=== PATIENT | female | born 1955 | race Caucasian/White ===

== ENCOUNTER 2022-11-16 14:03 | Outpatient (AMB) | payer MEDICARE, OTHER, SELFPAY ==
--- NOTE | 2022-11-16 14:14 | MHC.OFFVIS ---
Intake Vital Signs 11/16/22 14:15 Height 5 ft 1 in Weight 152 lb 8.958 oz BMI 28.8 BP 127/62 Blood Pressure Location Lt brachial Position Sitting Pulse 84 Intake Visit Reasons: YULIANA, ? need endoscopy Intake Note: Patient presents to in office visit today as a new patient for anemia and rectal bleeding. CC: Patient previously seen at [facility] but GI provider she use to see is no longer there. Last colonoscopy was done on 12/18 and one polyp was removed. She reports rectal bleeding usually in the mornings due to hemorrhoids. Allergies No Known Allergies Allergy (Verified 11/16/22 14:21) HPI YULIANA, ? need endoscopy HPI Details 67-year-old female here for an initial evaluation of anemia. She is referred by EDGAR Pierre of [facility]. PMX ANATOLY Hypertension High cholesterol Anemia Diabetes Gilbert's syndrome syndrome GERD History of colon polyps History of nephrolithiasis Hemorrhoids with a history of bleeding * SURGICAL HISTORY Colonoscopy-2021 equal large TA at [facility] Bilateral cataract extraction large renal stone removal * ALLERGIES: NKDA * LABS: 09/2022 HEMOGLOBIN AND HEMATOCRIT 12/27 NORMOCYTIC NORMOCHROMIC, normal platelets, mildly reduced GFR 58, normal hepatic panel, ferritin low at 51, TODAY'S VISIT They want her referred for consideration of an upper endoscopy, she has struggled with YULIANA for many years, but this came to a head as a problem when she started donating blood. She does have intermittent fatigue. She does not eat a lot of rare red meat, but she does eat chicken and pork. She stopped eating spinach r/t nephrolithiasis. She has iron in her MVI. There are no prior problems with anesthesia or sedation. She denies any cardiac or respiratory problems. No ID problems. NO FHX of stomach cancer, anemia runs on her paternal side. Return office visit after EGD. [facility] Surgical History H/O colonoscopy H/O bilateral cataract extraction Family History Maternal Grandmother Colostomy status Cancer Social History Alcohol intake: current Alcohol intake frequency: holidays/special occasions only Patient Tobacco Use Status: Former Tobacco user Review of Systems Const Reports fatigue, Denies fever(s), Denies night sweats, Denies poor appetite and Denies weight loss ENT Reports Normal hearing present, Denies dental pain, Denies dysphagia, Denies hearing loss, Denies mouth pain, Denies odynophagia, Denies throat swelling, Denies tongue swelling and Reports other (Dentition adequate) Card Reports no additional complaints Resp Reports no additional complaints GI Denies abdominal pain, Denies melena, Denies bloating, Denies hematochezia, Denies constipation, Denies GI cramping, Denies dysphagia, Denies excessive flatus, Denies early satiety, Reports heartburn, Denies diarrhea, Denies nausea, Denies odynophagia, Denies vomiting and Denies hematemesis Skin/Breast Denies pruritus, Denies lesions, Denies rash and Denies jaundice Neuro Reports Normal hearing present and Denies Abnormal speech present Endo Reports fatigue Aller/Immun Denies throat swelling and Denies tongue swelling Physical Exam Vital Signs: Last Vital Signs Pulse 84 11/16/22 14:15 BP 127/62 11/16/22 14:15 BMI result Body Mass Index 28.8 Const General: cooperative, no acute distress, well developed and well groomed Nutritional Appearance: well nourished and overweight Orientation/consciousness: oriented to person, oriented to place and oriented to time Limitations: No language barrier HEENT Head: Yes normocephalic and Yes atraumatic Eyes General: appearance normal, both eyes and all related structures Pupils: Equal, round and reactive pupils present Neck Neck: Yes normal visual inspection and Yes no lymphadenopathy Thyroid: Thyroid normal Resp Effort & Inspection: normal respiratory effort and able to speak in complete sentences Auscultation: clear to auscultation bilaterally Cardio Rate: regular rate Rhythm: regular rhythm Heart sounds: Normal, physiologic split S2 sound present Peripheral pulses: radial pulses present and posterior tibial pulses present GI Inspection: No distended, No Abdominal panniculus present and Yes obesity Palpation (GI): Soft to palpation, nontender, no guarding, not rigid and No hepatosplenomegaly present Percussion: Yes normal to percussion Auscultation: normal bowel sounds Rectal Exam - Female: deferred Skin General skin exam: no rashes or lesions noted, turgor normal, skin not dry, no jaundice, No spider nevi and no striae Rashes: no rashes Nails: normal Neuro General: oriented to person, oriented to place and oriented to time Cranial nerves: Yes Equal, round and reactive pupils present and Yes Normal hearing present Speech: No Abnormal speech present Extrem General: Yes normal to inspection, No clubbing, No cyanosis and No edema Psych Appearance: grossly normal and well kempt Mental Status: mental status grossly normal Speech and movement: Normal speech and movement present Affect: normal affect Attitude: cooperative Thought process: Normal thought process present and not confabulating Thought content: Normal thought content present Insight: Limited insight present (Psych) Judgement: Limited judgement present (Psych) Assessment & Plan Assessment & Plan (1) Anemia: Code(s): D64.9 - Anemia, unspecified Plan: They want her referred for consideration of an upper endoscopy, she has struggled with YULIANA for many years, but this came to a head as a problem when she started donating blood. She does have intermittent fatigue. She does not eat a lot of rare red meat, but she does eat chicken and pork. She stopped eating spinach r/t nephrolithiasis. She has iron in her MVI. There are no prior problems with anesthesia or sedation. She denies any cardiac or respiratory problems. No ID problems. NO FHX of stomach cancer, anemia runs on her paternal side. Return office visit after EGD. Orders: Orders EGD with German - GI Use Only 11/16/22 D64.9 - Anemia, unspecified Coding Level of Care Code New Pt Level 3 (25230) Diagnoses Anemia D64.9
[2022-11-16 14:15] VITALS: BP 127/62; PULSE 84; BMI 28.8
== END 2022-11-16 15:53 | disposition home or self-care (01) ==
PROVIDERS: Visit Provider Nurse Practitioner
DX: D64.9 Anemia, unspecified (principal)
CPT/HCPCS: 99203

== ENCOUNTER → 2022-11-16 14:03 | Outpatient (BNVA) | payer OTHER, SELFPAY | PROVIDERS: Visit Provider Nurse Practitioner ==

== ENCOUNTER 2023-02-02 07:30 | Day surgery (SDC) | payer MEDICARE, OTHER, SELFPAY ==
[2023-01-31 13:07] VITALS: BMI 28.9
--- NOTE | 2023-02-01 10:55 | HO.ANESPROP2 ---
Documented by User: Korin Pham NP 02/01/23 10:55 HPI - Anesthesia Eval Consult details Narrative: 67yo F for Upper Endoscopy PMFSH Active Problems Active Problems: All Active Problems (Updated 01/31/23 @ 13:06 by Fanny Deras, TREMAYNE) Nephrolithiasis (Acute) Bleeding hemorrhoids (Acute) Tubular adenoma of colon (Acute) [place] syndrome (Acute) Diabetic neuropathy (Acute) Diabetes (Acute) High cholesterol (Acute) Hypertension (Acute) ANATOLY (obstructive sleep apnea) (Acute) Anemia (Acute) Past Medical History Medical History Renal calculi Sleep apnea [place] syndrome Diabetes Elevated cholesterol HTN (hypertension) Family History Family History Maternal Grandmother Colostomy status Cancer Surgical History Surgical History Hx of cystoscopy H/O colonoscopy H/O bilateral cataract extraction Social History Social History Alcohol intake: current Alcohol intake frequency: does not drink Patient Tobacco Use Status: Former Tobacco user Are you DNR?: No Advance Directives: No Advance Directives Information Provided: Yes Nutrition Risks: No Nutritional Risk Meds Allergies Allergy/AdvReac Type Severity Reaction Status Date / Time No Known Allergies Allergy Verified 11/16/22 14:21 Home Medications Medication Instructions Recorded Confirmed Last Taken Type amlodipine 2.5 mg tablet 2.5 mg PO DAILY 11/16/22 01/31/23 Unknown History atorvastatin 20 mg tablet 20 mg PO DAILY 11/16/22 01/31/23 Unknown History calcium citrate 200 mg (950 mg) 200 mg PO DAILY 11/16/22 Unknown History tablet insulin aspart U-100 100 unit/mL 50 unit subcut Q24H 11/16/22 01/31/23 Unknown History subcutaneous solution (Novolog U-100 Insulin aspart) metformin 1,000 mg tablet 1,000 mg PO BID 11/16/22 01/31/23 Unknown History multivitamin (Daily Multi-Vitamin 1 tab PO DAILY 11/16/22 Unknown History tablet) omega 7-uwz-afw-fish oil 1,000 mg 1 cap PO DAILY 11/16/22 Unknown History (120 mg-180 mg) capsule (Fish Oil) omeprazole 20 mg capsule,delayed 20 mg PO DAILY 11/16/22 01/31/23 Unknown History release valsartan 320 1 tab PO DAILY 11/16/22 01/31/23 Unknown History mg-hydrochlorothiazide 12.5 mg tablet vitamin B complex (B 1 tab PO DAILY 11/16/22 Unknown History Complex-Vitamin B12 tablet) Exam Height,Weight and Vital Signs: Height 5 ft 1 in Weight 69.4 kg Assessment and Plan Assessment Anesthesia Assessment: Chart Reviewed Documented by User: Vega Macario MD 02/02/23 08:09 [facility] Past Medical History Medical History Renal calculi Sleep apnea [place] syndrome Diabetes Elevated cholesterol HTN (hypertension) Family History Family History Maternal Grandmother Colostomy status Cancer Family history of problems with anesthesia: No Surgical History Surgical History Hx of cystoscopy H/O colonoscopy H/O bilateral cataract extraction History of Problems with Anesthesia: No Social History Social History Alcohol intake: current Alcohol intake frequency: does not drink Patient Tobacco Use Status: Former Tobacco user Are you DNR?: No Advance Directives: No Advance Directives Information Provided: Yes Nutrition Risks: No Nutritional Risk Meds Allergies Allergy/AdvReac Type Severity Reaction Status Date / Time No Known Allergies Allergy Verified 11/16/22 14:21 Home Medications Medication Instructions Recorded Confirmed Last Taken Type amlodipine 2.5 mg tablet 2.5 mg PO DAILY 11/16/22 01/31/23 Unknown History atorvastatin 20 mg tablet 20 mg PO DAILY 11/16/22 01/31/23 Unknown History calcium citrate 200 mg (950 mg) 200 mg PO DAILY 11/16/22 Unknown History tablet insulin aspart U-100 100 unit/mL 50 unit subcut Q24H 11/16/22 01/31/23 Unknown History subcutaneous solution (Novolog U-100 Insulin aspart) metformin 1,000 mg tablet 1,000 mg PO BID 11/16/22 01/31/23 Unknown History multivitamin (Daily Multi-Vitamin 1 tab PO DAILY 11/16/22 Unknown History tablet) omega 1-vxb-cic-fish oil 1,000 mg 1 cap PO DAILY 11/16/22 Unknown History (120 mg-180 mg) capsule (Fish Oil) omeprazole 20 mg capsule,delayed 20 mg PO DAILY 11/16/22 01/31/23 Unknown History release valsartan 320 1 tab PO DAILY 11/16/22 01/31/23 Unknown History mg-hydrochlorothiazide 12.5 mg tablet vitamin B complex (B 1 tab PO DAILY 11/16/22 Unknown History Complex-Vitamin B12 tablet) Exam Airway Mallampati Class: III TM Dist: >3cm Neck ROM: Full Loose/Missing/Broken Teeth: No Heart: rrr+[id number] Lungs: cta b/l Assessment and Plan Assessment Anesthesia Assessment: Anesthesia Plan Discussed Final Anesthetic Review Family History of Problems with Anesthesia: No History of Problems with Anesthesia: No NPO: Yes ASA Class: III Final Preanesthetic Review: No Changes in Pt Med Stat, Meds/Allgs Chart Reviewed, Consent Obtained/Reviewed and Anes Risks/Benef Reviewed Patient Risk: Intermediate Procedure Risk: Intermediate Assessment/Block/Sedation in SS: Assess/Block/Sedation-SS Anesthetic Plan Anesthetic Plan: MAC: and Agree w/ Assess. and Plan Disposition: Standard PACU
[2023-02-02 07:39] VITALS: BMI 27.8
[2023-02-02 08:06] VITALS: BP 158/78; PULSE 78; RESP 20; TEMP 36.8; O2SAT 97
[2023-02-02] MEDS: Lactated Ringers 1,000 ML 100 ML IVCONT (08:07)
--- NOTE | 2023-02-02 08:34 | MHC.SHP ---
Pre-Procedural Eval Section A Date of Service: 02/02/23 Section B Chief Complaint: Anemia, unspecified Relevant Family History (Specify if Yes): No Relevant Social History: None Present Medications: see Short Stay Collaborative assessment Medical History: Significant History (Renal calculi Sleep apnea Byron syndrome Diabetes Elevated cholesterol HTN (hypertension)) History of Previous Operations: Relevant previous surgery/procedure and date(s) (Hx of cystoscopy H/O colonoscopy H/O bilateral cataract extraction) Allergies: Allergies Allergy/AdvReac Type Severity Reaction Status Date / Time No Known Allergies Allergy Verified 11/16/22 14:21 Review of Systems Sugical H&P ROS: Negative: Constitution, Cardiovascular, Respiratory, Neurological, Psychiatric, Hem-Onc, Allergic/Immunologic, Gastrointestinal, Genitourinary, Musculoskeletal, Integumentary, Endocrine and Eyes/Ears/Nose/Throat Exam Surgical H&P Exam: Normal: HEENT, Normal: Heart, Normal: Lungs, Normal: Extremities, Normal: Abdomen, Normal: Skin and Normal: Neurological Plan Diagnosis/Plan: Unchanged I have reviewed the history and physical and performed a pertinent physical examination on my patient. No changes have occurred unless specified. Time Spent With Patient Time: Total time managing care of this patient today ____ minutes.
--- NOTE | 2023-02-02 08:42 | W.PM.OPN ---
Operative Note Operative Note Date of Service: 02/02/23 Narrative: Procedure Description: EGD Indication: anemia Anesthesia: MAC FLEXIBLE TRANSORAL UPPER GASTROINTESTINAL ENDOSCOPY UPPER ENDOSCOPY Consent: Indications for the procedure and potential complications of bleeding, perforation, reaction to medications and missed diagnosis were discussed with the patient and informed consent was obtained. Instrument: Olympus GIF H 190 J mid size upper endoscope Monitoring: Vital signs and clinical assessment, continuous EKG monitoring, Pulse oximetry, Carbon Dioxide monitoring and blood pressure monitoring were done throughout the procedure. Procedure: The patient was placed in the left lateral decubitis position and pre-procedure medications were administered and a bite block was placed. The endoscope was inserted into the mouth and advanced under direct vision to the third part of duodenum. A careful inspection was made as the upper endoscope was withdrawn including a retroflexed examination of the proximal stomach; Findings and interventions are described below. Findings: Larynx:normal Esophagus: GE junction at 37 cm, diaphragm hiatus at 31 cm, no varices or esophagitis. Stomach: Normal mucosa with few small fundic gland polyps noted. Biopsies were obtained. Grade 2 flap valve on retroflexed examination of the cardia. Hiatal hernia noted Duodenum: Normal bulb and descending duodenum, bx taken Intervention: Biopsies as noted above Impression/Findings: hiatal hernia, fixed PLAN: GERD precautions capsule endoscopy to complete anemia work up
[2023-02-02 08:46] VITALS: BP 102/44; PULSE 86; RESP 16; TEMP 36.8; O2SAT 100
[2023-02-02 09:01] VITALS: BP 159/90; PULSE 92; RESP 18; TEMP 36.6; O2SAT 98
== END 2023-02-02 09:46 | disposition home or self-care (01) ==
PROVIDERS: PCP Nurse Practitioner Primary Care; Visit Provider Internal Medicine Gastroenterology
PROC: 0DJ08ZZ Inspection of Upper Intestinal Tract, Via Natural or Artificial Opening Endoscopic (ICD-10-PCS; CPT 43235; principal; 2023-02-02 09:30)
DX: K31.7 Polyp of stomach and duodenum (principal); K29.80 Duodenitis without bleeding; K44.9 Diaphragmatic hernia without obstruction or gangrene; D64.9 Anemia, unspecified; E11.9 Type 2 diabetes mellitus without complications; E78.00 Pure hypercholesterolemia, unspecified; I10 Essential (primary) hypertension; G47.33 Obstructive sleep apnea (adult) (pediatric); Z87.891 Personal history of nicotine dependence
CPT/HCPCS: 43239; 88305; 88342; J2704

== ENCOUNTER → 2023-02-02 07:30 | Outpatient (BNV) | payer MEDICARE, OTHER, SELFPAY | PROVIDERS: PCP Nurse Practitioner Primary Care; Visit Provider Internal Medicine Gastroenterology | DX: D64.9 Anemia, unspecified (principal); K31.7 Polyp of stomach and duodenum; K29.80 Duodenitis without bleeding; K44.9 Diaphragmatic hernia without obstruction or gangrene | CPT/HCPCS: 43239 ==

== ENCOUNTER → 2023-03-10 13:04 | Outpatient (BNVA) | payer MEDICARE, OTHER, SELFPAY | PROVIDERS: Visit Provider Nurse Practitioner | DX: K29.80 Duodenitis without bleeding (principal); K64.9 Unspecified hemorrhoids; Z86.010 Personal history of colon polyps; Z98.890 Other specified postprocedural states | CPT/HCPCS: 99212 ==

== ENCOUNTER 2023-05-01 08:17 | Outpatient (AMB) | payer MEDICARE, OTHER, SELFPAY ==
--- NOTE | 2023-05-08 17:37 | A.OFFVIS_ITS ---
Intake Intake Visit Reasons: CAPSULE ENDOSCOPY Allergies No Known Allergies Allergy (Verified 11/16/22 14:21) PFSH Medical History Renal calculi Sleep apnea [place] syndrome Diabetes Elevated cholesterol HTN (hypertension) Surgical History Hx of cystoscopy H/O colonoscopy H/O bilateral cataract extraction Family History Maternal Grandmother Colostomy status Cancer Social History Alcohol intake: current Alcohol intake frequency: does not drink Patient Tobacco Use Status: Former Tobacco user Office Procedures AMB Capsule Endoscopy Procedure Notes: Capsule Endoscopy: Date of Service:05/01/23 Indication: [anemia] Findings: normal appearing stomach, but rapid gastric emptying. Small bowel normal, du odenum entered at 4 mins, cecum reached at 4 hr 10 min Conclusion: no cause for anemia found, possible rapid gastric emptying Capsule Endoscopy CPT Code: 60683 - Capsule Endoscopy Assessment & Plan Assessment & Plan (1) Anemia: Code(s): D64.9 - Anemia, unspecified Plan: see report Coding Level of Care Code Procedure Only Diagnoses Anemia D64.9 CPT Codes AMB Capsule Endoscopy - Capsule Endoscopy CPT Code: 16086 - Capsule Endoscopy ([id number])
== END 2023-05-01 08:38 | disposition home or self-care (01) ==
PROVIDERS: PCP Nurse Practitioner Primary Care; Visit Provider Internal Medicine Gastroenterology
DX: D64.9 Anemia, unspecified (principal)
CPT/HCPCS: 91110

== ENCOUNTER → 2023-05-01 08:17 | Outpatient (BNVA) | payer MEDICARE, OTHER, SELFPAY | PROVIDERS: PCP Nurse Practitioner Primary Care; Visit Provider Internal Medicine Gastroenterology | DX: D64.9 Anemia, unspecified (principal) | CPT/HCPCS: 91110 ==

== ENCOUNTER 2023-05-19 09:10 | Outpatient (AMB) | payer MEDICARE, OTHER, SELFPAY ==
--- NOTE | 2023-05-19 09:12 | A.OFFVIS_ITS ---
Intake Vital Signs 05/19/23 09:13 Height 5 ft 1 in Weight 145 lb BMI 27.4 BP 157/70 H Blood Pressure Location Lt brachial Position Sitting Pulse 94 Intake Visit Reasons: F/U Capsule Per May Intake Note: Betty presents in the office to discuss capsule report with Anirudh per May Tri. Human Resources Trainee Required: No Allergies No Known Allergies Allergy (Verified 05/19/23 09:13) HPI F/U Capsule Per May HPI Details 67 yr old f here for f/u for chronic ane wilson RECAP: She had EGD 02/18 for anemia w/u--revealed large hiatal hernia, fundic gland polyps--path-focal chronic duodenitis colonoscopy- 2021- done at [place], one polyp removed--apparently large Capsule endo- normal, no active bleeding, possible rapid gastric emptying hx of bleeding hemorrhoids LABS: 09/2022 HEMOGLOBIN AND HEMATOCRIT 12/27 NORMOCYTIC NORMOCHROMIC, normal platelets, mildly reduced GFR 58, normal hepatic panel, ferritin low at 51, sees hematology once a year at [place] INTERIM: she has intermittent rectal bleeding usu when she strains and forces hard stool out notes it goes to bathroom daily she denies nausea, no vomiting no abdominal pain EXAM: GENERAL: The patient is well developed and nontoxic. VITAL SIGNS:see workflow HEENT: Nonicteric sclerae, PERRLA, EOMI. Oropharynx clear. Moist mucous membranes. Conjunctivae appear well perfused. No thyroid mass. CHEST: Chest wall is nontender. HEART: Regular rate and rhythm without murmurs. LUNGS: Clear to auscultation bilaterally. ABDOMEN: Soft, positive bowel sounds, nontender, no organomegaly.no flank tenderness SKIN: No rash, no excessive bruising, petechiae, or purpura. NEUROLOGIC: Cranial nerves II-XII intact without motor/sensory deficit. Psych: normal affect A/P: 1/ Chronic anemia, likely from hemorrhoi ds, had investigations as above 2/ Large hiatal hernia--asymptomatic PLAN: 1/ refer Dr Garland for discussion about herni a repair given size 2/ H pylori and celiac serology for duod enitis 3/ repeat colonoscopy approx 2026 or [place] if clinically indicated 4/ high fiber diet, wants to hold on lenard horton referral [facility] Medical History Renal calculi Sleep apnea Howes syndrome Diabetes Elevated cholesterol HTN (hypertension) Surgical History Hx of cystoscopy H/O colonoscopy H/O bilateral cataract extraction Family History Maternal Grandmother Colostomy status Cancer Social History Alcohol intake: current Alcohol intake frequency: does not drink Patient Tobacco Use Status: Former Tobacco user Assessment & Plan Assessment & Plan (1) Duodenitis: Comment: mild very focal only, no HP Code(s): K29.80 - Duodenitis without bleeding Plan: as above (2) Hiatal hernia: Code(s): K44.9 - Diaphragmatic hernia without obstruction or gangrene Plan: as above Orders: Orders Transglutaminase Ab IgG Today G89.29 - Other chronic pain, K29.80 - Duodenitis without bleeding, R10.33 - Periumbilical pain Transglutaminase IgA Today K29.80 - Duodenitis without bleeding Gliadin Ab Panel Today K29.80 - Duodenitis without bleeding Complete Blood Count Auto Diff Today K29.80 - Duodenitis without bleeding Comprehensive Met. Panel Today K29.80 - Duodenitis without bleeding, K75.81 - Nonalcoholic steatohepatitis (GUZMÁN) H Pylori Breath Test Today Referrals Bariatric Surgery Referral K44.9 - Diaphragmatic hernia without obstruction or gangrene Coding Level of Care Code Est Pt Level 4 (27104) Diagnoses Duodenitis K29.80 Hiatal hernia K44.9
[2023-05-19 09:13] VITALS: BP 157/70; PULSE 94; BMI 27.4
== END 2023-05-19 09:36 | disposition home or self-care (01) ==
PROVIDERS: PCP Nurse Practitioner Primary Care; Visit Provider Internal Medicine Gastroenterology
DX: K29.80 Duodenitis without bleeding (principal); K44.9 Diaphragmatic hernia without obstruction or gangrene
CPT/HCPCS: 99214

== ENCOUNTER 2023-05-19 09:10 | Outpatient (REF) | payer MEDICARE, OTHER, SELFPAY ==
[2023-05-19 10:08] LABS: MANUAL DIFF FLAG NO
[2023-05-19 10:44] LABS: Basophils Absolute Auto 0.1 X10*3/uL (0.0-0.2); Basophils Percent Auto 1.1 % (0-2); Eosinophils Absolute Auto 0.4 X10*3/uL (0.0-0.4); Eosinophils Percent Auto 4.3 % (0-4); Hematocrit 33.1 % (37.0-47.0); Hemoglobin 11.1 g/dl (12.0-16.0); Imm Gran Abs Auto 0.02 X10*3/uL (0.00-0.03); Imm Gran Pct Auto 0.2 % (0.0-0.4); Lymphocytes Percent Auto 23.7 % (20-40); Mean Corpuscular HGB Conc 33.5 g/dl (31.0-35.0); Mean Corpuscular Volume 92.5 fL (80.0-98.0); Mean Platelet Volume 9.1 fL (9.4-12.3); Monocytes Absolute Auto 0.9 X10*3/uL (0.1-1.2); Monocytes Percent Auto 10.2 % (2-11); Neutrophils Absolute Auto 5.2 x10*3/uL (2.0-8.3); Neutrophils Percent Auto 60.5 % (45-73); Platelet Count 359 X10*3/uL (160-400); Red Blood Count 3.58 X10*6/uL (4.20-5.50); Red Cell Distribution Width 12.5 % (11.0-16.0); White Blood Count 8.6 X10*3/uL (4.8-10.8)
[2023-05-19 11:14] LABS: Alanine Aminotransferase 17 U/L (0-31); Alkaline Phosphatase 58 U/L (39-117); Anion Gap 15 (12-20); Aspartate Amino Transferase 24 U/L (5-31); Bilirubin Total 0.5 mg/dL (0.0-1.0); Blood Urea Nitrogen 20 mg/dL (9-16); Calcium 10.4 mg/dL (8.4-10.2); Carbon Dioxide 24 mmol/L (22-29); Chloride 99 mmol/L (96-108); Estimated Glomerular Filt Rate 59; Glucose Random 159 mg/dL (60-115); Potassium 4.9 mmol/L (3.3-5.1); Sodium 133 mmol/L (135-145); Total Protein 7.1 g/dL (6.5-8.0)
[2023-05-22 22:32] LABS: Transglutaminase Ab IgG <1.0 U/mL; Transglutaminase IgA <1.0 U/mL
[2023-05-22 22:48] LABS: Gliadin Deamidated IgA Ab <1.0 U/mL; Gliadin Deamidated IgG Ab <1.0 U/mL
== END 2023-05-19 09:11 | disposition home or self-care (01) ==
LOC: HO.LAB 09:10
PROVIDERS: PCP Nurse Practitioner Primary Care; Visit Provider Internal Medicine Gastroenterology
DX: K29.80 Duodenitis without bleeding (principal); R10.33 Periumbilical pain; G89.29 Other chronic pain; K75.81 Nonalcoholic steatohepatitis (NASH); K44.9 Diaphragmatic hernia without obstruction or gangrene
CPT/HCPCS: 36415; 80053; 85025; 86258; 86364; 99212

== ENCOUNTER 2023-06-02 08:48 | Outpatient (REF) | payer MEDICARE, OTHER, SELFPAY ==
[2023-06-04 12:45] LABS: H Pylori Breath Test Negative (Negative)
== END 2023-06-02 08:49 | disposition home or self-care (01) ==
LOC: HO.LNP 08:48
PROVIDERS: PCP Nurse Practitioner Primary Care; Visit Provider Internal Medicine Gastroenterology
DX: Z11.2 Encounter for screening for other bacterial diseases (principal)
CPT/HCPCS: 83013; 99211

== ENCOUNTER 2023-06-02 08:48 | Outpatient (AMB) | payer MEDICARE, OTHER, SELFPAY ==
--- NOTE | 2023-06-02 09:00 | AM.OFFVISNUR ---
Intake Intake Visit Reasons: H.pylori Breath test Allergies No Known Allergies Allergy (Verified 05/19/23 09:13) Nursing Note Patient presents for collection of?H?Pylori?breath test. Patient has been fasting for 1 hour (nothing to eat, drink, no chewing gum or smoking) has not taken any antacid medication for at least 2 weeks and has no allergies to artificial sweeteners.?? Coding Level of Care Code Established Pt Est Pt Level 1 (88242) Patient Type Established Medical Decision Making Straight Forward Diagnoses Duodenitis K29.80 Assessment & Plan Assessment & Plan (1) Duodenitis: Comment: mild very focal only, no HP Code(s): K29.80 - Duodenitis without bleeding Category: Medical Plan Patient presents for collection of?H?Pylori?breath test. Patient has been fasting for 1 hour (nothing to eat, drink, no chewing gum or smoking) has not taken any antacid medication for at least 2 weeks and has no allergies to artificial sweeteners.???This test checks for an overgrowth of bacteria in your stomach. We all have bacteria but some may have more than others. It is treatable. if the test comes back negative there is nothing else to do. If the test result is positive we will treat you with 2 antibiotics and a medication to decrease the acid in your stomach (PPI) for 2 weeks. Two weeks after you have completed the treatment we will retest you to make sure the overgrowth has resolved. Patient Instructions: Process for specimen collection and reason for testing was explained to the patient. Specimen collection. Patient instructed to take a deep breath and then exhale into the blue bag, filling it up as much as possible. Patient instructed to drink a mixture of water and the artificial sweetener with a straw. A 15 minute wait period was observed. Patient instructed to take a deep breath and then exhale into the pink bag, filling it up as much as possible.??
== END 2023-06-02 09:03 | disposition home or self-care (01) ==
PROVIDERS: PCP Nurse Practitioner Primary Care; Visit Provider Internal Medicine Gastroenterology
DX: K29.80 Duodenitis without bleeding (principal)

== ENCOUNTER 2023-07-17 09:32 | Outpatient (AMB) | payer MEDICARE, OTHER, SELFPAY ==
--- NOTE | 2023-07-17 10:07 | A.OFFVIS_ITS ---
Intake Visit Reasons: TV Hiatal Hernia - Dr. Oleary Ref Allergies No Known Allergies Allergy (Verified 07/17/23 10:08) Medication List - Last Reconciled 07/17/23 by Jaiden Hines MD amlodipine 2.5 mg PO DAILY atorvastatin 20 mg PO DAILY calcium citrate 200 mg PO DAILY cyanocobalamin-liver extract tabs PO fexofenadine (Magdalena Hives) 180 mg PO DAILY fluticasone propionate 50 mcg/actuation (Flonase Allergy Relief) 1 spray intranasal DAILY insulin aspart U-100 (Novolog U-100 Insulin aspart) 50 units subcut Q24H metformin 1,000 mg PO BID multivitamin (Daily Multi-Vitamin tablet) 1 tab PO DAILY omega 6-xcj-iux-fish oil 1,000 mg (120 mg-180 mg) (Fish Oil) 1 cap PO DAILY omeprazole 20 mg PO DAILY peg-electrolyte soln 420 gram 240 mL PO ONCE valsartan-hydrochlorothiazide 320-12.5 mg 1 tab PO DAILY vitamin B complex (B Complex-Vitamin B12 tablet) 1 tab PO DAILY HPI HPI TV Hiatal Hernia - Dr. Oleary Ref: Details: Start time: 9.56am, End time: 10.41am ?I spent 40 minutes speaking with the patient on the phone plus an additional 5 minutes reviewing and updating records for a total of 45 minutes HPI Comments Details: Recent EGD revealed a 6cm fixed diaphragmatic hernia. The endoscopy did not reveal any esophagitis and this was not shown in the path report. The patient does not have breakthrough GERD symptoms and is satisfied with her present state. Denies difficulty breathing or history of pneumonias. [facility] Medical History (Updated 07/17/23 @ 10:13 by Jaiden Hines MD) GERD (gastroesophageal reflux disease) Renal calculi Sleep apnea [place] syndrome Diabetes Elevated cholesterol HTN (hypertension) Surgical History Hx of cystoscopy H/O colonoscopy H/O bilateral cataract extraction Family History Maternal Grandmother Colostomy status Cancer Social History Alcohol intake: current Alcohol intake frequency: does not drink Patient Tobacco Use Status: Former Tobacco user Telehealth Telehealth Telehealth Platform: Telephone Location of provider rendering services: practice address Location of patient: address on file Patient Identification confirmed using: Name, : Yes Telehealth method: voice only Patient verbally consented to treatment: Yes Patient verbally consented to billing insurance company: Yes Patient informed of any privacy concerns related to visit: Yes Minutes spent on Phone/Video with Pt.: 45 Assessment & Plan Assessment & Plan (1) Hiatal hernia: Code(s): K44.9 - Diaphragmatic hernia without obstruction or gangrene Category: Medical Plan: 1. We discussed the details of the diaphragmatic hernia repair and the potential technical challenges such as being able to achieve enough mobilization of the esophagus back in the abdomen and being able to close the diaphragmatic muscle (crura) primarily with sutures. We also discussed the possibility of using a biologic mesh to close the hernia defect if the crura cannot be adequately re- approximated primarily with sutures. We also discussed the option of doing a gastropexy or a fundoplication to prevent postoperative reflux and prevent hernia recurrence. As we discussed, I favor the gastropexy as the fundoplication can cause several distrurbing symptoms such as gas-bloating, flatulence, inability to burp which can be bothersome to patients especially for her with a history of IBS. Also we discussed the complexity of a potential hernia recurrence in association with a hernia recurrence. We also discussed the possibility of not performing a repair right now given the few symptoms she has and the lack of esophagitis and observe it with surveillance endoscopies. 2. Before decision is made, an UGI as well as a CT chest/abdomen/pelvis will be performed. Patient is in agreement with this plan. Orders: Orders CT abdomen pelvis wo IV con Today K21.9 - Gastro-esophageal reflux disease without esophagitis, K44.9 - Diaphragmatic hernia without obstruction or gangrene FL upper GI w air w Ba Swallow Today K21.9 - Gastro-esophageal reflux disease without esophagitis, K44.9 - Diaphragmatic hernia without obstruction or gangrene CT chest wo IV con Today K21.9 - Gastro-esophageal reflux disease without esophagitis, K44.9 - Diaphragmatic hernia without obstruction or gangrene
== END 2023-07-17 10:43 | disposition home or self-care (01) ==
LOC: HO.HBS 09:32
PROVIDERS: PCP Nurse Practitioner Primary Care; Visit Provider Surgery
DX: K44.9 Diaphragmatic hernia without obstruction or gangrene (principal)
CPT/HCPCS: 99443

== ENCOUNTER → 2023-07-17 09:32 | Outpatient (BNVA) | payer MEDICARE, OTHER, SELFPAY | PROVIDERS: PCP Nurse Practitioner Primary Care; Visit Provider Surgery ==

== ENCOUNTER 2023-09-18 08:40 | Outpatient (REF) | payer MEDICARE, OTHER, SELFPAY ==
--- NOTE | ~2023-09-18 | FL_ITS ---
EXAMINATION: XR FLUOROSCOPY UPPER GI WITH AIR CLINICAL INFORMATION: Evaluates hiatal hernia COMPARISON: None TECHNIQUE: Fluoroscopic air contrast upper GI examination was performed utilizing standard techniques with thin and thick barium and effervescent granules. Numerous spot images were obtained. FINDINGS: Imaging of the oropharynx and hypopharynx demonstrate normal swallow mechanism with normal epiglottic inversion and soft palate elevation. No tracheal penetration, glottic or subglottic aspiration identified. No nasopharyngeal reflux present. Hypopharyngeal structures appear normal without evidence of mass or diverticulum. 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 Dual and single contrast images of the esophagus demonstrate normal caliber and contour. There is a granular appearance to the esophageal mucosa in the mid and distal esophagus, suggesting reflux esophagitis. No evidence of stricture, mass, or ulcerations identified. Esophageal peristalsis is mildly disorganized. A small to moderate sized type I hiatal hernia is present. Significant gastroesophageal reflux is seen up to the thoracic inlet. Dual contrast and single contrast images of the stomach demonstrated a normal contour. The gastric rugal folds have a thickened appearance. In addition, there are multiple foci of contrast pooling in the fundus and body the stomach that likely represent small superficial aphthous ulcers. No masses are present. Contrast freely passed into the gastric antrum and duodenal bulb without delay. Single and air-contrast images of the duodenal bulb demonstrate no abnormality. The duodenal sweep has a normal appearance, course, and mucosal fold appearance. There is a small third segment diverticulum. The imaged proximal jejunum has a normal fold pattern and caliber. FLUOROSCOPY TIME: 3 minutes 29 seconds Number of Spot Images: 10 Number of Cine: 9 DOSE AREA PRODUCT: 1911 uGy-m2 (microgray-meter squared) FL/FL upper GI w air w Ba Swallow IMPRESSION: 1. 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 2. Mild esophageal dysmotility. Granular appearance to the esophageal mucosa may indicate reflux esophagitis. 3. Small to moderate type I hiatal hernia 4. Severe gastroesophageal reflux. 5. Thickened appearance of the gastric rugal folds. In addition, there are multiple foci of contrast pooling in the fundus and body of the stomach. These findings are suggestive of erosive gastritis. Recommend correlation with EGD. This procedure was performed by Sina Manley PA-C, and supervised by Dr. Gilman
== END 2023-09-18 08:41 | disposition home or self-care (01) ==
LOC: HO.XRAY 08:40
PROVIDERS: Visit Provider Surgery
DX: K44.9 Diaphragmatic hernia without obstruction or gangrene (principal); K21.9 Gastro-esophageal reflux disease without esophagitis
CPT/HCPCS: 74246

== ENCOUNTER → 2023-09-18 08:42 | Outpatient (BNV) | payer MEDICARE, OTHER, SELFPAY | PROVIDERS: Visit Provider Physician Assistant Surgical | DX: K44.9 Diaphragmatic hernia without obstruction or gangrene (principal) | CPT/HCPCS: 74246 ==

== ENCOUNTER 2023-09-25 10:07 | Outpatient (REF) | payer MEDICARE, OTHER, SELFPAY ==
--- NOTE | ~2023-09-25 | CT_ITS ---
EXAMINATION: CT CHEST WITHOUT CONTRAST CLINICAL INFORMATION: Diaphragmatic hernia COMPARISON: None available. TECHNIQUE: Multidetector volumetric CT imaging of the chest was done. Axial MIP volume rendering provided. Sagittal and coronal reformatted images were obtained. This CT examination was performed using dose optimization techniques as appropriate, variously including the following: *Automated exposure control *Adjustment of mA and/or kV according to patient size (this includes techniques or standardized protocols for targeted exams where dose is matched to indication/reason for exam; i.e. extremities or head) *Use of iterative reconstruction technique DLP: 133 mGy-cm FINDINGS: MEDIA CENTER ASSISTANT: Unremarkable LUNGS: The lungs are clear with no evidence of inflammation or nodules. MEDIASTINUM: The mediastinum is normal. CORONARY ARTERY CALCIFICATION: None visualized on this study. PLEURA: There is no pleural effusion. No pleural mass or thickening. AXILLA: No lymphadenopathy. UPPER ABDOMEN: There is large hiatal hernia OSSEOUS STRUCTURES: Unremarkable. CT/CT chest wo IV con IMPRESSION: Large hiatal hernia. Fleischner guidelines were followed. Electronically signed by: Yumiko Pollock MD 10/23/2023 09:09 AM EDT
--- NOTE | ~2023-09-25 | CT_ITS ---
EXAMINATION: CT ABDOMEN AND PELVIS WITHOUT CONTRAST CLINICAL INFORMATION: Diaphragmatic hernia COMPARISON: None available. TECHNIQUE: Multidetector volumetric imaging was performed from the superior aspect of the liver through the pubic symphysis. Sagittal and coronal reformatted images were obtained on the technologist's workstation. This CT examination was performed using dose optimization techniques as appropriate, variously including the following: *Automated exposure control *Adjustment of mA and/or kV according to patient size (this includes techniques or standardized protocols for targeted exams where dose is matched to indication/reason for exam; i.e. extremities or head) *Use of iterative reconstruction technique DLP: 415 mGy-cm FINDINGS: LUNG BASES: The visualized lung bases are unremarkable. LIVER, GALLBLADDER, AND BILIARY TREE: The liver is normal in size, shape, and attenuation. No focal hepatic lesion or biliary ductal dilatation is present. The gallbladder is unremarkable with no evidence of radiopaque gallstones, gallbladder wall thickening, or obvious pericholecystic inflammatory changes. PANCREAS: Unremarkable. SPLEEN: Unremarkable. ADRENAL GLANDS: Unremarkable. KIDNEYS AND URETERS: The kidneys are normal in size, shape, and attenuation. No hydronephrosis, hydroureter, or calculi seen. No perinephric stranding. BLADDER: Unremarkable. GASTROINTESTINAL TRACT: There is moderate constipation. No evidence of colitis, diverticulitis or diverticulosis. There is large hiatal hernia. ABDOMINAL WALL: There is a fat-containing left inguinal hernia LYMPH NODES: Normal. VASCULAR: Unremarkable. PELVIC VISCERA: Unremarkable. OSSEOUS STRUCTURES: Unremarkable. CT/CT abdomen pelvis wo IV con IMPRESSION: 1. Large hiatal hernia. 2. Fat-containing left inguinal hernia. 3. Constipation. Fleischner guidelines were followed. Electronically signed by: Yumiko Pollock MD 10/23/2023 09:06 AM EDT
== END 2023-09-25 10:08 | disposition home or self-care (01) ==
LOC: HO.CT 10:07
PROVIDERS: PCP Nurse Practitioner Primary Care; Visit Provider Surgery
DX: K44.9 Diaphragmatic hernia without obstruction or gangrene (principal); K21.9 Gastro-esophageal reflux disease without esophagitis
CPT/HCPCS: 71250; 74176

== ENCOUNTER 2023-11-13 09:02 | Outpatient (AMB) | payer MEDICARE, OTHER, SELFPAY ==
--- NOTE | 2023-11-13 09:11 | A.OFFVIS_ITS ---
Vital Signs 11/13/23 09:14 Height 5 ft 1 in Weight 145 lb 8.081 oz BMI 27.5 BP 126/54 L Blood Pressure Location Lt brachial Position Sitting Pulse 96 Intake Visit Reasons: 6 month follow up Intake Note: Betty presents in the office as a 6 month follow up. CC: She states that she is feeling good - not having any concerns. Allergies No Known Allergies Allergy (Verified 11/13/23 09:14) HPI HPI 6 month follow up: Details: 68 yr old f here for f/u for chronic anemia RECAP: She had EGD 02/18 for anemia w/u--revealed large hiatal hernia, fundic gland polyps--path-focal chronic duodenitis colonoscopy- 2021- done at [place], one polyp removed--apparently large Capsule endo- normal, no active bleeding, possible rapid gastric emptying hx of bleeding hemorrhoids LABS: 09/2022 HEMOGLOBIN AND HEMATOCRIT 12/27 NORMOCYTIC NORMOCHROMIC, normal platelets, mildly reduced GFR 58, normal hepatic panel, ferritin low at 51, sees hematology once a year at [facility] swallow: 09/19- hiatal hernia noted, CT chest/abdomen 09/19 large hiatal hernia labs with GFR 49 (been having issues with kidney stones plus she is diabetic--maybe playing role in anemia, ferritin and iron sat was nml) INTERIM: no rectal bleeding, doing well with high fiber diet goes to bathroom daily she denies nausea, no vomiting no abdominal pain she has globus sensation, she has belching she is seeing DR Garlnad H pylori and celiac negative EXAM: GENERAL: The patient is well developed and nontoxic. VITAL SIGNS:see workflow HEENT: Nonicteric sclerae, PERRLA, EOMI. Oropharynx clear. Moist mucous membranes. Conjunctivae appear well perfused. No thyroid mass. CHEST: Chest wall is nontender. HEART: Regular rate and rhythm without murmurs. LUNGS: Clear to auscultation bilaterally. ABDOMEN: Soft, positive bowel sounds, nontender, no organomegaly.no flank tenderness SKIN: No rash, no excessive bruising, petechiae, or purpura. NEUROLOGIC: Cranial nerves II-XII intact without motor/sensory deficit. Psych: normal affect A/P: 1/ Chronic anemia, likely from hemorrhoids, had investigations as above 2/ Large hiatal hernia- seeing Dr Garland PLAN: 1/ f/u Dr Garland for discussion about hernia repair given size 2/ cont with omeprazole 3/ repeat colonoscopy approx 2026 or earlier if clinically indicated 4/ cont with high fiber diet, PFSH Medical History GERD (gastroesophageal reflux disease) Renal calculi Sleep apnea [place] syndrome Diabetes Elevated cholesterol HTN (hypertension) Surgical History Hx of cystoscopy H/O colonoscopy H/O bilateral cataract extraction Family History Maternal Grandmother Colostomy status Cancer Social History Alcohol intake: current Alcohol intake frequency: does not drink Patient Tobacco Use Status: Former Tobacco user Physical Exam Vital Signs: Last Vital Signs Pulse 96 11/13/23 09:14 BP 126/54 L 11/13/23 09:14 BMI result Body Mass Index 27.5 Assessment & Plan Assessment & Plan (1) Hiatal hernia: Code(s): K44.9 - Diaphragmatic hernia without obstruction or gangrene Category: Medical Plan: see above (2) GERD (gastroesophageal reflux disease): Code(s): K21.9 - Gastro-esophageal reflux disease without esophagitis Category: Medical Plan: see above Coding Level of Care Code Est Pt Level 3 (15634) Diagnoses Hiatal hernia K44.9 GERD (gastroesophageal reflux disease) K21.9
[2023-11-13 09:14] VITALS: BP 126/54; PULSE 96; BMI 27.5
== END 2023-11-13 09:59 | disposition home or self-care (01) ==
PROVIDERS: PCP Nurse Practitioner Primary Care; Visit Provider Internal Medicine Gastroenterology
DX: K44.9 Diaphragmatic hernia without obstruction or gangrene (principal); K21.9 Gastro-esophageal reflux disease without esophagitis
CPT/HCPCS: 99213

== ENCOUNTER → 2023-11-13 09:02 | Outpatient (BNVA) | payer MEDICARE, OTHER, SELFPAY | PROVIDERS: PCP Nurse Practitioner Primary Care; Visit Provider Internal Medicine Gastroenterology | DX: K44.9 Diaphragmatic hernia without obstruction or gangrene (principal); K21.9 Gastro-esophageal reflux disease without esophagitis | CPT/HCPCS: 99212 ==

== ENCOUNTER 2023-12-04 12:10 | Outpatient (AMB) | payer MEDICARE, OTHER, SELFPAY ==
--- NOTE | 2023-12-04 12:17 | A.OFFVIS_ITS ---
VS Expanded 12/04/23 12:27 BP 161/74 H Blood Pressure Location Rt brachial Blood Pressure Position Sitting Pulse 94 Pulse Source Pulse Oximeter Temp 97.3 F Temperature Source Temporal Artery Scan Pulse Oximetry 100 Oxygen Delivery Method Room Air Height 5 ft 1 in Weight 139 lb 3.2 oz BMI 26.3 Body Fat % 33.0 Body Fat Mass 45.8 Fat Free Mass 93.2 Visceral Fat Rating 9.0 Body Water % 47.2 Body Water Mass 65.6 Muscle Mass/Score 88.4 Basal Metabolic Rate/Score 1,249 Intake Visit Reasons: OV Follow Up Hiatal Hernia Allergies No Known Allergies Allergy (Verified 12/04/23 13:56) Medication List - Last Reconciled 12/04/23 by Jaiden Hines MD amlodipine 2.5 mg PO DAILY atorvastatin 20 mg PO DAILY calcium citrate 200 mg PO DAILY cyanocobalamin-liver extract tabs PO fexofenadine (Magdalena Hives) 180 mg PO DAILY fluticasone propionate 50 mcg/actuation (Flonase Allergy Relief) 1 spray intranasal DAILY insulin aspart U-100 (Novolog U-100 Insulin aspart) 50 units subcut Q24H metformin 1,000 mg PO BID multivitamin (Daily Multi-Vitamin tablet) 1 tab PO DAILY omega 3-uuy-auf-fish oil 1,000 mg (120 mg-180 mg) (Fish Oil) 1 cap PO DAILY omeprazole 20 mg PO DAILY valsartan-hydrochlorothiazide 320-12.5 mg 1 tab PO DAILY vitamin B complex (B Complex-Vitamin B12 tablet) 1 tab PO DAILY HPI Comments Details: Here for preoperative visit for upcoming diaphragmatic hernia repair [facility] Medical History GERD (gastroesophageal reflux disease) Renal calculi Sleep apnea [place] syndrome Diabetes Elevated cholesterol HTN (hypertension) Surgical History Hx of cystoscopy H/O colonoscopy H/O bilateral cataract extraction Family History Maternal Grandmother Colostomy status Cancer Social History (Updated 12/04/23 @ 12:22 by Yolanda Estes CMA) Alcohol intake: current Alcohol intake frequency: holidays/special occasions only Patient Tobacco Use Status: Former Tobacco user Physical Exam Vital Signs: Last Vital Signs Temp 97.3 F 12/04/23 12:27 Pulse 94 12/04/23 12:27 BP 161/74 H 12/04/23 12:27 Pulse Ox 100 12/04/23 12:27 Oxygen Delivery Method Room Air 12/04/23 12:27 BMI result Body Mass Index 26.3 GI Inspection: Yes normal to inspection (android) Palpation (GI): Soft to palpation Extrem Right lower extremity: normal to inspection Left lower extremity: normal to inspection Assessment & Plan Assessment & Plan (1) Hiatal hernia: Code(s): K44.9 - Diaphragmatic hernia without obstruction or gangrene Category: Medical Plan: 1. We discussed the potential etiology of the hernia. We also discussed that the hernia is most likely contributing to the difficlty breathing on exercise, heartburn and not being able to complete her meal sometimes. We discussed the details of the diaphragmatic hernia repair and the potential technical challenges such as being able to achieve enough mobilization of the esophagus back in the abdomen and being able to close the diaphragmatic muscle (crura) primarily with sutures. We also discussed the possibility of using a biologic mesh to close the hernia defect if the crura cannot be adequately re-approximat ed primarily with sutures. We also discussed the option of doing a gastropexy or a fundoplication to prevent postoperative reflux and prevent hernia recurrence. As we discussed, I favor the gastropexy as the fundoplication can cause several distrurbing symptoms such as gas-bloating, flatulence, inability to burp which can be bothersome to patients. Also we discussed the complexity of a potential h ernia recurrence in association with a hernia recurrence. She was in agreement not to have a fundoplication. 2. Preop prescriptions were provided and explained the purpose of each one. Need to be purchased preop. Start Pantoprazole now as you get it from the pharmacy, 1 pill per day. Sucralfate and Zofran are for after surgery as needed. 3. Bowel prep: please do 7 packets ?of Miralax mixing each one with a an 8oz glass of water, crystal light, gatorade zero, or propel ?on 09/08/20 and the same amount on 09/09/20. The Miralax you begin with one packet at a time in 8oz water or crystal light, gatorade zero, or propel ?as early in the day as you can and you do them back to back until you finish them. Continue the protein shakes during ?the bowel prep. 4. Needs to purchase 1oz medicine cups . 5. Needs to purchase Children's liquid Tylenol for postop pain control. 6. Avoid aspirin, motrin, Advil, Aleve, Ibuprofen, Naproxyn. Tylenol is OK. 7. She needs to purchase the Celebrate REBUILD protein shakes from the hospital's gift shop. 8. Will do basic preop blood work-up and EKG any day this week fasting for 12 hours and is scheduled to see the Anesthesiologist prior to the day of surgery. 9. Importance of adherence to postop folllow-up and recommendations was underscored and she understands that. 10. Stop food and bars as of Monday12/19/23 and continue with 5 CELEBRATE REBUILD protein shakes (ONE scoop EACH in 8oz almond milk) at 8am-10am, 11am- 1pm, 2pm-4pm, 5pm-7pm and at 8pm-10pm 11. No soups, broths or V8 12. The patient's?medical?history has been reviewed and they are considered low risk for post op DVT and therefore DVT prophylaxis is not considered necessary. Travel after surgery was reviewed. The patient has not disclosed any travel plans during the first 30 days after surgery and they have been advised that within the first 30 days after surgery any bus, plane, train or car travel over 2 hours in duration is contraindicated due to the possibility of developing blood clots from immobility. Any travel, needs to include periods of ambulation of 10 minutes in duration every 2 hours.? Patient was instructed to discuss any plans for travel during this period with their bariatric surgeon.? 13. As of tomorrow, please check your blood pressure daily in the morning. If your blood pressure is: Below 120/70: do not take the Valsartan/Hydrochlorothiazide or Amlodipine 121/71 to 135/85: take HALF Valsartan/Hydrochlorothiazide 136/86 to 140/90: take the HALF Valsartan and HALF Amlodipine Over 141/91: take the whole Amlodipine and Valsartan/Hydrochlorothiazide 14. Please take at the day of surgery the following medications: Only the Amlodipine and Valsartan/Hydrochlorothiazide based on the parameters above 15. Stop any control pills and don't use them for one month after surgery 16. Absolutely no smoking or vaping, or marijuana until the surgery and for at least the first 4 weeks. Only nicotine patches are allowed. 17. Check your blood sugar daily and set the parameter to the pump at 150. Please let me know immediately if you have any blood sugar below 100. 18. Avoid any steroids by mouth for any reason. Let me know if someone prescribes them to you Orders: Orders Prothrombin Time INR Today Z01.818 - Encounter for other preprocedural examination Type and Screen Today Z01.818 - Encounter for other preprocedural examination Hemoglobin A1c Today Z01.818 - Encounter for other preprocedural examination Vitamin D 25-OH Total Today Z01.818 - Encounter for other preprocedural examination Vitamin B12 Today Z01.818 - Encounter for other preprocedural examination ECG 12 lead EKG Today Z01.818 - Encounter for other preprocedural examination Comprehensive Met. Panel Today Z01.818 - Encounter for other preprocedural examination TSH reflex Free T4 Today Z01.818 - Encounter for other preprocedural examina tion Partial Thromboplastin Time Today Z01.818 - Encounter for other preprocedural examination C Reactive Protein Today Z01.818 - Encounter for other preprocedural examination Complete Blood Count Auto Diff Today Z01.818 - Encounter for other preprocedural examination Medications: New ondansetron Only take one every 12 hours as needed if you have nausea 4 mg PO Q12H 20 tabs 0RF nausea and vomiting R11.0 - Nausea polyethylene glycol 3350 Mix each measuring cup with 8oz of water, Crystal light, or Gatorade zero, or Propel and do 7 measuring cups on 12/24/23 and another 7 measuring cups on 12/25/23 17 grams PO DAILY 238 grams 0RF Z01.818 - Encounter for other preprocedural examination pantoprazole 40 mg PO DAILY 90 tabs 0RF K21.9 - Gastro-esophageal reflux disease without esophagitis sucralfate 10 mL PO BID 600 mL 2RF K21.9 - Gastro-esophageal reflux disease without esophagitis
[2023-12-04 12:27] VITALS: BP 161/74; PULSE 94; TEMP 36.3; O2SAT 100; BMI 26.3
== END 2023-12-04 14:10 | disposition home or self-care (01) ==
PROVIDERS: PCP Nurse Practitioner Primary Care; Visit Provider Surgery
DX: K44.9 Diaphragmatic hernia without obstruction or gangrene (principal)
CPT/HCPCS: 99499

== ENCOUNTER → 2023-12-04 12:10 | Outpatient (BNVA) | payer MEDICARE, OTHER, SELFPAY | PROVIDERS: PCP Nurse Practitioner Primary Care; Visit Provider Surgery ==

== ENCOUNTER → 2023-12-13 07:23 | Outpatient (BNV) | payer MEDICARE, OTHER, SELFPAY | PROVIDERS: Admitting Provider Surgery; PCP Nurse Practitioner Primary Care; Visit Provider Internal Medicine | DX: R94.31 Abnormal electrocardiogram [ECG] [EKG] (principal) | CPT/HCPCS: 93010 ==

== ENCOUNTER 2023-12-26 06:22 | Inpatient (IN) | payer MEDICARE, OTHER, SELFPAY ==
--- NOTE | 2023-12-13 07:23 | ECG_ITS ---
Test Reason : preop Blood Pressure : / mmHG Vent. Rate : 083 BPM Atrial Rate : 083 BPM P-R Int : 162 ms QRS Dur : 082 ms QT Int : 372 ms P-R-T Axes : 075 -10 050 degrees QTc Int : 437 ms Sinus rhythm with marked sinus arrhythmia Low voltage QRS Possible Inferior infarct , age undetermined - could also be noraml variant Abnormal ECG No previous ECGs available Referred By: Jaiden Hines Electronically Signed By:REAGAN MIX
[2023-12-13 07:36] LABS: MANUAL DIFF FLAG NO
[2023-12-13 08:08] LABS: Basophils Absolute Auto 0.1 X10*3/uL (0.0-0.2); Basophils Percent Auto 1.6 % (0-2); Eosinophils Absolute Auto 0.6 X10*3/uL (0.0-0.4); Eosinophils Percent Auto 9.1 % (0-4); Hematocrit 32.6 % (37.0-47.0); Hemoglobin 10.7 g/dl (12.0-16.0); Imm Gran Abs Auto 0.01 X10*3/uL (0.00-0.03); Imm Gran Pct Auto 0.1 % (0.0-0.4); Lymphocytes Absolute Auto 2.9 X10*3/uL (1.2-4.9); Lymphocytes Percent Auto 40.9 % (20-40); Mean Corpuscular HGB Conc 32.8 g/dl (31.0-35.0); Mean Corpuscular Hemoglobin 30.4 pg (27.0-33.0); Mean Corpuscular Volume 92.6 fL (80.0-98.0); Mean Platelet Volume 8.7 fL (9.4-12.3); Monocytes Absolute Auto 0.9 X10*3/uL (0.1-1.2); Monocytes Percent Auto 12.9 % (2-11); Neutrophils Absolute Auto 2.5 x10*3/uL (2.0-8.3); Neutrophils Percent Auto 35.4 % (45-73); Platelet Count 356 X10*3/uL (160-400); Red Blood Count 3.52 X10*6/uL (4.20-5.50); Red Cell Distribution Width 13.1 % (11.0-16.0); White Blood Count 7.1 X10*3/uL (4.8-10.8)
[2023-12-13 08:11] LABS: INTERNATIONAL NORM RATIO 0.9 (0.9-1.1); Prothrombin Time 10.3 SEC (10.9-12.4)
[2023-12-13 08:14] LABS: Partial Thromboplastin Time 27.3 SEC (26.0-36.8)
[2023-12-13 08:17] LABS: Estimated Average Glucose 151 mg/dL; Hemoglobin A1C 138.5121 umol/L; Hemoglobin A1c % 6.9 % (<6.0); Total Hemoglobin (HGBA1C) 2693.4745 umol/L
[2023-12-13 08:42] LABS: Alanine Aminotransferase 16 U/L (0-31); Albumin Level 4.2 g/dL (3.5-5.0); Alkaline Phosphatase 60 U/L (39-117); Anion Gap 12 (12-20); Aspartate Amino Transferase 25 U/L (5-31); Bilirubin Total 0.6 mg/dL (0.0-1.0); Blood Urea Nitrogen 18 mg/dL (9-16); C Reactive Protein < 0.10 mg/dL (< or = 0.50); Calcium 9.9 mg/dL (8.4-10.2); Carbon Dioxide 26 mmol/L (22-29); Chloride 103 mmol/L (96-108); Estimated Glomerular Filt Rate 50; Glucose Random 125 mg/dL (60-115); Potassium 4.2 mmol/L (3.3-5.1); Sodium 137 mmol/L (135-145); Total Protein 7.1 g/dL (6.5-8.0)
[2023-12-13 08:53] LABS: TSH reflex Free T4 0.77 uIU/mL (0.32-4.0); Vitamin D 25-OH Total 68.5 ng/mL (>30)
[2023-12-13 08:55] LABS: Vitamin B12 1632 pg/mL (200-900)
[2023-12-22 13:00] VITALS: BMI 26.3
[2023-12-22 15:07] VITALS: BMI 25.7
[2023-12-26] VITALS (13 sets, daily range): BP systolic 119–155; BP diastolic 53–76; PULSE 71–92; RESP 12–18; TEMP 35.9–36.9; O2SAT 96–100
--- OUTSIDE RECORDS SUMMARY | 2023-12-26 06:29 | XMS_ITS | Continuity of Care Document ---
Author Organization [facility] Address [address] [facility], [facility] [address] [place] [address]- Care Team Providers Care Power Washer Name Role Phone Júnior MULLER, Elsi Pearson Primary Care Physic silas Encounter 12/01/22 - 12/08/22 [facility] [address], [address] [address]- Attending Physician: Rain Omer MD Admitting Physician: Rain Omer MD Referring Physician: Rain Omer MD Allergies, Adverse Reactions, Alerts No Known Allergies Medications amLODIPine 2.5 mg oral tablet 2.5 mg, 1, tablet, By Mouth, Daily, Refills 0, Maintenance, 12/27/21 6:37:00 EDT, Partial fill uponpatient request if the prescription is for a schedule II opioid drug. Start Date: 12/27/21 Status: Ordered atorvastatin 20 mg oral tablet 1 tablet = 20 mg, By Mouth, Daily, 0 Refills, Maintenance, 09/16/22 9:30:00 EDT, Partial fill upon patient request if the prescription is for a schedule II opioid drug. Start Date: 09/16/22 Status: Ordered Calcium Citrate By Mouth, 2 times a day, 0 Refills, Maintenance, 12/27/21 6:39:00 EDT, Partial fill upon patient request if the prescription is for a schedule II opioid drug. Start Date: 12/27/21 Status: Ordered Fish Oil 1000 mg oral capsule 1 capsule = 1,000 mg, By Mouth, Daily, 0 Refills, Maintenance, 12/27/21 6:39:00 EDT, Partial fill upon patient request if the prescription is for a schedule II opioid drug. Start Date: 12/27/21 Status: Ordered hydrochlorothiazide-valsartan 12.5 mg-320 mg oral tablet 1 tablet, By Mouth, Daily, 0 Refills, Maintenance, 12/27/21 6:36:00 EDT, Partial fill upon patient request if the prescription is for a schedule II opioid drug. Start Date: 12/27/21 Status: Ordered Metformin 1000, mg, By Mouth, 2 times a day, 180, 3, 0, 3, 04/09/08 11:21:27, Print DENG Number, ADS OPPT, [id number], Constant Indicator Start Date: 04/09/08 Stop Date: 04/04/09 Status: Ordered Multivitamin Daily, 0 Refills, Maintenance, 06/13/20 8:28:00 EDT, Partial fill upon patient request if the prescription is for a schedule II opioid drug. Start Date: 06/13/20 Status: Ordered simvastatin 20 mg oral tablet 20 mg, 1, tablet, By Mouth, Daily at bedtime, Refills 0, Maintenance, 06/13/20 8:27:00 EDT, Partialfill upon patient request if the prescription is for a schedule II opioid drug. Start Date: 06/13/20 Status: Ordered Vitamin B12 1000 mcg oral tablet 1 tablet = 1,000 mcg, By Mouth, Daily, 0 Refills, Maintenance, 12/27/21 6:38:00 EDT, Partial fill upon patient request if the prescription is for a schedule II opioid drug. Start Date: 12/27/21 Status: Ordered Problem List Condition Confirmation Course Effective Dates Status Health St atus Informant Benign hypertension Confirmed Active Type 1 diabetes mellitus with hemoglobin A1c goal of 7.0%-8.0% Confirmed Active Results Radiology Reports * Exam Date Time Procedure Performing Provider Status 12/01/22 1:12 PM Dexa Bone Density (Axial) Rajni Calderón; Auth (Verified) Notes: (Dexa Bone Density (Axial)) Reason For Exam: M85.88 OTHER DISORDER OF BONE STRUCTURE RESULT: Dexa Bone Density (Axial) Name:EVY OSORIO Age:67 years Sex:Female Ethnicity:White Date of :1955 Reason: Postmenopausal. Referring Provider:Rain Castellon Study:Dexa Bone Density (Axial) Bone Density: Region BMD T-Score Z-Score Classification AP Spine 0.883 -1.5 0.4 Osteopenia TOTAL HIP 0.774 -1.4 0.0 Osteopenia FEM NECK 0.632 -2.0 -0.3 Osteopenia 10-year Fracture Risk: 1 FRAX(R) Version 3.08. Fracture probability calculated for an untreated patient. Fracture probability may be lower if the patient has received treatment. Major Osteoporotic Fracture 11% Hip Fracture 1.7% RATE OF CHANGE(SPINE): BMD values have increased 2.6% from previous BMD values have increased 2.6% from baseline RATE OF CHANGE(TOTAL HIP): BMD values have decreased 4.4% from previous BMD values have decreased 4.4% from baseline RATE OF CHANGE(FEMORAL NECK): BMD values have decreased 3.0% from previous BMD values have decreased 3.0% from baseline Impression: The patient has osteopenia as determined by WHO criteria. WSN: [id number] Ordering Physician: Rain Omer Dictated By: Kristian Villaseñor MD Dictated Date/Time: 12/02/22 11:26 a Reviewed By: Kristian Villaseñor MD Signed By: Kristian Villaseñor MD Signed Date/Time: 12/02/22 11:26 am Transcribed By: QUINN Transcribed Date/Time: 12/02/22 11:23 am Social History Social History Type Response Smoking Status Never (less than 100 in lifetime) entered on: 06/13/20 Sex Patient Care team information Care Team Personnel Name: Elizabeth Carver RN Position: [facility] RN Member Role: Primary Care Nurse Name: Irwin Goodrich RN Position: [facility] ED RN W/OE and Tasks Member Role: Primary Care Nurse Name: Cherelle Matthew RN Position: [facility] RN Member Role: Primary Care Nurse Name: Manuela Silveira Position: [facility] RN Member Role: Primary Care Nurse Name: Naima Jackson RN Position: [facility] RN Member Role: Primary Care Nurse Name: Chasity Maldonado RN Position: [facility] RN Member Role: Primary Care Nurse Name: Elsi Callejas NP Position: [facility] Outreach Member Role: PCP Address: Address: [facility] [address] [place] [address]- [place] Name: Rain Omer MD Position: [facility] Physician - Endocrinology Med Service: Endocrinology Member Role: Referring Physician Address: Address: [address] [place] [address] [place] [address]- Care Team Related Persons Name: JORGE OSORIO Address: home [address] [place] [address] Name: VALENTIN ALEGRIA Address: home [address] [place] [id number]
--- OUTSIDE RECORDS SUMMARY | 2023-12-26 06:29 | XMS_ITS | Continuity of Care Document ---
Author Organization [facility] ter Address [address] [place] [address]- Care Team Providers Care Tannery Gummer Name Role Phone Daniel Burrell MD Primary Care Physician Encounter [facility] R [id number] Date(s): 06/13/20 - 06/23/[address] [address]- Discharge Disposition: A-D/C Home Attending Physician: Pat Rebolledo MD Admitting Physician: Julita Rousseau MD Referring Physician: Julita Rousseau MD Allergies, Adverse Reactions, Alerts Substance Reaction Severity Status NKA Active Medications ADAVAN 0, 0, 10/05/07 15:42:58, Constant Indicator, ADAVAN Start Date: 10/05/07 Status: Ordered aspirin 81 mg oral enteric coated tablet 81, mg, 1, tablet, By Mouth, Daily, 0, 0, 10/05/07 15:42:13, Print DENG Number, [id number], Constant Indicator Start Date: 10/05/07 Status: Ordered Evista 60 mg oral tablet 60, mg, 1, tablet, By Mouth, Daily, 90, tablet, 3, 3, 01/18/08 10:26:17, Print DENG Number, ADS OPPTHS, [id number], Constant Indicator Start Date: 01/18/08 Stop Date: 01/12/09 Status: Ordered Evista 60 mg oral tablet 60, mg, 1, tablet, By Mouth, Daily, 90, tablet, 3, 3, 02/08/06 11:15:42, Print DENG Number, [id number], Constant Indicator Start Date: 02/08/06 Stop Date: 02/03/07 Status: Ordered Glucagon Inj 1, mg, Subcutaneous Infusion, Once, 1, 3, 3, 08/25/05 16:59:03, Print DENG Number, [address] [place] [address], 42, Constant Indicator Start Date: 08/25/05 Status: Ordered Glucagon Inj 1, mg, Subcutaneous Infusion, Once, 1, 3, 0, 3, 01/18/08 10:25:58, Print DENG Number, ADS OPPTHS, [address] [place] [address], 42, Constant Indicator Start Date: 01/18/08 Status: Ordered Insulin Aspart See Instructions, 90 mL, 3, 0, 3, 04/09/08 11:27:05, Use 70 units daily in insulin pump, Print DENG Number, ADS OPPTHS, Constant Indicator Start Date: 04/09/08 Status: Ordered levoFLOXacin 750 mg oral tablet 1 tablet = 750 mg, By Mouth, Every 24 hours, for 4 days, # 4 tablet, 0 Refills, Acute 06/27/20 13:17:00 EDT, 06/23/20 13:17:00 EDT, Tablet, [facility]/pharmacy #[id number], Partial fill upon patient request if the prescription is for a schedule II opioid drug., 16... Start Date: 06/23/20 Stop Date: 06/27/20 Status: Ordered Metformin 1000, mg, By Mouth, 2 times a day, 180, 3, 0, 3, 04/09/08 11:21:27, Print DENG Number, ADS OPPTHS, [id number], Constant Indicator Start Date: 04/09/08 Stop Date: 04/04/09 Status: Ordered Multivitamin Daily, 0 Refills, Maintenance, 06/13/20 8:28:00 EDT, Partial fill upon patient request if the prescription is for a schedule II opioid drug. Start Date: 06/13/20 Status: Ordered Omeprazole = 20 mg, By Mouth, Daily, 0 Refills, Maintenance, 06/13/20 8:27:00 EDT, Partial fill upon patient request if the prescription is for a schedule II opioid drug. Start Date: 06/13/20 Status: Ordered simvastatin 20 mg oral tablet 20 mg, 1, tablet, By Mouth, Daily at bedtime, Refills 0, Maintenance, 06/13/20 8:27:00 EDT, Partialfill upon patient request if the prescription is for a schedule II opioid drug. Start Date: 06/13/20 Status: Ordered Test strips for one touch ultra See Instructions, 900, 3, 0, 3, 04/09/08 11:22:45, test 8-10 times a day, ADS OPPTHS, Test strips for one touch ultra Start Date: 04/09/08 Status: Ordered Tylenol 325 mg oral tablet 650 mg, 2, tablet, By Mouth, Every 4 hours, PRN, Refills 0, Maintenance, Pain , Mild, 06/23/20 13:16:00 EDT, Partial fill upon patient request if the prescription is for a schedule II opioid drug. Start Date: 06/23/20 Status: Ordered ZOCOR 0, 0, 10/05/07 15:41:47, Constant Indicator, ZOCOR Start Date: 10/05/07 Status: Ordered Problem List Condition Effective Dates Status Health Status Inform ant Benign hypertension(Confirmed) Active Type 1 diabetes mellitus wit h hemoglobin A1c goal of 7.0%-8.0%(Confirmed) Active Results Orders for Microbiology Reports Name Date Blood Culture 06/16/20 Anaerobic Culture (ANAEROBIC CULTURE) Sterile Body Fluid Culture W / Gram Smear (Culture Sterile Body Fluid w/ Gram Smear) 06/13/20 Microbiology Reports TEST:Blood Culture STATUS:Auth (Verified) BODY SITE: SOURCE:Blood COLLECTED DATE/TIME:06/16/20 5:44 PM Blood Culture SPECIMEN DESCRIPTION : BLOOD RAC SPECIAL REQUESTS : NONE CULTURE : NO GROWTH 5 DAYS. REPORT STATUS : FINAL 06/21/2020 TEST:Anaerobic Culture STATUS:Auth (Verified) BODY SITE: SOURCE:ABDOMI COLLECTED DATE/TIME:06/13/20 7:05 PM Anaerobic Culture SPECIMEN DESCRIPTION : ABDOMINAL FLUID SPECIAL REQUESTS : NONE CULTURE : NO ANAEROBES ISOLATED REPORT STATUS : FINAL 06/15/2020 TEST:Sterile Fluid Culture STATUS:Auth (Verified) BODY SITE: SOURCE:ABDOMI COLLECTED DATE/TIME:06/13/20 7:05 PM Sterile Fluid Culture SPECIMEN DESCRIPTION : ABDOMINAL FLUID SPECIAL REQUESTS : NONE GRAM STAIN : 2+ POLYMORPHONUCLEAR LEUKOCYTES 4+ RBC'S NO ORGANISMS SEEN CULTURE : 1+ ESCHERICHIA COLI CRITICAL VALUE CALLED AND VERIFIED BY READBACK FOR: ABDOMINAL FLUID TO W EMP 55043 AT 1043, 06/16/20, BY TECH 169 REPORT STATUS : FINAL 06/16/2020 ORGANISM 1+ ESCHERICHIA COLI METHOD MIN. INHIB. CONC. (MCG/ML) AMPICILLIN RESISTANT AMPICILLIN/SULBACTAM RESISTANT AMOXICILLIN/CLAVULAN SUSCEPTIBLE CEFAZOLIN INTERMEDIATE CEFEPIME SUSCEPTIBLE CEFTRIAXONE SUSCEPTIBLE CIPROFLOXACIN SUSCEPTIBLE ERTAPENEM SUSCEPTIBLE GENTAMICIN SUSCEPTIBLE LEVOFLOXACIN SUSCEPTIBLE MEROPENEM SUSCEPTIBLE PIPERACILLIN/TAZOBAC SUSCEPTIBLE TRIMETH/SULFAMETHOX SUSCEPTIBLE TETRACYCLINE SUSCEPTIBLE Radiology Reports * Exam Date Time Procedure Performing Provider Status 06/13/20 7:48 PM Chest Portable Chico Diaz; Auth ( Verified) Notes: (Chest Portable) Reason For Exam: Cough RESULT: Chest Portable Chest Portable Reason: Cough; Clinical Question(s): CHF COMPARISON: None. FINDINGS: LINES AND TUBES: None. LUNGS AND PLEURA: Patchy opacities within the right lower lobe may represent atelectasis or pneumonia. No pleural effusion. No pneumothorax. HEART, MEDIASTINUM AND ARABELLA: Heart is normal in size. Normal upper mediastinal and hilar contour. BONES AND SOFT TISSUES: No acute abnormality. IMPRESSION: Patchy opacities within the right lower lobe may represent atelectasis or pneumonia. WSN: [id number] Ordering Physician: Zabrina Kelly Dictated By: Sandip Bunn MD Dictated Date/Time: 06/13/20 8:14 pm Reviewed By: Sandip Bunn MD Signed By: Sandip Bunn MD Signed Date/Time: 06/13/20 8:14 pm Transcribed By: QUINN Transcribed Date/Time: 06/13/20 8:13 pm Vital Signs Most recent to oldest [Reference Range]: 1 2 3 Height 163 cm (06/23/20 8:03 AM) 163 cm (06/22/20 11:46 PM) 163 cm (06/22/20 7:50 PM) Weight 72.9 kg (06/23/20 6:16 AM) 75.5 kg (06/21/20 5:11 AM) 76.2 kg (06/20/20 6:52 AM) Oxygen Saturation [94-100 %] 99 % (06/23/20 8:03 AM) 96 % (06/22/20 11:46 PM) 96 % (06/22/20 7:50 PM) Pulse Rate [55-90 bpm] 85 bpm (06/23/20 8:03 AM) 81 bpm (06/22/20 11:46 PM) 79 bpm (06/22/20 7:50 PM) Body Mass Index [18.5-24.99] 26.84 *H* (06/15/20 2:55 PM) 25.29 *H* (06/13/20 1:40 PM) Blood Pressure [90-138/55-84 mm Hg] 111/52mm Hg (06/23/20 8:03 AM) 153/77mm Hg *H* (06/22/20 11:46 PM) 119/58mm Hg (06/22/20 7:50 PM) Respiratory Rate [16-30 br/min] 19 br/min (06/23/20 8:03 AM) 20 br/min (06/22/20 11:46 PM) 20 br/min (06/22/20 7:50 PM) Temperature [96.8-100.4 DegF] 98.6 DegF (06/23/20 8:03 AM) 99 DegF (06/22/20 11:46 PM) 98.4 DegF (06/22/20 7:50 PM) Liters per Minute 2 L/min (06/17/20 12:00 AM) 2 L/min (06/14/20 11:00 AM) 2 L/min (06/14/20 10:00 AM) Mode of Delivery (Oxygen) Room air (06/23/20 8:03 AM) Room air (06/22/20 11:46 PM) Room air (06/22/20 7:50 PM) Blood pressure sites Arm, right (06/23/20 8:03 AM) Arm, left (06/22/20 11:46 PM) Arm, right (06/22/20 7:50 PM) Temperature Route Oral (06/23/20 8:03 AM) Oral (06/22/20 11:46 PM) Oral (06/22/20 7:50 PM) Dry Weight 67.2 kg (06/13/20 1:40 PM) Weight Obtained Via Bed scale (06/23/20 6:16 AM) bed scale (06/21/20 5:11 AM) Bed scale (06/20/20 6:52 AM) Social History Social History Type Response Smoking Status Never (less than 100 in lifetime) entered on: 06/13/20 Sex
--- OUTSIDE RECORDS SUMMARY | 2023-12-26 06:29 | XMS_ITS ---
[facility] Address [address] [place] [address] Care Team Providers Care Casing Sewer Name Role Phone Elsi Callejas Primary Care Provider Sven Ely Unavailable [phone] ALLERGIES Allergen (clinical drug ingredient) Drug/Non Drug Allergy documented on EMR Reaction Allergy Type Onset Date Status environmental (uncoded) Unknown Allergy Active REASON FOR VISIT At Risk Footcare MEDICATIONS Medication SIG (Take, Route, Frequency, Duration) Notes Start Date End Date Status Insulin Admin Supplies Not-Taking Losartan Potassium-HCTZ Not-Taking PriLOSEC Not-Taking Zocor Not-Taking Glucophage Not-Takin g Vitamin B 12 1000 mcg Not-Taking Aspirin 81 MG 1 tablet Orally Once a day Not-Taking Simvastatin 20 MG 1 tablet in the even ing Orally Once a day for 30 day(s) Not-Taking Diovan HCT Not-Takin g HumaLOG Not-Taking Extra Depth Orthopedic Shoes (1 Pair) with Customized Heat Molded Multidensity Innersoles (3 Pair) as directed Dx: IDDM/Polyneuropathy (E10.42), Hammertoe Foot Deformity (M20.41,M20.42), Preulcerative Skin Lesion(s) (L85.1) 01/25/2023 Active Omeprazole Active NovoLOG Active Vitamin B12 Active Valsartan-hydroCHLOROthi azide Active Calcium Citrate Acti ve Atorvastatin Calcium 20 MG 1 tablet Orally Once a day Active metFORMIN HCl 1000 MG 1 tablet with meal s Orally Twice a day Active Fish Oil Active Multivitamin Active amLODIPine Besylate Active SOCIAL HISTORY Tobacco Use: Social History Observation Description Date Details (start date - stop date) Never Smoker NA - NA Sex Assigned At : Social History Observation Description Sex Assigned At Unknown Tobacco Use/Smoking Question Answer Notes Are you a: nonsmoker Additional Findings: Tobacco Non-User Current no n-smoker Alcohol Screen Question Answer Notes Did you have a drink containing alcohol in the p ast year? No Points 0 Interpretation Negative Tobacco use other than smoking: Question Answer Notes Are you an other tobacco user? No VITAL SIGNS Height 5ft 1in in 08/21/2023 Weight 140 lbs 08/21/2023 BMI 26.45 kg/m2 08/21/2023 PROCEDURES Procedure Date Ordered Date Performed Result Body Sit e [id number]-[id number] NAIL, 6 OR MORE 08/21/2023 N/A 82157-[id number] SKIN LESIONS, OVER 4 08/21/2023 N/A Encounters Encounter Location Date Provider Diagnosis [facility] [place] [address] [place] [id number] 08/21/2023 Sven Hooper Type 1 diabetes mellitus with diabetic polyneuropathy E10.42 and Tinea unguium B35.1 ASSESSMENTS Encounter Date Diagnosis Assessment Notes Treatment Notes Treatment Clinical Notes 08/21/2023 Type 1 diabetes mellitus with diabetic polyneuropathy (ICD-10 - E10.42) 08/21/2023 Tinea unguium (ICD-1 0 - B35.1) PLAN OF TREATMENT Pending Test Test Name Order Date [id number] NAIL, 6 OR MORE 08/21/2023 88403-[id number] SKIN LESIONS, OVER 4 08/21/19 Next Appt Details Follow Up: prn, Reason: Provider Name:Sven Hooper , 01/31/2024 10:00:00 AM, [address] [place] [address], [facility], [place], [address], Procedure Notes * Category Sub-Category Detail Notes Debride Nail 6-10 Nail debridement Nail debridem ent performed extensively to reduce/remove overall nail length, girth, thickness, subungual debris, and necrotic tissue, by manual and electrical means through the use of a nail nipper and/or dremel, to more viable healthy nail plate or bed tissue 1-5. Silver nitrate used for any petechial bleeding as necessary. Patient chooses, no pharmaceutical tx (19815) Keratoma Treatment Parring or Cutting o f Benign Hyperkeratotic Lesion(s) 86287 ( More than 4 Lesions ) - The Benign hyperkeratotic lesions, as described above were pared, and/or cut utilizing a sterile 15 blade, tissue nippers, and/or dremel Progress Notes * Examination Category Sub-Category Detail Notes Neurological SENSORY: Neurological exa m demonstrates, reduced light touch sensation, reduced sharp/dull pin prick discrimination , B/L, 5.07 monofilament test performed at plantar aspects of 5 varied sites per foot shows sensation, reduced, B/L, Pt relates burning, paresthesia, pins and needles sensation, shooting sensation, Forefoot, B/L Dermatologic SKIN FINDINGS: Skin exam reveal s Keratotic lesion(s) located at, Medial plantar, IPJ, TA, Medial plantar, IPJ, T5, SUB MTH (s) 1, B/L , Heel, B/L Nails NAILS are: Elongated, overg rown, dystrophic, lytic, greater than 3mm thick, discolored and friable with crumbly malodorous subungual debris, 1-5 B/L History and Physical Notes * HPI (History of Present Illness) Category Sub-Category Detail Notes At Risk footcare Pt States Last PCP Visit: Date: 07/12
--- OUTSIDE RECORDS SUMMARY | 2023-12-26 06:29 | XMS_ITS | Continuity of Care Document ---
Author Organization [facility] Address [address] [place] [address], [facility] [address] [place] [address]- Care Team Providers Care Plate Worker Name Role Phone Ashanti LYNN, Daniel Primary Care Physician [phone] Encounter 10/08/19 - 10/15/19 [facility] [address], [facility] [address] [place] [address]- [phone] Attending Physician: Hany Samuel MD Admitting Physician: Rain Omer MD Referring Physician: Hany Samuel MD Allergies, Adverse Reactions, Alerts Substance Reaction Severity Status NKA Active Medications ADAVAN 0, 0, 10/05/07 15:42:58, Constant Indicator, ADAVAN Start Date: 10/05/07 Status: Ordered aspirin 81 mg oral enteric coated tablet 81, mg, 1, tablet, By Mouth, Daily, 0, 0, 10/05/07 15:42:13, Print DENG Number, [id number], Constant Indicator Start Date: 10/05/07 Status: Ordered Diovan HCT 12.5 mg-320 mg oral tablet 1, tablet, By Mouth, Daily, 90, tablet, 3, 0, 3, 01/18/08 10:26:42, Print DENG Number, ADS OPPTHS, [id number], Constant Indicator Start Date: 01/18/08 Stop Date: 01/12/09 Status: Ordered Evista 60 mg oral tablet 60, mg, 1, tablet, By Mouth, Daily, 90, tablet, 3, 3, 01/18/08 10:26:17, Print DENG Number, ADS OPPTHS, [id number], Constant Indicator Start Date: 01/18/08 Stop Date: 01/12/09 Status: Ordered Evista 60 mg oral tablet 60, mg, 1, tablet, By Mouth, Daily, 90, tablet, 3, 3, 02/08/06 11:15:42, Print DENG Number, [id number], Constant Indicator Start Date: 02/08/06 Stop Date: 02/03/07 Status: Ordered Glucagon Inj 1, mg, Subcutaneous Infusion, Once, 1, 3, 3, 08/25/05 16:59:03, Print DENG Number, [address] [place] [address], 42, Constant Indicator Start Date: 08/25/05 Status: Ordered Glucagon Inj 1, mg, Subcutaneous Infusion, Once, 1, 3, 0, 3, 01/18/08 10:25:58, Print DENG Number, ADS OPPTHS, [address] [place] [address], 42, Constant Indicator Start Date: 01/18/08 Status: Ordered Insulin Aspart See Instructions, 90 mL, 3, 0, 3, 04/09/08 11:27:05, Use 70 units daily in insulin pump, Print DENG Number, ADS OPPTHS, Constant Indicator Start Date: 04/09/08 Status: Ordered Metformin 1000, mg, By Mouth, 2 times a day, 180, 3, 0, 3, 04/09/08 11:21:27, Print DENG Number, ADS OPPTHS, 1.33197g+[id number], Constant Indicator Start Date: 04/09/08 Stop Date: 04/04/09 Status: Ordered Test strips for one touch ultra See Instructions, 900, 3, 0, 3, 04/09/08 11:22:45, test 8-10 times a day, ADS OPPTHS, Test strips for one touch ultra Start Date: 04/09/08 Status: Ordered ZOCOR 0, 0, 10/05/07 15:41:47, Constant Indicator, ZOCOR Start Date: 10/05/07 Status: Ordered
--- OUTSIDE RECORDS SUMMARY | 2023-12-26 06:29 | XMS_ITS | Continuity of Care Document ---
Author Organization [facility] Address [address] [facility], [facility] [address] [place] [address]- Care Team Providers Care Financial Planning Advisor Name Role Phone Júnior MULLER, Elsi Pearson Primary Care Physic silas Encounter 10/16/23 - 10/23/23 [facility] [address], [address] [address]- Attending Physician: Theron Martin MD Admitting Physician: Theron Martin MD Referring Physician: Theron Martin MD Allergies, Adverse Reactions, Alerts No Known [...] 04/09/08 11:21:27, Print DENG Number, ADS OPPT, [id number], Constant Indicator Start Date: 04/09/08 Stop Date: [...] Exam Date Time Procedure Performing Provider Status 10/16/23 3:20 PM US Renal Bladder Elva Lee; Auth (Verified) Notes: (US Renal Bladder) Reason For Exam: Calculus of kidney RESULT: US Renal Bladder US Renal Bladder Reason: Calculus of kidney COMPARISON: 10/12/2022. FINDINGS: Right kidney: 9.1 cm in length. No hydronephrosis. Normal parenchymal thickness and echotexture. Nostones. No suspicious mass. Left kidney: 10.3 cm in length. No hydronephrosis. Normal parenchymal thickness and echotexture. Nostones. No suspicious mass. Urinary bladder: The nerve bladder is unremarkable. The urinary bladder volume measures 157 cc. A right ureteral ureteral jet is seen in the urinary bladder. A right ureteral urine jets is seen in the urinary bladder. IMPRESSION: 1. There is no evidence of renal pathology. WSN: [id number] Ordering Physician: Theron Martin Dictated By: Temi Meraz MD Dictated Date/Time: 10/17/23 8:00 am Reviewed By: Temi Meraz MD Signed By: Temi Meraz MD Signed Date/Time: 10/17/23 8:00 am Transcribed By: QUINN Transcribed Date/Time: 10/17/23 7:58 am Social History Social History Type Response Smoking Status Never (less than 100 in lifetime) entered on: 06/13/20 Sex Patient Care team information Care Team Personnel Name: Elizabeth Carver RN Position: [facility] RN Member Role: Primary Care Nurse Name: Irwin Goodrich RN Position: [facility] ED RN W/OE and Tasks Member Role: Primary Care Nurse Name: Cherelle Matthew RN Position: [facility] RN Member Role: Primary Care Nurse Name: Manuela Silveira RN Position: [facility] RN Member Role: Primary Care Nurse Name: Naima Jackson RN Position: [facility] RN Member Role: Primary Care Nurse Name: Chasity Maldonado RN Position: [facility] RN Member Role: Primary Care Nurse Name: Elsi Callejas NP Position: [facility] Outreach Member Role: PCP Address: Address: [address] [place] [address] [address] [place] [address]- Name: Theron Martin MD Position: [facility] Physician - Urology Med Service: Urology Member Role: Ordering Physician Address: Address: [address] [place] [address] [address] [place] [address]- Care Team Related Persons Name: JORGE OSORIO Address: home [address] [place] [address] Name: VALENTIN ALEGRIA Address: home [address] [place] [address]
--- OUTSIDE RECORDS SUMMARY | 2023-12-26 06:29 | XMS_ITS | Continuity of Care Document ---
Author Organization [facility] Address [address] [place] [address], [facility] [address] [place] [address]- Care Team Providers Care Caddy/Caddie Supervisor Name Role Phone Daniel Burrell MD Primary Care Physician [phone] Encounter 10/08/19 - 10/15/19 [facility] [address], [facility] [address] [place] [address]- [phone] Attending Physician: Kei Lucero MD Admitting Physician: Kei Lucero MD Referring Physician: Kei Lucero MD Allergies, Adverse Reactions, Alerts Substance Reaction Severity Status NKA Active Medications ADAVAN 0, 0, 10/05/07 15:42:58, Constant Indicator, ADAVAN Start Date: 10/05/07 Status: Ordered aspirin 81 mg oral enteric coated tablet 81, mg, 1, tablet, By Mouth, Daily, 0, 0, 10/05/07 15:42:13, Print DENG Number, [id number], Constant Indicator Start Date: 10/05/07 Status: Ordered Diovan HCT 12.5 mg-320 mg oral tablet 1, tablet, By Mouth, Daily, 90, tablet, 3, 0, 3, 01/18/08 10:26:42, Print DENG Number, ADS OPPTHS, [id number], Constant Indicator Start Date: 01/18/08 Stop Date: 01/12/09 Status: Ordered Evista 60 mg oral tablet 60, mg, 1, tablet, By Mouth, Daily, 90, tablet, 3, 3, 01/18/08 10:26:17, Print DENG Number, ADS OPPTHS, [id number], Constant Indicator Start Date: 01/18/08 Stop Date: 01/12/09 Status: Ordered Evista 60 mg oral tablet 60, mg, 1, tablet, By Mouth, Daily, 90, tablet, 3, 3, 02/08/06 11:15:42, Print DENG Number, [id number], Constant Indicator Start Date: 02/08/06 Stop Date: 02/03/07 Status: Ordered Glucagon Inj 1, mg, Subcutaneous Infusion, Once, 1, 3, 3, 08/25/05 16:59:03, Print DENG Number, [address] [place] [address], 42, Constant Indicator Start Date: 08/25/05 Status: Ordered Glucagon Inj 1, mg, Subcutaneous Infusion, Once, 1, 3, 0, 3, 01/18/08 10:25:58, Print DENG Number, ADS OPPTHS, [address] [place] [address], 42, Constant Indicator Start Date: 01/18/08 Status: Ordered Insulin Aspart See Instructions, 90 mL, 3, 0, 3, 04/09/08 11:27:05, Use 70 units daily in insulin pump, Print DENG Number, ADS OPPTHS, Constant Indicator Start Date: 04/09/08 Status: Ordered Metformin 1000, mg, By Mouth, 2 times a day, 180, 3, 0, 3, 04/09/08 11:21:27, Print DENG Number, ADS OPPTHS, [id number], Constant Indicator Start Date: 04/09/08 Stop Date: 04/04/09 Status: Ordered Test strips for one touch ultra See Instructions, 900, 3, 0, 3, 04/09/08 11:22:45, test 8-10 times a day, ADS OPPTHS, Test strips for one touch ultra Start Date: 04/09/08 Status: Ordered ZOCOR 0, 0, 10/05/07 15:41:47, Constant Indicator, ZOCOR Start Date: 10/05/07 Status: Ordered Results Radiology Reports * Exam Date Time Procedure Performing Provider Status 10/08/19 1:17 PM Dexa Bone Density (Axial) Rajni Calderón; Yenifer (Verified) Notes: (Dexa Bone Density (Axial)) Reason For Exam: SCREENING RESULT: DEXA BONE DENSITY (AXIAL) Bone Density Report Name: EVY OSORIO Age: 64 Sex: Female Ethnicity: White Date of : 1955 Indication: POSTMENOPAUSAL. Referring Provider: KEI LUCERO Study: Bone densitometry was performed. Exam Date: October 08, 2019 Accession number: [id number] Bone Density: Region BMD T-score Z-score Classification AP Spine (L1-L4) 0.860 -1.7 0.0 Osteopenia Femoral Neck (Left) 0.652 -1.8 -0.3 Osteopenia Total Hip (Left) 0.810 -1.1 0.1 Osteopenia World Health Organization criteria for BMD impression classify patients as: Normal (T-score at or above -1.0), Osteopenia (T-score between -1.0 and -2.5), or Osteoporosis (T-score at or below -2.5). 10-year Fracture Risk(1): Major Osteoporotic Fracture 9.2% Hip Fracture 1.1% Reported Risk Factors: [place] (), Neck BMD=0.652, BMI=29.6 (1) FRAX(R) Version 3.08. Fracture probability calculated for an untreated patient. Fracture probability may be lower if the patient has received treatment. Clinical Information Provided by Patient: Has used the following medications: Vitamin D, Calcium Patient maximum height was 61.3 Menopause Age: 50 Onset of menses at age 14 Number of children 0 Impression: The patient has osteopenia as determined by WHO criteria. Reported by: Hussain Xie M.D. on 10/08/2019 3:14:00 PM. Dictated By: Hussain Xie MD Dictated Date/Time: 10/08/19 3:15 pm Reviewed By: Hussain Xie MD Signed By: Hussain Xie MD Signed Date/Time: 10/08/19 3:15 pm Transcribed By: QUINN Transcribed Date/Time: 10/08/19 3:15 pm
--- OUTSIDE RECORDS SUMMARY | 2023-12-26 06:29 | XMS_ITS ---
Author Organization [facility] Address [address] [place] [address] Care Team Providers Care Customer Account Coordinator Name Role Phone Elsi Callejas Primary Care Provider Sven Ely Unavailable [phone] REASON FOR VISIT rs appt 01/28 Encounters Encounter Location Date Provider Diagnosis [facility] [address] [place] [address] 11/02/2023 Sven Hooper PLAN OF TREATMENT Next Appt Details Provider Name:Sven Hooper , 01/31/2024 10:00:00 AM, [address] [facility], [place] [address], [place], [address],
--- OUTSIDE RECORDS SUMMARY | 2023-12-26 06:29 | XMS_ITS | Continuity of Care Document ---
Author Organization [facility] Address [address] [place] [address]- Care Team Providers Care Airborne Electronics Analyst Name Role Phone Júnior MULLER, Elsi Pearson Primary Care Physic silas Encounter [facility] Date(s): 07/07/21 - 08/06/21 [facility] [address] [place] [address]- [place] Allergies, Adverse Reactions, Alerts No Known Allergies Medications ADAVAN 0, 0, 10/05/07 15:42:58, Constant Indicator, ADAVAN Start Date: 10/05/07 Status: Ordered aspirin 81 mg oral enteric coated tablet 81, mg, 1, tablet, By Mouth, Daily, 0, 0, 10/05/07 15:42:13, Print DENG Number, [id number], Constant Indicator Start Date: 10/05/07 Status: Ordered Evista 60 mg oral tablet 60, mg, 1, tablet, By Mouth, Daily, 90, tablet, 3, 3, 01/18/08 10:26:17, Print DENG Number, ADS OPPTHS, [id number], Constant Indicator Start Date: 01/18/08 Stop Date: 01/12/09 Status: Ordered Evista 60 mg oral tablet 60, mg, 1, tablet, By Mouth, Daily, 90, tablet, 3, 3, 02/08/06 11:15:42, Print DENG Number, [id number], Constant Indicator Start Date: 02/08/06 Stop Date: 02/03/07 Status: Ordered Glucagon Inj 1, mg, Subcutaneous Infusion, Once, 1, 3, 3, 08/25/05 16:59:03, Print DENG Number, [facility] [place] [address], 42, Constant Indicator Start Date: 08/25/05 Status: Ordered Glucagon Inj 1, mg, Subcutaneous Infusion, Once, 1, 3, 0, 3, 01/18/08 10:25:58, Print DENG Number, ADS OPPTHS, [address] [place] [address], 42, Constant Indicator Start Date: 01/18/08 Status: Ordered Insulin Aspart See Instructions, 90 mL, 3, 0, 3, 04/09/08 11:27:05, Use 70 units daily in insulin pump, Print DENG Number, ADS OPPTHS, Constant Indicator Start Date: 04/09/08 Status: Ordered Metformin 1000, mg, By Mouth, 2 times a day, 180, 3, 0, 3, 04/09/08 11:21:27, Print DENG Number, ADS OPPTHS, 1.71735r+006, Constant Indicator Start Date: 04/09/08 Stop Date: [...] h hemoglobin A1c goal of 7.0%-8.0%(Confirmed) Active Social History Social History Type Response Smoking Status Never (less than 100 in lifetime) entered on: 06/13/20 Sex
--- OUTSIDE RECORDS SUMMARY | 2023-12-26 06:29 | XMS_ITS ---
Author Organization [facility] Address [address] [place] [address] Care Team Providers Care Filterer Name Role Phone Elsi Callejas Primary Care Provider Sven Ely Unavailable [phone] ALLERGIES Allergen (clinical drug ingredient) Drug/Non Drug Allergy documented on EMR Reaction Allergy Type Onset Date Status environmental (uncoded) Unknown Allergy Active REASON FOR VISIT At Risk Footcare MEDICATIONS Medication SIG (Take, Route, Frequency, Duration) Notes Start Date End Date Status Omeprazole Active NovoLOG Active Multivitamin Active metFORMIN HCl 1000 MG 1 tablet with meal s Orally Twice a day Active Fish Oil Active PriLOSEC Not-Taking Zocor Not-Taking Calcium Citrate Acti ve Atorvastatin Calcium 20 MG 1 tablet Orally Once a day Active amLODIPine Besylate Active Insulin Admin Supplies Not-Taking Losartan Potassium-HCTZ Not-Taking Glucophage Not-Takin g Diovan HCT Not-Takin g HumaLOG Not-Taking Aspirin 81 MG 1 tablet Orally Once a day Not-Taking Simvastatin 20 MG 1 tablet in the even ing Orally Once a day for 30 day(s) Not-Taking Vitamin B 12 1000 mcg Not-Taking Extra Depth Orthopedic Shoes (1 Pair) with Customized Heat Molded Multidensity Innersoles (3 Pair) as directed Dx: IDDM/Polyneuropathy (E10.42), Hammertoe Foot Deformity (M20.41,M20.42), Preulcerative Skin Lesion(s) (L85.1) 01/25/2023 Active Vitamin B12 Active Valsartan-hydroCHLOROthi azide Active SOCIAL HISTORY Tobacco Use: Social History [...] No VITAL SIGNS Height 5ft 1in in 11/01/2023 Weight 140 lbs 11/01/2023 BMI 26.45 kg/m2 11/01/2023 PROCEDURES Procedure Date Ordered Date Performed Result Body Sit e 01591-IZZFBDW NAIL, 6 OR MORE 11/01/2023 N/A 52994-FDVA SKIN LESIONS, OVER 4 11/01/2023 N/A Encounters Encounter Location Date Provider Diagnosis [facility] [address] [address] 11/01/2023 Sven Hooper Type 1 diabetes mellitus with diabetic polyneuropathy E10.42 and Tinea unguium B35.1 ASSESSMENTS Encounter Date Diagnosis Assessment Notes Treatment Notes Treatment Clinical Notes 11/01/2023 Type 1 diabetes mellitus with diabetic polyneuropathy (ICD-10 - E10.42) 11/01/2023 Tinea unguium (ICD-1 0 - B35.1) PLAN OF TREATMENT Pending Test Test Name Order Date [id number] NAIL, 6 OR MORE 11/01/2023 66355-[id number] SKIN LESIONS, OVER 4 11/01/19 24 Next Appt Details Follow Up: prn, Reason: Provider Name:Sven Hooper , 01/31/2024 10:00:00 AM, [address] [place] [address], [place] [address], [place], [address], Procedure Notes * Category Sub-Category Detail Notes Debride Nail 6-10 Nail debridement Performance o f this nail treatment by a nonprofessional would put this patients foot and overall health at risk. Therefore, nail debridement was performed extensively to reduce/remove overall nail length, girth, thickness, subungual debris, and necrotic tissue, by manual and/or electrical means through the use of a nail nipper and/or dremel-type abrasive grinder, to a more viable healthy nail plate or bed tissue 6-10. Silver nitrate used for any petechial bleeding as necessary. Definitive antifungal treatment options have been reviewed and discussed with the patient. The patient chooses, no pharmaceutical tx - 99110 Keratoma Treatment Parring or Cutting o f Benign Hyperkeratotic Lesion(s) More than 4 Lesions (-57) - The Benign hyperkeratotic lesions, as described above were pared, and/or cut utilizing a sterile 15 blade, tissue nippers, and/or dremel - 82622 Progress Notes * Examination Category Sub-Category Detail [...]
--- OUTSIDE RECORDS SUMMARY | 2023-12-26 06:29 | XMS_ITS | Continuity of Care Document ---
Author Organization [facility] Address [address] [facility], [facility] [address] [place] [address]- Care Team Providers Care Chainer Name Role Phone Júnior MULLER, Elsi Pearson Primary Care Physic silas Encounter 12/01/22 - 12/08/22 [facility] [address], [facility] [address] [place] [address]- Attending Physician: Wicho Meek MD Admitting Physician: Wicho Meek MD Referring Physician: Wicho Meek MD Allergies, Adverse Reactions, Alerts No Known [...] 04/09/08 11:21:27, Print DENG Number, ADS OPPT, 1.47649m+006, Constant Indicator Start Date: 04/09/08 Stop Date: [...] Date Time Procedure Performing Provider Status 12/01/22 1:11 PM MM Digital Mammo Screening Josias Calderón; Auth (Verified) Notes: (MM Digital Mammo Screening) Reason For Exam: Z12.31 MM SCREEN RESULT: MM Digital Mammo Screening PROCEDURE: MM Digital Mammo Screening INDICATION: Screening for breast cancer. No known palpable abnormalities. COMPARISON: Prior mammograms most recently dated 12/16/2021. TECHNIQUE: Full-field digital CC and MLO 3D tomosynthesis images of both breasts were acquired. Computer-aided detection (CAD) was utilized in the interpretation of this study. DENSITY: The breast tissue is heterogeneously dense, which may obscure masses. FINDINGS: No suspicious masses, suspicious microcalcifications, or areas of architectural distortion are seen in either breast to suggest malignancy. IMPRESSION: No mammographic evidence of malignancy. RECOMMENDATION: Annual mammographic screening BI-RADS: 1 (Negative) Lay letter mailed to patient WSN: [id number] Ordering Physician: Wicho Meek Dictated By: Temi Meraz MD Dictated Date/Time: 12/01/22 4:35 pm Reviewed By: Temi Meraz MD Signed By: Temi Meraz MD Signed Date/Time: 12/01/22 4:35 pm Transcribed By: QUINN Badger Distiller Operator Date/Time: 12/01/22 4:31 pm Birads: Social History Social History Type Response Smoking Status Never (less than 100 in lifetime) entered on: 06/13/20 Sex Patient Care team information Care Team Personnel Name: Elizabeth Carver RN Position: [facility] RN Member Role: Primary Care Nurse Name: Irwin Goodrich RN Position: [facility] ED RN W/OE and Tasks Member Role: Primary Care Nurse Name: Cherelle Matthew RN Position: [facility] RN Member Role: Primary Care Nurse Name: Manuela Silveira Position: [facility] RN Member Role: Primary Care Nurse Name: Naima Jackson RN Position: [facility] RN Member Role: Primary Care Nurse Name: Chasity Maldonado RN Position: [facility] RN Member Role: Primary Care Nurse Name: Elsi Callejas NP Position: [facility] Outreach Member Role: PCP Address: Address: [address] [place] [address] [address] [place] [address]- [place] Care Team Related Persons Name: JORGE OSORIO Address: home [address] [place] [address] Name: VALENTIN ALEGRIA Address: home [address] [place] [address]
--- OUTSIDE RECORDS SUMMARY | 2023-12-26 06:29 | XMS_ITS | Continuity of Care Document ---
Author Organization [facility] Address [address] [place] [address]- Care Team Providers Care Director Pediatric Name Role Phone Ashanti LYNN, Daniel Primary Care Physician [phone] Encounter [facility] Date(s): 09/16/20 - 10/16/20 [facility] [address] [place] [address] Allergies, Adverse Reactions, Alerts Substance Reaction Severity Status NKA Active Medications ADAVAN 0, 0, 10/05/07 15:42:58, Constant Indicator, ADAVAN Start Date: 10/05/07 Status: Ordered aspirin 81 mg oral enteric coated tablet 81, mg, 1, tablet, By Mouth, Daily, 0, 0, 10/05/07 15:42:13, Print DENG Number, [id number], Constant Indicator Start Date: 10/05/07 Status: Ordered Evista 60 mg oral tablet 60, mg, 1, tablet, By Mouth, Daily, 90, tablet, 3, 3, 01/18/08 10:26:17, Print DENG Number, ADS OPPTHS, [id number]+006, Constant Indicator Start Date: 01/18/08 Stop Date: 01/12/09 Status: Ordered Evista 60 mg oral tablet 60, mg, 1, tablet, By Mouth, Daily, 90, tablet, 3, 3, 02/08/06 11:15:42, Print DENG Number, [id number], Constant Indicator Start Date: 02/08/06 Stop Date: 02/03/07 Status: Ordered Glucagon Inj 1, mg, Subcutaneous Infusion, Once, 1, 3, 3, 08/25/05 16:59:03, Print DENG Number, [address] [place] [address], 42, Constant Indicator Start Date: 08/25/05 Status: Ordered Glucagon Inj 1, mg, Subcutaneous Infusion, Once, 1, 3, 0, 3, 01/18/08 10:25:58, Print DENG Number, ADS OPPTHS, [address] [place] [address], 42, Constant Indicator Start Date: 01/18/08 Status: Ordered Insulin Aspart See Instructions, 90 mL, 3, 0, 3, 04/09/08 11:27:05, Use 70 units daily in insulin pump, Print DENG Number, ADS OPPTHS, Constant Indicator Start Date: 04/09/08 Status: Ordered Metformin 1000, mg, By Mouth, 2 times a day, 180, 3, 0, 3, 04/09/08 11:21:27, Print DENG Number, ADS OPPTHS, [id number]+006, Constant Indicator Start Date: 04/09/08 Stop Date: [...]
--- OUTSIDE RECORDS SUMMARY | 2023-12-26 06:30 | XMS_ITS | Patient Health Record ---
Author Organization [facility] Address [address] [place] [address] Care Team Providers Care Boiler Tube Blower Name Role Phone Elsi Callejas Primary Care Provider Sven Ely Unavailable [phone] ALLERGIES Allergen (clinical drug ingredient) Drug/Non Drug Allergy documented on EMR Reaction Allergy Type Onset Date Status environmental (uncoded) Unknown Allergy Active RESULTS Component Value Reference Range Notes HEMOGLOBIN A1C (GLYCOHEMOGLO BIN) Reviewed date:01/25/2023 09:24:32 AM Interpretation: Performing Lab: Notes/Report: TOTAL HEMOGLOBIN (HGBA1C) HEMOGLOBIN A1C (HH) HEMOGLOBIN A1C % (HH) 7.3 ESTIMATED AVG GLUCOSE HEMOGLOBIN A1C (GLYCOHEMOGLO BIN) Reviewed date:06/14/2023 10:04:49 AM Interpretation: Performing Lab: Notes/Report: TOTAL HEMOGLOBIN (HGBA1C) HEMOGLOBIN A1C (HH) HEMOGLOBIN A1C % (HH) 7.0 ESTIMATED AVG GLUCOSE HEMOGLOBIN A1C (GLYCOHEMOGLO BIN) Reviewed date:08/21/2023 01:13:34 PM Interpretation: Performing Lab: Notes/Report: TOTAL HEMOGLOBIN (HGBA1C) HEMOGLOBIN A1C (HH) HEMOGLOBIN A1C % (HH) 7.1 ESTIMATED AVG GLUCOSE HEMOGLOBIN A1C (GLYCOHEMOGLO BIN) Reviewed date:11/01/2023 01:15:04 PM Interpretation: Performing Lab: Notes/Report: TOTAL HEMOGLOBIN (HGBA1C) HEMOGLOBIN A1C (HH) HEMOGLOBIN A1C % (HH) 6.9 ESTIMATED AVG GLUCOSE REASON FOR REFERRAL No Information MEDICATIONS Medication SIG (Take, Route, Frequency, Duration) Notes Start Date End Date Status Multivitamin Active Glucophage Not-Takin g metFORMIN HCl 1000 MG 1 tablet with meal s Orally Twice a day Active Fish Oil Active Calcium Citrate Acti ve Atorvastatin Calcium 20 MG 1 tablet Orally Once a day Active amLODIPine Besylate Active Aspirin 81 MG 1 tablet Orally Once [...] Lesion(s) (L85.1) 01/25/2023 Active Vitamin B12 Active PriLOSEC Not-Taking Valsartan-hydroCHLOROthi azide Active Zocor Not-Taking Omeprazole Active Insulin Admin Supplies Not-Taking NovoLOG Active Losartan Potassium-HCTZ Not-Taking Diovan HCT Not-Takin g HumaLOG Not-Taking IMMUNIZATIONS Vaccine Route Administration Date Status Comme nts COVID-19 Pfizer BioNTech Vaccine Unknown 03/06/2020 Adm inistered #2 03/27/20 COVID-19 Pfizer BioNTech Vaccine Unknown 03/27/2020 Adm inistered Influenza Unknown 11/24/2014 Administered Influenza Unknown 11/10/2015 Administered Influenza Unknown 12/11/2016 Administered Influenza Unknown 12/11/2017 Administered Influenza Unknown 11/29/2018 Administered Influenza Unknown 12/24/2019 Administered SOCIAL HISTORY Tobacco Use: Social History Observation [...] Are you an other tobacco user? No PROBLEMS Problem Type ICD Code Onset Dates Problem Status W/U Status Risk SNOMED Code Notes Problem Other hammer toe(s) (acquired), right foot (M20.41) Active confirmed Acquired hamme r toe of right foot ([id number] 5) Response to treatment, Improvemen t Problem Other hammer toe(s) (acquired), left foot (M20.42) Active confirmed Acquired hamme r toe of left foot ([id number] 3) Response to treatment, Improvemen t Problem Type 1 diabetes mellitus with diabetic polyneuropathy (E10.42) Active confirmed Polyneuropathy due to diabetes mellitus type I (528049846) VITAL SIGNS Height 5ft 1in in 11/01/2023 Weight 140 lbs 11/01/2023 BMI 26.45 kg/m2 11/01/2023 PROCEDURES Procedure Date Ordered Date Performed Result Body Sit e 70886-KYLJGZO NAIL, 6 OR MORE 01/25/2023 N/A 74273-UAYU SKIN LESIONS, OVER 4 01/25/2023 N/A 27333-QHINRDQ NAIL, 6 OR MORE 04/06/2023 N/A 92618-Mrrgobka Plate 04/06/2023 N/A 60531-HYBK SKIN LESIONS, OVER 4 04/06/2023 N/A 63487-ZAARGXC NAIL, 6 OR MORE 06/14/2023 N/A 14776-EPDD SKIN LESIONS, OVER 4 06/14/2023 N/A 10454-FZAPGBW NAIL, 6 OR MORE 08/21/2023 N/A 14174-YIMW SKIN LESIONS, OVER 4 08/21/2023 N/A 07619-VQVMPBF NAIL, 6 OR MORE 11/01/2023 N/A 96639-KEXC SKIN LESIONS, OVER 4 11/01/2023 N/A Encounters Encounter Location Date Provider Diagnosis [address] [address] 01/25/2023 Sven Hooper Type 1 diabetes mellitus with diabetic polyneuropathy E10.42 ; Tinea unguium B35.1 ; Other hammer toe(s) (acquired), right foot M20.41 and Other hammer toe(s) (acquired), left foot M20.[address] [address] 04/06/2023 Sven Hooper Type 1 diabetes mellitus with diabetic polyneuropathy E10.42 ; Tinea unguium B35.1 and Ingrown nail L60.[address] [address] 06/14/2023 Sven Hooper Type 1 diabetes mellitus with diabetic polyneuropathy E10.42 ; Tinea unguium B35.1 ; Other hammer toe(s) (acquired), right foot M20.41 and Other hammer toe(s) (acquired), left foot M20.[address] [address] 08/21/2023 Sven Hooper Type 1 diabetes mellitus with diabetic polyneuropathy E10.42 and Tinea unguium B35.[address] [address] 11/01/2023 Sevn Hooper Type 1 diabetes mellitus with diabetic polyneuropathy E10.42 and Tinea unguium B35.[address] [address] 11/02/2023 Sven Hooper ASSESSMENTS Encounter Date Diagnosis Assessment Notes Treatment Notes Treatment Clinical Notes 01/25/2023 Type 1 diabetes mellitus with diabetic polyneuropathy (ICD-10 - E10.42) 04/06/2023 Type 1 diabetes mellitus with diabetic polyneuropathy (ICD-10 - E10.42) 04/06/2023 Tinea unguium (ICD-1 0 - B35.1) 06/14/2023 Type 1 diabetes mellitus with diabetic polyneuropathy (ICD-10 - E10.42) 06/14/2023 Tinea unguium (ICD-1 0 - B35.1) 08/21/2023 Type 1 diabetes mellitus with diabetic polyneuropathy (ICD-10 - E10.42) 08/21/2023 Tinea unguium (ICD-1 0 - B35.1) 11/01/2023 Type 1 diabetes mellitus with diabetic polyneuropathy (ICD-10 - E10.42) 11/01/2023 Tinea unguium (ICD-1 0 - B35.1) 01/25/2023 Tinea unguium (ICD-1 0 - B35.1) 04/06/2023 Ingrown nail (ICD-10 - L60.0) 06/14/2023 Other hammer toe(s) (acquired), right foot (ICD-10 - M20.41) Response to treatment,Improve ment 01/25/2023 Other hammer toe(s) (acquired), right foot (ICD-10 - M20.41) Patient Educated with: DIABETIC FOOT CARE INSTRUCTIONS.pdf (DIABETIC FOOT CARE INSTRUCTIONS.pdf ) 06/14/2023 Other hammer toe(s) (acquired), left foot (ICD-10 - M20.42) Response to treatment,Improve ment 01/25/2023 Other hammer toe(s) (acquired), left foot (ICD-10 - M20.42) PLAN OF TREATMENT Pending Test Test Name Order Date Hemoglobin A1c 03/01/2018 33317-MDBZHOK NAIL, 6 OR MORE 11/01/2023 50613-COVUSEQ NAIL, 6 OR MORE 06/14/2023 08923-MFBHRKS NAIL, 6 OR MORE 08/21/2023 53266-VKFTLQU NAIL, 6 OR MORE 08/25/2022 77102-RHLPVSC NAIL, 6 OR MORE 11/16/2022 54069-EMWLOSQ NAIL, 6 OR MORE 01/25/2023 02950-PKAEVKA NAIL, 6 OR MORE 04/06/2023 92322-WNCPJBJ NAIL, 6 OR MORE 02/11/2019 84205-LSIIAOQ NAIL, 6 OR MORE 04/22/2019 98602-QFMEZTP NAIL, 6 OR MORE 07/24/2019 38421-HCKSKLK NAIL, 6 OR MORE 10/07/2019 79276-DQKKJRO NAIL, 6 OR MORE 03/09/2020 03602-PIIPWNC NAIL, 6 OR MORE 05/18/2020 19413-DQTBBEM NAIL, 6 OR MORE 07/20/2020 23057-JEWBKIW NAIL, 6 OR MORE 10/14/2020 05751-ZXAUOHY NAIL, 6 OR MORE 12/23/2020 43537-KDQQAXY NAIL, 6 OR MORE 03/17/2021 78388-QEYMLOB NAIL, 6 OR MORE 06/02/2021 43239-XWNDUVG NAIL, 6 OR MORE 08/16/2021 83960-OBRIDTK NAIL, 6 OR MORE 10/27/2021 70036-QUQOVEE NAIL, 6 OR MORE 01/12/2022 08254-EXJNUMH NAIL, 6 OR MORE 03/24/2022 67216-DJBNUQV NAIL, 6 OR MORE 06/15/2022 47202-GNWBPVN NAIL, 6 OR MORE 10/25/2010 38354-ZIHYMVN NAIL, 6 OR MORE 01/10/2011 93618-CEAUGYB NAIL, 6 OR MORE 03/28/2011 64992-DNSBYMA NAIL, 6 OR MORE 06/27/2011 32217-ICHTMDW NAIL, 6 OR MORE 03/21/2012 48573-BOPGYFC NAIL, 6 OR MORE 07/09/2012 28925-YLCOCGS NAIL, 6 OR MORE 11/19/2012 31725-WSUWVDL NAIL, 6 OR MORE 03/04/2013 17554-PZEJKCK NAIL, 6 OR MORE 06/03/2013 91057-OOOFVUG NAIL, 6 OR MORE 09/19/2011 26509-XERFMNN NAIL, 6 OR MORE 12/12/2011 66401-ICDKQNN NAIL, 6 OR MORE 09/02/2013 67182-NWLLBMY NAIL, 6 OR MORE 11/27/2013 58161-XCVQFFE NAIL, 6 OR MORE 03/05/2014 73010-SKBOXYV NAIL, 6 OR MORE 06/18/2014 63807-QRWTYNL NAIL, 6 OR MORE 09/10/2014 09729-GXCXUJJ NAIL, 6 OR MORE 12/17/2014 78303-WXZJHEQ NAIL, 6 OR MORE 03/18/2015 10649-NPWNGZQ NAIL, 6 OR MORE 06/11/2015 47956-ZCPJEFJ NAIL, 6 OR MORE 09/28/2015 77564-DHTUWYM NAIL, 6 OR MORE 12/30/2015 41942-WYBZZNF NAIL, 6 OR MORE 04/04/2016 58422-IGGMGQW NAIL, 6 OR MORE 07/04/2016 49090-ZBSNCKH NAIL, 6 OR MORE 10/06/2016 69297-WFTZMYZ NAIL, 6 OR MORE 12/28/2016 26848-JUEVRNX NAIL, 6 OR MORE 03/22/2017 66938-YZFCNMR NAIL, 6 OR MORE 06/08/2017 13677-UKGMLKY NAIL, 6 OR MORE 08/24/2017 45151-YVOXUIQ NAIL, 6 OR MORE 11/15/2017 06401-LGVYKEF NAIL, 6 OR MORE 01/31/2018 22422-JBKOHUW NAIL, 6 OR MORE 04/23/2018 17696-AVARRVD NAIL, 6 OR MORE 07/11/2018 31025-ASDCFFL NAIL, 6 OR MORE 09/24/2018 99536-BABGHQW NAIL, 6 OR MORE 12/03/2018 30758-Awizyrea Plate 04/06/2023 35654-BIKP SKIN LESIONS, OVER 4 11/01/19 25554-GPUT SKIN LESIONS, OVER 4 08/21/19 69305-THTQ SKIN LESIONS, OVER 4 06/14/19 43604-ZRTR SKIN LESIONS, OVER 4 04/06/19 21956-GXRU SKIN LESIONS, OVER 4 01/26/20 68502-CQJG SKIN LESIONS, OVER 4 11/17/19 55623-RNFC SKIN LESIONS, OVER 4 08/26/19 78391-IYAJ SKIN LESIONS, OVER 4 06/16/19 94464-JSTM SKIN LESIONS, OVER 4 03/24/19 87864-ZXAV SKIN LESIONS, OVER 4 01/13/20 31440-HDZA SKIN LESIONS, OVER 4 10/28/19 02759-APMM SKIN LESIONS, OVER 4 08/17/19 78159-HIVW SKIN LESIONS, OVER 4 06/03/19 03806-YQVG SKIN LESIONS, OVER 4 03/17/19 29587-GGIB SKIN LESIONS, OVER 4 12/24/19 80549-ALIF SKIN LESIONS, OVER 4 10/15/19 92470-HIJO SKIN LESIONS, OVER 4 07/21/19 25577-JHGJ SKIN LESIONS, OVER 4 05/19/19 12043-UPNB SKIN LESIONS, OVER 4 03/09/19 57429-CNAE SKIN LESIONS, OVER 4 10/07/19 13226-LQXR SKIN LESIONS, OVER 4 07/24/19 20 63344-JEDQ SKIN LESIONS, OVER 4 04/22/19 06273-ZJPA SKIN LESIONS, OVER 4 02/12/20 36366-ZHLX SKIN LESIONS, OVER 4 12/04/19 67825-YUWD SKIN LESIONS, OVER 4 09/25/19 19 35849-QIUQ SKIN LESIONS, OVER 4 07/12/19 06068-TYOS SKIN LESIONS, OVER 4 04/23/19 91753-VWKK SKIN LESIONS, OVER 4 02/01/20 46681-GYBL SKIN LESIONS, OVER 4 11/16/19 18 70782-UNMB SKIN LESIONS, OVER 4 08/25/19 18 41888-TCKB SKIN LESIONS, OVER 4 06/09/19 02200-YSSQ SKIN LESIONS, OVER 4 03/22/19 73335-UGMQ SKIN LESIONS, OVER 4 12/29/19 17 03851-IHXE SKIN LESIONS, OVER 4 10/07/19 17 92801-WXYE SKIN LESIONS, OVER 4 04/04/19 17 21024-GYMQ SKIN LESIONS, OVER 4 07/05/19 17 52238-UMTN SKIN LESIONS, OVER 4 12/30/19 16 97467-HEZJ SKIN LESIONS, OVER 4 09/28/19 16 28403-GCEP SKIN LESIONS, OVER 4 03/18/19 16 37297-NCZZ SKIN LESIONS, OVER 4 06/11/19 16 35398-DYLG SKIN LESIONS, OVER 4 12/18/19 15 79685-OGIE SKIN LESIONS, OVER 4 09/11/19 15 57879-NBYA SKIN LESIONS, OVER 4 06/19/19 15 02863-VRPA SKIN LESIONS, OVER 4 03/05/19 15 05806-ZJSC SKIN LESIONS, OVER 4 11/28/19 14 61525-YEPO SKIN LESIONS, OVER 4 09/03/19 14 24419-VXGG SKIN LESIONS, 2 TO 4 12/12/19 12 28407-QTDE SKIN LESIONS, 2 TO 4 09/19/19 12 48259-IKDW SKIN LESIONS, 2 TO 4 06/04/19 14 78147-RBUN SKIN LESIONS, 2 TO 4 03/04/19 14 75620-HTOZ SKIN LESIONS, 2 TO 4 11/20/19 13 16113-GPRT SKIN LESIONS, 2 TO 4 07/10/19 13 25682-DCVH SKIN LESIONS, 2 TO 4 03/21/19 13 69161-XRLX SKIN LESIONS, 2 TO 4 06/27/19 12 06915-TYGS SKIN LESIONS, 2 TO 4 03/28/19 12 93248-QIIV SKIN LESIONS, 2 TO 4 01/11/20 11 84038-JVVE SKIN LESIONS, 2 TO 4 10/26/19 11 48579, Y7520-SUYSA/INJECT, JOINT/BURSA 1 Next Appt Details Provider Name:Sven Hooper , 01/31/2024 10:00:00 AM, [address] [facility] [address], [place], [address], Insurance Providers Payer Name Payer Address Payer Phone Subscriber Number Group Number Insured Name Patient Relationship to Insured Coverage Start Date Coverage End Date Medicare [employer] [address] [facility] [place] [address] [phone] [id number] Betty Mclain Self - patient is the insured [facility] [address] [place] [address] [id number] Betty Mclain Self - patient is the insured MEDICAL (GENERAL) HISTORY Medical History History ICD Code broken bones Diabetic hyperlipidemia hypertension sleep apnea Reflux Surgical History Surgery Date(Month/Year) finger 11/10 endoscopy 01/2023 Hospitalization History Reason Date(Month/Year) [facility] Admitted for kidney stone 06/13/20 [facility]- Finger surgery/cyst 11/10
[2023-12-26 06:48] LABS: Glucose, Whole Blood 174 mg/dL (60-115)
[2023-12-26] MEDS: Aprepitant 32 MG/4.4 ML VIAL IVPUSH (06:55)
[2023-12-26] MEDS: Lactated Ringers 1,000 ML 999 ML IV (06:55)
--- NOTE | 2023-12-26 07:25 | P.CONAN_ITS ---
Documented by User: Korin Pham NP 12/25/23 09:37 HPI - Anesthesia Eval Consult details Narrative: 68yo F for Repair Hernia Diaphragmatic Lap DM with insulin pump in situ PMFSH Active Problems Active Problems: All Active Problems Hiatal hernia (Acute) Duodenitis (Acute) Nephrolithiasis (Acute) Bleeding hemorrhoids (Acute) Tubular adenoma of colon (Acute) Hartsburg syndrome (Acute) Diabetic neuropathy (Acute) Diabetes (Acute) High cholesterol (Acute) Hypertension (Acute) ANATOLY (obstructive sleep apnea) (Acute) Anemia (Acute) GERD (gastroesophageal reflux disease) (Acute) Past Medical History Medical History ANATOLY on CPAP Hx of sepsis (~2020) Insulin pump in place GERD (gastroesophageal reflux disease) Renal calculi Sleep apnea Hartsburg syndrome Diabetes Elevated cholesterol HTN (hypertension) Family History Family History Maternal Grandmother Colostomy status Cancer Family history of problems with anesthesia: No Surgical History Surgical History History of esophagogastroduodenoscopy (EGD) (02/02/23) Hx of cystoscopy H/O colonoscopy H/O bilateral cataract extraction History of Problems with Anesthesia: No Social History Social History (Updated 12/22/23 @ 15:15 by Mica Colin RN) Household Members: None Housing: Apartment Are you a primary child care center administrator to a significant other at home: No Do you presently have visiting nurse or other home services: No Alcohol intake: current Alcohol intake frequency: holidays/special occasions only Patient Tobacco Use Status: Former Tobacco user Tobacco use type: Cigarette Smoked in Last 30 Days: No Use of substances other than those prescribed or required for medical reasons: No Have you been hit, kicked, punched, or otherwise hurt by someone within the past year? If so, by whom?: No Advance Directives: No Advance Directives Information Provided: Yes Advance Directives on File: No Recently lost weight without trying: No Nutrition Risks: No Nutritional Risk Poor oral hygiene: No Meds Allergies Allergy/AdvReac Type Severity Reaction Status Date / Time No Known Allergies Allergy Verified 12/26/23 06:19 Home Medications ?Medication ?Instructions ?Recorded ?Confirmed ?Last Taken ?Type amlodipine 2.5 mg tablet 2.5 mg PO DAILY 11/16/22 12/26/23 12/25/23 History atorvastatin 20 mg tablet 20 mg PO DAILY 11/16/22 12/26/23 12/25/23 History calcium citrate 200 mg (950 mg) 200 mg PO DAILY 11/16/22 12/26/23 12/25/23 Histo ry tablet insulin aspart U-100 100 unit/mL 50 unit subcut Q24H 11/16/22 12/04/23 Unknown History subcutaneous solution (Novolog U-100 Insulin aspart) metformin 1,000 mg tablet 1,000 mg PO BID 11/16/22 12/26/23 12/25/23 History multivitamin (Daily Multi-Vitamin 1 tab PO DAILY 11/16/22 12/26/23 12/25/23 History tablet) omega 7-mzl-rgc-fish oil 1,000 mg 1 cap PO DAILY 11/16/22 12/26/23 12/25/23 History (120 mg-180 mg) capsule (Fish Oil) omeprazole 20 mg capsule,delayed 20 mg PO DAILY 11/16/22 12/26/23 12/25/23 History release valsartan 320 1 tab PO DAILY 11/16/22 12/26/23 12/25/23 History mg-hydrochlorothiazide 12.5 mg tablet vitamin B complex (B 1 tab PO DAILY 11/16/22 12/26/23 12/26/23 History Complex-Vitamin B12 tablet) cyanocobalamin-liver extract tablet tab PO 03/10/23 12/04/23 Unknown History fexofenadine 180 mg tablet 180 mg PO DAILY 03/10/23 12/26/23 12/25/23 History (Magdalena Hives) fluticasone propionate 50 1 spray intranasal DAILY 03/10/23 12/04/23 Unknown History mcg/actuation nasal spray,suspension (Flonase Allergy Relief) cyanocobalamin (vitamin B-12) 1,000 mcg PO DAILY 12/22/23 12/26/23 12/25/23 History 1,000 mcg tablet (Vitamin B-12) fluconazole 150 mg tablet 150 mg PO 2XW 12/22/23 12/22/23 Unknown History Exam Height,Weight and Vital Signs: Height 5 ft 1 in Weight 61.689 kg Pertinent Lab Results Pertinent Lab Results: Laboratory Tests 12/13/23 12/13/23 07:30 07:34 WBC 7.1 RBC 3.52 L Hgb 10.7 L Hct 32.6 L MCV 92.6 MCH 30.4 MCHC 32.8 RDW 13.1 Plt Count 356 MPV 8.7 L Immature Gran % (Auto) 0.1 Neut % (Auto) 35.4 L Lymph % (Auto) 40.9 H [place] % (Auto) 12.9 H Eos % (Auto) 9.1 H Baso % (Auto) 1.6 Lymph # (Auto) 2.9 [place] # (Auto) 0.9 Eos # (Auto) 0.6 H Baso # (Auto) 0.1 Abs Immat Gran (auto) 0.01 Absolute Neuts (auto) 2.5 Absolute Nucleated RBC 0.000 Nucleated RBC % (auto) 0.0 PT 10.3 L INR 0.9 APTT 27.3 Sodium 137 Potassium 4.2 Chloride 103 Carbon Dioxide 26 Anion Gap 12 BUN 18 H Creatinine 1.09 Estim Creat Clear Calc TNP Estimated GFR 50 Random Glucose 125 H Estimat Average Glucose 151 Hemoglobin A1c % 6.9 H Calcium 9.9 Total Bilirubin 0.6 AST 25 ALT 16 Alkaline Phosphatase 60 C-Reactive Protein < 0.10 Total Protein 7.1 Albumin 4.2 Vitamin B12 1632 H 25-OH Vitamin D Total 68.5 TSH 0.77 Blood Type A Positive Antibody Screen NEGATIVE Narrative Narrative: EKG 11/2023 Vent. Rate : 083 BPM Atrial Rate : 083 BPM P-R Int : 162 ms QRS Dur : 082 ms QT Int : 372 ms P-R-T Axes : 075 -10 050 degrees QTc Int : 437 ms Sinus rhythm with marked sinus arrhythmia Low voltage QRS Possible Inferior infarct , age undetermined - could also be noraml variant Abnormal ECG No previous ECGs available (No change from previous at outside facility) Assessment and Plan Assessment Anesthesia Assessment: Chart Reviewed Final Anesthetic Review Family History of Problems with Anesthesia: No History of Problems with Anesthesia: No Documented by User: Linda Hough, 12/26/23 07:33 [facility] Past Medical History Medical History ANATOLY on CPAP Hx of sepsis (~2020) Insulin pump in place GERD (gastroesophageal reflux disease) Renal calculi Sleep apnea Hartsburg syndrome Diabetes Elevated cholesterol HTN (hypertension) Family History Family History Maternal Grandmother Colostomy status Cancer Family history of problems with anesthesia: No Surgical History Surgical History History of esophagogastroduodenoscopy (EGD) (02/02/23) Hx of cystoscopy H/O colonoscopy H/O bilateral cataract extraction History of Problems with Anesthesia: No Social History Social History (Updated 12/22/23 @ 15:15 by Mica Colin RN) Household Members: None Housing: Apartment Are you a primary child care center administrator to a significant other at home: No Do you presently have visiting nurse or other home services: No Alcohol intake: current Alcohol intake frequency: holidays/special occasions only Patient Tobacco Use Status: Former Tobacco user Tobacco use type: Cigarette Smoked in Last 30 Days: No Use of substances other than those prescribed or required for medical reasons: No Have you been hit, kicked, punched, or otherwise hurt by someone within the past year? If so, by whom?: No Advance Directives: No Advance Directives Information Provided: Yes Advance Directives on File: No Recently lost weight without trying: No Nutrition Risks: No Nutritional Risk Poor oral hygiene: No Meds Allergies Allergy/AdvReac Type Severity Reaction Status Date / Time No Known Allergies Allergy Verified 12/26/23 06:19 Home Medications ?Medication ?Instructions ?Recorded ?Confirmed ?Last Taken ?Type amlodipine 2.5 mg tablet 2.5 mg PO DAILY 11/16/22 12/26/23 12/25/23 History atorvastatin 20 mg tablet 20 mg PO DAILY 11/16/22 12/26/23 12/25/23 History calcium citrate 200 mg (950 mg) 200 mg PO DAILY 11/16/22 12/26/23 12/25/23 History tablet insulin aspart U-100 100 unit/mL 50 unit subcut Q24H 11/16/22 12/04/23 Unknown History subcutaneous solution (Novolog U-100 Insulin aspart) metformin 1,000 mg tablet 1,000 mg PO BID 11/16/22 12/26/23 12/25/23 History multivitamin (Daily Multi-Vitamin 1 tab PO DAILY 11/16/22 12/26/23 12/25/23 History tablet) omega 2-aib-rfl-fish oil 1,000 mg 1 cap PO DAILY 11/16/22 12/26/23 12/25/23 History (120 mg-180 mg) capsule (Fish Oil) omeprazole 20 mg capsule,delayed 20 mg PO DAILY 11/16/22 12/26/23 12/25/23 History release valsartan 320 1 tab PO DAILY 11/16/22 12/26/23 12/25/23 History mg-hydrochlorothiazide 12.5 mg tablet vitamin B complex (B 1 tab PO DAILY 11/16/22 12/26/23 12/26/23 History Complex-Vitamin B12 tablet) cyanocobalamin-liver extract tablet tab PO 03/10/23 12/04/23 Unknown History fexofenadine 180 mg tablet 180 mg PO DAILY 03/10/23 12/26/23 12/25/23 History (Magdalena Hives) fluticasone propionate 50 1 spray intranasal DAILY 03/10/23 12/04/23 Unknown History mcg/actuation nasal spray,suspension (Flonase Allergy Relief) cyanocobalamin (vitamin B-12) 1,000 mcg PO DAILY 12/22/23 12/26/23 12/25/23 History 1,000 mcg tablet (Vitamin B-12) fluconazole 150 mg tablet 150 mg PO 2XW 12/22/23 12/22/23 Unknown History Exam Exam Date and Time: 12/26/23 0725 Height,Weight and Vital Signs: Height 5 ft 1 in Weight 61.689 kg Vital Signs Temperature 98.1 F 12/26/23 06:53 Pulse Rate 90 12/26/23 06:53 Respiratory Rate 16 12/26/23 06:53 Blood Pressure 152/76 H 12/26/23 06:53 Pulse Oximetry 99 12/26/23 06:53 Oxygen Delivery Method Room Air 12/26/23 06:53 Temperature 98.1 F 12/26/23 06:53 Pulse Rate 90 12/26/23 06:53 Respiratory Rate 16 12/26/23 06:53 Blood Pressure 152/76 H 12/26/23 06:53 Pulse Oximetry 99 12/26/23 06:53 Oxygen Delivery Method Room Air 12/26/23 06:53 Airway Mallampati Class: II TM Dist: >3cm Neck ROM: Full Loose/Missing/Broken Teeth: No (patient denies any loose or broken teeth) Heart: S1S2 Lungs: CTAB Assessment and Plan Assessment Anesthesia Assessment: Anesthesia Plan Discussed and Chart Reviewed Final Anesthetic Review Family History of Problems with Anesthesia: No History of Problems with Anesthesia: No NPO: Yes ASA Class: III Final Preanesthetic Review: No Changes in Pt Med Stat, Meds/Allgs Chart Reviewed, Consent Obtained/Reviewed and Anes Risks/Benef Reviewed Patient Risk: Intermediate Procedure Risk: Intermediate Anesthetic Plan Anesthetic Plan: GA and Agree w/ Assess. and Plan Disposition: Standard PACU
--- NOTE | 2023-12-26 07:30 | MHC.SHP ---
Pre-Procedural Eval Section A - 24 Hr Update-Section A only Date of Service: 12/26/23 The patient is an INPATIENT: Yes The patient has been examined within 24 hours of the surgical procedure. The History & Physical has been completed within 30 days and I have reviewed it.: Yes Section B - Complete if H&P > 30 days Chief Complaint: Diaphragmatic Hernia Repair Relevant Family History (Specify if Yes): No Relevant Social History: None Present Medications: None Medical History: No relevant PMH History of Previous Operations: No relevant previous surgery Allergies: Allergies Allergy/AdvReac Type Severity Reaction Status Date / Time No Known Allergies Allergy Verified 12/26/23 06:19 Review of Systems Sugical H&P ROS: Negative: Constitution, Cardiovascular, Respiratory, Neurological, Psychiatric, Hem-Onc, Allergic/Immunologic, Gastrointestinal, Genitourinary, Musculoskeletal, Integumentary, Endocrine and Eyes/Ears/Nose/Throat Exam Surgical H&P Exam: Normal: HEENT, Normal: Heart, Normal: Lungs, Normal: Extremities, Normal: Abdomen, Normal: Skin and Normal: Neurological Plan Diagnosis/Plan: Unchanged I have reviewed the history and physical and performed a pertinent physical examination on my patient. No changes have occurred unless specified. Time Spent With Patient Time: Total time managing care of this patient today ____ minutes.
--- NOTE | 2023-12-26 07:57 | P.BOP_ITS ---
Brief Operative Note Date of Service: 12/26/23 Pre-op diagnosis: Diaphragmatic hernia Post-op diagnosis: same Procedure: Date of Service: 12/26/23 Pre-op diagnosis: Diaphragmatic hernia Post-op diagnosis: same (Giant paraesophageal hernia & abdominal adhesions) Procedure: Procedure: COMORBIDITIES: GERD, diaphragmatic hernia, hyperlipidemia, anxiety, depression, hypertension, knee pain ?INDICATIONS: The patient is a 68 year old female who was referred to me from Dr. Oleary for a diaphragmatic hernia and GERD confirmed by EGD, CT and UGI. The patient is scheduled today for diaphragmatic hernia repair. Risks of recurrent hernia, dysphagia, persistent GERD, VTE, leak, infection and bleeding were discussed with the patient and he is in agreement with the plan. PROCEDURE: Esophago-gastroscopy, laparoscopic lysis of adhesions, laparoscopic repair of incarcerated diaphragmatic hernia and laparoscopic gastropexy. DESCRIPTION OF PROCEDURE: After informed consent was obtained from the patient, the patient was given preoperative antibiotics, and was transferred to the operating room. After successful induction of general anesthesia, pneumatic compression devices were placed on both lower extremities. An upper endoscopy was performed next. The oropharynx and upper esophagus appeared to be within normal limits. The stomach was entered and the scope was advanced all the way to the pylorus. After all fluid and air were suctioned and the stomach was fully decompressed, the scope was withdrawn and secured in the mid esophagus. The patient was then prepped and draped in the usual sterile manner. Abdominal access was established at the right upper quadrant with the Leonardo technique. A 12 mm blunt trocar was inserted and the abdomen was insufflated with CO2 to a pressure of 15 mmHg. Following that additional ports were placed, specifically two 5 mm Versi-step ports to the left upper and one 5 mm Versi-step to the right upper quadrant. 1% lidocaine plain was used to infiltrate all port sites as well as all fascia defects. Following that, the patient was placed in a steep reverse Trendelenburg position. An additional 5 mm port was placed to the right flank for the Mediflex retractor that was used to retract the left lobe of the liver. There was a giant paraesophageal hernia with about half of the stomach herniated into the chest next to the esophagus. I then opened the gastrocolic ligament between the transverse colon and the greater curvature of the stomach with the ultrasonic device to enter the lesser sac and facilitate the ligation of the short gastric vessels. I started at at the upper third along the greater curvature and using the Thunderbeat, all attachments were divided. There was an obvious significant-sized paraesophageal hiatal hernia. The stomach was incarcerated into the mediastinum with multiple thick adhesions. Mobilization of the stomach was very difficult and required tedious and careful dissection of the proximal short gastric vessels. I continued dissecting along the hiatus toward the left jim into the mediastinum mobilizing the hernia sac from the mediastinum. The esophagus was carefully dissected off the aorta. The pleura spaces were not violated in either side. The pars flaccida was opened. It was actually herniated into the hernia defect. The vena cava was not dilated and it was carefully protected. I then continued by dissecting even further into the posterior retro-esophageal space all the way to the angle of His. I continued to mobilize the esophagus into the mediastinum circumferentially. The esophagus was densely adhrent to the aorta and the majority of these adhesions were mobilized. Both vagal nerves were seen and preserved. With extensive circumferential dissection into the mediastinum, I was able to bring the GE junction at least 3cm below the crura. I closed the hernia defect with five interrupted #0 Surgidac sutures using the Endo Stitch device, three of which were placed posterior and two of which anterior to the esophagus. The bites were carefully placed to include both the ventral and dorsal aspect of the two crura, advancing slightly more at the left jim as it was located more diagonally than the right. ? A gastropexy was then performed in order to prevent postoperative GERD and partial gastric volvulus. Several interrupted 2.0 Surgidac sutures were placed between the greater curvature of the dissected stomach and the previously divided greater omentum and gastro-colic ligament using the Endo-Stitch device. ?An upper endoscopy was performed. There was no narrowing at the GE junction or any esophageal injury. The scope was easily advanced all the way to the pylorus which was clearly visualized. There was no narrowing anywhere. I confirmed that the GE junction was 3cm intra-abdominally. At that point the gastroscope was withdrawn from the patient?s mouth while we were decompressing the bowel and the stomach from any remaining air. I looked into the lesser sac to see how the stomach was situating and it was s ituating well. There was no bleeding from the, spleen, or short gastric vessels. The Mediflex retractor was removed, and the undersurface of the liver was inspected and there was no bleeding. The patient was placed in supine position. Then 30cc of Ropivacaine plain with 10 mg of Dexamethasone were used to infiltrate the fascial closure as well as all skin incisions. At this point, the abdomen was deflated, all ports were removed under direct vision, and no bleeding was noted from any of the port sites. The skin incisions were irrigated with saline and were closed with 4-0 absorbable monofilament sutures. Steri- Strips and OpSites were used to cover all incisions. The patient was extubated and was transferred in stable condition to the recovery room for further care. I was present and performed all [place] parts of the procedure. Mr. Miramontes was the land surveyor assistant. There were no residents to assist with this case. Jaren Hines MD, PhD, FACS Surgeon: Jaiden Hines MD Anesthesia: GETA, local and other (TAP block) Was an Industrial Pharmacist used for this Procedure?: No Industrial Pharmacist: Hussain Miramontes Estimated blood loss (mL): 10 IV fluids (mL): 2,000 Urine output (mL): 0 (No Fang to record output) Pathology: none sent Condition: stable Disposition: PACU
--- NOTE | 2023-12-26 07:59 | P.PNGS_ITS ---
Subjective Subjective Date of Service: 12/27/23 Interval history: Feels well. Mild incisional pain. She is tolerating phase 1 bariatric diet Physical Exam 2 Vital Signs: Vital Signs: Last Vital Signs Temp 98.1 F 12/26/23 06:53 Pulse 90 12/26/23 06:53 Resp 16 12/26/23 06:53 BP 152/76 H 12/26/23 06:53 Pulse Ox 99 12/26/23 06:53 O2 Del Method Room Air 12/26/23 06:53 BMI result Body Mass Index 25.7 GI: Inspection: Yes normal to inspection and Yes incision (clean, dry and intact) Palpation (GI): Soft to palpation Extrem: Right lower extremity: normal to inspection (no calf tenderness) L eft lower extremity: normal to inspection (no calf tenderness) Objective Data Active Medications Haloperidol Lactate (Haloperidol Lactate 5 Mg/Ml Vial) 1 mg IVPUSH ONCE PRN PRN Reason: intractable nausea Stop: 12/26/23 13:34 Hydromorphone HCl (Hydromorphone Hcl 0.5 Mg/0.5 Ml Syringe) 0.5 mg IVPUSH Q5M PRN PRN Reason: Pain, Moderate to Severe (Pain Scale 4-10) Stop: 12/26/23 13:34 Lactated Ringer's (Lr) 1,000 mls @ 100 mls/hr IVCONT .Q10H TIM Naloxone HCl (Naloxone Hcl 0.4 Mg/Ml Vial) 0.04 mg IVPUSH Q5M PRN PRN Reason: Excessive sedation or RR < 8 Labs 12/27/23 04:51 12/27/23 04:51 Labs: Laboratory Results - last 24 hr 12/26/23 06:31 POC Glucose 174 H Procedures Date of Service Date of Service: 12/27/23 Progress Note: A&P Assessment and plan (1) Hiatal hernia: Status: Acute Assessment and Plan: s/p laparoscopic lysis of adhesions, paraesophageal hernia repair and gastropexy Doing well Will check am labs and if OK the patient will be discharged home (2) Status post repair of paraesophageal diaphragmatic hernia: Status: Acute (3) ANATOLY (obstructive sleep apnea): Status: Acute (4) GERD (gastroesophageal reflux disease): Status: Acute (5) Anemia: Status: Acute (6) Hypertension: Status: Acute (7) High cholesterol: Status: Acute (8) Diabetes: Status: Acute (9) Diabetic neuropathy: Status: Acute (10) Insulin pump in place: Status: Acute (11) Nephrolithiasis: Status: Acute (12) Hepatomegaly: Status: Acute Time Spent With Patient Time: Total time managing care of this patient today ____ minutes. Quality Stroke Does the patient have a stroke diagnosis?: No VTE Prior VTE?: No VTE Risk Level:: Medical - moderate - high VTE Device Contraindication: N/A - Device Ordered VTE Drug Contraindication: Treatment Not Indicated
--- NOTE | 2023-12-26 08:07 | PHA.MEDREC ---
Pharmacy Consult ? Medication Reconciliation Pharmacy has REVIEWED the medication reconciliation. Left unconfirmed was patients medications for surgery prescribed by surgeon.
[2023-12-26 10:32] LABS: Glucose, Whole Blood 233 mg/dL (60-115)
--- NOTE | 2023-12-26 10:38 | PM.DS ---
DS: Providers Provider Date of Service: 12/27/23 Date of admission: 12/26/23 06:22 Primary care physician: Elsi Callejas CNP DS: Diagnosis Discharge Diagnosis (1) Hiatal hernia: Status: Acute DS: Summary Hospital Course Hospital Course: ADMITTING DIAGNOSIS: gerd,hiatal hernia, dm, htn, hld, aaliyah ? DISCHARGE DIAGNOSIS: same, s/p laparoscopic repair diaphragmatic hernia ? PAST SURGICAL HISTORY: ? PROCEDURE: upper endoscopy, laparoscopic repair of diaphragmatic hernia ? DISCHARGE SUMMARY: ? History of Present Illness: ? The patient is a?68 year-old woman with a BMI of?25.7 kg/m2 and associated co-morbidities as described above. The patient had extensive work-up and was electively scheduled for laparoscopic, possible open repair of hiatal hernia and gastropexy. Risks and complications of the surgery were discussed with the patient in advance, particularly the possibility of , pulmonary embolism, anastomotic leak, bleeding, bowel injury, GERD, cardiac, renal or pulmonary complications. The patient understood all the risks and was in agreement with the surgical plan. ? Hospital Course: ? The patient underwent an uneventful laparoscopic gastropexy and repair of diaphragmatic hernia on the day of admission. Postoperatively, the patient was transferred to the surgical floor. The patient received IV Acetaminophen and IV dilaudid for pain control. Patient was started on bariatric phase 1 diet POD #0. On postoperative day one, the patient was feeling well without nausea, vomiting, fevers, or tachycardia. The patient had some mild incisional pain and the abdomen was soft. ? On the morning of postoperative day one, the patient was continued on 1 ounce of water or ice every half hour. During the day, the patient did fairly well, having some incisional pain, but able to ambulate adequately and to tolerate liquids well. ? Since the patient is doing well, we decided that the patient was ready to be discharged. The patient was given instructions to follow-up with me next week and to call my office for any fever over 101, persistent abdominal pain, nausea, vomiting, GERD, symptoms of DVT such as calf tenderness, or leg swelling, or pulmonary embolism such as chest pain or shortness of breath. The patient was also instructed to drink 40-60 ounces of liquids per day using the 1-ounce cups. The patient had been given prescriptions for Tylenol for pain, Zofran prn for nausea, and pantoprazole and carafate previously. The patient was encouraged to ambulate and use the incentive spirometer. The patient was allowed to shower, but no baths, and encouraged to stay active at home. All of these instructions were given to the patient personally. All questions were answered and the patient understood all instructions, the instructions were also given to the patient in print. Time Attestation Total time managing care of this patient today: 25 mintues. Discharge Coordination Time (in mins): 25 Quality: Safe Use of Opioids Does Pt have an Active Cancer Diagnosis on the Problem List?: No Quality: Stroke Does the patient have a stroke diagnosis?: No Physical Exam Vital Signs: Vital Signs: Last Vital Signs Temp 98.1 F 12/26/23 06:53 Pulse 90 12/26/23 06:53 Resp 16 12/26/23 06:53 BP 152/76 H 12/26/23 06:53 Pulse Ox 99 12/26/23 06:53 O2 Del Method Room Air 12/26/23 06:53 BMI result Body Mass Index 25.7 DS: Data Data Completed and Pending Pending studies at discharge: Pending at discharge 12/26/23 10:09 Surgical [PTH] Routine Labs on day of discharge: Laboratory Results - last 24 hr 12/26/23 12/26/23 06:31 10:28 POC Glucose 174 H 233 H Discharge Plan Discharge Anticipated Discharge Date/Time: 12/27/23 10:00 Patient Disposition: Home, Self-Care Discharge Diagnosis: s/p laparoscopic repair of hiatal hernia Referrals: Elsi Callejas CNP [Primary Care Provider] - 1 Week Discharge Medications: Continued fluconazole 150 mg tablet 150 mg PO SUSA pantoprazole 40 mg tablet,delayed release (DR/EC) 40 mg PO DAILY Qty: 90 0RF sucralfate 100 mg/mL suspension 10 ml PO BID Qty: 600 2RF ondansetron 4 mg tablet,disintegrating 4 mg PO Q12H Qty: 20 0RF Rx Instructions: Only take one every 12 hours as needed if you have nausea insulin aspart U-100 [Novolog U-100 Insulin aspart] 100 unit/mL solution 50 unit subcut Q24H Rx Instructions: via insulin pump metformin 1,000 mg tablet 1,000 mg PO BID multivitamin [Daily Multi-Vitamin] Tablet 1 tab PO DAILY fexofenadine [Magdalena Hives] 180 mg tablet 180 mg PO DAILY Held cyanocobalamin (vitamin B-12) [Vitamin B-12] 1,000 mcg Tablet 1,000 mcg PO DAILY Hold Instructions: Resume on 01/03/24. atorvastatin 20 mg tablet 20 mg PO DAILY Hold Instructions: Resume on 01/03/24. amlodipine 2.5 mg tablet 2.5 mg PO DAILY Hold Instructions: Resume on 12/28/23. Check your blood pressure every morning as soon as you wake up and send it to Dr. Hines. Do no take the blood pressure medication if the blood pressure is below 120/70. Wait every day to hear back from Dr. Hines before you take the medication. valsartan-hydrochlorothiazide 320-12.5 mg tablet 1 tab PO DAILY Hold Instructions: Resume on 12/28/23. Check your blood pressure every morning as soon as you wake up and send it to Dr. Hines. Do no take the blood pressure medication if the blood pressure is below 120/70. Wait every day to hear back from Dr. Hines before you take the medication. Patient Comments: 1/[address] Garland vitamin B complex [B Complex-Vitamin B12] Tablet 1 tab PO DAILY Hold Instructions: Resume on 01/03/24. calcium citrate 200 mg (950 mg) tablet 200 mg PO DAILY Hold Instructions: Resume on 01/03/24. omega 2-bya-pzr-fish oil [Fish Oil] 1,000 mg (120 mg-180 mg) capsule 1 cap PO DAILY Hold Instructions: Resume on 01/03/24. Discontinued polyethylene glycol 3350 17 gram/dose powder 17 g PO DAILY Qty: 238 0RF Rx Instructions: Mix each measuring cup with 8oz of water, Crystal light, or Gatorade zero, or Propel and do 7 measuring cups on 12/24/23 and another 7 measuring cups on 12/25/23 omeprazole 20 mg capsule,delayed release(DR/EC) 20 mg PO DAILY Discharge Orders: Discharge Order (Routine); Ordered 12/27/23 Ordered By: Jaiden Hines Activity on Discharge: No heavy lifting Stand Alone Forms: Patient Portal Discharge page Print Language: Chinese Care Plan Goals: improved gerd Health Concerns: hiatal hernia Plan of Treatment: No tub baths, sex or returning to work until discussed at first post op appointment. No exercise, alcohol, tobacco or illegal drug use. Continue to use incentive spirometer hourly while awake. Walk in home for 5- 10 minutes every 2 hours during the first week. Follow all instructions in the bariatric handbook and call with any questions.Discharge Instructions 1. Please call your doctor or come back to the emergency room should any new symptoms arise. 2. You will receive a courtesy call from [facility] 24-48 hours after discharge. 3. Activity: abstain from alcohol, practice limited stair climbing, no bending, no driving, no exercise, no illicit substances, no lifting, no sex, no tub bath, no work. 4. Diet: continue as discussed with Dr. Hines. 5. Dressing Change/Wound Care: Your incision is covered by clear bandages and guaze underneath. If the area is tender, you may apply an ice pack for short intervals (no more than 20 minutes on, followed by at least 20 minutes off). Do not apply heat. Do not use creams, lotions, or topical antibiotics unless instructed to do so by your surgeon. These can cause infection or allergic reaction. 6. Call your doctor if: - Your temperature exceeds 101.5 F - You experience excessive pain or swelling - You have an unexpected reaction to medication - You have excessive bleeding - You experience continued vomiting/nausea - Your incision begins to separate - Your incision shows signs of infection such as increased redness, swelling, excessive pain, heat, or drainage (light blood or clear fluid is normal) 7. General instructions: No lifting greater than 5 lbs for 1 week and not more than 20lbs the next 3?weeks. No driving until seen at the office in 5-7 days after surgery. If you do not move your bowels in the next 2 days, please tell?Dr. Hines. Please walk around your home every hour or two to prevent blood clots from forming in your legs. You do not need to wake from sleeping to walk. Please sleep in a bed or couch to prevent kinking at the hips and knees. Please take your incentive spirometer (your lung removable prosthodontist) home with you and use it for the next few days to prevent pneumonia. You may shower, no hot tubs, baths or swimming pools.?Please follow the post op diet instructions you are?given by Dr Hines? and text me daily at 5-6pm for an update.?If you have any issues or concerns or questions please communicate this to him via text.? The Celebrate shakes have all of the bariatric vitamins you need if you consume these shakes. If you are drinking other protein shakes, you will need to purchase the Celebrate multivitamins and calcium that are available in the hospital gift shop on the first floor of the main hospital.??Do not take anything without first discussing with Dr Hines. Please make sure you are consuming at least 40 ounces of fluids per day starting the?day AFTER your discharge from the hospital. Always drink 1-2 ml per minute using the 5ml?syringe. If you drink faster you may experience?bloating,?gas pain, burping, nausea or heartburn. In that case please slow down your pace and use the syringe to?understand better the?proper?pace and volume of drinking. Do not hesitate to contact the office with any questions at . The patient's medical history has been reviewed and they are considered low risk for post op DVT and therefore DVT prophylaxis is not considered necessary. Travel after surgery was reviewed. The patient has not disclosed any travel plans during the first 30 days after surgery and they have been advised that within the first 30 days after surgery any bus, plane, train or car travel over 2 hours in duration is contraindicated due to the possibility of developing blood clots from immobility. Any travel, needs to include periods of ambulation of 10 minutes in duration every 2 hours.? The patient was instructed to discuss any plans for travel during this period with their bariatric surgeon. Assessment: stable s/p laparoscopic repair of hiatal hernia
[2023-12-26 11:26] LABS: Hematocrit 31.6 % (37.0-47.0); Hemoglobin 10.6 g/dl (12.0-16.0)
[2023-12-26 11:39] LABS: Anion Gap 20 (12-20); Blood Urea Nitrogen 25 mg/dL (9-16); Calcium 9.4 mg/dL (8.4-10.2); Carbon Dioxide 24 mmol/L (22-29); Chloride 95 mmol/L (96-108); Estimated Glomerular Filt Rate 53; Glucose Random 280 mg/dL (60-115); Potassium 4.6 mmol/L (3.3-5.1); Sodium 134 mmol/L (135-145)
[2023-12-26 12:25] LABS: Glucose, Whole Blood 254 mg/dL (60-115)
[2023-12-26] MEDS: Lactated Ringers 1,000 ML 100 ML IVCONT ×2 (12:43→20:58)
--- NOTE | 2023-12-26 12:55 | PC.NURSE ---
per halina cummins DC insulin sliding scale. pt has own insulin pump running.
[2023-12-26] MEDS: ceFAZolin Sodium/Dextrose,Iso 2 GM/50 ML PIGGYBACK IV (13:09)
[2023-12-26] MEDS: Acetaminophen 1,000 MG/100 ML PIGGYBACK 16.7 MG IV ×2 (15:29→20:59)
[2023-12-26 16:18] LABS: Glucose, Whole Blood 206 mg/dL (60-115)
[2023-12-26 20:40] LABS: Glucose, Whole Blood 180 mg/dL (60-115)
[2023-12-27] MEDS: Acetaminophen 1,000 MG/100 ML PIGGYBACK 16.7 MG IV (02:50)
[2023-12-27 03:13] VITALS: BP 158/77; PULSE 67; RESP 17; TEMP 36.1; O2SAT 100
[2023-12-27 05:27] LABS: MANUAL DIFF FLAG NO
[2023-12-27 05:30] LABS: Basophils Percent Auto 0.1 % (0-2); Hematocrit 29.8 % (37.0-47.0); Imm Gran Abs Auto 0.05 X10*3/uL (0.00-0.03); Imm Gran Pct Auto 0.5 % (0.0-0.4); Lymphocytes Absolute Auto 0.8 X10*3/uL (1.2-4.9); Mean Corpuscular HGB Conc 33.6 g/dl (31.0-35.0); Mean Corpuscular Volume 92.3 fL (80.0-98.0); Mean Platelet Volume 9.5 fL (9.4-12.3); Monocytes Absolute Auto 0.6 X10*3/uL (0.1-1.2); Monocytes Percent Auto 6.1 % (2-11); Neutrophils Absolute Auto 8.6 x10*3/uL (2.0-8.3); Neutrophils Percent Auto 85.3 % (45-73); Platelet Count 293 X10*3/uL (160-400); Red Blood Count 3.23 X10*6/uL (4.20-5.50); Red Cell Distribution Width 12.6 % (11.0-16.0); White Blood Count 10.1 X10*3/uL (4.8-10.8)
[2023-12-27 05:51] LABS: Anion Gap 19 (12-20); Blood Urea Nitrogen 26 mg/dL (9-16); Calcium 8.7 mg/dL (8.4-10.2); Carbon Dioxide 20 mmol/L (22-29); Chloride 97 mmol/L (96-108); Estimated Glomerular Filt Rate 50; Glucose Random 205 mg/dL (60-115); Potassium 5.1 mmol/L (3.3-5.1); Sodium 131 mmol/L (135-145)
[2023-12-27] MEDS: Pantoprazole Sodium 40 MG/10 ML VIAL IVPUSH (06:16)
[2023-12-27] MEDS: Lactated Ringers 1,000 ML 100 ML IVCONT (06:17)
[2023-12-27 07:21] VITALS: O2SAT 100
[2023-12-27 07:22] VITALS: BP 143/67; PULSE 83; RESP 16; TEMP 36.8; O2SAT 100
[2023-12-27 07:23] LABS: Glucose, Whole Blood 177 mg/dL (60-115)
[2023-12-27] MEDS: amLODIPine Besylate 2.5 MG TABLET PO (07:31)
[2023-12-27] MEDS: Valsartan 320 MG TABLET PO (07:32)
[2023-12-27] MEDS: 0.9 % Sodium Chloride 1,000 ML 100 ML IVCONT (07:40)
--- NOTE | 2023-12-27 08:21 | PM.PNGS ---
Subjective Subjective Date of Service: 12/27/23 Interval history: Feels well. Mild incisional pain. She is tolerating phase 1 bariatric diet Physical Exam Vital Signs: Vital Signs: Last Vital Signs Temp 98.2 F 12/27/23 07:22 Pulse 83 12/27/23 07:22 Resp 16 12/27/23 07:22 BP 143/67 H 12/27/23 07:22 Pulse Ox 100 12/27/23 07:22 O2 Del Method Room Air 12/27/23 07:22 O2 Flow Rate 2 12/26/23 11:24 BMI result Body Mass Index 25.7 GI: Inspection: Yes normal to inspection, Yes incision (clean, dry and intact) and Yes obesity Palpation (GI): Soft to palpation Extrem: Right lower extremity: normal to inspection (no calf tenderness) Left lower extremity: normal to inspection (no calf tenderness) Objective Data Active Medications Amlodipine Besylate (Amlodipine Besylate 2.5 Mg Tablet) 2.5 mg PO DAILY TIM; Protocol Last Admin: 12/27/23 07:31 Dose: 2.5 mg Documented By: JHONY Glucose (Glucose Gel 15 Gm Gel..Gram.) 15 gm PO Q15M PRN; Protocol PRN Reason: per Hypoglycemia Standing Ord. Hydromorphone HCl (Hydromorphone Hcl 0.5 Mg/0.5 Ml Syringe) 0.25 mg IVPUSH Q4H PRN; Protocol PRN Reason: Pain, Moderate(Pain Scale 4-6) Acetaminophen (Ofirmev) 1,000 mg in 100 mls @ 16.7 mls/hr IV .Q6H [facility] Last Admin: 12/27/23 02:50 Dose: 16.7 mls/hr Documented By: ADDIS Dextrose (D10) 250 mls @ 750 mls/hr IV Q15M PRN; Protocol PRN Reason: per Hypoglycemia Standing Ord. Sodium Chloride (Ns) 1,000 mls @ 100 mls/hr IVCONT .Q10H [facility] Last Admin: 12/27/23 07:40 Dose: 100 mls/hr Documented By: JHONY Metoclopramide HCl (Metoclopramide Hcl 10 Mg/2 Ml Vial) 10 mg IVPUSH Q6H PRN PRN Reason: Nausea no effect from zofran Ondansetron HCl (Ondansetron Hcl 4 Mg/2 Ml Vial) 4 mg IVPUSH Q8H PRN PRN Reason: Nausea Pantoprazole Sodium (Pantoprazole Sodium 40 Mg/10 Ml Vial) 40 mg IVPUSH DAILY@0630 [facility] Last Admin: 12/27/23 06:16 Dose: 40 mg Documented By: ADDIS Sodium Chloride (0.9 % Sodium Chloride Flush 3 Ml Syringe) 3 ml IVFLUSH QSHIFT [facility] Last Admin: 12/27/23 06:24 Dose: Not Given Documented By: MAEVE Non-Admin Reason: IV Running Valsartan (Valsartan 320 Mg Tablet) 320 mg PO DAILY [facility]; Protocol Last Admin: 12/27/23 07:32 Dose: 320 mg Documented By: JHNOY Labs 12/27/23 04:51 12/27/23 04:51 Labs: Laboratory Results - last 24 hr 12/26/23 12/26/23 12/26/23 10:28 11:19 12:21 MCV MCH MCHC RDW Plt Count MPV Immature Gran % (Auto) Neut % (Auto) Lymph % (Auto) Dodge % (Auto) Eos % (Auto) Baso % (Auto) Lymph # (Auto) Dodge # (Auto) Eos # (Auto) Baso # (Auto) Abs Immat Gran (auto) Absolute Neuts (auto) Absolute Nucleated RBC Nucleated RBC % (auto) Anion Gap 20 Estim Creat Clear Calc 44.0 Estimated GFR 53 POC Glucose 233 H 254 H Random Glucose 280 H Calcium 9.4 12/26/23 12/26/23 12/27/23 16:11 20:35 04:51 MCV 92.3 MCH 31.0 MCHC 33.6 RDW 12.6 Plt Count 293 MPV 9.5 Immature Gran % (Auto) 0.5 H Neut % (Auto) 85.3 H Lymph % (Auto) 8.0 L Dodge % (Auto) 6.1 Eos % (Auto) 0.0 Baso % (Auto) 0.1 Lymph # (Auto) 0.8 L Dodge # (Auto) 0.6 Eos # (Auto) 0.0 Baso # (Auto) 0.0 Abs Immat Gran (auto) 0.05 H Absolute Neuts (auto) 8.6 H Absolute Nucleated RBC 0.000 Nucleated RBC % (auto) 0.0 Anion Gap 19 Estim Creat Clear Calc 42.0 Estimated GFR 50 POC Glucose 206 H 180 H Random Glucose 205 H Calcium 8.7 D 12/27/23 07:17 MCV MCH MCHC RDW Plt Count MPV Immature Gran % (Auto) Neut % (Auto) Lymph % (Auto) Dodge % (Auto) Eos % (Auto) Baso % (Auto) Lymph # (Auto) Dodge # (Auto) Eos # (Auto) Baso # (Auto) Abs Immat Gran (auto) Absolute Neuts (auto) Absolute Nucleated RBC Nucleated RBC % (auto) Anion Gap Estim Creat Clear Calc Estimated GFR POC Glucose 177 H Random Glucose Calcium Procedures Date of Service Date of Service: 12/27/23 Progress Note: A&P Assessment and plan (1) Status post repair of paraesophageal diaphragmatic hernia: Status: Acute Assessment and Plan: s/p laparoscopic diaphragmatic hernia repair and gastropexy Doing well Will check am labs and if OK the patient will be discharged home (2) Hiatal hernia: Status: Acute (3) GERD (gastroesophageal reflux disease): Status: Acute (4) Insulin pump in place: Status: Acute (5) Diabetes: Status: Acute (6) Hypertension: Status: Acute (7) High cholesterol: Status: Acute (8) Hepatomegaly: Status: Acute (9) Anemia: Status: Acute (10) Nephrolithiasis: Status: Acute (11) Diabetic neuropathy: Status: Acute (12) ANATOLY (obstructive sleep apnea): Status: Acute Time Spent With Patient Time: Total time managing care of this patient today ____ minutes. Quality Stroke Does the patient have a stroke diagnosis?: No VTE Prior VTE?: No VTE Risk Level:: Medical - moderate - high VTE Device Contraindication: N/A - Device Ordered VTE Drug Contraindication: Treatment Not Indicated
--- NOTE | 2023-12-27 08:40 | HO.POSTANES ---
Post Anesthesia Evaluation Post Anesthesia Evaluation Date of Service: 12/26/23 Vital Signs: Vital Signs Temp Pulse Resp BP Pulse Ox O2 Del Method 12/27/23 07:22 98.2 F 83 16 143/67 H 100 Room Air 12/27/23 07:21 100 Room Air 12/27/23 03:13 96.9 F 67 17 158/77 H 100 CPAP 12/26/23 23:37 97.3 F 74 17 137/67 97 CPAP Anesthesia: General Mental Status: Awake Nausea/Vomiting: None Hydration: Adequate Anesthesia-Related Issues: No Anes. Related Issues
--- NOTE | 2023-12-27 09:23 | MHC.CM.PN ---
IMM DELIVERED PT LIVES ALONE WITH HER DOG. 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 USES C-PAP AT [facility]. + HCP ON FILE AND VERIFIED. PCP TAWANDA ROBERSON DP: PT HAS BEEN MEDICALLY CLEARED FOR DC HOME, NO SERVICES. PT HAS OWN RIDE HOME.
== END 2023-12-27 11:34 | disposition home or self-care (01) | DRG 328 ==
LOC: HO.SSSA 10:41 → HO.S3 10:48
PROVIDERS: Physician Assistant Surgical; Admitting Provider Surgery; PCP Nurse Practitioner Primary Care; Visit Provider Surgery
PROC: 0BQT4ZZ Repair Diaphragm, Percutaneous Endoscopic Approach (ICD-10-PCS; principal; 2023-12-26 07:30)
DX: K44.0 Diaphragmatic hernia with obstruction, without gangrene (principal); K66.0 Peritoneal adhesions (postprocedural) (postinfection); K21.9 Gastro-esophageal reflux disease without esophagitis; G47.33 Obstructive sleep apnea (adult) (pediatric); E78.5 Hyperlipidemia, unspecified; E11.9 Type 2 diabetes mellitus without complications; Z87.891 Personal history of nicotine dependence; Z79.4 Long term (current) use of insulin; Z79.84 Long term (current) use of oral hypoglycemic drugs; Z79.899 Other long term (current) drug therapy
CPT/HCPCS: 36415; 80048; 80053; 82306; 82607; 82947; 83036; 84443; 85014; 85018; 85025; 85610; 85730; 86140; 86850; 86900; 86901; 88304; 93005; A4649; C9145; J0131; J0690; J1100; J2003; J2250; J2371; J2405; J2470; J2704; J2795; J3010; J7120

== ENCOUNTER → 2023-12-26 06:22 | Outpatient (BNV) | payer MEDICARE, OTHER, SELFPAY | PROVIDERS: Admitting Provider Surgery; PCP Nurse Practitioner Primary Care; Visit Provider Surgery | DX: K44.9 Diaphragmatic hernia without obstruction or gangrene (principal); Z98.890 Other specified postprocedural states; Z87.19 Personal history of other diseases of the digestive system | CPT/HCPCS: 43281; 99024; 99499 ==

== ENCOUNTER 2024-01-02 10:24 | Outpatient (AMB) | payer MEDICARE, OTHER, SELFPAY ==
--- NOTE | 2024-01-02 10:44 | A.OFFVIS_ITS ---
VS Expanded 01/02/24 10:57 BP 140/69 H Blood Pressure Location Rt brachial Blood Pressure Position Sitting Pulse 92 Pulse Source Pulse Oximeter Temp 97.5 F Temperature Source Temporal Artery Scan Pulse Oximetry 99 Oxygen Delivery Method Room Air Height 5 ft 1 in Weight 126 lb BMI 23.8 Body Fat % 33.6 Body Fat Mass 42.4 Fat Free Mass 83.6 Visceral Fat Rating 8.0 Body Water % 46.6 Body Water Mass 58.6 Muscle Mass/Score 79.4 Basal Metabolic Rate/Score 1,143 Intake Visit Reasons: (OV) s/p Diaphragmatic Hernia Repair 12/27/23 Allergies No Known Allergies Allergy (Verified 01/02/24 10:51) Medication List - Last Reconciled 01/02/24 by EDGAR Law amlodipine 2.5 mg PO DAILY atorvastatin 20 mg PO DAILY calcium citrate 200 mg PO DAILY cyanocobalamin (vitamin B-12) (Vitamin B-12) 1,000 mcg PO DAILY fexofenadine (Magdalena Hives) 180 mg PO DAILY fluconazole 150 mg PO SUSA insulin aspart U-100 (Novolog U-100 Insulin aspart) 50 units subcut Q24H metformin 1,000 mg PO BID multivitamin (Daily Multi-Vitamin tablet) 1 tab PO DAILY omega 7-wmt-tch-fish oil 1,000 mg (120 mg-180 mg) (Fish Oil) 1 cap PO DAILY ondansetron 4 mg PO Q12H pantoprazole 40 mg PO DAILY sucralfate 10 mL PO BID valsartan-hydrochlorothiazide 320-12.5 mg 1 tab PO DAILY vitamin B complex (B Complex-Vitamin B12 tablet) 1 tab PO DAILY HPI Comments Details: This?is a?68 yo female who is s/p diaphragmatic hernia repair 12/27/2023. Presents for 1 week post op visit. No complaints of nausea, emesis, abdominal pain or reflux, or constipation. She is stressed about following the plan precisely. Usually taking half valsartan, no amlodipine based on dosing parameters. Blood sugars- has insulin pump, temporary target 150. Present meal plan includes: drinking 2ml/min Celebrate Rebuild 1 scoop in 8oz UAM 8-10am Celebrate bar 11am-1pm Celebrate shake 2-4pm Dinner- persian yogurt or scrambled egg Celebrate shake 7-9pm 1 Gatorade Zero per day, allowed to have 8oz coffee per day thinks her fluid intake has been a bit low, trying to get 40oz doing this plan for the next 2 weeks [facility] Medical History (Updated 12/26/23 @ 10:49 by Jaiden Hines MD) ANATOLY on CPAP Hx of sepsis (~2020) Insulin pump in place GERD (gastroesophageal reflux disease) Renal calculi Sleep apnea [place] syndrome Diabetes Elevated cholesterol HTN (hypertension) Surgical History (Updated 01/02/24 @ 10:53 by Yolanda Estes CMA) Status post repair of paraesophageal diaphragmatic hernia History of esophagogastroduodenoscopy (EGD) (02/02/23) Hx of cystoscopy H/O colonoscopy H/O bilateral cataract extraction Family History Maternal Grandmother Colostomy status Cancer Social History (Updated 12/22/23 @ 15:15 by Mica Colin RN) Household Members: None Housing: House Are you a primary women's health care nurse practitioner to a significant other at home: No Do you presently have visiting nurse or other home services: No 75 years or older and lives alone: No Alcohol intake: current Alcohol intake frequency: holidays/special occasions only Patient Tobacco Use Status: Former Tobacco user Tobacco use type: Cigarette Use of substances other than those prescribed or required for medical reasons: No Advance Directives: No Advance Directives Information Provided: Yes Advance Directives on File: No Healthcare Proxy: No service: No Physical Exam Const General: cooperative, comfortable and no acute distress Orientation/consciousness: patient oriented x3 GI Other: soft, appropriately tender, nondistended, steri-strips c/d/i, no hernia, no masses Neuro General: patient oriented x3 Assessment & Plan Assessment & Plan (1) Status post repair of paraesophageal diaphragmatic hernia: Code(s): Z98.890 - Other specified postprocedural states; Z87.19 - Personal history of other diseases of the digestive system Category: Surgical Plan May shower tomorrow but no bath or submersion of abdomen in water. May start exercise in 2 days.? No abdominal exercises x 6 weeks. Abdominal binder for the next 2 weeks with activity or exercise. Continue meal plan per Dr R. Continue pantoprazole and carafate. Reminded of the pace of drinking 2 mL/min or 1oz per 15 min. Reassured pt that she is doing well, aim for 40oz fluids per day. RTC 5 weeks. I spent a total of 30 minutes reviewing/updating records, examining the patient and counseling the patient on weight management as detailed above.
[2024-01-02 10:57] VITALS: BP 140/69; PULSE 92; TEMP 36.4; O2SAT 99; BMI 23.8
== END 2024-01-02 11:23 | disposition home or self-care (01) ==
LOC: HO.HBS 10:25
PROVIDERS: PCP Nurse Practitioner Primary Care; Visit Provider Physician Assistant Surgical
DX: K44.9 Diaphragmatic hernia without obstruction or gangrene (principal); Z87.19 Personal history of other diseases of the digestive system
CPT/HCPCS: 99024

== ENCOUNTER → 2024-01-02 10:24 | Outpatient (BNVA) | payer MEDICARE, OTHER, SELFPAY | PROVIDERS: PCP Nurse Practitioner Primary Care; Visit Provider Physician Assistant Surgical | DX: K44.9 Diaphragmatic hernia without obstruction or gangrene (principal); Z87.19 Personal history of other diseases of the digestive system; Z98.890 Other specified postprocedural states | CPT/HCPCS: 99212 ==

== ENCOUNTER 2024-01-19 07:05 | Outpatient (REF) | payer MEDICARE, OTHER, SELFPAY ==
[2024-01-19 08:08] LABS: Anion Gap 20 (12-20); Blood Urea Nitrogen 22 mg/dL (9-16); Calcium 9.6 mg/dL (8.4-10.2); Carbon Dioxide 21 mmol/L (22-29); Chloride 105 mmol/L (96-108); Estimated Glomerular Filt Rate 46; Glucose Random 221 mg/dL (60-115); Potassium 3.5 mmol/L (3.3-5.1); Sodium 142 mmol/L (135-145)
== END 2024-01-19 07:06 | disposition home or self-care (01) ==
LOC: HO.LAB 07:05
PROVIDERS: PCP Nurse Practitioner Primary Care; Referring Provider Nurse Practitioner Primary Care; Visit Provider Surgery
DX: E87.6 Hypokalemia (principal)
CPT/HCPCS: 36415; 80048

== ENCOUNTER 2024-02-06 13:14 | Outpatient (AMB) | payer MEDICARE, OTHER, SELFPAY ==
--- NOTE | 2024-02-06 13:04 | MHC.OFFVISWM ---
VS Expanded 02/06/24 13:07 Height 5 ft 1 in Weight 118 lb BMI 22.3 Intake Visit Reasons: (TV) s/p Diaphragmatic Hernia Repair 12/27/23 Allergies No Known Allergies Allergy (Verified 01/02/24 10:51) Medication List - Last Reconciled 02/06/24 by EDGAR Law amlodipine 2.5 mg PO DAILY atorvastatin 20 mg PO DAILY calcium citrate 200 mg PO DAILY cyanocobalamin (vitamin B-12) (Vitamin B-12) 1,000 mcg PO DAILY fexofenadine (Magdalena Hives) 180 mg PO DAILY fluconazole 150 mg PO SUSA insulin aspart U-100 (Novolog U-100 Insulin aspart) 50 units subcut Q24H metformin 1,000 mg PO BID multivitamin (Daily Multi-Vitamin tablet) 1 tab PO DAILY omega 1-zwm-wsy-fish oil 1,000 (120-180) mg (Fish Oil) 1 cap PO DAILY ondansetron 4 mg PO Q12H pantoprazole 40 mg PO DAILY sucralfate 10 mL PO BID valsartan-hydrochlorothiazide 320-12.5 mg 1 tab PO DAILY vitamin B complex (B Complex-Vitamin B12 tablet) 1 tab PO DAILY HPI Comments Details: This?is a?68 yo female who is s/p diaphragmatic hernia repair 12/27/2023. Presents for 6 week post op visit. No complaints of nausea, emesis, abdominal pain or reflux, or constipation. Takes amlodipine (usually half pill) per parameters, off valsartan/metformin. Blood sugars- has insulin pump, temporary target 150. Continues on PPI/carafate, no reflux. Present meal plan includes: Celebrate Rebuild 1 scoop in 8oz UAM 8-10am Celebrate bar 11am-1pm Celebrate shake 2-4pm Dinner- started 5 forks chicken/fish and 5 forks veg/rice/potatoes Celebrate shake 7-9pm [facility] Medical History (Updated 01/04/24 @ 00:03 by Background Isaiah) Bleeding hemorrhoids Tubular adenoma of colon ANATOLY on CPAP Hx of sepsis (~2020) Insulin pump in place GERD (gastroesophageal reflux disease) Renal calculi Sleep apnea [place] syndrome Diabetes Elevated cholesterol HTN (hypertension) Surgical History (Updated 01/04/24 @ 00:03 by Background Sridevion) Status post repair of paraesophageal diaphragmatic hernia History of esophagogastroduodenoscopy (EGD) (02/02/23) Hx of cystoscopy H/O colonoscopy H/O bilateral cataract extraction Family History Maternal Grandmother Colostomy status Cancer Social History (Updated 12/22/23 @ 15:15 by Mica Colin, TREMAYNE) Household Members: None Housing: House Are you a primary caretaker grounds to a significant other at home: No Do you presently have visiting nurse or other home services: No 75 years or older and lives alone: No Alcohol intake: current Alcohol intake frequency: holidays/special occasions only Patient Tobacco Use Status: Former Tobacco user Tobacco use type: Cigarette service: No Telehealth Telehealth Telehealth Platform: Telephone Location of provider rendering services: other Location of patient: address on file Patient Identification confirmed using: Name, : Yes Telehealth method: voice only Patient verbally consented to treatment: Yes Patient verbally consented to billing insurance company: Yes Patient informed of any privacy concerns related to visit: Yes Minutes spent on Phone/Video with Pt.: 15 Assessment & Plan Assessment & Plan (1) Status post repair of paraesophageal diaphragmatic hernia: Code(s): Z98.890 - Other specified postprocedural states; Z87.19 - Personal history of other diseases of the digestive system Category: Medical Plan Pt to continue meal plan per Dr. Garland. She continues to lose weight, currently at healthy weight, considering asking about incorporating additional solid food. Will continue to monitor BP and dose according to parameters. Can resume vitamins. RTC 6w, pt due to complete PPI and carafate at 90 days. I spent a total of 30 minutes reviewing/updating records, examining the patient and counseling the patient on weight management as detailed above.
[2024-02-06 13:07] VITALS: BMI 22.3
--- OUTSIDE RECORDS SUMMARY | 2024-02-07 21:34 | XMS_ITS ---
Author Organization [facility] Address [address] [place] [phone] Care Team Providers Care Industrial Recruiter Name Role Phone LouisvilleElsi Primary Care Provider Sven Ely Unavailable [phone] REASON FOR VISIT rs appt 01/28 Encounters Encounter Location Date Provider Diagnosis [address] [address] 11/02/2023 Sven Hooper Plan Of Treatment Next Appt Details Provider Name:Sven Hooper , 05/01/2024 10:30:00 AM, [address] [facility], [address], [phone], Progress Notes * Betty OSORIODOB:[birth year] (68 yo F)Acc No.[id number]:11/02/2023 Patient:?Ramona Osoriorosalio Pryor :1955???Age:68 Y???Sex:Female Address:[address] [place] [address], [phone] * true * Date:? Generated for Printi ng/Faxing/eTransmitting on:?02/07/2024 01:35 PM EST
--- OUTSIDE RECORDS SUMMARY | 2024-02-07 21:34 | XMS_ITS | Continuity of Care Document ---
Author Organization [facility] Address [address] [place] [phone] Care Team Providers Care Vulcanizer Rubber Plate Name Role Phone Júnior MULLER, Elsi Pearson Primary Care Physic silas Encounter 01/13/24 - 01/30/24 [facility] [address] [place] [id number] Discharge Disposition: CLIENT NO LONGER REQUIRES SKILLED CARE Encounter Type: Disch [facility] Allergies, Adverse Reactions, Alerts No Known Allergies Medications amLODIPine 2.5 mg oral tablet 2.5 mg, 1, tablet, By Mouth, Daily, HOLD THE DOSE FOR BP <120/70, # 30 tablet, Refills 0, Tot. Refills 0, Maintenance, 01/12/24 12:04:00 PM EST, Do Not Route, Partial fill upon patient request if the prescription is for a schedule II opioid drug. Start Date: 01/12/24 Stop Date: 02/11/24 Status: Ordered Quantity: 30.0 Unit: tablet Repeat number: 1 atorvastatin 20 mg oral tablet 1 tablet = 20 mg, By Mouth, Daily, 0 Refills, Maintenance, 09/16/22 9:30:00 AM EDT, Partial fill upon patient request if the prescription is for a schedule II opioid drug. Start Date: 09/16/22 Status: Ordered Repeat number: 1 Calcium Citrate By Mouth, 2 times a day, 0 Refills, Maintenance, 12/27/21 6:39:00 AM EDT, Partial fill upon patientrequest if the prescription is for a schedule II opioid drug. Start Date: 12/27/21 Status: Ordered Repeat number: 1 Fish Oil 1000 mg oral capsule 1 capsule = 1,000 mg, By Mouth, Daily, 0 Refills, Maintenance, 12/27/21 6:39:00 AM EDT, Partial fill upon patient request if the prescription is for a schedule II opioid drug. Start Date: 12/27/21 Status: Ordered Repeat number: 1 Multivitamin Daily, 0 Refills, Maintenance, 06/13/20 8:28:00 AM EDT, Partial fill upon patient request if the prescription is for a schedule II opioid drug. Start Date: 06/13/20 Status: Ordered Repeat number: 1 NovoLOG 100 units/mL injectable solution INJECT 50 UNITS EVERY DAY WITH PUMP Start Date: 01/05/24 Status: Ordered Repeat number: 1 pantoprazole 40 mg oral delayed release tablet TAKE 1 TABLET BY MOUTH EVERY DAY Start Date: 01/05/24 Status: Ordered Repeat number: 1 potassium phosphate-sodium phosphate 250 mg-280 mg-160 mg oral powder for reconstitution 1 pack/packet, By Mouth, 3 times a day, # 9 pack/packet, 0 Refills, Maintenance, 01/12/24 12:08:00 PM EST, Oral Powder, [facility], Partial fill upon patient request if the prescriptionis for a schedule II opioid drug., 1 pack/packet By Mouth 3 times a day,x3 days, 155, cm, 01/05/24 18:22:00 EST, Height, 63.9, kg, 01/05/24 19:37:00 EST, Dry Weight Start Date: 01/12/24 Stop Date: 01/15/24 Status: Ordered Quantity: 9.0 Unit: pack/packet Repeat number: 1 Indication: Other disorders of phosphorus metabolism Vitamin B12 1000 mcg oral tablet 1 tablet = 1,000 mcg, By Mouth, Daily, 0 Refills, Maintenance, 12/27/21 6:38:00 AM EDT, Partial fill upon patient request if the prescription is for a schedule II opioid drug. Start Date: 12/27/21 Status: Ordered Repeat number: 1 Problem List Condition Confirmation Course Effective Dates Status Health St atus Informant Benign hypertension Confirmed Active Type 1 diabetes mellitus with hemoglobin A1c goal of 7.0%-8.0% Confirmed Active Social History Social History Type Response Smoking Status Never (less than 100 in lifetime) entered on: 06/13/20 Sex Sex Representation Female (finding) Patient Care team information Care Team Personnel Name: Mehul RNElizabeth Position: [facility] RN Member Role: Primary Care Nurse Name: Cm Torrez RN Position: S RN Member Role: Primary Care Nurse Name: Irwin Goodrich RN Position: [facility] ED RN W/OE and Tasks Member Role: Primary Care Nurse Name: Lashonda Farnsworth RN Position: [facility] RN Supv Member Role: Primary Care Nurse Name: Hilary Brown RN Position: [facility] ED RN W/OE and Tasks Member Role: Primary Care Nurse Name: Cherelle Matthew RN Position: [facility] RN Member Role: Primary Care Nurse Name: Manuela Silveira RN Position: [facility] RN Member Role: Primary Care Nurse Name: Dianne Link Position: [facility] Outreach Member Role: Lifetime Consulting Physician Name: Mechelle Siegel RN Position: [facility] RN Member Role: Primary Care Nurse Name: Naima Jackson RN Position: [facility] RN Member Role: Primary Care Nurse Name: Rigo Boswell RN Position: S RN Member Role: Primary Care Nurse Name: Jonel Bruno RN Position: [facility] RN Member Role: Primary Care Nurse Name: Leo Bahena MD Position: [facility] Renal MD Member Role: Lifetime Consulting Physician Address: [address] [facility] [address] [facility] [address] Telecom: Name: Chasity Maldonado RN Position: [facility] RN Member Role: Primary Care Nurse Name: Elsi Callejas NP Position: [facility] Outreach Member Role: PCP Address: [address] [facility] [address] Telecom: Name: Avis Luna RN Position: [facility] RN Member Role: Primary Care Nurse Care Team Related Persons Name: JORGE OSORIO Name: VALENTIN ALEGRIA Insurance Providers Guarantor name: EVY OSORIO Health Plan Information #: 1 Payer: MEDICARE A INPT 25 Member Number: NA Policy Number: NA Group Number: NA Health Plan Information #: 2 Payer: [facility] Member Number: NA Policy Number: NA Group Number: NA
--- OUTSIDE RECORDS SUMMARY | 2024-02-07 21:34 | XMS_ITS ---
Author Organization [facility] Address [address] [place] [address] Care Team Providers Care Expeditionary Fighting Vehicle Crewman Name Role Phone Elsi Callejas Primary Care Provider Sven Ely Unavailable [phone] Encounters Encounter Location Date Provider Diagnosis [address] [address] 01/29/2024 Sven Hooper Plan Of Treatment Next Appt Details Provider Name:Sven Hooper , 05/01/2024 10:30:00 AM, [address] [place] [address], [phone], Progress Notes * MCLAIN Betty PryorDOB:[birth year] (68 yo F)Acc No.[id number]:01/29/2024 Progress Note Patient:?Ramona MCLAINrosalio Pryor Provider:?Sven Hooper DPM :1955???Age:68 Y???Sex:Female D ate:01/29/2024 Address:[address] [place] [address] Pcp:Elsi Callejas Subjective: * Chief Complaints: * ??? * Medical History:? Objective: * Vitals:? Assessment: Plan: * Treatment: * Images: * The named appointment provid er may or may not be the originator of this progress note, and it is not deemed complete until electronically signed by the appointment provider. Sign off status: Pending * Provider:?Sven Hooper DPM Date:?2023 Generated for Tanisha sosa/Jennifer/Jess on:?02/07/2024 09:34 PM EST
--- OUTSIDE RECORDS SUMMARY | 2024-02-07 21:34 | XMS_ITS ---
[facility] Address [address] [place] [address] Care Team Providers Care Sales Support Advisor Name Role Phone Elsi Callejas Primary Care Provider Sven Ely Unavailable [phone] Allergies Allergen (clinical drug ingredient) Drug/Non Drug Allergy documented on EMR Reaction Allergy Type Onset Date Status environmental (uncoded) Unknown Allergy Active REASON FOR VISIT At Risk Footcare Medications Medication SIG (Take, Route, Frequency, Duration) Notes Start Date End Date Status amLODIPine Besylate Active metFORMIN HCl 1000 MG 1 tablet with meal s Orally Twice a day Not-Taking Fish Oil Active Atorvastatin Calcium 20 MG 1 tablet Orally Once a day Active Calcium Citrate Acti ve PriLOSEC Not-Taking Insulin Admin Supplies Not-Taking Zocor Not-Taking Glucophage Not-Takin g Losartan Potassium-HCTZ Not-Taking Vitamin B 12 1000 mcg Not-Taking HumaLOG Not-Taking Diovan HCT Not-Takin g Simvastatin 20 MG 1 tablet in the even ing Orally Once a day for 30 day(s) Not-Taking Aspirin 81 MG 1 tablet Orally Once a day Not-Taking Extra Depth Orthopedic Shoes (1 Pair) with Customized Heat Molded Multidensity Innersoles (3 Pair) as directed Dx: IDDM/Polyneuropathy (E10.42), Hammertoe Foot Deformity (M20.41,M20.42), Preulcerative Skin Lesion(s) (L85.1) 01/25/2023 Active Valsartan-hydroCHLOROthi azide Not-Taking Vitamin B12 Active NovoLOG Active Omeprazole Active Multivitamin Active Social History Tobacco Use: Social History Observation Description Date Details (start date - stop date) Never Smoker NA - NA Tobacco Use/Smoking Question Answer Notes Are you a: nonsmoker Additional Findings: Tobacco Non-User Current no n-smoker Alcohol Screen Question Answer Notes Did you have a drink containing alcohol in the p ast year? No Points 0 Interpretation Negative Tobacco use other than smoking: Question Answer Notes Are you an other tobacco user? No Vital Signs Height 5ft 1in in 01/31/2024 Weight 121 lbs 01/31/2024 BMI 22.86 kg/m2 01/31/2024 Procedures Procedure Date Ordered Date Performed Result Body Sit e 11683-QOZHADY NAIL, 6 OR MORE 01/31/2024 N/A 91844-MEGL SKIN LESIONS, OVER 4 01/31/2024 N/A Encounters Encounter Location Date Provider Diagnosis [facility] [address] [facility] [address] [place] [id number] 01/31/2024 Sven Hooper Type 1 diabetes mellitus with diabetic polyneuropathy E10.42 and Tinea unguium B35.1 Assessments Encounter Date Diagnosis (ICD Code) Assessment Notes Treatment Notes Treatment Clinical Notes Section Notes 01/31/2024 Type 1 diabetes mellitus with diabetic polyneuropathy (ICD-10 - E10.42) 01/31/2024 Tinea unguium (ICD-10 - B35.1) Plan Of Treatment Pending Test Test Name Order Date 61567-XYKHDZB NAIL, 6 OR MORE 01/31/2024 98027-SJDA SKIN LESIONS, OVER 4 01/31/20 24 Next Appt Details Follow Up: prn, Reason: Provider Name:Sven Hooper , 05/01/2024 10:30:00 AM, [address] [facility], [address], [place], [address], Procedure Notes * Category Sub-Category Detail Notes Debride Nail 6-10 Nail debridement Performance o f this nail treatment by a nonprofessional would put this patients foot and overall health at risk. Therefore, debridement to affected nail(s), as described in exam, was performed extensively to reduce/remove overall nail length, girth, thickness, subungual debris, and necrotic tissue, by manual and/or electrical means through the use of a nail nipper and/or dremel-type watch parts grinder, to a more viable healthy nail plate or bed tissue 6-10 nails in total. Silver nitrate was used for any petechial bleeding as necessary. Definitive antifungal treatment options, both pharmaceutical and surgical, have been reviewed and discussed with the patient. The patient solely prefers the use of intermittent/as needed professional debridement services for their nail condition and understands the need for additional periodic treatments to maintain effectiveness in symptomatic relief - 90885 Keratoma Treatment Parring or Cutting o f Benign Hyperkeratotic Lesion(s) (-57) More than 4 Lesions - The Benign hyperkeratotic lesions, ( 6) in total, locations as stated and described in exam, were pared, and/or cut utilizing a sterile 15 blade, tissue nippers, and/or power [employer] instrumentation - 95288 Progress Notes * Betty OSORIODOB:[birth year] (68 yo F)Acc No.[id number]:01/31/2024 Progress Note Patient:?Betty OSORIO Provider:?Sven Hooper DPM :1955???Age:68 Y???Sex:Female D ate:01/31/2024 Address:[address] [place], [place] [id number] Pcp:Elsi Callejas Subjective: * Chief Complaints: * ???At Risk Footcare * HPI: ???At Risk footcare:?Pt States Last PCP Visit:?Date?10/04/2023 * ROS:?General/Constitutional:?Nausea?denies.?Vomiting?denies.?Hunger Thirst?denies.?Loss appetite?denies.?Chills?denies.?Fatigue?denies.?Fever?denies.?Night Sweats?denies.?Unexplained weight loss?denies.?Ophthalmologic:?Blurred vision?denies.?Red eye?denies.?HEENTM:?Dentures?denies.?Dizziness?denies.?Glasses/contacts?admits.?Retinopathy?de nies.?Blurred/double vision?denies.?TMJ?denies.?Discharge/drainage?denies.?Implants?denies.?Hard of hearing denies.?Difficulty chewing/swallowing/speaking?denies.?Nose bleeds?denies.?Sore mouth?denies.?Swollen glands?denies.?Respiratory:?On Oxygen?denies.?Pneumonia/pleurisy?denies.?Bronchitis?denies.?Emphysema?denies.?C oughing?denies.?Cough blood?denies.?Shortness of breath?denies.?Wheezing?denies.?Cardiovascular:?Pacemaker?denies.?MVP?denies.?WPW?denies.?CHF?denies.?Heart attack?denies.?Septal defect?denies.?Rapid beat?denies.?Chest pain ?denies.?Atrial Fib.?denies.?Murmur/Palpitations?denies.?Gastrointestinal:?Hemorrhoids?denies.?Stomach/Abdominal pain?denies.?Dark blood stool?denies.?Irritable bowel ?denies.?Constipation?denies.?Diarrhea?denies.?Vomiting?denies.?Hematology:?Swelling?denies.?Bruising??admits, on aspirin.?Bleeding problem??admits, on anticoagulants.?Genitourinary:?Blood urine?denies.?Frequent/Painfu/urination/bladder control?denies.?Kidney stones?denies.?Infection (UTI)?denies.?Nephropathy?denies.?Musculoskeletal:?Hammertoes?admits.?Bunions?admits.?Scoliosis/kyphosis?denies.?Muscle cramps / walking?denies.?Generalized aches and pains?denies.?Weakness?denies.?Integ.:?Hartley?denies.?Scars?denies.?Corns/calluses?admits.?Ingrown nails?admits.?Painful nails?denies.?Rashes?denies.?Neurologic:?Difficulty sleeping?denies.?Bipolar?denies.?Brain disorder?denies.?Balance trouble?denies.?Confusion?denies.?Fainting/blackouts?denies.?Headache?denies.?Tr emors?denies.? * Medical History:? * Surgical History:?finger 10/28 4endoscopy 01/2023hiatal hernia 01/05/24 * Hospitalization/Major Diagno stic Procedure:?[facility] [place] [place], dehydration, dialysis 01/05/24 * Family History:?Mother: negrita lynn, diagnosed with Family history of arthritis.?Father: alive, heart attack, diagnosed with Unspecified heart disease.?Spouse: .?Children: none.?Siblings: diagnosed with Family history of arthritis.? No children. * Social History:?Tobacco Use:?Tobacco Use/Smoking?Are you a:?nonsmoker ?Additional Findings: Tobacco Non-User?Current non-smoker ?Tobacco use other than smoking?Are you an other tobacco user??No ???Drugs/Alcohol:?Drugs?Have you used drugs other than those for medical reasons in the past 12 months??No ?Alcohol Screen?Did you have a drink containing alcohol in the past year??No ?Points?0 ?Interpretation?Negative ???Miscellaneous:?Caffeine: yes, frequency:, 1-2 cups per day. ?Children: none. ?Exercise: yes, walking. ?Marital status: . 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 * Medications:?TakingamLODIPin e Besylate Atorvastatin Calcium 20 MG Tablet 1 tablet Orally Once a day Calcium Citrate Fish Oil Multivitamin NovoLOG Omeprazole Vitamin B12 Extra Depth Orthopedic Shoes (1 Pair) with Customized Heat Molded Multidensity Innersoles (3 Pair) as directed Dx: IDDM/Polyneuropathy (E10.42), Hammertoe Foot Deformity (M20.41,M20.42), Preulcerative Skin Lesion(s) (L85.1) Taking amLODIPine Besylate Taking Atorvastatin Calcium 20 MG Tablet 1 tablet Orally Once a day Taking Calcium Citrate Taking Fish Oil Taking Multivitamin Taking NovoLOG Taking Omeprazole Taking Vitamin B12 Taking Extra Depth Orthopedic Shoes (1 Pair) with Customized Heat Molded Multidensity Innersoles (3 Pair) as directed Dx: IDDM/Polyneuropathy (E10.42), Hammertoe Foot Deformity (M20.41,M20.42), Preulcerative Skin Lesion(s) (L85.1) Not-Taking/PRNmetFORMIN HCl 1000 MG Tablet 1 tablet with meals Orally Twice a day Valsartan-hydroCHLOROthiazide Vitamin B 12 1000 mcg Simvastatin 20 MG Tablet 1 tablet in the evening Orally Once a day Aspirin 81 MG Tablet 1 tablet Orally Once a day HumaLOG Diovan HCT Glucophage Losartan Potassium-HCTZ Insulin Admin Supplies Zocor PriLOSEC Medication List reviewed and reconciled with the patientNot-Taking/PRN metFORMIN HCl 1000 MG Tablet 1 tablet with meals Orally Twice a day Not- Taking/PRN Valsartan-hydroCHLOROthiazide Not-Taking/PRN Vitamin B 12 1000 mcg Not- Taking/PRN Simvastatin 20 MG Tablet 1 tablet in the evening Orally Once a day Not- Taking/PRN Aspirin 81 MG Tablet 1 tablet Orally Once a day Not-Taking/PRN HumaLOG Not- Taking/PRN Diovan HCT Not-Taking/PRN Glucophage Not-Taking/PRN Losartan Potassium-HCTZ Not-Taking/PRN Insulin Admin Supplies Not-Taking/PRN Zocor Not-Taking/PRN PriLOSEC Medication List reviewed and reconciled with the patient * Allergies:?environmentalyes[ Allergies Verified] Objective: * Vitals:?Ht: 5ft 1in, Wt:121, BMI:22.86, Shoe size: 7, BS: 141, Ht-cm: 154.94 cm, Wt-k.88 kg. * ???Past Orders: ???Lab:HEMOGLOBIN A1C (GLYCO HEMOGLOBIN) (Order Date - 01/31/2024) (Collection Date & Time - 10/04/2023 10:25 AM) ? Value Reference Range ?TOTAL HEMOGLOBIN (HGBA1C) 6.8 * Examination: ???Neurological: ?SENSORY:?Neurological exam demonstrates, reduced light touch sensation, reduced sharp/dull pin prick discrimination , B/L, 5.07 monofilament test performed at plantar aspects of 5 varied sites per foot shows sensation, reduced, B/L, Pt relates burning, paresthesia, pins and needles sensation, shooting sensation, Forefoot, B/L.?Nails: ?NAILS are:?Elongated, overgrown, dystrophic, lytic, greater than 3mm thick, discolored and friable with crumbly malodorous subungual debris, 1-5 B/L.?Dermatologic: ?SKIN FINDINGS:?Skin exam reveals Keratotic lesion(s) located at, Medial plantar, IPJ, TA, Medial plantar, IPJ, T5, SUB MTH (s) 1, B/L , Plantar, Heel, B/L .? Assessment: * Assessment: 1.?Type 1 diabetes mellitus with diabetic polyneuropathy - E10.42 (Primary)???2.?Tinea unguium - B35.1??? Plan: * Treatment: * Procedures:?Debride Nail 6-10:?Nail debridement?Performance of this nail treatment by a nonprofessional would put this patients foot and overall health at risk. Therefore, debridement to affected nail(s), as described in exam, was performed extensively to reduce/remove overall nail length, girth, thickness, subungual debris, and necrotic tissue, by manual and/or electrical means through the use of a nail nipper and/or dremel-type watch parts grinder, to a more viable healthy nail plate or bed tissue 6-10 nails in total. Silver nitrate was used for any petechial bleeding as necessary. Definitive antifungal treatment options, both pharmaceutical and surgical, have been reviewed and discussed with the patient. The patient solely prefers the use of intermittent/as needed professional debridement services for their nail condition and understands the need for additional periodic treatments to maintain effectiveness in symptomatic relief - 14925.?Keratoma Treatment:?Parring or Cutting of Benign Hyperkeratotic Lesion(s)?(-57) More than 4 Lesions - The Benign hyperkeratotic lesions, ( 6) in total, locations as stated and described in exam, were pared, and/or cut utilizing a sterile 15 blade, tissue nippers, and/or power dremel instrumentation - 65953.? * Procedure Codes:?82513 DEBRI DE NAIL, 6 OR MORE, Modifiers: XS 27271 TRIM SKIN LESIONS, OVER 4, Modifiers: XS * Follow Up:?prn * Images: * Sign off status: Completed true * Provider:?Sven Hooper DPM Date:?2023 Generated for Tanisha sosa/Jennifer/Adelineitting on:?02/07/2024 01:35 PM EST History and Physical Notes * HPI (History of Present Illness) Category Sub-Category Detail Notes Category Not es At Risk footcare Pt States Last PCP Visit: Date: Examination Category Sub-Category Detail Notes Category Not es Neurological SENSORY: Neurological exa m demonstrates, reduced [...] T5, SUB MTH (s) 1, B/L , Plantar, Heel, B/L Nails NAILS are: Elongated, overg rown, dystrophic, lytic, greater than 3mm thick, discolored and friable with crumbly malodorous subungual debris, 1-5 B/L
--- OUTSIDE RECORDS SUMMARY | 2024-02-07 21:34 | XMS_ITS | Patient Health Record ---
Author Organization [facility] Address [address] [place] [address] Care Team Providers Care [employer] Name Role Phone Elsi Callejas Primary Care Provider Sven Ely Unavailable [phone] Allergies Allergen (clinical drug ingredient) Drug/Non Drug Allergy documented on EMR Reaction Allergy Type Onset Date Status environmental (uncoded) Unknown Allergy Active Results Component Value Reference Range Notes HEMOGLOBIN A1C (GLYCOHEMOGLO BIN) Reviewed date:11/01/2023 01:15:04 PM Interpretation: Performing Lab: Notes/Report: HEMOGLOBIN A1C % (HH) 6.9 HEMOGLOBIN A1C (GLYCOHEMOGLO BIN) Reviewed date:01/31/2024 10:25:52 AM Interpretation: Performing Lab: Notes/Report: TOTAL HEMOGLOBIN (HGBA1C) 6.8 HEMOGLOBIN A1C (GLYCOHEMOGLO BIN) Reviewed date:08/21/2023 01:13:34 PM Interpretation: Performing Lab: Notes/Report: HEMOGLOBIN A1C % (HH) 7.1 HEMOGLOBIN A1C (GLYCOHEMOGLO BIN) Reviewed date:06/14/2023 10:04:49 AM Interpretation: Performing Lab: Notes/Report: HEMOGLOBIN A1C % (HH) 7.0 Reason For Referral No Information Medications Medication SIG (Take, Route, Frequency, Duration) Notes Start Date End Date Status PriLOSEC Not-Taking Extra Depth Orthopedic Shoes (1 Pair) with Customized Heat Molded Multidensity Innersoles (3 Pair) as directed Dx: IDDM/Polyneuropathy (E10.42), Hammertoe Foot Deformity (M20.41,M20.42), Preulcerative Skin Lesion(s) (L85.1) 01/25/2023 Active amLODIPine Besylate Active Vitamin B 12 1000 mcg Not-Taking Valsartan-hydroCHLOROthi azide Not-Taking Vitamin B12 Active NovoLOG Active Omeprazole Active metFORMIN HCl 1000 MG 1 tablet with meal s Orally Twice a day Not-Taking Multivitamin Active Insulin Admin Supplies Not-Taking Zocor Not-Taking Glucophage Not-Takin g Losartan Potassium-HCTZ Not-Taking Fish Oil Active HumaLOG Not-Taking Diovan HCT Not-Takin g Atorvastatin Calcium 20 MG 1 tablet Orally Once a day Active Simvastatin 20 MG 1 tablet in the even ing Orally Once a day for 30 day(s) Not-Taking Calcium Citrate Acti ve Aspirin 81 MG 1 tablet Orally Once a day Not-Taking Immunizations Vaccine Route Administration Date Status Comme nts COVID-19 Pfizer BioNTech Vaccine Unknown 03/06/2020 Adm inistered #2 03/27/20 COVID-19 Pfizer BioNTech Vaccine Unknown 03/27/2020 Adm inistered Influenza Unknown 11/24/2014 Administered Influenza Unknown 11/10/2015 Administered Influenza Unknown 12/11/2016 Administered Influenza Unknown 12/11/2017 Administered Influenza Unknown 11/29/2018 Administered Influenza Unknown 12/24/2019 Administered Social History Tobacco Use: Social History Observation [...] Are you an other tobacco user? No Problems Problem Type SNOMED Code ICD Code Onset Dates Problem Status W/U Status Risk Notes Problem Acquired hammer toe of right foot (2961669259235486 ) Other hammer toe(s) (acquired), right foot (M20.41) Active confirmed Response to treatment, Improvemen t Problem Acquired hammer toe of left foot (9066981621953325 ) Other hammer toe(s) (acquired), left foot (M20.42) Active confirmed Response to treatment, Improvemen t Problem Polyneuropathy due to diabetes mellitus type I (497118590) Type 1 diabetes mellitus with diabetic polyneuropathy (E10.42) Active confirmed Vital Signs Height 5ft 1in in 01/31/2024 Weight 121 lbs 01/31/2024 BMI 22.86 kg/m2 01/31/2024 Procedures Procedure Date Ordered Date Performed Result Body Sit e 31314-FLUYBAZ NAIL, 6 OR MORE 04/06/2023 N/A 88022-Bqhtxtyw Plate 04/06/2023 N/A 28298-FLDV SKIN LESIONS, OVER 4 04/06/2023 N/A 14665-ILWUDDH NAIL, 6 OR MORE 06/14/2023 N/A 41660-XTQJ SKIN LESIONS, OVER 4 06/14/2023 N/A 62208-LDLESKA NAIL, 6 OR MORE 08/21/2023 N/A 29932-LQAL SKIN LESIONS, OVER 4 08/21/2023 N/A 36437-KCLPZUP NAIL, 6 OR MORE 11/01/2023 N/A 42323-UCKJ SKIN LESIONS, OVER 4 11/01/2023 N/A 75821-FACATOE NAIL, 6 OR MORE 01/31/2024 N/A 95721-EDMU SKIN LESIONS, OVER 4 01/31/2024 N/A Encounters Encounter Location Date Provider Diagnosis [address] [address] 04/06/2023 Svenlouis Hooper Type 1 diabetes mellitus with diabetic polyneuropathy E10.42 ; Tinea unguium B35.1 and Ingrown nail L60.[address] [address] 06/14/2023 Svenlouis Hooper Type 1 diabetes mellitus with diabetic polyneuropathy E10.42 ; Tinea unguium B35.1 ; Other hammer toe(s) (acquired), right foot M20.41 and Other hammer toe(s) (acquired), left foot M20.[address] [address] 08/21/2023 Sven Rufus Type 1 diabetes mellitus with diabetic polyneuropathy E10.42 and Tinea unguium B35.[address] [address] 11/01/2023 Sven Rufus Type 1 diabetes mellitus with diabetic polyneuropathy E10.42 and Tinea unguium B35.1 [facility] [address] [facility] [address] [place] [address] 01/31/2024 Sven Rufus Type 1 diabetes mellitus with diabetic polyneuropathy E10.42 and Tinea unguium B35.1 [facility] [address] [place] [address] 11/02/2023 Sven Hooper Assessments Encounter Date Diagnosis (ICD Code) Assessment Notes Treatment Notes Treatment Clinical Notes Section Notes 04/06/2023 Type 1 diabetes mellitus with diabetic polyneuropathy (ICD-10 - E10.42) 04/06/2023 Tinea unguium (ICD-10 - B35.1) 06/14/2023 Type 1 diabetes mellitus with diabetic polyneuropathy (ICD-10 - E10.42) 06/14/2023 Tinea unguium (ICD-10 - B35.1) 08/21/2023 Type 1 diabetes mellitus with diabetic polyneuropathy (ICD-10 - E10.42) 08/21/2023 Tinea unguium (ICD-10 - B35.1) 11/01/2023 Type 1 diabetes mellitus with diabetic polyneuropathy (ICD-10 - E10.42) 11/01/2023 Tinea unguium (ICD-10 - B35.1) 01/31/2024 Type 1 diabetes mellitus with diabetic polyneuropathy (ICD-10 - E10.42) 01/31/2024 Tinea unguium (ICD-10 - B35.1) 04/06/2023 Ingrown nail (ICD-10 - L60.0) 06/14/2023 Other hammer toe(s) (acquired), right foot (ICD-10 - M20.41) Response to treatment,Impro vement 06/14/2023 Other hammer toe(s) (acquired), left foot (ICD-10 - M20.42) Response to treatment,Impro vement Plan Of Treatment Pending Test Test Name Order Date Hemoglobin A1c 03/01/2018 48883-VWAPSEI NAIL, 6 OR MORE 01/10/2011 45449-VWNIMVK NAIL, 6 OR MORE 06/08/2017 68155-ACWLAVY NAIL, 6 OR MORE 12/17/2014 66379-MWOIVNR NAIL, 6 OR MORE 09/02/2013 41946-BVQONMK NAIL, 6 OR MORE 06/14/2023 99399-CYGZIMH NAIL, 6 OR MORE 08/21/2023 31232-UFBKLDM NAIL, 6 OR MORE 11/01/2023 48133-QIMPEFM NAIL, 6 OR MORE 01/31/2024 58087-NWDQYLG NAIL, 6 OR MORE 03/09/2020 92094-TCEFIUL NAIL, 6 OR MORE 05/18/2020 57830-LUQUJQG NAIL, 6 OR MORE 07/20/2020 61117-BLNBGNN NAIL, 6 OR MORE 10/14/2020 13783-UICLBWA NAIL, 6 OR MORE 12/23/2020 25218-DMRCMMG NAIL, 6 OR MORE 03/17/2021 76191-ZJDWVVY NAIL, 6 OR MORE 06/02/2021 71041-MGLMJCD NAIL, 6 OR MORE 08/16/2021 18486-TPPSCDX NAIL, 6 OR MORE 10/27/2021 81135-SAJSHRL NAIL, 6 OR MORE 01/12/2022 55630-KTGDHPX NAIL, 6 OR MORE 03/24/2022 54077-KWBNZSP NAIL, 6 OR MORE 06/15/2022 11819-OXFOQIQ NAIL, 6 OR MORE 08/25/2022 78455-PMCQBPA NAIL, 6 OR MORE 11/16/2022 06491-ZYKLQXU NAIL, 6 OR MORE 01/25/2023 99246-UHVFVWQ NAIL, 6 OR MORE 04/06/2023 06258-TQTCTUM NAIL, 6 OR MORE 10/25/2010 91962-BWFDGGZ NAIL, 6 OR MORE 03/28/2011 80135-GZFGCET NAIL, 6 OR MORE 06/27/2011 31122-NJYKARX NAIL, 6 OR MORE 09/19/2011 33316-JCXBZCV NAIL, 6 OR MORE 12/12/2011 97498-PWCMGFQ NAIL, 6 OR MORE 03/21/2012 59238-LGWPNDA NAIL, 6 OR MORE 07/09/2012 66729-BCUMHHU NAIL, 6 OR MORE 11/19/2012 03992-SKPGCPK NAIL, 6 OR MORE 03/04/2013 41647-TSJCNGC NAIL, 6 OR MORE 06/03/2013 90271-GVJSBRJ NAIL, 6 OR MORE 11/27/2013 52283-WPPHWXP NAIL, 6 OR MORE 03/05/2014 78357-JERISDG NAIL, 6 OR MORE 06/18/2014 56354-HPVRVEI NAIL, 6 OR MORE 09/10/2014 30320-VEMZSLT NAIL, 6 OR MORE 03/18/2015 31759-DQFJKAQ NAIL, 6 OR MORE 06/11/2015 01396-IZENJQU NAIL, 6 OR MORE 09/28/2015 14078-OOJGFMM NAIL, 6 OR MORE 12/30/2015 62854-DLIYELB NAIL, 6 OR MORE 04/04/2016 78084-NGZIBVP NAIL, 6 OR MORE 07/04/2016 04090-TWORIRQ NAIL, 6 OR MORE 10/06/2016 43925-SNZMGDE NAIL, 6 OR MORE 12/28/2016 65112-TGJJMIK NAIL, 6 OR MORE 03/22/2017 43772-TIHXXIU NAIL, 6 OR MORE 08/24/2017 83132-DBUQTPJ NAIL, 6 OR MORE 11/15/2017 49673-XFIHHTI NAIL, 6 OR MORE 01/31/2018 44589-MTHIIVJ NAIL, 6 OR MORE 04/23/2018 19719-MHYZQJN NAIL, 6 OR MORE 07/11/2018 87605-LGTMWTX NAIL, 6 OR MORE 09/24/2018 25690-EQBEDXY NAIL, 6 OR MORE 12/03/2018 58799-IPCTQPI NAIL, 6 OR MORE 02/11/2019 23758-QZAVSTZ NAIL, 6 OR MORE 04/22/2019 05233-TFQUETX NAIL, 6 OR MORE 07/24/2019 67634-CQVIVRJ NAIL, 6 OR MORE 10/07/2019 25452-Husaebjz Plate 04/06/2023 96812-TGKO SKIN LESIONS, OVER 4 09/03/19 14 20805-GHSD SKIN LESIONS, OVER 4 12/18/19 15 00950-SOQL SKIN LESIONS, OVER 4 01/31/20 24 52930-QZDU SKIN LESIONS, OVER 4 06/09/19 18 12752-PQKS SKIN LESIONS, OVER 4 11/01/19 24 11054-ZDRB SKIN LESIONS, OVER 4 08/21/19 24 95069-TPEU SKIN LESIONS, OVER 4 06/14/19 24 84842-VAUN SKIN LESIONS, OVER 4 04/06/19 24 00687-LTAN SKIN LESIONS, OVER 4 01/26/20 23 73292-IRDA SKIN LESIONS, OVER 4 11/17/19 23 47550-XPKE SKIN LESIONS, OVER 4 08/26/19 12864-FSIM SKIN LESIONS, OVER 4 06/16/19 48899-RYLU SKIN LESIONS, OVER 4 03/24/19 41263-WUWL SKIN LESIONS, OVER 4 01/13/20 29334-UATF SKIN LESIONS, OVER 4 10/28/19 23621-GVRG SKIN LESIONS, OVER 4 08/17/19 40390-TWZH SKIN LESIONS, OVER 4 06/03/19 83864-NEJX SKIN LESIONS, OVER 4 03/17/19 45162-AQSD SKIN LESIONS, OVER 4 12/24/19 05973-JBAH SKIN LESIONS, OVER 4 10/15/19 26875-RJNW SKIN LESIONS, OVER 4 07/21/19 91899-XGME SKIN LESIONS, OVER 4 05/19/19 38612-XGSC SKIN LESIONS, OVER 4 03/09/19 84123-XXVQ SKIN LESIONS, OVER 4 10/07/19 45802-KSLP SKIN LESIONS, OVER 4 07/24/19 58076-UZKV SKIN LESIONS, OVER 4 04/22/19 22755-OPJT SKIN LESIONS, OVER 4 02/12/20 19 62524-OBAH SKIN LESIONS, OVER 4 12/04/19 19 21926-ASSX SKIN LESIONS, OVER 4 09/25/19 19 25475-PYFB SKIN LESIONS, OVER 4 07/12/19 19 73969-GECD SKIN LESIONS, OVER 4 04/23/19 19 73017-FNMD SKIN LESIONS, OVER 4 02/01/20 18 88941-JRYP SKIN LESIONS, OVER 4 11/16/19 18 23206-ARVE SKIN LESIONS, OVER 4 08/25/19 18 65319-VNMW SKIN LESIONS, OVER 4 03/22/19 18 50886-KLGL SKIN LESIONS, OVER 4 12/29/19 17 58515-RSUZ SKIN LESIONS, OVER 4 10/07/19 17 79328-NAZO SKIN LESIONS, OVER 4 04/04/19 17 49344-JEZU SKIN LESIONS, OVER 4 07/05/19 17 47975-ZPLT SKIN LESIONS, OVER 4 12/30/19 16 57414-WYQY SKIN LESIONS, OVER 4 09/28/19 16 04472-HBTJ SKIN LESIONS, OVER 4 03/18/19 16 22782-ZMBO SKIN LESIONS, OVER 4 06/11/19 16 48148-NZCV SKIN LESIONS, OVER 4 09/11/19 15 63296-WNHH SKIN LESIONS, OVER 4 06/19/19 15 90746-XUND SKIN LESIONS, OVER 4 03/05/19 15 04474-KXIV SKIN LESIONS, OVER 4 11/28/19 14 08883-IBOG SKIN LESIONS, 2 TO 4 06/04/19 14 67586-MJGT SKIN LESIONS, 2 TO 4 03/04/19 14 80082-GINE SKIN LESIONS, 2 TO 4 11/20/19 13 67024-EWBQ SKIN LESIONS, 2 TO 4 07/10/19 13 67708-FEJB SKIN LESIONS, 2 TO 4 03/21/19 13 24089-WOQR SKIN LESIONS, 2 TO 4 12/12/19 12 01599-GXAZ SKIN LESIONS, 2 TO 4 09/19/19 12 04048-YKQE SKIN LESIONS, 2 TO 4 06/27/19 12 50440-FFYT SKIN LESIONS, 2 TO 4 03/28/19 12 09905-XJWX SKIN LESIONS, 2 TO 4 10/26/19 11 28069-CSUS SKIN LESIONS, 2 TO 4 01/11/20 11 87673, H9588-SASZI/INJECT, JOINT/BURSA 1 Next Appt Details Provider Name:Sven Hooper , 05/01/2024 10:30:00 AM, [address] [facility], [address], [place], [address], Insurance Providers Payer Name Payer Address Payer Phone Subscriber Number Group Number Insured Name Patient Relationship to Insured Coverage Start Date Coverage End Date [employer] [address] [place] [address] [id number] Betty Mclain Self - patient is the insured [facility] [address] [place] [address] [id number] Betty Mclain Self - patient is the insured Medical (General) History Medical History History ICD Code broken bones Diabetic hyperlipidemia hypertension sleep apnea Reflux Surgical History Surgery Date(Month/Year) finger 11/10 endoscopy 01/2023 hiatal hernia 01/05/24 Hospitalization History Reason Date(Month/Year) [facility]- hiatal hernia surgery, dehydration, dialysis 01/05/24 [facility] Admitted for kidney stone 06/13/20 [facility]- Finger surgery/cyst 11/10
--- OUTSIDE RECORDS SUMMARY | 2024-02-07 21:34 | XMS_ITS | Continuity of Care Document ---
Author Organization [facility] ter Address [address] [place] [id number]- Care Team Providers Care Fence Manufacture Supervisor Name Role Phone Júnior MULLER, Elsi Pearson Primary Care Physic silas [id number] Date(s): 01/05/24 - 01/12/[address] [address]- Discharge Disposition: A-D/C Home Attending Physician: Harjit LYNN, Deepak Lora Admitting Physician: Ajay Rubalcava MD Referring Physician: Not on Staff, Referring MD Encounter Type: Disch IP Allergies, Adverse Reactions, Alerts No Known Allergies [...] Maintenance, 01/12/24 12:08:00 PM EST, Oral Powder, [facility], Partial fill upon patient request [...] Exam Date Time Procedure Performing Provider Status 01/10/24 2:24 AM MRI Brain W/O Contrast Alexi Johnson; Yenifer (Verified) Notes: (MRI Brain W/O Contrast) Reason For Exam: loss of consciousness;Other: RESULT: MRI Brain W/O Contrast MRI Brain W/O Contrast INDICATION / CLINICAL QUESTION: Reason: Other:; loss of consciousness; Clinical Question(s): Infarction; Order Comment: Please see Reference Text for complete list of contraindications Infarction TECHNIQUE: MRI of the brain was performed without contrast utilizing sagittal T1, axial T2, axial FLAIR, axial SWAN, and axial DWI sequences. COMPARISON: Head CT 01/05/2024 FINDINGS: BRAIN and EXTRA-AXIAL SPACES: The ventricles and sulci are normal in size. There is no evidence of restricted diffusion to suggest acute infarction. Is minimal periventricular white matter T2 and FLAIR hyperintense signal changes are present consistent with mild chronic microvascular ischemia. The brainstem and cerebellum are normal. There is no hemorrhage, midline shift, or mass effect. There is no extra-axial collection. Flow voids are preserved in the dominant intracranial vessels. EXTRACRANIAL SOFT TISSUES: There have been lens replacements bilaterally. Paranasal sinuses and mastoids are unremarkable. BONES: Marrow signal is preserved. IMPRESSION: 1. No acute/subacute infarct, mass, hemorrhage, or other acute intracranial abnormality. 2. T2/FLAIR hyperintense foci in the white matter, nonspecific but most likely reflecting chronic small vessel disease. WSN: [id number] Ordering Physician: Jimena Mcgovern Dictated By: Wicho Parr MD Dictated Date/Time: 01/10/24 9:28 am Reviewed By: Wicho Parr MD Signed By: Wicho Parr MD Signed Date/Time: 01/10/24 9:28 am Transcribed By: QUINN Transcribed Date/Time: 01/10/24 9:18 am * Exam Date Time Procedure Performing Provider Status 01/08/24 3:55 AM Chest Portable Terrance Bob ( Verified) Notes: (Chest Portable) Reason For Exam: Line Placement RESULT: Chest Portable Chest Portable Reason: Line Placement; Clinical Question(s): Line Placement COMPARISON: Multiple prior chest radiographs with the most recent dated 01/05/2024 at 2002 hours. FINDINGS: LINES AND TUBES: Right IJ dual-lumen probably temporarily dialysis catheter remains in place with its tip in the region of the proximal SVC unchanged in position. LUNGS AND PLEURA: Clear lungs. Normal pulmonary vascularity. The left lateral costophrenic angle is not in the [id number]. No pleural effusion. No pneumothorax. HEART, MEDIASTINUM AND ARABELLA: Heart is normal in size. Normal mediastinal and hilar contour. BONES AND SOFT TISSUES: No acute abnormality. IMPRESSION: No significant interval change. WSN: [id number] Ordering Physician: Tim Vanegas Dictated By: Mango Alvarenga MD, V Dictated Date/Time: 01/08/24 8:36 am Reviewed By: Mango Alvarenga MD, V Signed By: Mango Alvarenga MD, V Signed Date/Time: 01/08/24 8:36 am Transcribed By: QUINN Transcribed Date/Time: 01/08/24 8:34 am * Exam Date Time Procedure Performing Provider Status 01/05/24 8:14 PM Chest Portable Jada Causey; Yenifer (Verified) Notes: (Chest Portable) Reason For Exam: Line Placement RESULT: Chest Portable Chest Portable Reason: Line Placement; Clinical Question(s): Line Placement COMPARISON: 01/05/2024 at 3:10 PM and priors. FINDINGS: LINES AND TUBES: Right IJ introducer sheath with its tip at the mid SVC. LUNGS AND PLEURA: Clear lungs. Normal pulmonary vascularity. No pleural effusion. No pneumothorax. HEART, MEDIASTINUM AND ARABELLA: Heart is normal in size. Normal mediastinal and hilar contour. BONES AND SOFT TISSUES: No acute abnormality. IMPRESSION: No change from prior. I have personally reviewed the images and I agree with this report. WSN: [id number] Ordering Physician: Sky Cooley Dictated By: Elio Lindsey MD Dictated Date/Time: 01/05/24 8:42 pm Reviewed By: Vladislav Dinh MD Signed By: Vladislav Dinh MD Signed Date/Time: 01/05/24 8:47 pm Transcribed By: QUINN Transcribed Date/Time: 01/05/24 8:40 pm Vital Signs Most recent to oldest [Reference Range]: 1 2 3 Weight 65.3 kg (01/12/24 4:47 AM) 58.1 kg (01/09/24 12:12 AM) 61 kg (01/05/24 6:53 PM) Oxygen Saturation [94-100 %] 100 % (01/12/24 7:46 AM) 99 % (01/12/24 2:04 AM) 96 % (01/11/24 7:37 PM) Pulse Rate [55-90 bpm] 100 bpm *H* (01/12/24 7:46 AM) 66 bpm (01/12/24 2:04 AM) 66 bpm (01/11/24 7:37 PM) Blood Pressure [90-138/55-84 mm Hg] 129/68mm Hg (01/12/24 7:46 AM) 132/70mm Hg (01/12/24 2:04 AM) 120/59mm Hg (01/11/24 7:37 PM) Respiratory Rate [16-30 br/min] 18 br/min (01/12/24 7:46 AM) 20 br/min (01/12/24 2:04 AM) 20 br/min (01/11/24 7:37 PM) Temperature [96.8-100.4 DegF] 97 DegF (01/12/24 7:46 AM) 97.2 DegF (01/12/24 2:04 AM) 97.9 DegF (01/11/24 7:37 PM) Liters per Minute 2 L/min (01/07/24 7:00 AM) 2 L/min (01/07/24 6:00 AM) 2 L/min (01/07/24 5:00 AM) Mode of Delivery (Oxygen) Room air (01/12/24 7:46 AM) Room air (01/12/24 2:04 AM) Room air (01/11/24 7:37 PM) Blood pressure sites Arm, left (01/12/24 7:46 AM) Arm, right (01/12/24 2:04 AM) Arm, right (01/11/24 7:37 PM) Temperature Route Temporal (01/12/24 7:46 AM) Temporal (01/12/24 2:04 AM) Temporal (01/11/24 7:37 PM) Weight Obtained Via Bed scale (01/12/24 4:47 AM) Bed scale (01/09/24 12:12 AM) Social History Social History Type Response Smoking Status Never (less than 100 in lifetime) entered on: 06/13/20 Sex Sex Representation Female (finding) Note * Harjit LYNN, Deepak D: PERFORM, MODIFY, MODIFY Event Display: Discharge/Transfer Note Hospital Authored Date: [id number] Patient: ??BETTY MCLAIN ? Age:??68 Years?Sex:??Female?:??1955?? Patient Information Discharge Location: Primary Care Physician: Júnior MULLER, Elsi Pearson Admit Date/Time: 01/05/2024 18:26 Discharge Disposition Discharge Disposition: Home with Home Health Discharge Diagnosis Acute hypoxic respiratory failure (J96.01) Hypophosphatemia (E83.39) _ Discharge Medications Amlodipine (amLODIPine 2.5 mg oral tablet)?2.5?Milligram?1?tablet?By Mouth?Daily?for 30?Days?HOLD THE DOSE FOR BP <120/70 Atorvastatin (atorvastatin 20 mg oral tablet)?1?tab(s)?20?Milligram?By Mouth?Daily Calcium Citrate?By Mouth?2 times a day Cyanocobalamin (Vitamin B12 1000 mcg oral tablet)?1?tab(s)?1,000?Microgram?By Mouth?Daily Insulin Aspart (NovoLOG 100 units/mL injectable solution)?INJECT 50 UNITS EVERY DAY WITH PUMP Multivitamin?Daily [place]-3 Polyunsaturated Fatty Acids (Fish Oil 1000 mg oral capsule)?1?capsule?1,000?Milligram?By Mouth?Daily Pantoprazole (pantoprazole 40 mg oral delayed release tablet)?TAKE 1 TABLET BY MOUTH EVERY DAY Potassium Phosphate-Sodium Phosphate (potassium phosphate-sodium phosphate 250 mg-280 mg-160 mg oral powder for reconstitution)?1?pack/packet?By Mouth?3 times a day?for 3?Days ? Medications Discontinued HCTZ/ ??losartan Allergies Allergies ?(Active and Proposed Allergies Only) NKA? (Severity: Unknown severity, Onset: Unknown) ?? PCP Follow-Up/Heads-Up 1.?? Patient came in with hypovolemic shock and acute renal failure??likely secondary to poor p.o. intake??due to liquid diet from recent surgery??and being on HCTZ.. ??Patient's HCTZ, valsartan and metformin have all been stopped??as she also had type B lactic acidosis??during this hospitalization. ?? Please follow-up with the patient sooner after discharge Hospital Course 68F with a past medical history of hypertension and type diabetes mellitus type 1 on Insulin Pump ??who initially presented as a stroke alert to [facility]. She was found by bystanders in her front lawn as she was walking her dog outside. Patient had a right gaze and dysarthria, unable to tell when she walked her dogs last. Per EMS, last well-known was probably at around 12 PM today. She is unable to corroborate herself. She is not oriented to what occurred and what brought her into the ED. ?? When EMS found the patient, POC BG was 130-140, systolic blood pressure ranging from 140 to 150 mmHg. ??per discussion with patient she had recent hiatal hernia surgery??and was on liquid diet only??2 weeks prior to her surgery??[surgery date??December 25]??and continued to be on liquid diet??after surgery. ??She also reports she is on HCTZ??and losartan at home??and she continued to take that??according the parameters given by her surgeon??for her blood pressure.? Initial vital signs at [facility] ED was 90 3.2F rectal, heart rate 114 bpm, 97/40. ??Which could likelyexplain??patient being hypovolemic??from poor p.o. intake??as well as being on HCTZ for blood pressure.?MRI brain??and further workup with an EEG??were all negative??and her mentation??came back to normal.?Patient's lactate was over 20??but she was also on metformin??with severe metabolic acidosis with a pH of less than??6.82??and she was given bicarb drip??in the ICU.?? At some point??in the ICU patient also underwent dialysis??for hyperkalemia and renal failure.?? Renal function has significantly improved. ? Type I Diabetes Mellitus DKA; ?? -Patient reports she is on insulin pump??at home.?? She was also on metformin??which has been held because of lactic acidosis - Patient was informed during this hospitalization do not resume Metformin at discharge however I see that her renal function has improved.?? Will let her neonatal intensive care unit nurse decide outpatient??will discontinue metformin per patient's wishes for now -She can however start using her Humalog bolus feature in her pump immediately on discharge. [1] ??she would need to use a temp basal on her pump until 22 hours after the last Lantus dose [1] ? Altered Mental Status: -CT and MRI negative for stroke -Currently resolved -EEG does not show any epileptiform activity Currently ANO times 3+ date of - ? Acute diarrhea -Patient reports that her diet has been altered after she had??hiatal hernia surgery and she has been on liquid diet??and Ensure She still had 3 bowel movements- -??GI stool PCR, C. difficile pending and if negative then her diarrhea could be related to liquid??diet??as well as ensure - ? Type II NSTEMI Elevated troponin ??Hypovolemic shock H/o hypertension: ?? EKG nonischemic, chest pain free, troponin elevated at 148 then 154 likely due to type II demand ischemia. -Hypovolemic shock??given recent change in diet??[patient was only on liquid diet after hiatal hernia surgery] and being on HCTZ -Holding home valsartan and HCTZ??and she will continue to hold amlodipine if her blood pressure remains less than 120/70 at home -Patient initially required midodrine but currently off midodrine Echo shows EF 50% in this admission- ? Acute Hypoxemic Respiratory Failure High Anion Gap Met Acidosis- resolved Severe Metabolic Acidosis lactic Acidosis: ?? Resolved, ?? Recent laparoscopic hernia repair: ?? (Dr. Hines cell: [phone]) 12/28 hiatal hernia repair no evidence of overt bleeding Hgb stable ? Acute Renal Failure- improving Hypokalemia ?? Decreased PO intake since surgery over the past week Cr?? was ??8.69 (baseline is at 1.0), Renal following, s/p HD on 01/04 No further??need for HD continue fluids and holding Lasix Acute kidney failure is improving, hypokalemia being corrected. ? Leukocytosis Bandemia: ?? CXR shows no acute abnormalities. leukocytosis , afebrile, initially met??SIRS criteria??HR>90, RR>20, no clear source of infection. Tachypnea??may be??compensatory in setting of??metabolic acidosis. UA and CXR unremarkable. BCx show no growth s/p zosyn no?? more abx. ? Patient seen at bedside. ??Denies any nausea vomiting chest pain or shortness of breath??she thinksthe loose stools are likely secondary to??the liquid diet that she is on. ??Ruling out C. difficile??and GI stool PCR which is pending and if negative she can be discharged today. ??She is??aware??tostart her insulin pump??per endocrinology instructions. ? Objective Assessment and Plan Discharge Planning:? Vital Signs?? Temperature: 97 DegF (01/12/24 07:46:00) Temperature Route: Temporal (01/12/24 07:46:00) Pulse Rate:??100 bpm??High (01/12/24 07:46:00) Respiratory Rate: 18 br/min (01/12/24 07:46:00) Systolic Blood Pressure: 129 mm Hg (01/12/24 07:46:00) Diastolic Blood Pressure: 68 mm Hg (01/12/24 07:46:00) Blood pressure sites: Arm, left (01/12/24 07:46:00) Mean Arterial Pressure: 88 mm Hg (01/12/24 07:46:00) Pulse Pressure: 61 mm Hg (01/12/24 07:46:00) Oxygen Saturation: 100 % (01/12/24 07:46:00) Mode of Delivery (Oxygen): Room air (01/12/24 07:46:00) Early Warning Score: 2 (01/12/24 11:41:12) ? . Physical Exam General: Is appears comfortable in no distress, obese HEENT: ??mucous mucous membranes appear wet, PERRLA Cardiovascular: S1-S2 heard no murmurs appreciated Respiratory: CTA without any wheezing or crackles anteriorly GI: Abdomen nontender to palpation, no distention, no obvious hepatosplenomegaly Neuro: AOx3 plus date of , able to raise all extremities on commands Psych: Appears calm without any agitation Consultants Endocrinology and nephrology Pending Results Add On Lab Order ordered on 01/06/2024 Add On Lab Order ordered on 01/09/2024 Add On Lab Order ordered on 01/10/2024 Basic Metabolic Panel ordered on 01/11/2024 C. difficile Rapid Toxin Assay ordered on 01/12/2024 CBC ordered on 01/11/2024 Comprehensive Metabolic Panel ordered on 01/06/2024 GI Profile, Stool, PCR ordered on 01/12/2024 Magnesium Level ordered on 01/11/2024 Methylmalonic Acid ordered on 01/10/2024 Phosphorus Level ordered on 01/11/2024 Follow-Up Appointments Added Follow Up ?Time Frame ?Comments Júnior MULLER, Elsi Pearson?1 to 2 weeks Patient Instructions # 1. ??Couple of medications have been stopped for you including hydrochlorothiazide, losartan and metformin. #2.??you?can however start using?? Humalog bolus feature in her pump immediately on discharge.?# 3 . you?would need to use a temp basal on your pump around 7 pm today?? (?22 hours after the last Lantus dose) Post Discharge Care Diet: ??Full Liquid Diet ?? Home Health Face to Face *Denotes mandatory blackman ?? *I certify that this patient is under my care and that I or an allowed non- physician working with me had a face to face encounter with the patient on this date:??01/12/2024 15:00 ?? *The encounter with the patient was in whole, or in part, for the following medical condition, which is the primary diagnosis(es) for home health care:??Acute hypoxic respiratory failure (J96.01) Hypophosphatemia (E83.39) ?? *Select the indications for the discipline/s that are being arranged for this patient. Nursing (select all that apply): [_] None [X] Medication management (reconciliation, teaching)?? [_] Chronic disease management?? [_] Wound care and treatment?? [_] Home safety evaluation [_] Administer SQ/IM/IV medications?? [_] Cath care?? [_] Drain care?? [_] Trach or GT care?? Other _ Occupation Therapy (select all that apply): [_] None [_] ADL Management [_] Fall prevention training [_] Energy conservation [_] Cognitive training Other _ Physical Therapy (select all that apply): [_] None [_] Functional mobility training [X] Home exercise program to strengthen [_] Increase ROM?? [_X Falls prevention training [_] Home maintenance program for chronic disease Other _ Speech Therapy (select all that apply): [_] None [_] Swallow evaluation and training [_] Speech and language training [_] Cognitive training to process, organize, and/or recall information Other _ ? *Homebound due to (select all that apply): [X] Inability to leave home without assistance/supervision [_] Inability to ambulate without assistance [_] Pain [_] Decreased strength and endurance [_] Unsteady gait [_] Severe SOB and fatigue [_] Impaired transfers [_] Inability to negotiate stairs [_] Limited weight bearing [_] Mental status change? *Physician Signature:??Deepak Lombardi ?? *By signing this, I certify that I have personally evaluated the patient and agree with the findings and recommendations as documented above. ? Results Discharge Labs BACTERIOLOGY Blood Culture Results Final report ()?? 01/05/2024 20:04 Blood Culture Specimen Source BLOOD ()?? 01/05/2024 20:04 Blood Culture Isolate 1 Comment ()?? 01/05/2024 20:04 Blood Cult 2 Results Final report ()?? 01/05/2024 20:15 Blood Culture 2 Specimen Source BLOOD ()?? 01/05/2024 20:15 Blood Culture 2 Isolate 1 Comment ()?? 01/05/2024 20:15 ?? BLOOD COUNT & DIFF WBC 6.8 k/mm3 ()?? 01/12/2024 01:51 RBC 2.69 m/mm3 (Low)?? 01/12/2024 01:51 Hgb 8.4 Gm/dL (Low)?? 01/12/2024 01:51 Hct 25.5 % (Low)?? 01/12/2024 01:51 MCV 94.8 femtoliters ()?? 01/12/2024 01:51 MCH 31.2 pg ()?? 01/12/2024 01:51 MCHC 32.9 Gm/dL (Low)?? 01/12/2024 01:51 Platelet Count 241 k/mm3 ()?? 01/12/2024 01:51 RDW-SD 48.2 femtoliters (High)?? 01/12/2024 01:51 MPV 10.8 femtoliters ()?? 01/12/2024 01:51 Nucleated RBC (Automated) 0.0 #/100 WBC'S ()?? 01/12/2024 01:51 Abs. NRBC 0.0 k/mm3 ()?? 01/12/2024 01:51 Abs. Neut 6.5 k/mm3 ()?? 01/08/2024 03:56 Abs. Lymph 1.1 k/mm3 ()?? 01/08/2024 03:56 Abs. Twiggs 0.7 k/mm3 ()?? 01/08/2024 03:56 Abs. Eo 0.0 k/mm3 ()?? 01/08/2024 03:56 Abs. Baso 0.0 k/mm3 ()?? 01/08/2024 03:56 Neut % 77.5 % (High)?? 01/08/2024 03:56 Lymph % 13.2 % (Low)?? 01/08/2024 03:56 Twiggs % 8.9 % ()?? 01/08/2024 03:56 Eos % 0.0 % ()?? 01/08/2024 03:56 Baso % 0.2 % ()?? 01/08/2024 03:56 Metamyelocyte % 3.4 % (High)?? 01/05/2024 19:15 Band % 7.6 % (High)?? 01/05/2024 19:15 RBC Morphology MARKED ()?? 01/05/2024 19:15 Imm Gran 0.2 % ()?? 01/08/2024 03:56 Abs. Imm Gran 0.0 k/mm3 ()?? 01/08/2024 03:56 ? BLOOD GAS pH 7.54 (High)?? 01/06/2024 20:05 pCO2 36 mm Hg ()?? 01/06/2024 20:05 pO2 105 mm Hg (High)?? 01/06/2024 20:05 Bicarbonate, Estimated 31 mmol/L (High)?? 01/06/2024 20:05 Specimen Type - Blood Gas ARTERIAL ()?? 01/06/2024 20:05 Percent O2 (FIO2) 23 ()?? 01/06/2024 04:42 ?? CHEM GENERAL Sodium 142 mmol/L ()?? 01/12/2024 01:51 Potassium 5.1 mmol/L ()?? 01/12/2024 01:51 Chloride 116 mmol/L (High)?? 01/12/2024 01:51 Bicarbonate Level 18 mmol/L (Low)?? 01/12/2024 01:51 Anion Gap 8 ()?? 01/12/2024 01:51 Glucose Level 96 mg/dL ()?? 01/12/2024 01:51 Glucose, POC 312 mg/dL (High)?? 01/12/2024 11:37 Hemoglobin A1C (Monitoring) 7.0 % (High)?? 01/05/2024 20:04 BUN 16 mg/dL ()?? 01/12/2024 01:51 Creatinine-Blood 1.15 mg/dL (High)?? 01/12/2024 01:51 Estimated GFR Creatinine 52 ML/MIN/1.73 M2 ()?? 01/12/2024 01:51 Calcium 8.6 mg/dL ()?? 01/12/2024 01:51 Calcium, Ionized pH Corrected 1.09 mmol/L (Low)?? 01/08/2024 03:56 Phosphorus 1.8 mg/dL (Low)?? 01/12/2024 01:51 Magnesium 1.4 mg/dL (Low)?? 01/12/2024 01:51 Protein, Total 6.0 Gm/dL (Low)?? 01/09/2024 10:21 Albumin 3.5 Gm/dL ()?? 01/09/2024 10:21 AG Ratio 1.4 ()?? 01/08/2024 03:56 Alkaline Phosphatase 70 units/L ()?? 01/09/2024 10:21 AST (SGOT) 22 units/L ()?? 01/09/2024 10:21 ALT (SGPT) 17 units/L ()?? 01/09/2024 10:21 Bilirubin, Total 0.6 mg/dL ()?? 01/09/2024 10:21 Bilirubin, Direct 0.2 mg/dL ()?? 01/09/2024 10:21 Bilirubin, Indirect 0.4 mg/dL ()?? 01/09/2024 10:21 Vitamin B12 Level 2131 pg/mL (High)?? 01/05/2024 20:04 Folic Acid Level 23.9 ng/mL ()?? 01/10/2024 02:45 Lactate 1.0 mmol/L ()?? 01/08/2024 03:56 ? COAG INR 1.1 ()?? 01/05/2024 19:15 Protime (PT) 11.9 seconds (High)?? 01/05/2024 19:15 D-Dimer 9.02 mg/L FEU (High)?? 01/05/2024 19:15 ? ENDOCRINE/TUMOR MARKER TSH 0.46 uIU/mL ()?? 01/11/2024 03:14 Free T4 1.49 ng/dL ()?? 01/11/2024 03:14 T3, Free 1.7 pg/mL (Low)?? 01/10/2024 02:45 ? HEME OTHER Hold Lavender Top SPECIMEN DISCARDED AFTER 24 HOURS. ()?? 01/11/2024 03:14 ? LIPID STUDIES Cholesterol 141 mg/dL ()?? 01/05/2024 20:04 Triglycerides 163 mg/dL (High)?? 01/05/2024 20:04 HDL Cholesterol 41 mg/dL ()?? 01/05/2024 20:04 LDL Cholesterol 67 mg/dL ()?? 01/05/2024 20:04 Non HDL Cholesterol 100 mg/dL ()?? 01/05/2024 20:04 ? SEROLOGY INF DISEASE Hepatitis B Surface Antigen NON REACTIVE ()?? 01/05/2024 20:04 Hepatitis C Ab NON REACTIVE ()?? 01/05/2024 20:04 Anti-HBS Quant 72.00 mIU/mL ()?? 01/05/2024 20:04 ? UA/URINALYSIS Appear/Color, Urine LIGHT YELLOW ()?? 01/05/2024 22:00 Specific [place], Urine 1.020 ()?? 01/05/2024 22:00 pH, Urine 6.0 ()?? 01/05/2024 22:00 Albumin, Urine 2+ (Abnormal)?? 01/05/2024 22:00 Glucose, Urine 1+ (Abnormal)?? 01/05/2024 22:00 Ketones, Urine 1+ (Abnormal)?? 01/05/2024 22:00 Bilirubin, Urine NEGATIVE ()?? 01/05/2024 22:00 Hemoglobin, Urine 2+ (Abnormal)?? 01/05/2024 22:00 Nitrite, Urine NEGATIVE ()?? 01/05/2024 22:00 Leukocyte, Urine NEGATIVE ()?? 01/05/2024 22:00 Urobilinogen NORMAL mg/dL ()?? 01/05/2024 22:00 WBC's, Urine <1 /HPF ()?? 01/05/2024 22:00 RBC's, Urine 7 /HPF (High)?? 01/05/2024 22:00 Mucus SLIGHT /LPF ()?? 01/05/2024 22:00 Budding Yeast SLIGHT /HPF ()?? 01/05/2024 22:00 ? URINE OTHER Creatinine, Urine Random 12.7 mg/dL ()?? 01/06/2024 09:45 Sodium, Urine Random 105 mmol/L ()?? 01/06/2024 09:45 Chloride, Urine Random 64 mmol/L ()?? 01/06/2024 09:45 Urea Nitrogen, Urine Random 108.0 mg/dL ()?? 01/06/2024 09:45 Osmolality, Urine Random 282 mOsm/kg ()?? 01/06/2024 09:45 Protein, Total Urine Random 18 mg/dL ()?? 01/06/2024 09:45 TP/Cr Ratio 1.44 (High)?? 01/06/2024 09:45 Creatinine, Urine 12.7 mg/dL ()?? 01/06/2024 09:45 Malb/Creat Ratio 404.7 mg/Gm (High)?? 01/06/2024 09:45 Urine Creat For Micro Alb 12.7 mg/dL ()?? 01/06/2024 09:45 Micro-Albumin 51.0 mg/L (High)?? 01/06/2024 09:45 ? Image ?Echo Complete-Doppler, Colorflow, M-Mode??01/07/2024 13:21 by Robbin Dickey MD ?Summary The left ventricular size is normal. Left ventricular wall thickness is normal. The LV systolic function is mildly reduced. The left ventricular ejection fraction is 50% by biplane Castellanos's. There are no regional wall motion abnormalities. There is no Doppler evidence of increased filling pressures. The right ventricular size is at the upper limits of normal. The distal right ventricular free wall is hypokinetic. The pulmonary artery systolic pressure estimation is 24 mmHg. The pulmonary artery systolic pressure estimation is within normal limits. ?MRI Brain W/O Contrast??01/10/2024 02:24 by Alexi Johnson ? IMPRESSION: 1. No acute/subacute infarct, mass, hemorrhage, or other acute intracranial abnormality. 2. T2/FLAIR hyperintense foci in the white matter, nonspecific but most likely reflecting chronic small vessel disease. ?EEG Routine??01/09/2024 14:55 by Vega Brown MD ?NO definite epileptiform activity seen? Consult ?BIDS Consult Note??01/06/2024 11:37 by Ada Martinez MD ?Renal Consult Note??01/06/2024 13:42 by Lisa Rivas ? 45 ??minutes spent on discharge * Vanessa CASPER, Korin Ferrara: PERFORM Event Display: Patient Education/Instruction Authored Date: [id number] Inpatient Adult Discharge Instructions. [address] [address] Name: BETTY MCLAIN : 1955?? Visit: 01/05/2024 18:26?? Current Date: 01/12/2024 13:36 ?? Account: [id number]?? Inpatient Adult Discharge Instructions We would like to thank you for allowing us to assist you with your healthcare needs. The following includes patient education materials and information regarding your injury/illness. Our entire staffstrives to provide an excellent experience for our patients and their families. PLEASE ENSURE YOU FOLLOW-UP PER THE INSTRUCTIONS BELOW! ?? YOUR OPINION IS IMPORTANT TO US! Please complete the survey you may receive by mail or email. Your feedback will be used to make improvements to the healthcare experiences of our patients and their families. Surveys are administered by [employer] ?? If further treatment with your primary care physician or another doctor is recommended, it is important for you to keep the appointment. Call your primary care physician or return to the Emergency Department immediately if your condition worsens, fails to improve, or new symptoms develop. If you need to find a doctor, you can call [facility] for a referral at [phone] or toll free at [phone] or log in to [email or web address].. ?? [facility], in keeping with [facility] guidance, no longer requires face masks for staff, patientsor visitors in most situations. Similiar to time spent indoors at other locations, there is the chance that you were exposed to repiratory viruses during your time with us (such as flu or COVID-19). If you develop symptoms concerning for a viral respiratory infection, please seek testing (and treatment if indicated) from your medical provider or home test kit. ?? You can view and manage your care through the patient portal or by using a health care barak of your choosing. [employer] is a website that allows you to securely view your medical information including your hospital discharge summary, office visit summaries, medications and follow-up visits. You can also request appointments, renew medications, and request access to your medical information using a health care barak of your choosing, or just ask a question. You can enroll at [email or web address] or register during your next office visit. You have been discharged from [facility], Patient Care Unit: M7??. If you have any questions regarding these instructions, including results of studies pending, afteryou leave, please call us and we will be happy to assist you 19/09. [facility] Your Care Team Attending Physician Deepak Lombardi MD?? Consulting Providers Deepak Lombardi MD?? Discharging Providers Deepak Lombardi MD Reason for Your Visit acute hypoxic respiratory failure?? Your Diagnosis Acute hypoxic respiratory failure Hypophosphatemia Tests Performed Below is a partial list of the tests performed during your hospitalization. You may have had other tests and procedures not included in this list. Please discuss all test results with your provider. ABG ALT AST B12 Vitamin Level Basic Metabolic Panel Blood Culture Blood Culture #2 Blood Culture 2 Results Blood Culture Result BUN Calcium Level CBC CBC w/ Differential Cdiff Rapid Toxin Assay Chloride Urine Comprehensive Metabolic Panel Creatinine Creatinine Urine D Dimer Electrolytes Folate Level Free T3 Free T4 GI PROFILE, STOOL, PCR Glucose Level GLUCOSE POC Hemoglobin A1C (Monitoring) Hepatitis Panel Dial HOLD LAVENDER TUBE INR Ionized Calcium Lactate Level Lactic Acid Level LFT's Lipid Panel Magnesium Level Microalbumin Urine Osmolality Urine Phosphorus Level Protein/Creatinine Ratio Urine Sodium Urine TSH Urea Nitrogen Urine Urinalysis Complete Brain MRI W/O Contrast CXR Portable ALT?? AST?? Add On Lab Order (Lab Add On Order)?? BUN?? Basic Metabolic Panel?? Blood Culture?? Blood Culture #2?? Blood Culture 2 Results?? Blood Culture Result?? Blood Gas Arterial (ABG)?? C. difficile Rapid Toxin Assay (Cdiff Rapid Toxin Assay)?? CBC?? CBC w/ Differential?? Calcium Level?? Chloride Urine?? Complete Urinalysis (Urinalysis Complete)?? Comprehensive Metabolic Panel?? Creatinine?? Creatinine Urine?? D Dimer?? Electrolytes?? Folate Level?? Free T4?? GI Profile, Stool, PCR?? Glucose Level?? Glucose POC?? Hemoglobin A1C (Monitoring)?? Hepatic Function Panel (LFT's)?? Hepatitis Panel Dial?? Hold Lavender Top Tube (HOLD LAVENDER TUBE)?? INR?? Ionized Calcium?? Lactic Acid Level (Lactate Level)?? Lipid Panel?? MRI Brain W/O Contrast (Brain MRI W/O Contrast)?? Magnesium Level?? Methylmalonic Acid?? Microalbumin Urine?? Osmolality Urine?? Phosphorus Level?? Protein/Creatinine Ratio Urine?? Sodium Urine?? T3 Free (Free T3)?? TSH?? Urea Nitrogen Urine?? Vitamin B12 Level (B12 Vitamin Level)?? Chest Portable (CXR Portable)?? Primary Care Provider Júnior MULLER, Elsi Pearson? Advance Directive Health Care Proxy on File Yes - Health Care Proxy Discharge Vitals Temperature: 97 DegF Weight: 65.3 kg Pulse Rate:??100 bpm??High ?? Respiratory Rate: 18 br/min ?? Systolic Blood Pressure: 129 mm Hg ?? Diastolic Blood Pressure: 68 mm Hg ?? Oxygen Saturation: 100 % ?? Studies Pending All studies ordered during this hospital stay have been completed unless listed below. Please discuss all pending results with your provider listed above in these instructions. ?? Add On Lab Order (Lab Add On Order)?? Basic Metabolic Panel?? CBC?? Comprehensive Metabolic Panel?? Magnesium Level?? Methylmalonic Acid?? Phosphorus Level?? What to do next Instructions From Your Doctor # 1. ??Couple of medications have been stopped for you including hydrochlorothiazide, losartan and metformin. #2.??you?can however start using?? Humalog bolus feature in her pump immediately on discharge.?# 3 . you?would need to use a temp basal on your pump around 7 pm today?? (?22 hours after the last Lantus dose) ?? Orders??:Full Liquid Diet? 01/12/24 12:51:00 EST?? You Need to Schedule the Following Appointments Follow Up with??Júnior MULLER, Elsi Pearson When:??Within 1 to 2 weeks Where: [address] [place] [address]- Discharge Medications BETTY MCLAIN :1955 Visit Date:01/05/2024 Medications: Please continue your medications until treatment is completed or stopped by your provider. Medications not listed below should be discontinued. Discuss any questions related to medications with your provider. What How Much When Why Instructions Next Dose New Potassium Phosphate-Sodium Phosphate (potassium phosphate-sodium phosphate 250 mg-280 mg-160 mg oral powder for reconstitution) 1 pack/packet Oral 3 times a day Hypophosphatemia Duration: [facility] then bedtime tonight?? Changed Amlodipine (amLODIPine 2.5 mg oral tablet) 1 tab(s) Oral Daily Duration: 30 Days HOLD THE DOSE FOR BP <120/ 70 ?? In the AM Unchanged Atorvastatin (atorvastatin 20 mg oral tablet) 1 tab(s) Oral Daily bedtime tonight?? Unchanged Calcium Citrate Oral Twice a day bedtime tonight?? Unchanged Cyanocobalamin (Vitamin B12 1000 mcg oral tablet) 1 tab(s) Oral Daily In the AM Unchanged Insulin Aspart (NovoLOG 100 units/ mL injectable solution) INJECT 50 UNITS EVERY DAY WITH PUMP ?? In the AM Unchanged Multivitamin Daily In the AM Unchanged [place]-3 Polyunsaturated Fatty Acids (Fish Oil 1000 mg oral capsule) 1 capsule Oral Daily In the AM Unchanged Pantoprazole (pantoprazole 40 mg oral delayed release tablet) TAKE 1 TABLET BY MOUTH EVERY DAY ?? In the AM Pharmacy Information [facility]: [address], [place] [id number] [phone] ?? What How Much When Comments Stop Taking Hydrochlorothiazide-Valsartan (hydrochlorothiazide-valsartan 12.5 mg-320 mg oral tablet) 1 tab(s) Oral Daily Stop Taking Metformin 1000 Milligram Oral Twice a day Duration: 90 Days Stop Taking Simvastatin (simvastatin 20 mg oral tablet) 1 tab(s) Oral Daily at Bedtime Prescription Given During Visit Amlodipine (amLODIPine 2.5 mg oral tablet) - 1 tablet = 2.5 mg, By Mouth, Daily, # 30 tablet, 0 Refills, HOLD THE DOSE FOR BP <120/70?? Potassium Phosphate-Sodium Phosphate (potassium phosphate-sodium phosphate 250 mg-280 mg-160 mg oral powder for reconstitution) - 1 pack/packet, By Mouth, 3 times a day, # 9 pack/packet, 0 Refills, [facility], [address] [place] [phone]?? Laboratory Results Below is a partial list of the most recent Laboratory test results done prior to this discharge. You may have had other tests and procedures not included in this list. Please discuss all test resultswith your provider. ABG (01/06/2024) ???pH - 7.54???pCO2 - 36 mm Hg???pO2 - 105 mm Hg???Bicarbonate, Estimated - 31 mmol/L???Specimen Type - Blood Gas - ARTERIAL ALT (01/06/2024) ???ALT (SGPT) - 24 units/L AST (01/06/2024) ???AST (SGOT) - 41 units/L B12 Vitamin Level (01/05/2024) ???Vitamin B12 Level - 2131 pg/mL Basic Metabolic Panel (01/12/2024) ???Sodium - 142 mmol/L???Potassium - 5.1 mmol/L???Chloride - 116 mmol/L???Bicarbonate Level - 18 mmol/L???Anion Gap - 8???Glucose Level - 96 mg/dL???BUN - 16 mg/dL???Creatinine-Blood - 1.15 mg/dL???Estimated GFR Creatinine - 52 ML/MIN/1.73 M2???Calcium - 8.6 mg/dL Blood Culture (01/05/2024) ???Blood Culture Results - Final report???Blood Culture Specimen Source - BLOOD Blood Culture #2 (01/05/2024) ???Blood Cult 2 Results - Final report???Blood Culture 2 Specimen Source - BLOOD Blood Culture 2 Results (01/05/2024) ???Blood Culture 2 Isolate 1 - Comment Blood Culture Result (01/05/2024) ???Blood Culture Isolate 1 - Comment BUN (01/10/2024) ???BUN - 25 mg/dL Calcium Level (01/10/2024) ???Calcium - 8.8 mg/dL CBC (01/12/2024) ???WBC - 6.8 k/mm3???RBC - 2.69 m/mm3???Hgb - 8.4 Gm/dL???Hct - 25.5 %???MCV - 94.8 femtoliters???MCH - 31.2 pg???MCHC - 32.9 Gm/dL???Platelet Count - 241 k/mm3???RDW-SD - 48.2 femtoliters???MPV - 10.8 femtoliters???Nucleated RBC (Automated) - 0.0 #/100 WBC'S???Abs. NRBC - 0.0 k/mm3 CBC w/ Differential (01/08/2024) ???WBC - 8.3 k/mm3???RBC - 2.99 m/mm3???Hgb - 9.3 Gm/dL???Hct - 28.0 %???MCV - 93.6 femtoliters???MCH - 31.1 pg???MCHC - 33.2 Gm/dL???Platelet Count - 226 k/mm3???RDW-SD - 47.8 femtoliters???MPV - 10.0 femtoliters???Nucleated RBC (Automated) - 0.0 #/100 WBC'S???Abs. NRBC - 0.0 k/mm3???Abs. Neut - 6.5 k/mm3???Abs. Lymph - 1.1 k/mm3???Abs. [place]gs - 0.7 k/mm3???Abs. Eo - 0.0 k/mm3???Abs. Baso - 0.0 k/mm3???Neut % - 77.5 %???Lymph % - 13.2 %???[place] % - 8.9 %???Eos % - 0.0 %???Baso % - 0.2 %???Imm Gran - 0.2 %???Abs. Imm Gran - 0.0 k/mm3 Cdiff Rapid Toxin Assay (01/12/2024) ???C.difficile Toxin - Negative. C. Difficile bacterial antigen and toxin not detected. A Chloride Urine (01/06/2024) ???Chloride, Urine Random - 64 mmol/L Comprehensive Metabolic Panel (01/08/2024) ???Sodium - 137 mmol/L???Potassium - 3.1 mmol/L???Chloride - 95 mmol/L???Bicarbonate Level - 22 mmol/L???Anion Gap - 20???Glucose Level - 284 mg/dL???BUN - 34 mg/dL???Creatinine-Blood - 3.00 mg/dL???Estimated GFR Creatinine - 16 ML/MIN/1.73 M2???Calcium - 7.5 mg/dL???Protein, Total - 5.8 Gm/dL???Albumin - 3.4 Gm/dL???AG Ratio - 1.4???Alkaline Phosphatase - 69 units/L???AST (SGOT) - 29 units/L???ALT (SGPT) - 20 units/L???Bilirubin, Total - 0.6 mg/dL Creatinine (01/10/2024) ???Creatinine-Blood - 1.59 mg/dL???Estimated GFR Creatinine - 35 ML/MIN/1.73 M2 Creatinine Urine (01/06/2024) ???Creatinine, Urine Random - 12.7 mg/dL D Dimer (01/05/2024) ???D-Dimer - 9.02 mg/L FEU Electrolytes (01/10/2024) ???Sodium - 143 mmol/L???Potassium - 3.4 mmol/L???Chloride - 109 mmol/L???Bicarbonate Level - 22 mmol/L???Anion Gap - 12 Folate Level (01/10/2024) ???Folic Acid Level - 23.9 ng/mL Free T3 (01/10/2024) ???T3, Free - 1.7 pg/mL Free T4 (01/11/2024) ???Free T4 - 1.49 ng/dL GI PROFILE, STOOL, PCR (01/12/2024) ???GI PCR, Campylobacter - NEGATIVE???GI PCR, Plesiomonas shigelloides - NEGATIVE???GI PCR, Salmonella - NEGATIVE???GI PCR, Vibrio - NEGATIVE???GI PCR, Vibrio cholerae - NEGATIVE???GI PCR, Yersinia enterocolitica - NEGATIVE???GI PCR, Enteroaggregative E coli - NEGATIVE???GI PCR, Enteropathogenic E coli - NEGATIVE???GI PCR, Enterotoxigenic E coli - NEGATIVE???GI PCR, Joswe-njoem-vzofohvoo E coli -NEGATIVE???GI PCR, Shigella/Enteroinvasive E coli - NEGATIVE???GI PCR, Cryptosporidium - NEGATIVE???GI PCR, Cyclospora cayetanensis - NEGATIVE???GI PCR, Entamoeba histolytica - NEGATIVE???GI PCR, Giardia lamblia - NEGATIVE???GI PCR, Adenovirus F 40/41 - NEGATIVE???GI PCR, Astrovirus - NEGATIVE???GIPCR, Norovirus GI/GII - NEGATIVE???GI PCR, Rotavirus A - NEGATIVE???GI PCR, Sapovirus - NEGATIVE Glucose Level (01/10/2024) ???Glucose Level - 65 mg/dL GLUCOSE POC (01/12/2024) ???Glucose, POC - 312 mg/dL Hemoglobin A1C (Monitoring) (01/05/2024) ???Hemoglobin A1C (Monitoring) - 7.0 % Hepatitis Panel Dial (01/05/2024) ???Hepatitis B Surface Antigen - NON REACTIVE???Hepatitis C Ab - NON REACTIVE???Anti-HBS Quant - 72.00 mIU/mL HOLD LAVENDER TUBE (01/11/2024) ???Hold Lavender Top - SPECIMEN DISCARDED AFTER 24 HOURS. INR (01/05/2024) ???INR - 1.1???Protime (PT) - 11.9 seconds Ionized Calcium (01/08/2024) ???Calcium, Ionized pH Corrected - 1.09 mmol/L Lactate Level (01/08/2024) ???Lactate - 1.0 mmol/L Lactic Acid Level (01/07/2024) ???Lactate - 1.7 mmol/L LFT's (01/09/2024) ???Protein, Total - 6.0 Gm/dL???Albumin - 3.5 Gm/dL???Alkaline Phosphatase - 70 units/L???AST (SGOT) - 22 units/L???ALT (SGPT) - 17 units/L???Bilirubin, Total - 0.6 mg/dL???Bilirubin, Direct - 0.2 mg/dL???Bilirubin, Indirect - 0.4 mg/dL Lipid Panel (01/05/2024) ???Cholesterol - 141 mg/dL???Triglycerides - 163 mg/dL???HDL Cholesterol - 41 mg/dL???LDL Cholesterol - 67 mg/dL???Non HDL Cholesterol - 100 mg/dL Magnesium Level (01/12/2024) ???Magnesium - 1.4 mg/dL Microalbumin Urine (01/06/2024) ???Malb/Creat Ratio - 404.7 mg/Gm???Urine Creat For Micro Alb - 12.7 mg/dL???Micro-Albumin - 51.0 mg/L Osmolality Urine (01/06/2024) ???Osmolality, Urine Random - 282 mOsm/kg Phosphorus Level (01/12/2024) ???Phosphorus - 1.8 mg/dL Protein/Creatinine Ratio Urine (01/06/2024) ???Protein, Total Urine Random - 18 mg/dL???TP/Cr Ratio - 1.44???Creatinine, Urine - 12.7 mg/dL Sodium Urine (01/06/2024) ???Sodium, Urine Random - 105 mmol/L TSH (01/11/2024) ???TSH - 0.46 uIU/mL Urea Nitrogen Urine (01/06/2024) ???Urea Nitrogen, Urine Random - 108.0 mg/dL Urinalysis Complete (01/05/2024) ???Appear/Color, Urine - LIGHT YELLOW???Specific [place], Urine - 1.020???pH, Urine - 6.0???Albumin, Urine - 2+???Glucose, Urine - 1+???Ketones, Urine - 1+???Bilirubin, Urine - NEGATIVE???Hemoglobin,Urine - 2+???Nitrite, Urine - NEGATIVE???Leukocyte, Urine - NEGATIVE???Urobilinogen - NORMAL???WBC's, Urine - <1 /HPF? ?RBC's, Urine - 7 /HPF? ?Mucus - SLIGHT? ?Budding Yeast - SLIGHT You will be contacted within 72 hours with your results. Allergies (NKA means No Known Allergies) NKA Problems Active Problems??(2) Benign hypertension?? Type 1 diabetes mellitus with hemoglobin A1c goal of 7.0%-8.0%?? Education Materials Below is the list of Educational Leaflet Providered with your Discharge Instructions. [employer] Patient Education - Low Blood Pressure, All Causes?? [employer] Patient Education - Orthostatic Low Blood Pressure (Hypotension)?? [employer] Patient Education - Discharge Instructions for Hypophosphatemia?? Valuables and Belongings I fully understand and agree that [facility] accepts no responsibility for all my personal property including clothing, toilet articles, radios, jewelry, dentures, hearing aids, rings, money, or any other property that is in my possession or is brought to me after admission. I understand certain valuables may be placed in a hospital safe for a short period of time. I understand that the hospital is not liable for loss or damage due to accident, fire, or other natural occurrence while said property is in the safe. I accept full responsibility for any personal property that I keep with me, and will not hold the hospital responsible in case of loss or disappearance. I acknowledge that i have been encouraged to send valuables and belongings home. ?? Review of Valuable and Belonging List: With patient Date for Pt to Sign Valuables/Belongings: 01/09/24 00:53:00 ?? Other Discharge Information ? Case Management Discharge Plan?? Discharge Plan?? Discharge Agency Information?? Discharge Level of Care at Discharge: Homehealth/VNA Name of Agency #1: [facility] Discharge VNA/Hospice/Home Care: [facility] [phone] Service Categories #1: Physical Therapy, [facility] ?? Service Comments #1: The VNA will call you 1-2 days after d/c to setup your appt. If you do not hear from them, please call them. ?? Pulmonary Rehab Status?? Pulmonary Rehab Discharge Status?? CPAP/BiPAP Mask Type: Full CPAP/BiPAP Mask Size: Medium Respiratory Rate: 18 br/min ? Common Emergency Awareness Tips IS IT A STROKE? Act FAST and Check for these signs: FACE Does the face look uneven? ARM Does one arm drift down? SPEECH Does their speech sound strange? TIME Call at any sign of stroke ?? Heart Attack Signs Chest discomfort: Most heart attacks involve discomfort in the center of the chest and lasts more than a few minutes, or goes away and comes back. It can feel like uncomfortable pressure, squeezing, fullness or pain. Discomfort in upper body: Symptoms can include pain or discomfort in one or both arms, back, neck, jaw or stomach. Shortness of breath: With or without discomfort. Other signs: Breaking out in a cold sweat, nausea, or lightheaded. Remember, MINUTES DO MATTER. If you experience any of these heart attack warning signs, call to get immediate medical attention! ?? Smoking can increase your chances of developing chronic health problems and can cause harmful effects to other family members in your house. If you smoke, you are strongly encouraged to quit. Please call [facility] [employer] Link at [phone] or [phone] ([phone]) or log in to [email or web address] for referrals to smoking cessation programs. ?? 983 Suicide & Crisis Lifeline is available 19/09 if you or someone you know needs to find a reason to keep living. By calling 938 you'll be connected to a skilled, trained counselor at a crisis center in your area. INPATIENT DISCHARGE INSTRUCTIONS SIGNATURE PAGE JO BETTY Location:[facility] Registration Date and Time:01/05/2024 18:26 EST Primary Care Physician: Júnior MULLER, Elsi Pearson, Attending Physician: Harjit LYNN, Deepak Lora, BETTY POP, have received the above patient education materials/instructions and have verbalized understanding. If ambulance or transport services are being used I further acknowledge being given a choice of service. ?? If you need to contact me, please call me at this number: . Patient/Patient Representative Name: Patient/Patient Representative Signature: Relationship to Patient: Witness Name/Signature: Date: * Vanessa CASPER, Korin E: PERFORM Event Display: Patient Education Leaflets Authored Date: [id number] Low Blood Pressure, All Causes ?? [id number] Low Blood Pressure, All Causes A blood pressure reading is made up of 2 numbers There is a top number over a bottom number. The top number is the systolic pressure. It measures your pressure as your heart is josey (squeezing) to pump blood. The bottom number is the diastolic pressure. It measures your pressure when the heart is relaxing and refilling with blood. A normal blood pressure is a systolic pressure less than 120 and a diastolic pressure less than 80.??Low blood pressure (hypotension) is a blood pressure that is less than what is normal for you. Low blood pressure can cause dizziness, lightheadedness, or fainting. Some medicines can cause low blood pressure. They include: ??? High blood pressure pills ??? Water pills (diuretics) ??? Some heart medicines ??? Some antidepressants ??? Pain, anxiety, sedative, and sleeping medicines Other causes include: ??? Dehydration, severe infection, or fever ??? Blood loss, such as bleeding from the stomach or intestines. ??? Heart failure ??? Change in heart rate or rhythm (arrhythmia) ??? A drop in blood pressure from a sudden change in body position, from lying down to standing (orthostatic hypotension) ??? Alcohol or drug intoxication ??? Neurological diseases that impair the autonomic nervous system (the portion of the nervous system that regulates such things as internal organs and blood vessels) Treatment will depend on what is causing your low blood pressure. Home care Follow these guidelines when caring for yourself at home: ??? Rest until your symptoms get better. ??? Keep a record of your symptoms and what you were doing when they occurred. Bring the record withyou to your next appointment. ??? Be aware of how quickly your blood pressure drops when you becomedehydrated, spend a lot of time in the sun, or have low blood sugar. Take measures to prevent bloodpressure drops at these times. ??? Follow the treatment plan described by your healthcare provider. ?? Follow-up care Follow up with your healthcare provider, or as advised. ?? When to get medical advice Call your healthcare provider right away if any of these occur: ??? Mild dizziness or lightheadedness ??? Small amount of black or red color, or blood, in your stools or vomit ??? Mild abdominal pain ??? Diarrhea or vomiting that doesn???t go away ??? You aren???t able to eat or drink ??? Fever of 100.4??F (38??C) or higher, or as advised by your provider ??? Burning feeling when you pee ??? Bad-smelling urine Call 911 Call 911, or get immediate medical care at the nearest emergency department if any of the followingoccur: ??? Fainting or severe dizziness or lightheadedness ??? Large amount of black or red color, or blood, in your stools or vomit ??? Abnormal pain in chest, shoulder, arm, neck, or upper back ??? Abnormal shortness of breath or trouble breathing ??? Severe abdominal pain ?? Last Reviewed Date: 2021 ?? [id number] [employer]. All rights reserved. This information is not intended as a substitute for professional medical care. Always follow your healthcare professional's instructions. ?? * Vanessa CASPER, Korin Ferrara: PERFORM Event Display: Patient Education Leaflets Authored Date: [id number] Orthostatic Low Blood Pressure (Hypotension) ?? [id number] Orthostatic Low Blood Pressure (Hypotension) A blood pressure reading is made up of 2 numbers that are measured in millimeters of mercury (mmHg). There is a top number over a bottom number. The top number is the systolic pressure. The bottom number is the diastolic pressure. A normal blood pressure is a systolic pressure less than 120 mmHg over a diastolic pressure less than 80 mmHg.??Low blood pressure or hypotension is generally defined as a systolic blood pressure less than 90 mmHg. However, any drop in blood pressure greater than 40 mmHg from your normal baseline may be considered low blood pressure for you. Generally, the lower theblood pressure you have the better. However, it becomes a problem when it becomes too low and causes symptoms. Orthostatic hypotension??is a type of low blood pressure that occurs only when you change position from lying or sitting to standing. Any drop in systolic pressure of 20 mmHg or diastolic pressure of10 mm Hg when standing is significant. This drop in blood pressure can cause dizziness, lightheadedness, or fainting. Orthostatic hypotension is most commonly related to low blood volume or an abnormal neurological reflex. It's also more common as we age. However, it can be a sign of an underlying illness that may need further tests. Some medicines can cause orthostatic hypotension. These include: ??? High blood pressure medicines ??? Water pills (diuretics) ??? Some heart medicines ??? Some antidepressants ??? Pain, anxiety, sedative, and sleep medicines Other causes include: ??? Dehydration from vomiting, diarrhea, or not getting enough fluids ??? Severe infection ??? Highfever ??? Blood loss, such as bleeding from the stomach or intestines ??? Neurological diseases that affect the autonomic nervous system Treatment will depend on what is causing your low blood pressure. Home care Follow these guidelines when caring for yourself at home: ??? Rest until your symptoms get better. ??? Change positions slowly from lying to standing.??When getting out of bed, sit on the side of thebed with your legs down for at least 30 seconds before standing. This gives your body time to adjust to the position change. ??? Follow the treatment plan described by your healthcare provider. ?? Follow-up care Follow up with your healthcare provider, or as advised. ?? When to get medical advice Call your healthcare provider right away if any of these occur: ??? Mild dizziness or lightheadedness ??? Small amount of black or red color, or blood, in your stools or vomit ??? Diarrhea or vomiting that doesn???t go away ??? Not being able to eat or drink ??? Fever of 100.4??F (38??C) or higher, or as advised by your provider ??? Burning feeling when you pee??? Bad-smelling pee Call 911 Call 911, or get immediate medical care at the nearest emergency room if any of these occur: ??? Fainting; or severe dizziness or lightheadedness ??? Large amount of black or red color, or blood, in your stools or vomit ??? Abnormal chest pain or trouble breathing ?? Last Reviewed Date: 2021 ?? [id number] [employer]. All rights reserved. This information is not intended as a substitute for professional medical care. Always follow your healthcare professional's instructions. ?? * Vanessa CASPER, Korin Ferrara: PERFORM Event Display: Patient Education Leaflets Authored Date: [id number] Discharge Instructions for Hypophosphatemia ?? 17453 Discharge Instructions for Hypophosphatemia You have been diagnosed with hypophosphatemia??(not enough phosphorus in your blood). Phosphorus helps develop bones and teeth. It also helps control energy metabolism. Most cases of hypophosphatemiaare caused by other health problems. Diet changes ??? Unless your healthcare provider tells you otherwise, drink at least 8??glasses of water every day. ??? Keep track of how much fluid you drink. ??? Eat more foods that contain phosphorus. o Increase your intake of milk, cream, cheese, cottage cheese, yogurt, puddings,??custard, and ice cream. Add powdered milk to foods. o Eat meat, fish, poultry, eggs, and peanuts and other nuts and seeds. Also eat beans, lentils, peas, and soy products. o Eat bran cereal, granola, oatmeal, and wheat germ. ?? Other home care ??? Resume your normal activities as directed by your healthcare provider. ??? Tellyour provider about all prescription and [id number] medicines you are taking. This includes vitamins and herbal preparations. Some of these may cause interactions with other medicines. ??? Tellyour provider if you have a history of diabetes or liver, kidney, or heart disease. ??? Take all medicine exactly as directed. In some cases, your healthcare provider will prescribe oral phosphate supplements to you if you have an underlying condition that affects how your body handles phosphate. ??? Don't take antacids that contain calcium, magnesium, or aluminum. They may keep you from absorbing the phosphorus in your food. Niacin can also interfere with absorbing phosphorus in your food. ?? Follow-up care ??? Make a follow-up appointment with your healthcare provider, or as directed. ??? Keep all appointments for lab work and follow-up. Your provider needs to monitor your condition closely. ?? When to call your healthcare provider Call your provider right away if you have any of these: ??? Confusion ??? Irritable behavior ??? Pain in your muscles ??? Nausea or vomiting ??? Diarrhea that is not relieved by antidiarrhea medicineor by changing your diet ??? Constipation that lasts longer than 2 days ?? Last Reviewed Date: 2022 ?? [employer]. All rights reserved. This information is not intended as a substitute for professional medical care. Always follow your healthcare professional's instructions. ?? * Irving CASPER, Zarina Garland: PERFORM, SIGN, VERIFY Event Display: Case Management Discharge Plan Authored Date: [id number] Patient: BETTY MCLAIN Age: 68 years Sex: Female : 1955 Associated Diagnoses: None Author: Irving CASPER, Zarina Garland Discharge Plan Case Management Discharge Plan : Case Management Discharge Plan Data 01/10/2024 14:45 EST Discharge Level of Care at Discharge Homehealth/VNA Discharge VNA/Hospice/Home Care [facility] [phone] Name of Agency #1 [facility] Categories #1 Physical Therapy, [facility] Service Comments #1 The VNA will call you 1-2 days after d/c to setup your appt. If you do not hearfrom them, please call them. * Event Display: Provider Clarification Note Please click on pdf link to open report * Event Display: Discharge/Transfer Note Hospital Authored Date: * Radha Morgan MD: PERFORM Event Display: Procedures Invasive Line Authored Date: Vascular Access Insertion Entered On: 01/05/2024 21:24 EST Performed On: 01/05/2024 21:20 EST by Radha Morgan MD Vascular Access Insertion Date of Vascular Access Insertion : 01/05/2024 EST Procedure Location Vascular Access : MICU Person recording insertion : Account Executive Key Accounts Account Executive Key Accounts of Vascular Access : Radha Morgan MD Occupation of Vascular Access Account Executive Key Accounts : Fellow Person Supervising Procedure : Sky Cooley MD Was residence hall director a member of PICC/IV Team : No Radha Morgan MD - 01/05/2024 21:20 EST Procedural Comments Risk Factors and Labs Reviewed : Yes Anticoagulation Therapy : Yes Antiplatelet Therapy : Yes Radha Morgan MD - 01/05/2024 21:20 EST Was vascular access order placed : No Vascular Access Type : Central line Time Out Performed : Yes Time Out Data : Patient identified, Site verified, Procedure verified, RN attendance Reason for Vascular Access Insertion : Hemodialysis Suspected Vascular Access Infection : No, the access was not exchanged over a guide wire Vascular Access Procedure Check : Critical care patient Patient/Family Teaching done : No Hand Hygiene prior to insertion : Yes Maximal sterile barriers used : Mask, Sterile gown, Large sterile full body drape, Sterile gloves, Ultrasound sterile cover, Cap Sterile Field Maintained : Yes Skin Preparation : Chlorhexidine (CHG) Skin Prep dry at first skin puncture : Yes Antimicrobial coated catheter used : Yes Successful central line placement : Yes Vascular Access Catheter Type : Dialysis non-tunneled Vascular Access Insertion Site : Jugular Vascular Access Insertion Side : Right Vascular Access Catheter Size : 7.5 Vascular Access Catheter Length : 20 Vessel Identified By : Ultrasound Vascular Access Insertion Circumstance : Non-emergent Vascular Access Catheter Securement : Suture Vascular Access Dressing : Chlorhexidine Follow-up CXR : Ordered Provider Reading CXR : Sky Cooley MD CXR Comment : appropriate position Radha Morgan MD - 01/05/2024 21:20 EST DCP GENERIC CODE Suture needles : 1 Gilmore : 2 Scalpels : 1 Clamps : 1 Guide Wires : 1 Radha Morgan MD - 01/05/2024 21:20 EST Complications during Insertion : None Tolerated CLIP procedure well : Yes Insertion Attempts : 1 Vascular Access Device QA : . Radha Morgan MD - 01/05/2024 21:20 EST Attending Attestation Statement of Attestation : Patient seen Attending Attestation Patient Seen : I was present during the critical and munroe portions of the procedure, Other: catheter tip at the mid SVC Sky Cooley MD - 01/07/2024 1:47 EST * Sky Cooley MD: PERFORM Event Display: Procedures Invasive Line Authored Date: [id number] Vascular Access Insertion Entered On: 01/06/2024 0:34 EST Performed On: 01/05/2024 21:00 EST by Sky Cooley MD Vascular Access Insertion Date of Vascular Access Insertion : 01/05/2024 EST Procedure Location Vascular Access : SICU Person recording insertion : Account Executive Key Accounts Account Executive Key Accounts of Vascular Access : Sky Cooley MD Occupation of Vascular Access Account Executive Key Accounts : Attending physician Was residence hall director a member of PICC/IV Team : No Vascular Access Type : Arterial line Time Out Performed : Yes Time Out Data : Patient identified, Site verified, Procedure verified, Consent signed, RN attendance Reason for Vascular Access Insertion : Hemodynamic monitoring Suspected Vascular Access Infection : No, the access was not exchanged over a guide wire Vascular Access Procedure Check : Consent obtained Hand Hygiene prior to insertion : Yes Maximal sterile barriers used : Mask, Sterile gown, Large sterile full body drape, Sterile gloves, Ultrasound sterile cover, Cap Sterile Field Maintained : Yes Skin Preparation : Chlorhexidine (CHG) Skin Prep dry at first skin puncture : Yes Successful central line placement : Yes Vascular Access Catheter Type : Non-tunneled (other than dialysis) Vascular Access Insertion Site : Radial Vascular Access Insertion Side : Left Vessel Identified By : Ultrasound Vascular Access Insertion Circumstance : Emergent (life-threatening or code situation) Vascular Access Catheter Securement : Suture Vascular Access Dressing : Occlusive Follow-up CXR : Not ordered Complications during Insertion : None Tolerated CLIP procedure well : Yes Insertion Attempts : 1 Sky Cooley MD 01/06/2024 0:32 EST Admission evaluation note * Natalia Marin DOa: MODIFY, MODIFY, MODIFY, MODIFY, PERFORM, MODIFY, MODIFY, MODIFY, MODIFY, MODIFY, MODIFY, MODIFY, MODIFY, MODIFY, MODIFY, MODIFY, MODIFY, MODIFY Event Display: Admission Note Authored Date: Patient: ??BETTY MCLAIN ? Age:??68 Years?Sex:??Female?:??1955?? Chief Complaint/Reason for Consultation acute hypoxic respiratory failure History of Present Illness 68F with a past medical history of hypertension and diabetes mellitus who initially presented as a stroke alert to [facility]. ?? She was found by bystanders in her front lawn as she was walking her dog outside.?? Patient had a right gaze and dysarthria, unable to tell when she walked her dogs last.?? Per EMS, last well-known was probably at around 12 PM today.?? She is unable to corroborate herself.?? She is not oriented to what occurred and what brought her into the ED.?? When EMS found the patient, POC BG was 130-140, systolic blood pressure ranging from 140 to 150 mmHg.?? Per chart review, patient recently had hernia surgery. ?? Initial vital signs at [facility] ED was 90 3.2F rectal, heart rate 114 bpm, 97/40.?? CT head and neck did not show evidence of a bleed or large vessel occlusion.?? Due to her recent laparoscopic hernia repair, she is not a candidate for thrombolytics.?? On labs, she was found to be hyperkalemic to 6 without any EKG changes.?? Troponins were also elevated to 148, repeat was 154.?? Valencia catheter was placed, for urinary retention.?? Pending U-Tox results.?? CT abdomen pelvis performed does not show any hydroureteronephrosis.?? There is symmetric perinephric stranding which could be a chronic finding.?? No evidence of bowel obstruction.?? Chest x-ray does not show evidence of acute abnormality.?? L actate was over 20, VBG showed severe metabolic acidosis with a pH less than 6.82.?? 2 A of bicarb and a bicarb drip was started.?? Due to meeting SIRS criteria, patient was given antibiotics.?? As well as fluids. ?? Neurology saw the patient, recommended SBP control below 180.?? MRI of the brain without gadolinium, TTE.?? Renal saw the patient and recommended transfer to the ICU.?? [facility] patient developed hypotension requiring Levophed to be started peripherally. ?? Patient's repeat K was 6.8, patient remains anuric. 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 Review of Systems Negative unless otherwise mentioned above in subjective Objective Vital Signs?? Temperature: 98.4 DegF (01/05/24 18:22:00) Temperature Route: Oral (01/05/24 18:22:00) Pulse Rate:??120 bpm??High (01/05/24 17:25:00) Heart Rate Monitored:??121 bpm??High (01/05/24 18:00:00) Respiratory Rate: 21 br/min (01/05/24 18:00:00) Systolic Blood Pressure:??85 mm Hg??Low (01/05/24 18:51:00) Diastolic Blood Pressure: 61 mm Hg (01/05/24 18:51:00) Blood pressure sites: Arm, right (01/05/24 18:51:00) Mean Arterial Pressure: 80 mm Hg (01/05/24 18:22:00) Pulse Pressure: 24 mm Hg (01/05/24 18:51:00) Oxygen Saturation:??19 %??Low (01/05/24 18:00:00) Mode of Delivery (Oxygen): Room air (01/05/24 18:00:00) ? Physical Exam General: No acute distress, AAOx1 to self, somnolent HEENT: EOMI Cardio: regular rate and rhythm. Respiratory: CTA bilaterally w/ no audible wheezes or rales MSK: no swelling of extremities Extremities: no peripheral edema. Neuro: somnolent but arousable to voice command Assessment/Plan 68F with a past medical history of hypertension and diabetes mellitus who initially presented as a stroke alert to [facility]. CT head and neck showed no evidence of LVO or bleed, not a candidate for thrombolytics due to recent laparoscopic hernia repair. Complicated by acute on chronic HFpEF exacerbation leading to acute hypoxic respiratory failure, hypotension requiring levophed, and now hyperkalemia to 6.8 without evidence of EKG changes and anuria, planning for emergent renal replacement therapy. ?? Neuro Cerebrovascular Accident (CVA) CT head hyperacute does not show any intracranial pathologies CT angio head/neck no LVO Neuro saw patient at [facility], recs as below: ?? Plan: - bedside swallow eval - load with ASA 325mg then 81mg daily thereafter - atorvastatin 40mg (increased from 20mg at home) - ST, PT, OT - lipid, TSH, utox, B12 level pending - goal LDL<70 - MRI brain without matthew when more stable and can lie flat - TTE - ok for subcu heparin ?? Anxiety - pt very anxious, can start on a precedex gtt for now, goal RASS 0 ?? Cardiovascular Acute on Chronic Heart Failure with Preserved EF Type II NSTEMI Elevated troponins Septic shock EKG nonischemic, chest pain free, troponins elevated at 148 then 154 likely due to type II demand ischemia - holding lasix at this time while she is on dialysis - wean off levophed as appropriate with goal MAP>65 - A line in place for more accurate hemodynamic monitoring ?? H/o hypertension - holding home amlodipine and valsartan/HCTZ in the setting of shock ?? Respiratory Acute Hypoxemic Respiratory Failure Severe Metabolic Acidosis pH <6.82, bicarb <3, received 4 amps bicarb and on a bicarb drip - O2 goal >94% - c/w bicarb drip 150cc/hr ?? Gastrointestinal Recent laparoscopic hernia repair ?about 1 week ago, will need to clarify with patient after she is more arousable and conversational no evidence of overt bleeding Hgb 11.2 - monitor H/H ?? Renal/Electrolytes Severe hyperkalemia - place central line access for emergent RETAIL DEPARTMENT SUPERVISOR, recheck labs after dialysis - panel monitor for arrhythmias ?? Acute Renal Failure Cr now at 8.69 (baseline is at 1.0) most likely in the setting of hypoxemia and hypotension anuric (maybe made about 20cc in the past 12 hours), no evidence of hydroureteronephrosis on CTAP - valencia catheter for close IO monitoring - renal consulted RTANE - dialysis ?? High Anion Gap Met Acidosis AG severely high at 47, lactate is at 21.7 most likely due to hypoxia and poor perfusion, and lactic acidosis - repeat lactate was 22.8, continue to trend ?? Infectious Disease SIRS positive Bandemia CXR shows no acute abnormalities leuk mild at 11, afebrile but meets SIRS criteria??HR>90, RR>20, no clear source of infectionat this time - UA, hold for urine cx - bcx x2 - Zosyn renally dosed ?? Heme/Onc Macrocytic anemia - monitor CBC ?? Endocrine Type II Diabetes Mellitus - on lantus 50 at home - while here, decrease to 25U at bedtime - holding home metformin - ISS and POCs TID and before bedtime, hypoglycemia measures in place ?? MSK/Skin No active issues ?? Quality measures VTE prophylaxis: heparin subcu Code status: full code Diet: cardiac diet Lines: right IJ central access, left radial A-line, valencia catheter ?? Patient case and plan discussed with attending physician Dr. Cooley. ?? Rakel Marin??DO Internal Medicine PGY3 Histories Allergies Allergies ?(Active and Proposed Allergies Only) NKA? (Severity: Unknown severity, Onset: Unknown) ? Past Medical History/Problem List Active Problems(2) Benign hypertension Type 1 diabetes mellitus with hemoglobin A1c goal of 7.0%-8.0% ? Past Surgical History No surgery history documented. ? Social History Alcohol Details:??Use: Never. Substance Abuse Details:??Use: Never. Tobacco Details:??Use: Never (less than 100 in lifetime). Electronic Cigarette/Vaping Details:??Electronic Cigarette Use: Never. ? Family History No Family History documented. ? Medications Home Medications Amlodipine (amLODIPine 2.5 mg oral tablet)?2.5?Milligram?1?tablet?By Mouth?Daily Atorvastatin (atorvastatin 20 mg oral tablet)?1?tab(s)?20?Milligram?By Mouth?Daily Calcium Citrate?By Mouth?2 times a day Cyanocobalamin (Vitamin B12 1000 mcg oral tablet)?1?tab(s)?1,000?Microgram?By Mouth?Daily Hydrochlorothiazide-Valsartan (hydrochlorothiazide-valsartan 12.5 mg-320 mg oral tablet)?1?tab(s)?By Mouth?Daily Insulin Aspart (NovoLOG 100 units/mL injectable solution)?INJECT 50 UNITS EVERY DAY WITH PUMP Metformin?1000?Milligram?By Mouth?2 times a day?for 90?Days Multivitamin?Daily [place]-3 Polyunsaturated Fatty Acids (Fish Oil 1000 mg oral capsule)?1?capsule?1,000?Milligram?By Mouth?Daily Pantoprazole (pantoprazole 40 mg oral delayed release tablet)?TAKE 1 TABLET BY MOUTH EVERY DAY ? Results Recent Labs BLOOD COUNT & DIFF WBC 11.9 k/mm3 (High)?? 01/05/2024 12:37 RBC 3.57 m/mm3 (Low)?? 01/05/2024 12:37 Hgb 11.2 Gm/dL (Low)?? 01/05/2024 12:37 Hct 37.3 % ()?? 01/05/2024 12:37 MCV 104.5 femtoliters (High)?? 01/05/2024 12:37 MCH 31.4 pg ()?? 01/05/2024 12:37 MCHC 30.0 Gm/dL (Low)?? 01/05/2024 12:37 Platelet Count 410 k/mm3 ()?? 01/05/2024 12:37 RDW-SD 54.5 femtoliters (High)?? 01/05/2024 12:37 MPV 9.8 femtoliters ()?? 01/05/2024 12:37 Nucleated RBC (Automated) 0.0 #/100 WBC'S ()?? 01/05/2024 12:37 Abs. NRBC 0.0 k/mm3 ()?? 01/05/2024 12:37 Abs. Neut 9.6 k/mm3 (High)?? 01/05/2024 12:37 Abs. Lymph 1.0 k/mm3 ()?? 01/05/2024 12:37 Abs. Twiggs 1.0 k/mm3 (High)?? 01/05/2024 12:37 Abs. Eo 0.0 k/mm3 ()?? 01/05/2024 12:37 Abs. Baso 0.0 k/mm3 ()?? 01/05/2024 12:37 Neut % 80.3 % (High)?? 01/05/2024 12:37 Lymph % 8.6 % (Low)?? 01/05/2024 12:37 Twiggs % 8.0 % ()?? 01/05/2024 12:37 Eos % 0.1 % ()?? 01/05/2024 12:37 Baso % 0.3 % ()?? 01/05/2024 12:37 Imm Gran 2.7 % ()?? 01/05/2024 12:37 Abs. Imm Gran 0.3 k/mm3 ()?? 01/05/2024 12:37 ?? BLOOD GAS Specimen Type - Blood Gas VENOUS ()?? 01/05/2024 13:56 pH, Venous <6.82 (Low)?? 01/05/2024 13:56 pCO2, Venous <15 mm Hg (Low)?? 01/05/2024 13:56 pO2, Venous 69 mm Hg (High)?? 01/05/2024 13:56 ?? CARDIAC CK, Total 157 units/L ()?? 01/05/2024 14:10 High Sensitivity Troponin (HSTnT) 154 ng/L (Critical)?? 01/05/2024 14:10 ?? CHEM GENERAL Sodium 142 mmol/L ()?? 01/05/2024 14:10 Potassium 6.8 mmol/L (Critical)?? 01/05/2024 14:10 Chloride 92 mmol/L (Low)?? 01/05/2024 14:10 Bicarbonate Level 3 mmol/L (Critical)?? 01/05/2024 14:10 Anion Gap 47 (High)?? 01/05/2024 14:10 Glucose Level 241 mg/dL (High)?? 01/05/2024 14:10 Glucose, POC 186 mg/dL (High)?? 01/05/2024 15:50 BUN 103 mg/dL (High)?? 01/05/2024 14:10 Creatinine-Blood 8.69 mg/dL (High)?? 01/05/2024 14:10 Estimated GFR Creatinine 5 ML/MIN/1.73 M2 ()?? 01/05/2024 14:10 Calcium 10.8 mg/dL (High)?? 01/05/2024 14:10 AST (SGOT) 23 units/L ()?? 01/05/2024 12:37 Lactate 21.7 mmol/L (Critical)?? 01/05/2024 13:55 ?? COAG INR 1.1 ()?? 01/05/2024 12:37 Protime (PT) 11.8 seconds (High)?? 01/05/2024 12:37 APTT 28.6 seconds ()?? 01/05/2024 12:37 ?? HEME OTHER Hold Lavender Top SPECIMEN DISCARDED AFTER 24 HOURS. ()?? 01/05/2024 12:37 ?? MISC. CHEMISTRY Hold Gel Top SPECIMEN DISCARDED AFTER 1 WEEK ()?? 01/05/2024 12:37 ?? URINE OTHER Est Creatinine Clearance 4.68 mL/min ()?? 01/05/2024 15:04 ?? VIROLOGY COVID-19 by RT-PCR NEGATIVE ()?? 01/05/2024 14:40 ? US Heart * Event Display: Echocardiogram - Complete Authored Date: Transthoracic Echocardiography Report (TTE) Patient Demographics Patient Name BETTY MCLAIN Date of Study 01/07/2024 Corporate Gender Female Facility Race .[id number] Ethnicity Date of 1955 Height: 61 inches Age 68 year(s) Weight: 134.5 pounds Accession Number [id number] BSA: 1.6 m2 Room Number [id number] BMI: 25.41 kg/m2 Referring Tania Shay MD Physician Physician Appliance Counselor Leila Napoles Fellow Sally Perez DO Indications Heart failure. Clinical History Type 1 DM Hypertension. Study Data Type of Study TTE procedure:Echo Complete-(Doppler, Colorflow) with Contrast. Procedure Information:Definity was administered by Ski Edge Painter . Study Date01/07/2024 Start Time: 01:21 PM [place] [facility] [place] Status: [place]/CCU Patient Status: Routine Technical Quality: Fair Blood Pressure:115/42 mmHg EKG: Normal sinus rhythm HR: 80 bpm Contrast Medium: Definity. Amount - 2 ml Allergies - No known allergies. 2D Measurements LV Diastolic Dimension: 4.4 cm LV Systolic Dimension: 2.8 cm LV Septum Diastolic: 0.7 cm LV PW Diastolic: 0.6 cm AO Root Dimension: 3 cm LA Dimension: 2.6 cm LA ESV (BP):28.5 ml LVOT Stroke Volume: 51.5 ml LA ESV Index: 18 ml/m2 Stroke Volume Index32.19 ml/m2 LVOT: 2 cm Cardiac Index:2.58 l/min/m2 Doppler Measurements AV Peak Velocity: 148 cm/s MV Peak E-Wave: 67.4 cm/s AV Peak Gradient: 8.76 mmHg MV Peak A-Wave: 99.9 cm/s AV Mean Gradient: 5 mmHg MV E/A Ratio: 0.67 AV VTI:23.7 cm MV P1/2t: 68 msec LVOT Peak Velocity: 109 cm/s LVOT VTI16.4 cm MV Deceleration Time: 231 msec AV Area (Continuity):2.17 cm2 MV Area (PHT): 3.24 cm2 TR Velocity:231 cm/s TR Gradient:21.34 mmHg Estimated RAP:3 mmHg Estimated RVSP: 24.3 mmHg E' Septal Velocity: 8.38 cm/s E' Lateral Velocity: 9.57 cm/s E/Med E':[id number] E/Lat E':7.088873 Cardiac Anatomy Left Ventricle/Interventricular Septum The left ventricular size is normal. Left ventricular wall thickness is normal. The LV systolic function is mildly reduced. The left ventricular ejection fraction is 50% by biplane Castellanos's. There are no regional wall motion abnormalities. There is no Doppler evidence of increased filling pressures. Left Atrium/Interatrial Septum The left atrium is normal in size. Aortic Valve The aortic valve is trileaflet. There is no aortic stenosis or insufficiency. Mitral Valve The mitral valve is grossly normal. There is no significant mitral regurgitation. There is no evidence of mitral stenosis. Aorta The aortic root is normal in size. The ascending aorta is poorly visualized. Right Ventricle The right ventricular size is at the upper limits of normal. The distal right ventricular free wall is hypokinetic. Right Atrium The right atrium is normal in size. Pulmonic Valve The pulmonic valve is poorly visualized. Tricuspid Valve The tricuspid valve leaflet opening is normal. There is trace tricuspid valve regurgitation. Pumonary Artery The pulmonary artery systolic pressure estimation is 24 mmHg. The pulmonary artery systolic pressure estimation is within normal limits. Venous Structures The inferior vena cava size is normal with normal inspiratory collapse. The central venous pressure estimation is 3 mmHg. Pericardium/Extracardiac There is no significant pericardial effusion. Summary The left ventricular size is normal. Left ventricular wall thickness is normal. The LV systolic function is mildly reduced. The left ventricular ejection fraction is 50% by biplane Castellanos's. There are no regional wall motion abnormalities. There is no Doppler evidence of increased filling pressures. The right ventricular size is at the upper limits of normal. The distal right ventricular free wall is hypokinetic. The pulmonary artery systolic pressure estimation is 24 mmHg. The pulmonary artery systolic pressure estimation is within normal limits. Comparison No prior study available for comparison. Signature * Event Display: Echocardiogram - Complete Authored Date: Cardiology * Event Display: Cardiac Rhythm Strips Authored Date: * Event Display: Cardiac Rhythm Strips Authored Date: * Event Display: Cardiac Rhythm Strips Authored Date: Hospital Progress note * Pebbles Beltran RN: PERFORM, SIGN, VERIFY Event Display: Progress Note Hospital Authored Date: Patient: BETTY MCLAIN Age: 68 years Sex: Female : 1955 Associated Diagnoses: None Author: Pebbles Beltran RN Findings Problem Related to Alteration in Cardiac Function (new) : Alteration in Cardiac Function/new 01/12/2024 14:00 EST Alteration in Cardiac Status Related to Other: renal failure, hypotension Goals & Outcomes, Cardiac Status Pt will resume/maintain adequate cardiac output, Pt will resume/maintain adequate hemodynamic status, Resolved problem, Goals/Outcomes met Cardiac Interventions Implemented Resolved problem; interventions no longer in effect Goals/Interventions, Cardiac Yes Cardiac, Problem Start 01/05/2024 19:00 Reviewed Plan with, Cardiac Status Patient Patient Progression, Cardiac Status Resolved problem Cardiac, Problem Resolved 01/12/2024 15:15 . Alteration in Fluid Electrolyte : Alteration in Fluid Electrolyte Func/new 01/12/2024 14:00 EST Alteration Fluid Electrolytes Related to Electrolyte Imbalance Goals & Outcomes, Fluid/Electrolyte Vital signs, electrolytes & glucose levels will stabilize, Pt will maintain skin turgor Interventions, Fluid Electrolyte Resolved problem, Interventions no longer in effect Goals/Interventions,Fluid Electrolyte Yes Fluid Electrolyte, Problem Start 01/10/2024 12:22 Reviewed plan with, Fluid Electrolyte Patient Patient Progression, Fluid Electrolyte Resolved problem Fluid Electrolyte, Problem Resolved 01/12/2024 15:15 . Alteration in Genitourinary : Alteration in Genitourinary Function/new 01/12/2024 14:00 EST Alteration in Status Related to Renal failure Goals & Outcomes, Genitourinary Pt will achieve normal/improved fluid balance, Pt will maintainadequate GI function appropriate for pt, Pt will maintain adequate function appropriate for pt, Pt will maintain normal fluid balance, Pt will resume normal pattern of elimination, Pt will resume/maintain mental status, Pt will be free from complications of hemodialysis Interventions, Resolved problem, Interventions no longer in effect Goals/Interventions, Genitourinary Yes Genitourinary, Problem Start 01/05/2024 19:00 Reviewed Plan with, Genitourinary Patient Patient Progression, Genitourinary Resolved problem Genitourinary, Problem Ongoing No Genitourinary, Problem Resolved 01/12/2024 15:15 . Narrative/Incidental A&Ox3, ambulating steadily, denies pain, denies sob, see biophysical for full assessment, tolerating diet, took meds as prescribed, bed in lowest, locked position with call cummins in reach. Patientdischarging today, verbalizes understanding of discharge instructions, all questions answered, IV removed tip intact, left unit in w/c via transport. . Discharge Information Case Management Discharge Plan : Case Management Discharge Plan Data 01/10/2024 14:45 EST Discharge Level of Care at Discharge Homehealth/VNA Discharge VNA/Hospice/Home Care [facility] [phone] Name of Agency #1 [facility] Categories #1 Physical Therapy, [facility] Service Comments #1 The VNA will call you 1-2 days after d/c to setup your appt. If you do not hearfrom them, please call them. Pulmonary Rehab Discharge : Pulmonary Rehab Discharge Status 01/07/2024 23:49 EST CPAP/BiPAP Mask Type Full CPAP/BiPAP Mask Size Medium 01/07/2024 21:32 EST CPAP/BiPAP Mask Type Full CPAP/BiPAP Mask Size Medium 01/07/2024 1:23 EST CPAP/BiPAP Mask Type Full CPAP/BiPAP Mask Size Medium Rehabilitation Discharge : Rehab Discharge Index 01/10/2024 15:12 EST Walker: distance >50 01/09/2024 9:00 EST Comments on treatment indicated 68F admitted for Acute metabolic encephalopathy. See for gait, stairs, therex and balance. Rec home with services. Walker: distance >50 Distance pt will ambulate ~100' with LRAD and good balance Full chart review completed Yes Hospital course per chart Plan of care PT Gait training, Transfer training, Therapeutic exercise, Functional Activities, Balance training * Beverly Schwarz MD: PERFORM Event Display: Progress Note Hospital Authored Date: Patient: ??BETTY MCLAIN ? Age:??68 Years?Sex:??Female?:??1955?? Subjective Seen and examined.?? Has good p.o. appetite.?? Denies nausea vomiting abdominal pain. POC's reviewed over the last 24 hours.?? Her POC yesterday morning was 58 thereafter before lunch was 306 and patient received 7 units of Humalog.?? Before dinner to 37 received 5 units of Humalog and at bedtime was 190.?? At 2 AM POC was 96.?? This morning POC was 95.?? Patient has a good p.o. appe tite.? Objective Vitals & Measurements T:??97?F?? TMIN:??97?F?? TMAX:??97.9?F?? HR:??100??(Peripheral)?? RR:??18?? BP:??129/68?? SpO2:??100%?? WT:??65.3??kg?? Physical Exam Eyes: Sclera nonicteric, nonindurated ENT: no goiter RESP: nonlabored breathing?? Skin: No notable rashes Neuro: Grossly normal motor function Psych: alert and oriented x4 Constitutional: Well appearing?? Assessment/Plan Discharge Planning:? 68-year-old woman with a history of type 1 diabetes hypertension retinopathy came in with lactic acidosis NSTEMI acute hypoxic respiratory failure.?Clinically stable now , getting prepped for ??DC home ??. ?? Recommendations Reduce Lantus to 17 units. Continue current lispro sliding scale. ?? If patient is to get discharged she can start her insulin pump Medtronics 680 along with Guardian sensor.?? If she would have already received Lantus prior to leaving??, she would need to use a temp basal on her pump until 22 hours after the last Lantus dose given in the hospital.?? She is aware tomake dose changes.?? She would need to know what time she was dosed with her last dose of Lantus akbar can set that time basal for 22-hour at 0%.?? Thereafter we will continue home basal.?? She can however start using her Humalog bolus feature in her pump immediately on discharge. Patient has all supplies at home.?? Follows up with Dr. Rain Castellon. ?? Plan discussed with patient who understands and agrees. Medications Inpatient acetaminophen 325 mg oral tablet, 650 mg, By Mouth, Every 4 hours, PRN aspirin 81 mg oral delayed release tablet, 81 mg, By Mouth, Daily atorvastatin 40 mg oral tablet, 40 mg, By Mouth, Daily Dextrose 50% Inj Syringe (25Gm), 12.5 Gm= 25 mL, IV Push Slowly, Every 20 minutes, PRN Dextrose 50% Inj Syringe (25Gm), 25 Gm= 50 mL, IV Push Slowly, Every 15 minutes, PRN Dextrose 50% Inj Syringe (25Gm), 25 Gm, IV Push Slowly, Once, PRN Glucagon Inj, 1 mg, Intramuscular, Once, PRN Glucose Gel, 15 Gm, By Mouth, Every 20 minutes, PRN Glucose Gel, 30 Gm, By Mouth, Every 20 minutes, PRN Heparin Inj, 5000 units= 1 mL, Subcutaneous Injection, 3 times a day Imodium Liquid, 2 mg= 15 mL, By Mouth, Every 3 hours, PRN Insulin LISPRO Sliding Scale, 3-7 units, Subcutaneous Injection, 3 times a day with meals Lantus Inj, 17 units= 0.17 mL, Subcutaneous Injection, Daily at bedtime midodrine 5 mg oral tablet, 10 mg, By Mouth, Every 8 hours, PRN NaCL 0.9% 1,000 mL, 1000 mL, IV Infusion ondansetron 4 mg oral tablet, disintegrating, 4 mg, By Mouth, Every 6 hours, PRN Phos-NaK Oral Powder, 2 pack/packet, By Mouth, 3 times a day Home amLODIPine 2.5 mg oral tablet, 2.5 mg= 1 tablet, By Mouth, Daily atorvastatin 20 mg oral tablet, 20 mg= 1 tablet, By Mouth, Daily Calcium Citrate, By Mouth, 2 times a day Fish Oil 1000 mg oral capsule, 1000 mg= 1 capsule, By Mouth, Daily hydrochlorothiazide-valsartan 12.5 mg-320 mg oral tablet, 1 tablet, By Mouth, Daily Metformin, 1000 mg, By Mouth, 2 times a day, 3 refills Multivitamin, Daily NovoLOG 100 units/mL injectable solution pantoprazole 40 mg oral delayed release tablet Vitamin B12 1000 mcg oral tablet, 1000 mcg= 1 tablet, By Mouth, Daily * Chong LYNN, Beverly: PERFORM Event Display: Progress Note Hospital Authored Date: Patient: ??BETTY MCLAIN ? Age:??68 Years?Sex:??Female?:??1955?? Subjective Patient seen and examined.?? Fells well. Denies n/v/d. Good po intake Hypoglycemic this am , likely due to bedtime lispro 6 U .?? Objective Vitals & Measurements T:??97.5?F?? TMIN:??97.3?F?? TMAX:??98.0?F?? HR:??66??(Peripheral)?? RR:??18?? BP:??104/54?? SpO2:??94%?? Assessment/Plan Discharge Planning:?Recommend??continue Lantus to??19 ??units. Continue current lispro sliding scale.However NO scale for bedtime POC coverage. ?? Questionable metformin associated lactic acidosis on presentation.?? Patient should not restart metformin on discharge.?? Bids will continue?? to follow. Medications Inpatient acetaminophen 325 mg oral tablet, 650 mg, By Mouth, Every 4 hours, PRN aspirin 81 mg oral delayed release tablet, 81 mg, By Mouth, Daily atorvastatin 40 mg oral tablet, 40 mg, By Mouth, Daily Dextrose 50% Inj Syringe (25Gm), 12.5 Gm= 25 mL, IV Push Slowly, Every 20 minutes, PRN Dextrose 50% Inj Syringe (25Gm), 25 Gm= 50 mL, IV Push Slowly, Every 15 minutes, PRN Dextrose 50% Inj Syringe (25Gm), 25 Gm, IV Push Slowly, Once, PRN Glucagon Inj, 1 mg, Intramuscular, Once, PRN Glucose Gel, 15 Gm, By Mouth, Every 20 minutes, PRN Glucose Gel, 30 Gm, By Mouth, Every 20 minutes, PRN Heparin Inj, 5000 units= 1 mL, Subcutaneous Injection, 3 times a day Imodium Liquid, 2 mg= 15 mL, By Mouth, Every 3 hours, PRN Insulin LISPRO Sliding Scale, 3-7 units, Subcutaneous Injection, 3 times a day with meals Lantus Inj, 19 units, Subcutaneous Injection, Daily at bedtime midodrine 5 mg oral tablet, 10 mg, By Mouth, Every 8 hours, PRN NaCL 0.9% 1,000 mL, 1000 mL, IV Infusion ondansetron 4 mg oral tablet, disintegrating, 4 mg, By Mouth, Every 6 hours, PRN potassium chloride 10 mEq oral tablet, extended release, 40 mEq, By Mouth, 2 times a day Home amLODIPine 2.5 mg oral tablet, 2.5 mg= 1 tablet, By Mouth, Daily atorvastatin 20 mg oral tablet, 20 mg= 1 tablet, By Mouth, Daily Calcium Citrate, By Mouth, 2 times a day Fish Oil 1000 mg oral capsule, 1000 mg= 1 capsule, By Mouth, Daily hydrochlorothiazide-valsartan 12.5 mg-320 mg oral tablet, 1 tablet, By Mouth, Daily Metformin, 1000 mg, By Mouth, 2 times a day, 3 refills Multivitamin, Daily NovoLOG 100 units/mL injectable solution pantoprazole 40 mg oral delayed release tablet Vitamin B12 1000 mcg oral tablet, 1000 mcg= 1 tablet, By Mouth, Daily Consult note * Lisa Rivas: PERFORM Event Display: Consultation Note Authored Date: Patient: ??BETTY MCLAIN ? Age:??68 Years?Sex:??Female?:??1955?? Chief Complaint/Reason for Consultation MOE / Acidosis History of Present Illness Betty Mclain is a 68-year-old female with a past medical history of HTN and DM who presented to [place] on 01/04 with dysarthria and right gaze, activated as stroke alert, [place] [facility] [place], acidosis requiring dialysis. ?? At [place] patient had pH < 6.82 CO2 < 15, WBC 11.9, Hgb 11.2, Na 141, K 6.0, Cl 90. Bicarb < 2, BUN 103, Cr 8.67, Ca 11.0, lactate 21.7. She was given multiple??bicarb amps and started on bicarb gtt. CTAP showed no??hydro, did have mildly atrophic??right kidney. [place] [facility] [place] was hypotensive requiring Levophed for which she went to ICU. She had 2.5 hrs HD, with repeat bicarb this morning up to 10, Cr was down to??3.64 after HD and is now up to 4.83 again. Patient was??making 0-70cc/hr of urine which has now increased to 100-200cc/hr.? On my evaluation patient was not tachypneic. She was anxious regarding the events, couldn't remember that she had gone to [place]. In days leading up to hospitalization reported??mildly decreased POintake.?? Review of Systems Negative except as mentioned above?? Objective Measurements?? Weight: 61 kg (01/05/24) ?? Vital Signs?? Temperature: 98 DegF (01/06/24 12:00:00) Temperature Route: Oral (01/06/24 12:00:00) Normothermic Measures: Additional blanket (01/06/24 00:00:00) Pulse Rate:??121 bpm??High (01/05/24 18:22:00) Heart Rate Monitored:??91 bpm??High (01/06/24 13:18:00) Respiratory Rate: 20 br/min (01/06/24 13:18:00) Vented: No (01/06/24 13:18:00) Systolic Blood Pressure: 112 mm Hg (01/05/24 23:00:00) Diastolic Blood Pressure: 63 mm Hg (01/05/24 23:00:00) Systolic Arterial Blood Pressure: 119 mm Hg (01/06/24 13:18:00) Diastolic Arterial Blood Pressure:??41 mm Hg??Low (01/06/24 13:18:00) Blood pressure sites: Arm, right (01/05/24 20:24:00) Mean Arterial Pressure: 80 mm Hg (01/05/24 18:22:00) Mean Arterial Pressure Monitored: 61 mm Hg (01/06/24 13:18:00) Pulse Pressure: 49 mm Hg (01/05/24 23:00:00) Oxygen Saturation: 97 % (01/06/24 13:18:00) Liters per Minute: 2 L/min (01/05/24 20:38:00) Mode of Delivery (Oxygen): Room air (01/06/24 13:00:00) ? Intake/Output? 01/04 18:26 01/05 07:00 01/04 07:00 01/03 07:00 01/02 07:00 ?? 01/05 13:41 01/05 13:41 01/05 06:59 01/04 06:59 01/03 06:59 Intake ? 3168.7 ? 1417.3 ? 1751.4 ?0 ?0 Output ? 1377 ?943 ?434 ?0 ?0 Net Total ? 1791.7 ?474.3 ? 1317.4 ?0 ?0 ? Physical Exam General: No acute distress, anxious appearing?? CV: Regular rate and rhythm.?? Respiratory: All blackman clear to auscultation bilaterally. No wheezes, rales, rhonchi Extremities: No lower extremity edema.?? Neuro: AAO x3.?? HD access: YUNIEL Lopez?? Assessment/Plan Assessment:??Betty Mclain is a 68-year-old female with a past medical history of HTN and DM who presented to [place] on 01/04 with dysarthria and right gaze, activated as stroke alert, [place] [facility] [place] severe MOE, acidosis requiring dialysis. ?? 1. Acidosis Lactate peaked at 21.7 with bicarb of < 2 on admission, pH < 6.82 requiring emergent dialysiswith YUNIEL Lopez placed on 01/04 Lactate now down to 12 Suspected 2/2 metformin toxicity ?? 2. MOE (BL Cr 1.0 mg/dL in 2022) Cr peaked at 8.7 mg/dL on admission MOE appears secondary to ATN, supported by urine studies, in the setting of??hypovolemia, hypotension now requiring pressors, metformin toxicity, and HCTZ-valsartan use at home UA is blander with 1+ ketones noted. CTAP confirms no hydronephrosis, atrophic right kidney. 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 Recommendations: - HD today for 3 hours, running even, for ongoing??acidosis?? - Continue D5W bicarb gtt - Will hold HD after today and reassess, reassured by improved UOP - Trend lactate and lytes including calcium as??patient??is??on bicarb gtt? Will continue to follow ?? Lisa Lyon PA-C [facility]?? Discussed with ??Zuri ? Histories Allergies Allergies ?(Active and Proposed Allergies Only) NKA? (Severity: Unknown severity, Onset: Unknown) ? Past Medical History/Problem List Active Problems(2) Benign hypertension Type 1 diabetes mellitus with hemoglobin A1c goal of 7.0%-8.0% ? Past Surgical History No surgery history documented. ? Social History Alcohol Details:??Use: Never. Substance Abuse Details:??Use: Never. Tobacco Details:??Use: Never (less than 100 in lifetime). Electronic Cigarette/Vaping Details:??Electronic Cigarette Use: Never. ? Family History No Family History documented. ? Medications Home Medications Amlodipine (amLODIPine 2.5 mg oral tablet)?2.5?Milligram?1?tablet?By Mouth?Daily Atorvastatin (atorvastatin 20 mg oral tablet)?1?tab(s)?20?Milligram?By Mouth?Daily Calcium Citrate?By Mouth?2 times a day Cyanocobalamin (Vitamin B12 1000 mcg oral tablet)?1?tab(s)?1,000?Microgram?By Mouth?Daily Hydrochlorothiazide-Valsartan (hydrochlorothiazide-valsartan 12.5 mg-320 mg oral tablet)?1?tab(s)?By Mouth?Daily Insulin Aspart (NovoLOG 100 units/mL injectable solution)?INJECT 50 UNITS EVERY DAY WITH PUMP Metformin?1000?Milligram?By Mouth?2 times a day?for 90?Days Multivitamin?Daily [place]-3 Polyunsaturated Fatty Acids (Fish Oil 1000 mg oral capsule)?1?capsule?1,000?Milligram?By Mouth?Daily Pantoprazole (pantoprazole 40 mg oral delayed release tablet)?TAKE 1 TABLET BY MOUTH EVERY DAY ? Results Recent Labs BLOOD COUNT & DIFF WBC 23.3 k/mm3 (High)?? 01/06/2024 04:42 RBC 2.98 m/mm3 (Low)?? 01/06/2024 04:42 Hgb 9.2 Gm/dL (Low)?? 01/06/2024 04:42 Hct 29.0 % (Low)?? 01/06/2024 04:42 MCV 97.3 femtoliters ()?? 01/06/2024 04:42 MCH 30.9 pg ()?? 01/06/2024 04:42 MCHC 31.7 Gm/dL (Low)?? 01/06/2024 04:42 Platelet Count 270 k/mm3 ()?? 01/06/2024 04:42 RDW-SD 50.9 femtoliters (High)?? 01/06/2024 04:42 MPV 9.7 femtoliters ()?? 01/06/2024 04:42 Nucleated RBC (Automated) 0.0 #/100 WBC'S ()?? 01/06/2024 04:42 Abs. NRBC 0.0 k/mm3 ()?? 01/06/2024 04:42 Abs. Neut 15.5 k/mm3 (High)?? 01/05/2024 19:15 Abs. Lymph 0.9 k/mm3 ()?? 01/05/2024 19:15 Abs. Twiggs 0.8 k/mm3 ()?? 01/05/2024 19:15 Abs. Eo 0.0 k/mm3 ()?? 01/05/2024 19:15 Abs. Baso 0.0 k/mm3 ()?? 01/05/2024 19:15 Neut % 79.7 % (High)?? 01/05/2024 19:15 Lymph % 5.1 % (Low)?? 01/05/2024 19:15 Twiggs % 4.2 % (Low)?? 01/05/2024 19:15 Eos % 0.0 % ()?? 01/05/2024 19:15 Baso % 0.0 % ()?? 01/05/2024 19:15 Metamyelocyte % 3.4 % (High)?? 01/05/2024 19:15 Band % 7.6 % (High)?? 01/05/2024 19:15 RBC Morphology MARKED ()?? 01/05/2024 19:15 Imm Gran 2.7 % ()?? 01/05/2024 12:37 Abs. Imm Gran 0.3 k/mm3 ()?? 01/05/2024 12:37 ?? BLOOD GAS pH 7.26 (Low)?? 01/06/2024 04:42 pCO2 <10 mm Hg (Critical)?? 01/06/2024 04:42 pO2 135 mm Hg (High)?? 01/06/2024 04:42 Bicarbonate, Estimated Unable to calculate mmol/L ()?? 01/06/2024 04:42 Specimen Type - Blood Gas ARTERIAL ()?? 01/06/2024 04:42 pH, Venous <6.82 (Low)?? 01/05/2024 13:56 pCO2, Venous <15 mm Hg (Low)?? 01/05/2024 13:56 pO2, Venous 69 mm Hg (High)?? 01/05/2024 13:56 Percent O2 (FIO2) 23 ()?? 01/06/2024 04:42 ?? CARDIAC CK, Total 157 units/L ()?? 01/05/2024 14:10 High Sensitivity Troponin (HSTnT) 154 ng/L (Critical)?? 01/05/2024 14:10 ?? CHEM GENERAL Sodium 140 mmol/L ()?? 01/06/2024 09:38 Potassium 3.7 mmol/L ()?? 01/06/2024 09:38 Chloride 89 mmol/L (Low)?? 01/06/2024 09:38 Bicarbonate Level 10 mmol/L (Low)?? 01/06/2024 09:38 Anion Gap 41 (High)?? 01/06/2024 09:38 Glucose Level 268 mg/dL (High)?? 01/06/2024 09:38 Glucose, POC 204 mg/dL (High)?? 01/06/2024 12:53 Hemoglobin A1C (Monitoring) 7.0 % (High)?? 01/05/2024 20:04 BUN 53 mg/dL (High)?? 01/06/2024 09:38 Creatinine-Blood 4.83 mg/dL (High)?? 01/06/2024 09:38 Estimated GFR Creatinine 9 ML/MIN/1.73 M2 ()?? 01/06/2024 09:38 Calcium 8.1 mg/dL (Low)?? 01/06/2024 09:38 Phosphorus 5.5 mg/dL (High)?? 01/06/2024 04:42 Magnesium 1.9 mg/dL ()?? 01/05/2024 23:17 Protein, Total 5.9 Gm/dL (Low)?? 01/06/2024 09:38 Albumin 3.5 Gm/dL ()?? 01/06/2024 09:38 AG Ratio 1.5 ()?? 01/06/2024 09:38 Alkaline Phosphatase 61 units/L ()?? 01/06/2024 09:38 AST (SGOT) 37 units/L (High)?? 01/06/2024 09:38 ALT (SGPT) 26 units/L ()?? 01/06/2024 09:38 Bilirubin, Total 0.3 mg/dL ()?? 01/06/2024 09:38 Vitamin B12 Level 2131 pg/mL (High)?? 01/05/2024 20:04 Lactate 11.9 mmol/L (Critical)?? 01/06/2024 04:42 ?? COAG INR 1.1 ()?? 01/05/2024 19:15 Protime (PT) 11.9 seconds (High)?? 01/05/2024 19:15 APTT 28.6 seconds ()?? 01/05/2024 12:37 D-Dimer 9.02 mg/L FEU (High)?? 01/05/2024 19:15 ?? ENDOCRINE/TUMOR MARKER TSH 0.22 uIU/mL (Low)?? 01/05/2024 20:04 ?? HEME OTHER Hold Lavender Top SPECIMEN DISCARDED AFTER 24 HOURS. ()?? 01/05/2024 12:37 ?? LIPID STUDIES Cholesterol 141 mg/dL ()?? 01/05/2024 20:04 Triglycerides 163 mg/dL (High)?? 01/05/2024 20:04 HDL Cholesterol 41 mg/dL ()?? 01/05/2024 20:04 LDL Cholesterol 67 mg/dL ()?? 01/05/2024 20:04 Non HDL Cholesterol 100 mg/dL ()?? 01/05/2024 20:04 ?? MISC. CHEMISTRY Hold Gel Top SPECIMEN DISCARDED AFTER 1 WEEK ()?? 01/05/2024 12:37 ?? SEROLOGY INF DISEASE Hepatitis B Surface Antigen NON REACTIVE ()?? 01/05/2024 20:04 Hepatitis C Ab NON REACTIVE ()?? 01/05/2024 20:04 Anti-HBS Quant 72.00 mIU/mL ()?? 01/05/2024 20:04 ?? UA/URINALYSIS Appear/Color, Urine LIGHT YELLOW ()?? 01/05/2024 22:00 Specific [place], Urine 1.020 ()?? 01/05/2024 22:00 pH, Urine 6.0 ()?? 01/05/2024 22:00 Albumin, Urine 2+ (Abnormal)?? 01/05/2024 22:00 Glucose, Urine 1+ (Abnormal)?? 01/05/2024 22:00 Ketones, Urine 1+ (Abnormal)?? 01/05/2024 22:00 Bilirubin, Urine NEGATIVE ()?? 01/05/2024 22:00 Hemoglobin, Urine 2+ (Abnormal)?? 01/05/2024 22:00 Nitrite, Urine NEGATIVE ()?? 01/05/2024 22:00 Leukocyte, Urine NEGATIVE ()?? 01/05/2024 22:00 Urobilinogen NORMAL mg/dL ()?? 01/05/2024 22:00 WBC's, Urine <1 /HPF ()?? 01/05/2024 22:00 RBC's, Urine 7 /HPF (High)?? 01/05/2024 22:00 Mucus SLIGHT /LPF ()?? 01/05/2024 22:00 Budding Yeast SLIGHT /HPF ()?? 01/05/2024 22:00 ?? URINE OTHER Creatinine, Urine Random 12.7 mg/dL ()?? 01/06/2024 09:45 Sodium, Urine Random 105 mmol/L ()?? 01/06/2024 09:45 Chloride, Urine Random 64 mmol/L ()?? 01/06/2024 09:45 Urea Nitrogen, Urine Random 108.0 mg/dL ()?? 01/06/2024 09:45 Osmolality, Urine Random 282 mOsm/kg ()?? 01/06/2024 09:45 Protein, Total Urine Random 18 mg/dL ()?? 01/06/2024 09:45 TP/Cr Ratio 1.44 (High)?? 01/06/2024 09:45 Creatinine, Urine 12.7 mg/dL ()?? 01/06/2024 09:45 Malb/Creat Ratio 404.7 mg/Gm (High)?? 01/06/2024 09:45 Urine Creat For Micro Alb 12.7 mg/dL ()?? 01/06/2024 09:45 Micro-Albumin 51.0 mg/L (High)?? 01/06/2024 09:45 Est Creatinine Clearance 4.68 mL/min ()?? 01/05/2024 15:04 ?? VIROLOGY COVID-19 by RT-PCR NEGATIVE ()?? 01/05/2024 14:40 ? * Grey Keating MD: PERFORM Event Display: Consultation Note Authored Date: Patient evaluated.?? Reviewed in detail.?? Discussed with the PA and I agree with her assessment and plan. * Ada Martinez MD: PERFORM Event Display: Consultation Note Authored Date: Patient: ??BETTY MCLAIN ? Age:??68 Years?Sex:??Female?:??1955?? Reason for Consultation Hyperglycemia Type 1 DM History of Present Illness Betty Newell is a 68-year-old female with history of type 1 diabetes??who was admitted with??acute hypoxic respiratory failure with severe metabolic acidosis. ?? Bids consulted for help with??diabetes management. ?? Home regimen: NovoLog via Medtronic insulin pump??with??continuous glucose??monitor Metformin Outpatient??diabetes provider: Rain Neff ?? Insulin pump settings: Basal rate 12 AM???7 AM: 0.7 units/h 7 AM???12 PM: 0.8 units/h 12 PM???5 PM:??0.65 units/h 5 PM???12 AM: 0.8 units/h Total daily basal 17.7 units ?? Carb ratio 6 AM???11 AM: 8 11 AM???4 PM: 14 4 PM???9 PM: 12 9 PM???12 AM: 15 ?? Active insulin time:??2??hours 30 minutes Insulin sensitivity: 60 ?? Blood glucose target??120 ?? Current inpatient regimen: Lantus 25 units daily: Dose given at 9 PM on January 05, 2024 ?? Lispro sliding scale 2 units??for blood sugar 150???199, then increase by 2 units for every 50 mg rising blood sugar ? 68F with a past medical history of hypertension and diabetes mellitus who initially presented as a stroke alert to [facility] ED. ?? Her appetite is poor. Review of Systems As per HPI Physical Exam Vitals & Measurements T:??97.8?F?? TMIN:??96?F?? TMAX:??98.5?F?? HR:??90??(Monitored)?? RR:??19?? BP:??112/63?? BP:??127/45(Line)?? SpO2:??97%?? WT:??61??kg?? General: AAOx3, not in acute distress HEENT: no pallor, no icterus, central line right??IJ Lungs: Nonlabored breathing Ext: No peripheral edema Skin: No rashes appreciated Assessment/Plan In summary 68-year-old female with type 1 diabetes mellitus??who is admitted with severe metabolic acidosis, lactic acidosis, potentially DKA on presentation based on her labs . ?? Recommendations: Given significant metabolic acidosis, would recommend checking??beta hydroxybutyrate??to confirm if??she also has??diabetic ketoacidosis in addition to severe lactic acidosis. ?? Would recommend insulin drip??per protocol??until anion gap closed and patient able to tolerate diet ?? Based on her insulin??pump information, her??basal insulin is approximately 18 units/day. ?? Upon??correction of acidosis, patient can be continued on Lantus??18 units daily. ?? Continue with Lispro scale of??2 units for blood sugar 150???199, and increase by 2 units for every50 mg rising blood sugar,??this will need to be adjusted once she is able to eat. ?? BIDS will continue to follow ? Problem List/Past Medical History Ongoing Benign hypertension Type 1 diabetes mellitus with hemoglobin A1c goal of 7.0%-8.0% Medications Inpatient aspirin 81 mg oral delayed release tablet, 81 mg, By Mouth, Daily atorvastatin 40 mg oral tablet, 40 mg, By Mouth, Daily D5%W 1,000 mL + Sodium Bicarbonate Cont IV 150 mEq Dextrose 50% Inj Syringe (25Gm), 12.5 Gm= 25 mL, IV Push Slowly, Every 20 minutes, PRN Dextrose 50% Inj Syringe (25Gm), 25 Gm= 50 mL, IV Push Slowly, Every 15 minutes, PRN Glucagon Inj, 1 mg, Intramuscular, Once, PRN Glucose Gel, 15 Gm, By Mouth, Every 20 minutes, PRN Glucose Gel, 30 Gm, By Mouth, Every 20 minutes, PRN Heparin Inj, 5000 units= 1 mL, Subcutaneous Injection, 3 times a day Insulin LISPRO Sliding Scale, 2-10 units, Subcutaneous Injection, 3 times a day before meals Lantus Inj, 25 units= 0.25 mL, Subcutaneous Injection, Daily at bedtime Levophed 4 mg / D5W 250 mL 4 mg, 4 mg= 250 mL, IV Infusion Precedex 400 mcg / 100 mL NaCl (Titrate) 400 mcg, 400 mcg= 100 mL, IV Infusion Zosyn Extended IVPB, 3.375 Gm, IVPB, Every 12 hours Home amLODIPine 2.5 mg oral tablet, 2.5 mg= 1 tablet, By Mouth, Daily atorvastatin 20 mg oral tablet, 20 mg= 1 tablet, By Mouth, Daily Calcium Citrate, By Mouth, 2 times a day Fish Oil 1000 mg oral capsule, 1000 mg= 1 capsule, By Mouth, Daily hydrochlorothiazide-valsartan 12.5 mg-320 mg oral tablet, 1 tablet, By Mouth, Daily Metformin, 1000 mg, By Mouth, 2 times a day, 3 refills Multivitamin, Daily NovoLOG 100 units/mL injectable solution pantoprazole 40 mg oral delayed release tablet Vitamin B12 1000 mcg oral tablet, 1000 mcg= 1 tablet, By Mouth, Daily Allergies NKA Social History Alcohol Use: Never. Electronic Cigarette/Vaping Electronic Cigarette Use: Never. Substance Abuse Use: Never. Tobacco Use: Never (less than 100 in lifetime). Patient Care team information Care Team Personnel Name: Elizabeth Carver RN Position: [facility] RN Member Role: Primary Care Nurse Name: Cm Torrez RN Position: [facility] RN Member Role: Primary Care Nurse Name: Irwin Goodrich RN Position: [facility] ED RN W/OE and Tasks Member Role: Primary Care Nurse Name: Lashonda Farnsworth RN Position: [facility] RN Supv Member Role: Primary Care Nurse Name: Hilary Brown RN Position: [facility] RN Member Role: Primary Care Nurse Name: Cherelle Matthew RN Position: [facility] RN Member Role: Primary Care Nurse Name: Manuela Silveira RN Position: S RN Member Role: Primary Care Nurse Name: Dianne Link Position: S Outreach Member Role: Lifetime Consulting Physician Name: Mechelle Siegel RN Position: S RN Member Role: Primary Care Nurse Name: Naima Jackson RN Position: S RN Member Role: Primary Care Nurse Name: Rigo Boswell RN Position: S RN Member Role: Primary Care Nurse Name: Jonel Bruno RN Position: [facility] RN Member Role: Primary Care Nurse Name: Leo aBhena MD Position: [facility] Renal MD Member Role: Lifetime Consulting Physician Address: [address] [facility] [place], [place] [address] Telecom: Name: Chasity Maldonado RN Position: [facility] RN Member Role: Primary Care Nurse Name: Júnior MULLER, Elsi Pearson Position: [facility] Outreach Member Role: PCP Address: [address] [place] [address]- Telecom: Name: Avis Luna RN Position: [facility] RN Member Role: Primary Care Nurse Care Team Related Persons Name: JORGE MCLAIN Name: VALENTIN ALEGRIA Insurance Providers Guarantor name: BETTY MCLAIN Health Plan Information #: 1 Payer: MEDICARE A INPT 25 Member Number: [id number] Policy Number: NA Group Number: NA Health Plan Information #: 3 Payer: [employer] [place] Member Number: [id number] Policy Number: NA Group Number: [id number] Health Plan Information #: 2 Payer: MEDICARE PART B OUTPT Member Number: [id number] Policy Number: NA Group Number: NA
--- OUTSIDE RECORDS SUMMARY | 2024-02-07 21:35 | XMS_ITS | Continuity of Care Document ---
Author Organization [facility] Address [address] [place] [address] Phone [phone] Care Team Providers Care Protective Service Specialist Name Role Phone Daniel Burrell M.D. Care Team Information Receiv er [phone] Elsi Callejas N.P. Care Team Information R eceiver [phone] Problems Active Problems Provider Date Type 1 diabetes mellitus Rain Monsalve M.D. Onset: 09/16/2021 Osteopenia Rain Monsalve M.D. Ons et: 09/16/2021 Osteoarthritis Rain Monsalve M.D. Ons et: 09/16/2021 Obstructive sleep apnea of adult Rain Zacarias M.D. Onset: 09/16/2021 Essential hypertension Kenneth Munguia Onset: 09/16/2021 Diabetic peripheral neuropathy Rain martínez M.D. Onset: 09/16/2021 Nonproliferative retinopathy due to diabetes mellitus Rain Monsalve M.D. Onset: 09/16/2021 Chronic anemia Rain Monsalve M.D. Ons et: 01/03/2022 Disorder of nervous system d ue to type 1 diabetes mellitus Rain Monsalve M.D. Onset: 03/31/2022 Gastroesophageal reflux disease Rain Castellon M.D. Onset: 07/07/2023 Hiatal hernia Rain Monsalve M.D. 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 03/31/2022 Vitamin [id number] Tablets ER 1 by mouth every day Rain Monsalve M.D. 09/16/2021 Calcium Citrate +Tablets 600mg qd Rain Monsalve M.D. 09/16/2021 Multivitamin AdultTablets 1 qd Rain Monsalve M.D. 09/16/2021 Accu-Chek GuideStrips Use 1 Test Strip Up To 3 Times A Day For Testing Blood Sugars (E11.8) 300units E11.8 Rain Monsalve M.D. 09/14/2021 Zqnrlpy629Ocwb/ML Solution Inject 50 Units Every Day With Pump 50units E10.40 Rain Monsalve M.D. Accu-Chek Fastclix LancetsMisc Use 1 Lancet On The Skin 3 Times A Day (E10.40) 306units E10.40 Rain Monsalve M.D. Amlodipine Besylate2.5mg Tablets take 1 tablet by mouth every day 90tabs Rain Monsalve M.D. Pantoprazole Ecegel35jm Tablets DR 1 by mouth every day Unknown Ntqwmfvqnx1CK/10ML Suspension bid Unknown Vital Signs Date Vital Result Comment 02/01/2024 1:12pm BP Systolic 124 mmHg BP Diastolic 68 mmHg Height 61 inches 5'1 Weight 122.50 lb BMI (Body Mass Index) 23.1 kg/m2 Results Test Acquired Date Facility Test Result H/L Range Note Laboratory test finding 10/04/2023 Inhouse Glucose Fingerstick 132 Hemoglobin A1c 6.8% Laboratory test finding 07/07/2023 Inhouse Glucose Fingerstick 145 Hemoglobin A1c 7.1% Urinary Microalbumin 04/10/2023 [facility] Micro-Albumin <12.0 mg/L (<20) 1 Malb/Creat Ratio Unable t o calcul <SEE NOTE> MG/GM (0-20) 2 Urine Creat For Micro Albumin 57.3 mg/dL Laboratory test finding 04/10/2023 Inhouse Glucose Fingerstick 203 Hemoglobin A1c 7.0% Laboratory test finding 01/05/2023 Inhouse Glucose Fingerstick 111 Hemoglobin A1c 7.3% Laboratory test finding 09/30/2022 Inhouse Glucose Fingerstick 232 Hemoglobin A1c 7.3% Comprehensive Metabolic Panl 07/06/2022 [facility] Glucose 167 mg/dL High (70-99) BUN 22 mg/dL (8-23) Creatinine 1.1 mg/dL High (0.5-1.0 ) Sodium 138 mmol/L (133-145 ) Potassium 4.6 mmol/L (3.6-5.2 ) Chloride 99 mmol/L (98-107) Bicarbonate 25 mmol/L (22-29) Anion Gap 14 (4-17) Albumin 4.4 GM/DL (3.4-4.8 ) Calcium 9.9 mg/dL (8.6-10. 5) Bilirubin,Total 0.8 mg/dL (0-1.2 ) Total Protein 6.9 GM/DL (6.2-8.2 ) Ag Ratio 1.8 Ast 29 U/L (0-32) Alk Phos 72 U/L (35-104) Alt 17 U/L (0-33) Estimated GFR Creatinine 58 ML/MIN/1. 73M2 3 Lipid Panel 07/06/2022 [facility] Cholesterol, Total 156 mg/dL (<200) Triglyceride 80 mg/dL (<150) HDL Chol 69 mg/dL (>39) LDL Cholesterol , Calculated 71 mg/dL (0-130) Non HDL Cholesterol (Calc) 87 mg/dL (<160) Complete Abc With Diff 07/06/2022 [facility] WBC 6.6 K/MM3 (4.0-11. 0) RBC 3.69 M/MM3 Low (4.20-5. 40) HGB 10.9 GM/DL Low (11.7-15 .5) HCT 34.9 % Low (35.7-45 .8) MCV 94.6 FL (80.0-10 0.0) MCH 29.5 pg (27.0-34 .0) MCHC 31.2 g/dL Low (33.0-37 .0) PLT 325 K/MM3 (150-460 ) RDW-SD 42.6 FL (<47.0) MPV 8.8 FL Low (9.4-12. 4) Automated NRBC 0.0 #/100WBC' S Abs. NRBC 0.0 K/MM3 Neut # 2.8 K/MM3 (1.3-7.0 ) Lymph # 2.5 K/MM3 (0.8-3.1 ) Greene# 0.8 K/MM3 (0.4-0.9 ) Eo # 0.4 K/MM3 (0.0-0.4 ) Baso # 0.1 K/MM3 (0.0-0.1 ) Abs. Imm Gran 0.0 K/MM3 Neut 42.3 % Low (44-76) Lymph 38.3 % (15-43) Monocyte 11.5 % High (4.5-10. 5) Eo 6.5 % High (0-6) Baso 1.2 % (0-2) Imm Gran 0.2 % Laboratory test finding 06/29/2022 Inhouse Glucose Fingerstick 169 Hemoglobin A1c 7.1% Laboratory test finding 03/31/2022 Inhouse Glucose Fingerstick 124 Hemoglobin A1c 7.3% Laboratory test finding 01/03/2022 Inhouse Glucose Fingerstick 89 Hemoglobin A1c 7.2% Laboratory test finding 09/16/2021 Inhouse Hemoglobin A1c 7.4% Glucose Fingerstick 144 1 The urine microalbum in test is designed to monitor renal function. When screening for Bence Wong proteinuria, urine electrophoresis is recommended. 2 Unable to calculate 3 Creatinine based est imated glomerular filtration (eGFR) in adults is calculated using the [employer] recommended 2020 CKD-EPI equation. Estimates GFR from serum creatinine, age and sex. Procedures Date Code Description Status 02/01/2024 18046 Glucose Monitoring Interpeta tion And Report Completed 10/04/2023 33416 Glucose Monitoring Interpeta tion And Report Completed 07/07/2023 72418 Glucose Monitoring Interpeta tion And Report Completed 04/10/2023 97780 Glucose Monitoring Interpeta tion And Report Completed 01/05/2023 11113 Glucose Monitoring Interpeta tion And Report Completed 09/30/2022 29936 Glucose Monitoring Interpeta tion And Report Completed 06/29/2022 36530 Glucose Monitoring Interpeta tion And Report Completed 03/31/2022 50016 Glucose Monitoring Interpeta tion And Report Completed 01/03/2022 95084 Glucose Monitoring Interpeta tion And Report Completed Medical Devices Description No Information Available Encounters Type Date Location Provider Dx Diagnosis Office Visit 02/01/2024 1:30p Main Office Rain Monsalve M.D. E10.42 Type 1 diabetes mellitus with diabetic polyneuropathy E10.3293 Type 1 diab with mil d nonp rtnop without macular edema, bi I10 Essential (primary) hypertension Z96.41 Presence of insulin pump (external) (internal) Assessments Date Code Description Provider 02/01/2024 E10.42 Type 1 diabetes mellitus with diabetic polyneuropathy Rain Monsalve M.D. 02/01/2024 E10.3293 Type 1 diabetes mellitus with nonproliferative diabetic retinopathy NOS Rain Monsalve M.D. 02/01/2024 I10 Essential (primary) hyperten selwyn Rain Monsalve M.D. 02/01/2024 Z96.41 Presence of insu sylvie pump (external) (internal) Rain Monsalve M.D. Plan of Treatment Future Appointment(s):* 07/09/2024 10:30 am - Rain Monsalve M.D. at Main Office * 04/08/2024 8:30 am - Rain Monsalve M.D. at Main Office 02/01/2024 - Rain Monsalve M.D.* E10.42 Type 1 diabetes mellitus with diabetic polyneuropathy * E10.3293 Type 1 diabetes mellitus with nonproliferative diabetic retinopathy NOS * I10 Essential (primary) hypertension * Z96.41 Presence of insulin pump (external) (internal) Functional Status Description No Information Available Mental Status Description No Information Available Referrals Description No Information Available
== END 2024-02-06 13:28 | disposition home or self-care (01) ==
LOC: HO.HBS 13:14
PROVIDERS: PCP Nurse Practitioner Primary Care; Visit Provider Physician Assistant Surgical
DX: Z87.19 Personal history of other diseases of the digestive system (principal)
CPT/HCPCS: 99024

== ENCOUNTER → 2024-02-06 13:14 | Outpatient (BNVA) | payer MEDICARE, OTHER, SELFPAY | PROVIDERS: PCP Nurse Practitioner Primary Care; Visit Provider Physician Assistant Surgical | DX: Z48.815 Encounter for surgical aftercare following surgery on the digestive system (principal); Z98.890 Other specified postprocedural states | CPT/HCPCS: 99212 ==

== ENCOUNTER 2024-03-20 12:23 | Outpatient (AMB) | payer MEDICARE, OTHER, SELFPAY ==
--- NOTE | 2024-03-20 12:03 | MHC.OFFVISWM ---
VS Expanded 03/20/24 12:09 Height 5 ft 1 in Weight 121 lb 4 oz BMI 22.9 Intake Visit Reasons: TELEPHONE s/p diaphragmatic hernia repair Allergies No Known Allergies Allergy (Verified 01/02/24 10:51) Medication List - Last Reconciled 03/20/24 by EDGAR Law amlodipine 2.5 mg PO DAILY atorvastatin 20 mg PO DAILY calcium citrate 200 mg PO DAILY cyanocobalamin (vitamin B-12) (Vitamin B-12) 1,000 mcg PO DAILY fexofenadine (Magdalena Hives) 180 mg PO DAILY fluconazole 150 mg PO SUSA insulin aspart U-100 (Novolog U-100 Insulin aspart) 50 units subcut Q24H multivitamin (Daily Multi-Vitamin tablet) 1 tab PO DAILY omega 5-qbv-iui-fish oil 1,000 (120-180) mg (Fish Oil) 1 cap PO DAILY ondansetron 4 mg PO Q12H pantoprazole 40 mg PO DAILY sucralfate 10 mL PO BID vitamin B complex (B Complex-Vitamin B12 tablet) 1 tab PO DAILY HPI Comments Details: This?is a?68 yo female who is s/p diaphragmatic hernia repair 12/27/2023. Presents for 3mo post op visit. No complaints of nausea, emesis, abdominal pain or reflux, or constipation. Takes amlodipine (usually half pill) per parameters, off valsartan/metformin. Meeting with PCP next month, may come off amlodipine. Blood sugars- has insulin pump. Was taken off metformin. Continues on PPI/carafate, no reflux. Present meal plan includes: Celebrate Rebuild 1 scoop x2 Celebrate bars x 1.5 2 meals per day started 5 forks chicken/fish and 5 forks veg/rice/potatoes, started salads and is happy about this Exercise- walks dog, plans to restart yoga and go back to golf [facility] Medical History (Updated 01/04/24 @ 00:03 by Background Dasindi) Bleeding hemorrhoids Tubular adenoma of colon ANATOLY on CPAP Hx of sepsis (~2020) Insulin pump in place GERD (gastroesophageal reflux disease) Renal calculi Sleep apnea Belva syndrome Diabetes Elevated cholesterol HTN (hypertension) Surgical History (Updated 01/04/24 @ 00:03 by Background Isaiah) Status post repair of paraesophageal diaphragmatic hernia History of esophagogastroduodenoscopy (EGD) (02/02/23) Hx of cystoscopy H/O colonoscopy H/O bilateral cataract extraction Family History Maternal Grandmother Colostomy status Cancer Social History (Updated 12/22/23 @ 15:15 by Mica Colin RN) Household Members: None Housing: House Are you a primary complex care nurse practitioner to a significant other at home: No Do you presently have visiting nurse or other home services: No 75 years or older and lives alone: No Alcohol intake: current Alcohol intake frequency: holidays/special occasions only Patient Tobacco Use Status: Former Tobacco user Tobacco use type: Cigarette service: No Telehealth Telehealth Telehealth Platform: Telephone Location of provider rendering services: other Location of patient: address on file Patient Identification confirmed using: Name, : Yes Telehealth method: voice only Patient verbally consented to treatment: Yes Patient verbally consented to billing insurance company: Yes Patient informed of any privacy concerns related to visit: Yes Minutes spent on Phone/Video with Pt.: 22 Assessment & Plan Assessment & Plan (1) Status post repair of paraesophageal diaphragmatic hernia: Code(s): Z98.890 - Other specified postprocedural states; Z87.19 - Personal history of other diseases of the digestive system Category: Surgical Plan Pt to continue meal plan per Dr. Garland. She will ask next week whether she should continue PPI- had hx duodenitis. Will also ask about technology consultant meal plan now that she is 3mo out. Will continue to monitor BP and dose according to parameters. RTC 3 mo- can check labs at that time. I spent a total of 30 minutes reviewing/updating records, examining the patient and counseling the patient on weight management as detailed above.
[2024-03-20 12:09] VITALS: BMI 22.9
--- OUTSIDE RECORDS SUMMARY | 2024-03-20 14:17 | XMS_ITS | Clinical Summary ---
Author Organization [facility] it Address [address] [place] [address] Care Team Providers Care Distribution Driver Name Role Phone Elsi Callejas NP Primary Care Provider [phone] Surgical History Surgery Date Site/Laterality Comments CATARACT EXTRACTION, BILATERAL PROCEDURE:CATARACT EXTRACTION, BILATERAL Medical History Medical History Date Comments Diabetes mellitus (CMS/HCC) DX:D iabetes mellitus (HCC) HLD (hyperlipidemia) DX:HLD (hyp erlipidemia) Hypertension DX:Hypertension Sleep apnea DX:Sleep apnea Anemia DX:Anemia Family History Medical History Relation Name Comments Cancer Maternal Grandmother Stroke Mother Relation Name Status Comments Maternal Grandmother Mother Social History Tobacco Use Types Packs/Day Years Used Date Smoking Tobacco: Former Smokeless Tobacco: Never Alcohol Use Standard Drinks/Week Comments Yes 1 (1 standard drink = 0.6 oz pur e alcohol) Sex and Gender Information Value Date Recorded Sex Assigned at Not on file Gender Identity Not on file Sexual Orientation Not on file Obstetrics History Last Filed Vital Signs Vital Sign Reading Time Taken Comments Blood Pressure 150/82 11/06/2023 9:28 AM EDT Sitting Right arm Pulse 83 11/06/2023 9:28 AM EDT Temperature - - Respiratory Rate - - Oxygen Saturation - - Inhaled Oxygen Concentration - - Weight 65.7 kg (144 lb 12.8 oz) 11/06/2023 9:28 AM EDT Height 156.2 cm (5' 1.5 ) 11/06/2023 9: 28 AM EDT Body Mass Index 26.92 11/06/2023 9:28 AM EDT Plan of Treatment Upcoming Encounters Date Type Department Care Team (Late st Contact Info) Description 11/05/2024 10:00 AM EDT Office Visit [facility] Hematology Oncology [address] [place] [address] Mena Wilkerson PA [address] [place] [address] Health Maintenance Due Date Last Done Comments Breast Cancer Screening 1955 DTaP,Tdap,and Td Vaccines (1 - Tdap) 07/13/1974 Zoster Vaccines (1 of 2) 07/13/2005 Pneumococcal Vaccine: 65+ Ye ars (1 of 1 - PCV) 07/13/2020 Colorectal Cancer Screening: Colonoscopy 03/28/2023 Depression Screening 03/28/2023 Falls Risk Assessment 03/28/2023 Hepatitis C Screening 03/28/2023 Medicare Annual Wellness Visit 03/28/2023 Osteoporosis Screening (Bone Density Screening) 03/28/2023 Social Influencers of Health Screening 03/28/2023 COVID-19 Vaccine ( - 2023-2 5 season) 2023 Influenza Vaccine (#1) 2023 RSV Immunization Patients 60 + Years Old (1 - 1-dose 75+ series) 07/13/2030 HIB Vaccines Aged Out No longer eligi ble based on patient's age to complete this topic HPV Vaccines Aged Out No longer eligi ble based on patient's age to complete this topic Hepatitis A Vaccines Aged Out No long er eligible based on patient's age to complete this topic Hepatitis B Vaccines Aged Out No long er eligible based on patient's age to complete this topic IPV Vaccines Aged Out No longer eligi ble based on patient's age to complete this topic MMR Vaccines Aged Out No longer eligi ble based on patient's age to complete this topic Meningococcal ACWY Vaccine Aged Out N o longer eligible based on patient's age to complete this topic RSV Immunization Patients Un dillon 20 months Aged Out No longer eligible b ased on patient's age to complete this topic Varicella Vaccines Aged Out No longer eligible based on patient's age to complete this topic Care Teams Distribution Driver Relationship Specialty Start Date End Date Elsi Callejas NP PCP - General 10/18/22
--- OUTSIDE RECORDS SUMMARY | 2024-03-20 14:17 | XMS_ITS | Clinical Summary ---
Author Organization [facility] Address [address] [place] [address] Care Team Providers Care Visual Specialist Name Role Phone Elsi Callejas NP Primary Care Provider [phone] Allergies No known active allergies Medications Medication Sig Dispensed Refills Start Date End Date Status amLODIPine (NORVASC) tablet 2.5 mg Take 1 tablet (2.5 mg total) by mouth daily. 0 Active aspirin EC 81 MG tablet Take 1 tablet (81 mg total) by mouth daily. 0 Active calcium citrate (CALCITRATE) 950 (200 Ca) MG tablet Take 1 tablet (950 mg total) by mouth 2 (two) times a day. 0 Active metFORMIN (GLUCOPHAGE) tablet 1000 mg Take 1 tablet (1,000 mg total) by mouth 2 (two) times a day with meals. 0 Active omeprazole (PriLOSEC) 20 MG capsule Take 1 capsule (20 mg total) by mouth daily. 0 Active simvastatin (ZOCOR) tablet 20 mg Take 1 tablet (20 mg total) by mouth every night at bedtime. 0 Active valsartan-hydroCHLOROt hiazide (DIOVAN-HCT) 320-12.5 MG per tablet Take 1 tablet by mouth daily. 0 Active atorvastatin (LIPITOR) tablet 20 mg Take 1 tablet (20 mg total) by mouth daily. 0 Active Insulin Aspart (NOVOLOG SC) Inject under the skin. 0 Active Cyanocobalamin (B-12) 1000 MCG CAPS Take by mouth. 0 Active Calcium Citrate-Vitamin D (BL CALCIUM CITRATE + D PO) Take by mouth. 0 Active Multiple Vitamin (MULTIVITAMIN ADULT PO) Take by mouth. 0 Active Buskirk-3 Fatty Acids (OMEGA-3 FISH OIL PO) Take by mouth. 0 Active Family History Medical History Relation Name Comments Cancer Maternal Grandmother Stroke Mother Relation Name Status Comments Maternal Grandmother Mother Social History Tobacco Use Types Packs/Day Years Used Date Smoking Tobacco: Former Cigarettes Smokeless Tobacco: Never Tobacco Cessation:Counseling Given: Not Answered Comments:Quit in 30's Alcohol Use Standard Drinks/Week Comments Yes 1 (1 standard drink = 0.6 oz pur e alcohol) Sex and Gender Information Value Date Recorded Sex Assigned at Female 09/16/2022 1:29 PM EDT Gender Identity Not on file Sexual Orientation Not on file Job Start Date Occupation Industry Not on file Not on file Not on file Last Filed Vital Signs Vital Sign Reading Time Taken Comments Blood Pressure 150/82 11/06/2023 9:28 AM EDT Pulse 83 11/06/2023 9:28 AM EDT Temperature 36.7 ??C (98 ??F) 11/06/2023 9:28 AM EDT Respiratory Rate - - Oxygen Saturation 100% 11/06/2023 9:28 AM EDT Inhaled Oxygen Concentration - - Weight 65.7 kg (144 lb 12.8 oz) 11/06/2023 9:28 AM EDT Height 156.2 cm (5' 1.5 ) 11/06/2023 9:28 AM EDT Body Mass Index 26.92 11/06/2023 9:28 AM EDT Plan of Treatment Health Maintenance Due Date Last Done Comments Hepatitis C Screening 1955 COVID-19 Vaccine (#1) 01/14/1956 Depression Screening 1967 Preventative Health Evaluation 07/13/1973 DTap / Tdap / Td (1 - Tdap) 07/13/1974 Colon Cancer Screening (Colonoscopy) 07/13/2000 Breast Cancer Screening (Mammogram) 07/13/2005 Shingrix-Zoster Vaccine (1 of 2) 07/13/2005 Fall Risk Assessment 07/13/2020 Osteoporosis Screening (DEXA Scan) 07/13/2020 Pneumococcal Vaccine (1 of 1 - PCV) 07/13/2020 Influenza Vaccine (#1) 2023 RSV Adult > 60+ Yrs or Pregn ant (1 - 1-dose 75+ series) 07/13/2030 Hepatitis B Vaccines Aged Out No long er eligible based on patient's age to complete this topic RSV Ped < 20 months Aged Out No longe r eligible based on patient's age to complete this topic Care Teams Visual Specialist Relationship Specialty Start Date End Date Elsi Callejas NP [address] [place] [address] PCP - General Family Medicine 10/18/22
--- OUTSIDE RECORDS SUMMARY | 2024-03-20 14:17 | XMS_ITS | Continuity of Care Document ---
Author Organization [facility] Address [address] [facility] [address] [place] [address] Phone [phone] Care Team Providers Care Assistant Public Defender Name Role Phone Daniel Burrell M.D. Care Team Information Receiv er [phone] Elsi Callejas N.P. 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 03/31/2022 Vitamin [id number] Tablets ER 1 by mouth every day Rain Monsalve M.D. 09/16/2021 Calcium Citrate +Tablets 600mg qd Rain Monsalve M.D. 09/16/2021 Multivitamin AdultTablets 1 qd Rain Monsalve M.D. 09/16/2021 Accu-Chek GuideStrips Use 1 Test Strip Up To 3 Times A Day For Testing Blood Sugars (E11.8) 300units E11.8 Rain Monsalve M.D. 09/14/2021 Xclaipq996Ifjz/ML Solution Inject 50 Units Every Day With Pump 50units E10.40 Rain Monsalve M.D. Accu-Chek Fastclix LancetsMisc Use 1 Lancet On The Skin 3 Times A Day (E10.40) 306units E10.40 Rain Monsalve M.D. Amlodipine Besylate2.5mg Tablets take 1 tablet by mouth every day 90tabs Rain Monsalve M.D. Pantoprazole Qdyxre66vj Tablets DR 1 by mouth every day Unknown Qvnfihtnua9OX/10ML Suspension bid Unknown Vital Signs Date Vital [...] 145 Hemoglobin A1c 7.1% Urinary Microalbumin 04/10/2023 [facility] Micro-Albumin <12.0 mg/L (<20) 1 Malb/Creat Ratio Unable t o calcul <SEE NOTE> MG/GM (0-20) 2 Urine Creat For Micro Albumin 57.3 mg/dL Laboratory test finding 04/10/2023 Inhouse Glucose Fingerstick 203 Hemoglobin A1c 7.0% Laboratory test finding 01/05/2023 Inhouse Glucose Fingerstick 111 Hemoglobin A1c 7.3% Laboratory test finding 09/30/2022 Inhouse Glucose Fingerstick 232 Hemoglobin A1c 7.3% Comprehensive Metabolic Panl 07/06/2022 [facility] Glucose 167 mg/dL High (70-99) [...] 58 ML/MIN/1. 73M2 3 Lipid Panel 07/06/2022 [facility] Cholesterol, Total 156 mg/dL (<200) Triglyceride 80 mg/dL (<150) HDL Chol 69 mg/dL (>39) LDL Cholesterol , Calculated 71 mg/dL (0-130) Non HDL Cholesterol (Calc) 87 mg/dL (<160) Complete Abc With Diff 07/06/2022 [facility] WBC 6.6 K/MM3 (4.0-11. 0) [...] ) Lymph # 2.5 K/MM3 (0.8-3.1 ) [place]# 0.8 K/MM3 (0.4-0.9 ) Eo # 0.4 [...] sex. Procedures Date Code Description Status 02/01/2024 11880 Glucose Monitoring Interpeta tion And Report Completed 10/04/2023 61472 Glucose Monitoring Interpeta tion And Report Completed 07/07/2023 45325 Glucose Monitoring Interpeta tion And Report Completed 04/10/2023 04972 Glucose Monitoring Interpeta tion And Report Completed 01/05/2023 24953 Glucose Monitoring Interpeta tion And Report Completed 09/30/2022 96603 Glucose Monitoring Interpeta tion And Report Completed 06/29/2022 34644 Glucose Monitoring Interpeta tion And Report Completed 03/31/2022 75110 Glucose Monitoring Interpeta tion And Report Completed 01/03/2022 98251 Glucose Monitoring Interpeta tion And Report Completed [...]
--- OUTSIDE RECORDS SUMMARY | 2024-03-20 14:18 | XMS_ITS | Clinical Summary ---
Author Organization [facility] Address [address] [address] Care Team Providers Care Crime Prevention Police Officer Name Role Phone Elsi Callejas KEG HEADER-C Primary Care Provider + Allergies Active Allergy Reactions Criticality Noted Date Comments Octacosanol Other (see comments) 02/07/2024 Medications NovoLOG 100 UNIT/ML solution 01/05/2024 Ac tive amLODIPine (NORVASC) 2.5 MG tablet Take by mouth 01/12/2024 Active atorvastatin (LIPITOR) 20 MG tablet Take by mouth 03/31/2022 Active Cyanocobalamin 1000 MCG capsule Take by mouth Active CALCIUM CITRATE PO Take by mouth 12/27/2021 Active Sucralfate-Malat e 10 % gel Use in the mouth or throat Active pantoprazole (PROTONIX) 40 MG EC tablet Take by mouth 01/05/2024 Active Active Problems Problem Noted Date Diagnosed Date Benign hypertension 02/06/2024 Hiatal hernia 07/07/2023 Gastroesophageal reflux disease 07/07/2023 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 [address] [place] [address] Iftikhar Jarvis MD Other acute kidney failure (HCC) (Primary Dx); Diabetes mellitus, not otherwise specified (HCC); Hypertension from Last 3 Months Social History Tobacco Use Types Packs/Day Years Used Date Smoking Tobacco: Never Assessed Comments Unknown Sex and Gender Information Value Date Recorded Sex Assigned at Not on file Legal Sex Female 11:52 AM EST Gender Identity Not on file Sexual Orientation Not on file Last Filed Vital Signs Vital Sign Reading Time Taken Comments Blood Pressure 143/69 02/07/2024 1:40 PM EST Pulse 73 02/07/2024 1:40 PM EST Temperature - - Respiratory Rate - - Oxygen Saturation - - Inhaled Oxygen Concentration - - Weight 53.5 kg (118 lb) 02/07/2024 1:40 PM EST Height 154.9 cm (5' 1 ) 02/07/2024 1:40 PM EST Body Mass Index 22.3 02/07/2024 1:40 PM EST Plan of Treatment Upcoming Encounters Date Type Department Care Team (Late st Contact Info) Description 07/31/2024 1:30 PM EDT Office Visit [facility] [address] [place] [phone] Iftikhar Jarvis MD [address] [phone] Health Maintenance Due Date Last Done Comments Breast Cancer Screening 1955 Pneumococcal Vaccine: 65+ Ye ars (1 of 2 - PCV) 07/13/1961 Colorectal Cancer Screening: Annual FOBT 07/13/2004 Colorectal Cancer Screening: Colonoscopy 07/13/2004 Colorectal Cancer Screening: Sigmoidoscopy 07/13/2004 Influenza Vaccine (#1) 2023 Diabetes: Hemoglobin A1C 01/15/2024 Diabetes: Ophthalmology Exam 01/15/2024 Diabetes: Pedal Pulse Checked 01/15/2024 Diabetes: Sensory Foot Exam 01/15/2024 Diabetes: Visual Foot Exam 01/15/2024 Hepatitis B Vaccine Aged Out No longe r eligible based on patient's age to complete this topic Procedures Procedure Name Priority Date/Time Associated Diagnosis Comments RENAL FUNCTION PANEL (EXTERNAL LAB ENTRY) Routine 01/12/2024 from Last 3 Months Results * Renal Function Panel (External Lab) (01/12/2024) Glucose 96 mg/dL BUN 16 mg/dL eGFR 52 Sodium 142 mEq/L Potassium 5.1 mEq/L Chloride 116 Carbon Dioxide 18 mmol/L Calcium 8.6 mg/dL Phosphorus, Serum 1.8 mg/dL Albumin (Blood) 3.5 g/dL Creatinine 1.15 mg/dL Anion Gap 8 Blood 01/12/2024 us Historical Provider LAB BLOOD ORDERABLES Christy l Result from Last 3 Months Insurance MEDICARE [facility] Care Teams Crime Prevention Police Officer Relationship Specialty Start Date End Date Elsi Callejas NP-C [address], [address] [place] [address] PCP - General Nurse Practitioner 02/07/24
== END 2024-03-20 12:29 | disposition home or self-care (01) ==
LOC: HO.HBS 12:23
PROVIDERS: PCP Nurse Practitioner Primary Care; Visit Provider Physician Assistant Surgical
DX: Z98.890 Other specified postprocedural states (principal); Z87.19 Personal history of other diseases of the digestive system
CPT/HCPCS: 99024

== ENCOUNTER 2024-06-24 09:45 | Outpatient (AMB) | payer MEDICARE, OTHER, SELFPAY ==
--- NOTE | 2024-06-24 09:35 | MHC.OFFVISWM ---
VS Expanded 06/24/24 09:36 Height 5 ft 1 in Weight 119 lb 8 oz BMI 22.6 Intake Visit Reasons: (TELEPHONE) S/P Diaphragmatic hernia repair Allergies No Known Allergies Allergy (Verified 01/02/24 10:51) Medication List - Last Reconciled 06/24/24 by EDGAR Law atorvastatin 20 mg PO DAILY calcium citrate 200 mg PO DAILY cyanocobalamin (vitamin B-12) (Vitamin B-12) 1,000 mcg PO DAILY fexofenadine (Magdalena Hives) 180 mg PO DAILY fluconazole 150 mg PO SUSA insulin aspart U-100 (Novolog U-100 Insulin aspart) 50 units subcut Q24H multivitamin (Daily Multi-Vitamin tablet) 1 tab PO DAILY omega 6-jym-ukq-fish oil 1,000 (120-180) mg (Fish Oil) 1 cap PO DAILY vitamin B complex (B Complex-Vitamin B12 tablet) 1 tab PO DAILY HPI Comments Details: This?is a?68 yo female who is s/p diaphragmatic hernia repair 12/27/2023. Presents for 6mo post op visit. No complaints of nausea, emesis, abdominal pain or reflux, or constipation. Off valsartan/metformin and also came off amlodipine after meeting with PCP. Still checks her BP weekly. Blood sugars- has insulin pump, blood sugars well controlled. Came off PPI/carafate, no reflux. In contact with Dr Garland once a month. Present meal plan includes: Celebrate Rebuild 1 scoop x2 Celebrate bars x 1.5 2 meals per day started 5 forks chicken/fish and 5 forks veg/rice/potatoes Exercise- walks dog and started walking along, yoga and go back to golf COUNTS INCLUDE 234 BEDS AT THE [facility] Medical History (Updated 01/04/24 @ 00:03 by Background Daemon) Bleeding hemorrhoids Tubular adenoma of colon ANATOLY on CPAP Hx of sepsis (~2020) Insulin pump in place GERD (gastroesophageal reflux disease) Renal calculi Sleep apnea [place] syndrome Diabetes Elevated cholesterol HTN (hypertension) Surgical History (Updated 01/04/24 @ 00:03 by Background Daemon) Status post repair of paraesophageal diaphragmatic hernia History of esophagogastroduodenoscopy (EGD) (02/02/23) Hx of cystoscopy H/O colonoscopy H/O bilateral cataract extraction Family History Maternal Grandmother Colostomy status Cancer Social History (Updated 12/22/23 @ 15:15 by Mica Colin RN) Household Members: None Housing: House Are you a primary care manager cna to a significant other at home: No Do you presently have visiting nurse or other home services: No 75 years or older and lives alone: No Alcohol intake: current Alcohol intake frequency: holidays/special occasions only Patient Tobacco Use Status: Former Tobacco user Tobacco use type: Cigarette service: No Telehealth Telehealth Telehealth Platform: Telephone Location of provider rendering services: other Location of patient: address on file Patient Identification confirmed using: Name, : Yes Telehealth method: voice only Patient verbally consented to treatment: Yes Patient verbally consented to billing insurance company: Yes Patient informed of any privacy concerns related to visit: Yes Minutes spent on Phone/Video with Pt.: 16 Assessment & Plan Assessment & Plan (1) Status post repair of paraesophageal diaphragmatic hernia: Code(s): Z98.890 - Other specified postprocedural states; Z87.19 - Personal history of other diseases of the digestive system Category: Surgical Plan Patient will continue on meal plan per Dr Garland. She is relatively happy with meal plan and feels very well after surgery. No reflux. BP improved to the point where she does not need meds anymore. Blood sugars well controlled. RTC 6 mo. Orders: Orders Comprehensive Met. Panel Today Z87.19 - Personal history of other diseases of the digestive system, Z98.890 - Other specified postprocedural states Vitamin B12 and Folate Today Z87.19 - Personal history of other diseases of the digestive system, Z98.890 - Other specified postprocedural states C Reactive Protein Today Z87.19 - Personal history of other diseases of the digestive system, Z98.890 - Other specified postprocedural states TSH reflex Free T4 Today Z87.19 - Personal history of other diseases of the digestive system, Z98.890 - Other specified postprocedural states Vitamin D 25-OH Total Today Z87.19 - Personal history of other diseases of the digestive system, Z98.890 - Other specified postprocedural states Insulin Today Z87.19 - Personal history of other diseases of the digestive system, Z98.890 - Other specified postprocedural states Hemoglobin A1c Today Z87.19 - Personal history of other diseases of the digestive system, Z98.890 - Other specified postprocedural states Complete Blood Count Auto Diff Today Z87.19 - Personal history of other diseases of the digestive system, Z98.890 - Other specified postprocedural states Lipid Panel Today Z87.19 - Personal history of other diseases of the digestive system, Z98.890 - Other specified postprocedural states IRON PROFILE Today Z87.19 - Personal history of other diseases of the digestive system, Z98.890 - Other specified postprocedural states Zinc Today Z87.19 - Personal history of other diseases of the digestive system, Z98.890 - Other specified postprocedural states Vitamin B1 Today Z87.19 - Personal history of other diseases of the digestive system, Z98.890 - Other specified postprocedural states Vitamin A Today Z87.19 - Personal history of other diseases of the digestive system, Z98.890 - Other specified postprocedural states Ferritin Today Z87.19 - Personal history of other diseases of the digestive system, Z98.890 - Other specified postprocedural states
[2024-06-24 09:36] VITALS: BMI 22.6
--- OUTSIDE RECORDS SUMMARY | 2024-06-24 11:00 | XMS_ITS | Clinical Summary ---
Author Organization [facility] Facility Address [address] [address] Care Team Providers Care Operating Room Orderly Name Role Phone Elsi Callejas BROACHING MACHINE OPERATOR-C Primary Care Provider + Allergies Active Allergy [...] Diabetic peripheral neuropathy 09/16/2021 Essential hypertension 09/16/2021 Social History Tobacco Use Types Packs/Day Years [...] Office Visit [facility] [address] [place] [address] Iftikhar Jarvis MD [address] [address] Health Maintenance Due Date Last Done Comments Breast Cancer Screening 1955 Pneumococcal Vaccine: 50+ Ye ars (1 of 2 - PCV) 07/13/1974 Colorectal Cancer Screening: Annual FOBT 07/13/2004 Colorectal Cancer Screening: Colonoscopy 07/13/2004 Colorectal Cancer Screening: Sigmoidoscopy 07/13/2004 Diabetes: Hemoglobin A1C 01/15/2024 Diabetes: Ophthalmology Exam 01/15/2024 Diabetes: Pedal Pulse Checked 01/15/2024 Diabetes: Sensory Foot Exam 01/15/2024 Diabetes: Visual Foot Exam 01/15/2024 Influenza Vaccine (Season Ended) 2024 Hepatitis B Vaccine Aged Out No longe r eligible based on patient's age to complete this topic Insurance Medicare [facility] Care Teams Operating Room Orderly Relationship Specialty Start Date End Date Elsi Callejas NP-C [address], [address] [place] [address] PCP - General Nurse Practitioner 02/07/24
--- OUTSIDE RECORDS SUMMARY | 2024-06-24 11:00 | XMS_ITS | Clinical Summary ---
Author Organization [employer] [facility] it Address [address] [place] [address] Care Team Providers Care Manufacturing Operator Name Role Phone Elsi Callejas NP Primary Care Provider [phone] Surgical History Surgery Date Site/Laterality Comments CATARACT EXTRACTION, BILATERAL PROCEDURE:CATARACT EXTRACTION, BILATERAL Medical History Medical History Date Comments Diabetes mellitus (CMS/HCC V24, CMS/HCC V28) DX:Diabetes mellitus (HCC) HLD (hyperlipidemia) DX:HLD (hyp erlipidemia) [...] drink = 0.6 oz pur e alcohol) Comments Unknown Sex and Gender Information Value Date Recorded Sex Assigned at Not on file Legal Sex Female 7:05 PM EST Gender Identity Not on file Sexual [...] Description 11/05/2024 10:00 AM EDT Office Visit [facility] H[facility]ology Oncology [address] [place] [phone] Mena Wilkerson PA [address] [place] [address] Health Maintenance Due Date Last Done Comments Breast Cancer Screening 1955 DTaP,Tdap,and Td Vaccines (1 - Tdap) 07/13/1974 Pneumococcal Vaccine: 50+ Ye ars (1 of 1 - PCV) 07/13/2005 Zoster Vaccines (1 of 2) 07/13/2005 Colorectal Cancer Screening: Colonoscopy 03/28/2023 Depression Screening 03/28/2023 Falls Risk Assessment 03/28/2023 Hepatitis C Screening 03/28/2023 Medicare Annual Wellness Visit 03/28/2023 Osteoporosis Screening (Bone Density Screening) 03/28/2023 Social Influencers of Health Screening 03/28/2023 COVID-19 Vaccine ( - 2023-2 5 season) 2023 Influenza Vaccine (Season Ended) 2024 RSV Immunization Adult Patie nts (1 - 1-dose 75+ series) 07/13/2030 HIB [...] patient's age to complete this topic Meningococcal B Vaccine Aged Out No l onger eligible based on patient's age to complete this topic RSV Immunization Patients Un dillon 20 months Aged Out No longer eligible b ased on patient's age to complete this topic Varicella Vaccines Aged Out No longer eligible based on patient's age to complete this topic Insurance MEDICARE [facility] [place] MEDICARE ADVANTAGE Care Teams Manufacturing Operator Relationship Specialty Start Date End Date Elsi Callejas NP PCP - General 10/18/22
--- OUTSIDE RECORDS SUMMARY | 2024-06-24 11:00 | XMS_ITS | Continuity of Care Document ---
Author Organization [facility] Address [address] [facility] [address] [place] [address] Phone [phone] Care Team Providers Care Groover And Striper Operator Name Role Phone Daniel Burrell M.D. Care Team Information Receiv er [phone] Elsi Callejas N.P. 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 03/31/2022 Vitamin [id number] Tablets ER 1 by mouth every day Rain Monsalve M.D. 09/16/2021 Calcium Citrate +Tablets 600mg qd Rain Monsalve M.D. 09/16/2021 Multivitamin AdultTablets 1 qd Rain Monsalve M.D. 09/16/2021 Accu-Chek Guide TestStrips Use 1 Test Strip Up To 3 Times Daily For Testing Blood Sugars 300units E11.8 Rain Monsalve M.D. 09/14/2021 Mmieycp753Ngbg/ML Solution Inject 50 Units Every Day With Pump 50units E10.40 Rain Monsalve M.D. Accu-Chek Fastclix LancetsMisc Use 1 Lancet Onto The Skin 3 Times Daily 306units E10.40 Rain Monsalve M.D. Amlodipine Besylate2.5mg Tablets 1 by mouth every day Unknown Vital Signs Date Vital Result Comment 04/08/2024 8:39am BP Systolic 132 mmHg BP Diastolic 60 mmHg Heart Rate 94 /min Height 61 inches 5'1 Weight 126.25 lb BMI (Body Mass Index) 23.9 kg/m2 Results Test Acquired Date Facility Test Result H/L Range Note Glucose Fingerstick 04/08/2024 Inhouse Glucose Fingerstick 132 Albumin/Creatinin e Ratio, Random Urine 04/08/2024 [facility] Creatinine, Urine 17.3 mg/dL Not Estab. Albumin, Urine <3.0 ug/mL Not Estab. Alb/Creat Ratio <17 mg/gcreat 0-29 1 Glucose Fingerstick 10/04/2023 Inhouse Glucose Fingerstick 132 Hemoglobin A1c 10/04/2023 Inhouse Hemoglobin A1c 6.8% Glucose Fingerstick 07/07/2023 Inhouse Glucose Fingerstick 145 Hemoglobin A1c 07/07/2023 Inhouse Hemoglobin A1c 7.1% Urinary Microalbumin 04/10/2023 [facility] Micro-Albumin <12.0 mg/L (<20) 2 Malb/Creat Ratio Unable t o calcul <SEE NOTE> MG/GM (0-20) 3 Urine Creat For Micro Albumin 57.3 mg/dL Glucose Fingerstick 04/10/2023 Inhouse Glucose Fingerstick 203 Hemoglobin A1c 04/10/2023 Inhouse Hemoglobin A1c 7.0% Glucose Fingerstick 01/05/2023 Inhouse Glucose Fingerstick 111 Hemoglobin A1c 01/05/2023 Inhouse Hemoglobin A1c 7.3% Hemoglobin A1c 09/30/2022 Inhouse Hemoglobin A1c 7.3% Glucose Fingerstick 09/30/2022 Inhouse Glucose Fingerstick 232 Comprehensive Metabolic Panl 07/06/2022 [facility] Glucose 167 mg/dL High [...] (0-33) Estimated GFR Creatinine 58 ML/MIN/1. 73M2 4 Lipid Panel 07/06/2022 [facility] Cholesterol, Total 156 mg/dL (<200) Triglyceride 80 mg/dL (<150) HDL Chol 69 mg/dL (>39) LDL Cholesterol , Calculated 71 mg/dL (0-130) Non HDL Cholesterol (Calc) 87 mg/dL (<160) Complete Abc With Diff 07/06/2022 [facility] WBC 6.6 K/MM3 (4.0-11. [...] ) Lymph # 2.5 K/MM3 (0.8-3.1 ) Archer# 0.8 K/MM3 (0.4-0.9 ) Eo # 0.4 K/MM3 (0.0-0.4 ) Baso # 0.1 K/MM3 (0.0-0.1 ) Abs. Imm Gran 0.0 K/MM3 Neut 42.3 % Low (44-76) Lymph 38.3 % (15-43) Monocyte 11.5 % High (4.5-10. 5) Eo 6.5 % High (0-6) Baso 1.2 % (0-2) Imm Gran 0.2 % Glucose Fingerstick 06/29/2022 Inhouse Glucose Fingerstick 169 Hemoglobin A1c 06/29/2022 Inhouse Hemoglobin A1c 7.1% Glucose Fingerstick 03/31/2022 Inhouse Glucose Fingerstick 124 Hemoglobin A1c 03/31/2022 Inhouse Hemoglobin A1c 7.3% Glucose Fingerstick 01/03/2022 Inhouse Glucose Fingerstick 89 Hemoglobin A1c 01/03/2022 Inhouse Hemoglobin A1c 7.2% Hemoglobin A1c 09/16/2021 Inhouse Hemoglobin A1c 7.4% Glucose Fingerstick 09/16/2021 Inhouse Glucose Fingerstick 144 1 Normal: 0 - 29 Moderately increased: 30 - 300 Severely increased: >300 2 The urine microalbum in test is designed to monitor renal function. When screening for Bence Wong proteinuria, urine electrophoresis is recommended. 3 Unable to calculate 4 Creatinine based est imated glomerular filtration (eGFR) in adults is calculated using the National Kid[employer] recommended 2020 CKD-EPI equation. Estimates GFR from serum creatinine, age and sex. Procedures Date Code Description Status 04/08/2024 49263 Glucose Monitoring Interpeta tion And Report Completed 02/01/2024 96579 Glucose Monitoring Interpeta tion And Report Completed 10/04/2023 24304 Glucose Monitoring Interpeta tion And Report Completed 07/07/2023 16188 Glucose Monitoring Interpeta tion And Report Completed 04/10/2023 06707 Glucose Monitoring Interpeta tion And Report Completed 01/05/2023 72379 Glucose Monitoring Interpeta tion And Report Completed 09/30/2022 59745 Glucose Monitoring Interpeta tion And Report Completed 06/29/2022 53534 Glucose Monitoring Interpeta tion And Report Completed 03/31/2022 33195 Glucose Monitoring Interpeta tion And Report Completed 01/03/2022 48400 Glucose Monitoring Interpeta tion And Report Completed [...] (external) (internal) Assessments Date Code Description Provider 04/08/2024 E10.42 Type 1 diabetes mellitus with diabetic polyneuropathy Rain Monsalve M.D. 04/08/2024 E10.3293 Type 1 diabetes mellitus with nonproliferative diabetic retinopathy NOS Rain oMnsalve M.D. 04/08/2024 E78.00 Pure hypercholes terolemia, unspecified Rain Monsalve M.D. 04/08/2024 Z96.41 Presence of insu sylvie pump (external) (internal) Rain Monsalve M.D. Plan of Treatment Future Appointment(s):* 10/09/2024 8:30 am - Rain Monsalve M.D. at Main Office * 07/09/2024 10:30 am - Rain Monsalve M.D. [...]
--- OUTSIDE RECORDS SUMMARY | 2024-06-24 11:01 | XMS_ITS ---
Author Organization [facility] Address [address] [place] [address] Care Team Providers Care Tank Carpenter Name Role Phone Elsi Callejas Primary Care Provider Sven Ely Unavailable [phone] Encounters Encounter Location Date Provider Diagnosis [address] [address] 01/29/2024 Sven Hooper Plan Of Treatment Next Appt Details Provider Name:Sven Hooper , 07/25/2024 09:30:00 AM, [address] [place] [address], [phone], Progress Notes * CHEMO Betty Pry[birth year]DOB:[birth year] (68 yo F)Acc No.[id number]:01/29/2024 Progress Note Patient:?CHEMO Betty Pryor Provider:?Sven Hooper DPM :1955???Age:68 Y???Sex:Female D ate:01/29/2024 Address:[address] [place] [phone] Pcp:Elsi Callejas Subjective: * Chief Complaints: * ??? * Medical History:? Objective: * Vitals:? Assessment: Plan: * Treatment: * Images: * The named appointment provid er may or may not be the originator of this progress note, and it is not deemed complete until electronically signed by the appointment provider. Sign off status: Pending * Provider:?Sven Hooper DPM Date:?2023 Generated for Tanisha sosa/Jennifer/Jess on:?06/24/2024 11:00 AM EDT
--- OUTSIDE RECORDS SUMMARY | 2024-06-24 11:01 | XMS_ITS ---
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 Name Role Phone Elsi Callejas Primary Care Provider Sven Ely Unavailable [phone] Allergies Allergen (clinical drug ingredient) Drug/Non Drug Allergy documented on EMR Reaction Allergy Type Onset Date Status environmental (uncoded) Unknown Allergy Active REASON FOR VISIT At Risk Footcare, Toe Irritation Medications Medication SIG (Take, Route, Frequency, Duration) Notes Start Date End Date Status Aspirin 81 MG 1 tablet Orally Once a day Not-Taking HumaLOG Not-Taking Diovan HCT Not-Takin g Glucophage Not-Takin g Losartan Potassium-HCTZ Not-Taking Vitamin B 12 1000 mcg Not-Taking Simvastatin 20 MG 1 tablet in the even ing Orally Once a day for 30 day(s) Not-Taking Omeprazole Not-Takin g metFORMIN HCl 1000 MG 1 tablet with meal s Orally Twice a day Not-Taking Valsartan-hydroCHLOROthi azide Not-Taking Fish Oil Active Multivitamin Active NovoLOG Active Vitamin B12 Active amLODIPine Besylate Not-Taking Atorvastatin Calcium 20 MG 1 tablet Orally Once a day Active Calcium Citrate Acti ve Zocor Not-Taking PriLOSEC Not-Taking Extra Depth Orthopedic Shoes (1 Pair) with Customized Heat Molded Multidensity Innersoles (3 Pair) as directed Dx: IDDM/Polyneuropathy (E10.42), Hammertoe Foot Deformity (M20.41,M20.42), Preulcerative Skin Lesion(s) (L85.1) Active Insulin Admin Supplies Not-Taking Social History Tobacco Use: Social History Observation Description Date Details (start date - stop date) Never Smoker NA - NA Tobacco use other than smoking: Question Answer Notes Are you an other tobacco user? No Tobacco Control (Standard) Question Answer Notes Tobacco use: Nonsmoker Additional Findings: Tobacco non-user Current no nsmoker AUDIT-C (Standard) Question Answer Notes Did you have a drink containing alcohol in the p ast year? No Points 0 Interpretation Negative Vital Signs Height 5ft 1in in 05/01/2024 Weight 121 lbs 05/01/2024 BMI 22.86 kg/m2 05/01/2024 Blood pressure systolic 115 mm Hg 05/02/19 25 Blood pressure diastolic 68 mm Hg 025 Procedures Procedure Date Ordered Date Performed Result Body Sit e 12473-RVPAYUJ NAIL, 6 OR MORE 05/01/2024 N/A 02053-HJMI SKIN LESIONS, OVER 4 05/01/2024 N/A Encounters Encounter Location Date Provider Diagnosis [facility] [address] [address] 05/01/2024 Sven Hooper Type 1 diabetes mellitus with diabetic polyneuropathy E10.42 ; Tinea unguium B35.1 ; Other hammer toe(s) (acquired), right foot M20.41 and Other hammer toe(s) (acquired), left foot M20.42 Assessments Encounter Date Diagnosis (ICD Code) Assessment Notes Treatment Notes Treatment Clinical Notes Section Notes 05/01/2024 Type 1 diabetes mellitus with diabetic polyneuropathy (ICD-10 - E10.42) 05/01/2024 Tinea unguium (ICD-10 - B35.1) 05/01/2024 Other hammer toe(s) (acquired), right foot (ICD-10 - M20.41) Patient Educated with: DIABETIC FOOT CARE INSTRUCTIONS. pdf (DIABETIC FOOT CARE INSTRUCTIONS. pdf) 05/01/2024 Other hammer toe(s) (acquired), left foot (ICD-10 - M20.42) Plan Of Treatment Medication Medication Name Sig Start Date Stop Date Notes Extra Depth Orthopedic Shoes (1 Pair) with Customized Heat Molded Multidensity Innersoles (3 Pair) as directed Dx: IDDM/Polyneuropathy (E10.42), Hammertoe Foot Deformity (M20.41,M20.42), Preulcerative Skin Lesion(s) (L85.1) Treatment Notes Assessment Notes Other hammer toe(s) (acquired), right fo ot Patient Educated with: DIABETIC FOOT CARE INSTRUCTIONS.pdf (DIABETIC FOOT CARE INSTRUCTIONS.pdf) Pending Test Test Name Order Date [id number]-TBOLYLD NAIL, 6 OR MORE 05/01/2024 22576-PKJE SKIN LESIONS, OVER 4 05/02/19 25 Next Appt Details Follow Up: prn, Reason: Provider Name:Sven Hooper , 07/25/2024 09:30:00 AM, [address] , [address], [place], [address], Procedure Notes * Category Sub-Category Detail Notes Debride Nail 6-10 Nail debridement Due to the cl inical pathology outlined in the exam findings, performance of this nail treatment is medically necessary as its management by an unskilled/untrained nonprofessional would put this patients foot and overall health at risk. Therefore, debridement to affected nail(s), as described in exam ( TA, T1, T2, T3, T4, T5, T6, T7, T8, T9 ), was performed exclusively by the physician of record to reduce/remove overall nail length, girth, thickness, subungual debris, and necrotic tissue, by manual and/or electrical means through the use of a nail nipper and/or dremel-type hardboard grinder, to a more viable healthy nail [...] to maintain effectiveness in symptomatic relief - 68225 Keratoma Treatment Parring or Cutting o f Benign Hyperkeratotic Lesion(s) (-57) More than 4 Lesions - Due to the at risk nature of the patients medical condition as documented in the exam findings, performance of this keratoderma treatment is medically necessary as its management by an unskilled/untrained nonprofessional would put this patients foot and overall health at risk. Therefore, the benign hyperkeratotic lesions, ( 6 ) in total, locations as stated and described in the exam ( Medial plantar, IPJ, TA, Medial plantar, IPJ, T5, SUB MTH (s) 1, B/L , Plantar, Heel, B/L ), were pared, and/or cut utilizing a sterile 15 blade, tissue nippers, and/or power dremel instrumentation by the physician of record - 90064 Progress Notes * Betty OSORIODOB:[birth year] (68 yo F)Acc No.[id number]:05/01/2024 Progress Note Patient:?Betty OSORIO Provider:?Sven Hooper DPM :1955???Age:68 Y???Sex:Female D ate:05/01/2024 Address:[address] [place] [phone] Pcp:Elsi Callejas Subjective: * Chief Complaints: * ???At Risk FootcareToe Irrit ation * HPI: ???At Risk footcare:?Pt States Last PCP Visit:?Date?04/08/2024 ???Toe pain:?Location:?B/L feet.?Duration:?several years.?Course:?worse.?Aggravated by:?shoes, any pressure.?Treatments:?change in shoes.? * ROS:?General/Constitutional:?Nausea?denies.?Vomiting?denies.?Hunger Thirst?denies.?Loss appetite?denies.?Chills?denies.?Fatigue?denies.?Fever?denies.?Night Sweats?denies.?Unexplained weight loss?denies.?Ophthalmologic:?Blurred vision?denies.?Red eye?denies.?HEENTM:?Dentures?denies.?Dizziness?denies.?Glasses/contacts?admits.?Retinopathy?den ies.?Blurred/double vision?denies.?TMJ?denies.?Discharge/drainage?denies.?Implants?denies.?Hard of hearing denies.?Difficulty chewing/swallowing/speaking?denies.?Nose bleeds?denies.?Sore mouth?denies.?Swollen glands?denies.?Respiratory:?On O xygen?denies.?Pneumonia/pleurisy?denies.?Bronchitis?denies.?Emphysema?denies.?Co ughing?denies.?Cough blood?denies.?Shortness of breath?denies.?Wheezing?denies.?Cardiovascular:?Pacemaker?denies.?MVP?denies.?WPW?denies.?CHF?denies.?Heart attack?denies.?Septal defect?denies.?Rapid beat?denies.?Chest pain ?denies.?Atrial Fib.?denies.?Murmur/Palpitations?denies.?Gastrointestinal:?Hemorrhoids?denies.?Stomach/Abdominal pain?denies.?Dark blood stool?denies.?Irritable bowel ?denies.?Constipation?denies.?Diarrhea?denies.?Vomiting?denies.?Hematology:?Swelling?denies.?Bruising??admits, on aspirin.?Bleeding problem??admits, on anticoagulants.?Genitourinary:?Blood urine?denies.?Frequent/Painfu/urination/bladder control?denies.?Kidney stones?denies.?Infection (UTI)?denies.?Nephropathy?denies.?Musculoskeletal:?Hammertoes?admits.?Bunions?admits.?Scoliosis/kyphosis?denies.?Muscle cramps / walking?denies.?Generalized aches and pains?denies.?Weakness?denies.?Integ.:?Hartley?denies.?Scars?denies.?Corns/calluses?admits.?Ingrown nails?admits.?Painful nails?denies.?Rashes?denies.?Neurologic:?Difficulty sleeping?denies.?Bipolar?denies.?Brain disorder?denies.?Balance t rouble?denies.?Confusion?denies.?Fainting/blackouts?denies.?Headache?denies.?Luis Alfredo mors?denies.? * Medical History:? * Surgical History:?finger 10/28 4endoscopy 01/2023hiatal hernia 01/05/24 * Hospitalization/Major Diagno stic Procedure:?[facility]- Finger surgery/cyst 11/10[facility] [place] [place], dehydration, dialysis 01/05/24 * Family History:?Mother: negrita lynn, diagnosed with Family history of arthritis.?Father: alive, heart attack, diagnosed with Unspecified heart disease.?Spouse: .?Children: none.?Siblings: diagnosed with Family history of arthritis.? No children. * Social History:?Tobacco Use:?Tobacco use other than smoking?Are you an other tobacco user??No ?Tobacco Control (Standard)?Tobacco use:?Nonsmoker ?Additional Findings: Tobacco non-user?Current nonsmoker ???Drugs/Alcohol:?Drugs?Have you used drugs other than those for medical reasons in the past 12 months??No ???Miscellaneous:?Caffeine: yes, frequency:, 1-2 cups per day. ?Children: none. ?Exercise: yes, walking. ?Marital status: . 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 ???Drug/Alcohol:?AUDIT-C (Standard)?Did you have a drink containing alcohol in the past year??No ?Points?0 ?Interpretation?Negative * Medications:?TakingAtorvasta tin Calcium 20 MG Tablet 1 tablet Orally Once a day Calcium Citrate Fish Oil Multivitamin NovoLOG Vitamin B12 Extra Depth Orthopedic Shoes (1 Pair) with Customized Heat Molded Multidensity Innersoles (3 Pair) as directed Dx: IDDM/Polyneuropathy (E10.42), Hammertoe Foot Deformity (M20.41,M20.42), Preulcerative Skin Lesion(s) (L85.1) Taking Atorvastatin Calcium 20 MG Tablet 1 tablet Orally Once a day Taking Calcium Citrate Taking Fish Oil Taking Multivitamin Taking NovoLOG Taking Vitamin B12 Taking Extra Depth Orthopedic Shoes (1 Pair) with Customized Heat Molded Multidensity Innersoles (3 Pair) as directed Dx: IDDM/Polyneuropathy (E10.42), Hammertoe Foot Deformity (M20.41,M20.42), Preulcerative Skin Lesion(s) (L85.1) Not-Taking/PRNamLODIPine Besylate Omeprazole metFORMIN HCl 1000 MG Tablet 1 tablet with meals Orally Twice a day Valsartan- hydroCHLOROthiazide Vitamin B 12 1000 mcg Simvastatin 20 MG Tablet 1 tablet in the evening Orally Once a day Aspirin 81 MG Tablet 1 tablet Orally Once a day HumaLOG Diovan HCT Glucophage Losartan Potassium-HCTZ Insulin Admin Supplies Zocor PriLOSEC Medication List reviewed and reconciled with the patientNot-Taking/PRN amLODIPine Besylate Not-Taking/PRN Omeprazole Not-Taking/PRN metFORMIN HCl 1000 MG Tablet 1 tablet with meals Orally Twice a day Not-Taking/PRN Valsartan-hydroCHLOROthiazide Not- Taking/PRN Vitamin B 12 1000 mcg Not-Taking/PRN Simvastatin 20 MG Tablet 1 tablet in the evening Orally Once a day Not-Taking/PRN Aspirin 81 MG Tablet 1 tablet Orally Once a day Not-Taking/PRN HumaLOG Not-Taking/PRN Diovan HCT Not-Taking/PRN Glucophage Not-Taking/PRN Losartan Potassium-HCTZ Not-Taking/PRN Insulin Admin Supplies Not-Taking/PRN Zocor Not-Taking/PRN PriLOSEC Medication List reviewed and reconciled with the patient * Allergies:?environmentalyes[ Allergies Verified] Objective: * Vitals:?Ht: 5ft 1in, Wt:121, BMI:22.86, Shoe size: 7, BP:115/68mm Hg, BS: 124, Ht-cm: 154.94 cm, Wt-k.89 kg. * ???Past Orders: ???Lab:HEMOGLOBIN A1C (GLYCO HEMOGLOBIN) (Order Date - 04/05/2024) (Collection Date & Time - 04/05/2024 10:22 AM) ? Value Reference Range ?HEMOGLOBIN A1C % (HH) 7.1 * Examination: ???Ophthalmology Referral: ?DIABETES EYE EXAM?Procedure Performed:?Yes ?Date of Exam Performed?03/05/2024 ?Diabetic Retinopathy Screening:?Yes ?Retinal Screening Performed:?Yes ?Findings of Diabetic Eye Exam:?retinopathy States stable?Neurological: ?SENSORY:?Neurological exam demonstrates, reduced light touch sensation, reduced sharp/dull pin prick discrimination , B/L, 5.07 monofilament test performed at plantar aspects of 5 varied sites per foot shows sensation, reduced, B/L, Pt relates burning, paresthesia, pins and needles sensation, shooting sensation, Forefoot, B/L.?Nails: ?NAILS are:?Elongated, overgrown, dystrophic, lytic, greater than 3mm thick, discolored and friable with crumbly malodorous subungual debris , TA, T1, T2, T3, T4, T5, T6, T7, T8, T9.?Dermatologic: ?SKIN FINDINGS:?Skin exam reveals Keratotic lesion(s) located at, Medial plantar, IPJ, TA, Medial plantar, IPJ, T5, SUB MTH (s) 1, B/L , Plantar, Heel, B/L .?Orthopedic: ?MUSCLE STRENGTH:?5/5 all groups in a symmetrical fashion , B/L.?FOOT MORPHOLOGY:? Pes Planus structure, No Charcot collapse/destruction noted at MTJ.?DIGITAL DEFORMITIES:?Digital contracture, PIPJ, 2-5 B/L, incompl-reducible to push-up test, no over, nor underlapping , with evidence of shoe producing skin irritation.?FOOTWEAR:?worn, OT were inspected and noted to be severely worn , in poor condition not giving proper support at the present time , shoe gear properties exacerbate patients foot/toe deformity.?Vascular: ?DP PULSES (B):? 2/4, B/L.?PT PULSES (B):? 2/4, B/L.?CAPILLARY FILL TIME:?immediate, all digits, B/L.?TROPHIC CONDITION-TEXTURE/ELASTICITY/TURGOR/HAIR GROWTH (B):?normal, B/L.?TEMPERTURE GRADIENT (C):?normal, warm to cool, proximal to distal, B/L, B/L.?PIGMENTATION:?normal, B/L.?EDEMA (C):?absent, B/L.?General Examination: ?GENERAL APPEARANCE:?Reveals a pleasant, alert, well nourished, well- developed, well hydrated individual, who demonstrates proper attention to hygiene/body habitus, and is in no acute distress, Pt serves as own historian for office visit today.?ORIENTED:?person, place, and time.?FOOT EXAM:?Lower Extremity Neurological Exam performed:?Yes ?Visual exam of foot performed:?Yes ?Date?05/01/2024 ?Footwear Evaluation?Footwear Evaluation performed:?Yes??? Assessment: * Assessment: 1.?Tinea unguium - B35.1???2 .?Type 1 diabetes mellitus with diabetic polyneuropathy - E10.42 (Primary)???3.?Other hammer toe(s) (acquired), right foot - M20.41???Specify :Chronic problem, Worse (4),Rx Management (4)???4.?Other hammer toe(s) (acquired), left foot - M20.42???Specify :Chronic problem, Worse (4),Rx Management (4)??? Plan: * Treatment: 2.?Other hammer toe(s) (acqu ired), right foot? Start Extra Depth Orthopedic Shoes (1 Pair) with Customized Heat Molded Multidensity Innersoles (3 Pair), as directed, Dx: IDDM/Polyneuropathy (E10.42), Hammertoe Foot Deformity (M20.41,M20.42), Preulcerative Skin Lesion(s) (L85.1), 1, Refills 0.?? Notes: Patient Educated with: DIABETIC FOOT CARE INSTRUCTIONS.pdf (DIABETIC FOOT CARE INSTRUCTIONS.pdf)?? * Procedures:?Debride Nail 6-10:?Nail debridement?Due to the clinical pathology outlined in the exam findings, performance of this nail treatment is medically necessary as its management by an unskilled/untrained nonprofessional would put this patients foot and overall health at risk. Therefore, debridement to affected nail(s), as described in exam (?TA, T1, T2, T3, T4, T5, T6, T7, T8, T9?), was performed exclusively by the physician of record to reduce/remove overall nail length, girth, thickness, subungual debris, and necrotic tissue, by manual and/or electrical means through the use of a nail nipper and/or dremel-type hardboard grinder, to a more viable healthy nail plate or bed tissue 6- 10 nails in total. Silver nitrate was used for any petechial bleeding as necessary. Definitive antifungal treatment options, both pharmaceutical and surgical, have been reviewed and discussed with the patient. The patient solely prefers the use of intermittent/as needed professional debridement services for their nail condition and understands the need for additional periodic treatments to maintain effectiveness in symptomatic relief - 72393.?Keratoma Treatment:?Parring or Cutting of Benign Hyperkeratotic Lesion(s)?(-57) More than 4 Lesions - Due to the at risk nature of the patients medical condition as documented in the exam findings, performance of this keratoderma treatment is medically necessary as its management by an unskilled/untrained nonprofessional would put this patients foot and overall health at risk. Therefore, the benign hyperkeratotic lesions, ( 6 ) in total, locations as stated and described in the exam (?Medial plantar,?IPJ,?TA,?Medial plantar,?IPJ,?T5,?SUB MTH (s)?1,?B/L?,?Plantar,?Heel,?B/L?), were pared, and/or cut utilizing a sterile 15 blade, tissue nippers, and/or power dremel instrumentation by the physician of record - 15678.? * Procedure Codes:?99010 DEBRI DE NAIL, 6 OR MORE, Modifiers: XS 18976 TRIM SKIN LESIONS, OVER 4, Modifiers: XS * Preventive Medicine:? ??Counseling:?Discussion:?-14: Office or other outpatient visit for the evaluation and management of an established patient, which required a medically appropriate history and/or examination and MODERATE level of DECISION MAKING for: 1 OR MORE CHRONIC PROBLEM(S) THATS WORSENING, 2 STABLE CHRONIC PROBLEMS, A NEWLY DIAGNOSED PROBLEM WITH UNCERTAIN PROGNOSIS, AN ACUTE COMPLICATED INJURY WITH MULTIPLE TREATMENT OPTIONS, OR AN ACUTE PROBLEM WITH ACCOMPANYING SYSTEMIC SYMPTOMS, THAT POSE(S) A MODERATE RISK OF MORBIDITY. THIS CONDITION MAY ALSO INCLUDE RX DRUG MANAGEMENT, OR A DECISON FOR MINOR SURGERY. The visit on the day of the encounter encompassed interpreting the data and educating the patient as to the nature of their condition, treatment options available according to their individual PMH, meds, allergies, and overall health/living conditions, as well as any potential risks or complications that may occur from a failure to adhere to, and participate in, the recommended course of therapy. The discussion included a complete verbal, and/or written explanation of the examination results, any x-rays taken, the proposed diagnosis, and outline of the treatment plan. A schedule for future care needs was also explained. The patient verbalized an understanding of the instructions at this time and agreed to be an active participant in their treatment. If the patient should think of any questions or concerns after the visit, I have encouraged the patient to call the office.?Digital Surgery:?Digital surgery was discussed with the patient, We elected to try conservative treatment at the present time, due to the patients medical history and increased asssociated post-operative risks.?Digital Treatment:?HT- I explained to the patient the possible etiologies of Hammertoes, including genetics/foot type/shoegear/activity level/exercise routine and the risks/benefits of all the different treatment options for their pain including: No treatment at all, Rest, Ice, New/supportive/wider/deeper Shoegear, Digital Padding/Strapping/Taping/Bracing/Gel protective sleeves, Foot/Ankle AFO Bracing, Stretching exercises, Deep Tissue Massage, Arch support/shoe inserts with splay metatarsal padding, and Custom orthoses. I insisted that any digital devices be removed daily and not worn overnight for safety. The patient is to carefully examine the toes daily for any skin irritation while using any splinting or padding device. The advantages and disadvantages of each option were discussed and the patients questions re: shoegear, padding, custom vs prefabricated inserts, activity level, and consistency in home treatment regimens for optimal success were answered to their verbally confirmed satisfaction.?Shoe Gear Counseling:?SHOE Rx - The patient was counseled in great detail on their muscoloskeletal foot and toe deformities which coincided with the dermatological presentations visualized on exam. We discussed how their deformities put the integrity of their feet at risk for potential pedal complications which makes the accomidative diabetic shoes and cutomizable inserts medically necessary. We discussed the different shoe and insert treatment types and options, as well as the important advantages for adhering to regularly wearing these accomidative devices daily. The patient was made aware of the fact that a failure to abide by these recommedations may be deleterious to their foot health as they are able to prevent many pedal complications such as skin irritation, skin ulceration, infection, and even loss of toe/foot/leg/or life. Time was also spent with the patient dispensing and discussing proper diabetic footcare techniques including daily skin moisturization, daily foot inspection for any interruption in skin integrity including open lesions, or sign of infection such as redness/malodor/drainage/swelling. Also discussed and recommended were procedures regarding daily shoe inspection for the presence of internal foreign bodies as well as any visualized irregular shoe or insert wear. Patient questions re: shoes, inserts, and self foot inspections were answered to their satisfaction as the patient verbally confirmed a full understanding of the above information. A Rx for Extra Depth Orthopedic Shoes with 3 pair of custom heat-molded inserts was dispensed.? ??Screening/Special Tests:?Fall Risk?Screening:?No falls in the past year ?FALLS: Screening for Future Fall Risk?Have you had any falls with injury in the past year??No * Follow Up:?prn * Images: * Sign off status: Completed true * Provider:?Sven Hooper DPM Date:?2024 Generated for Tanisha sosa/Jennifer/Jess on:?06/24/2024 11:01 AM EDT History and Physical Notes * HPI (History of Present Illness) Category Sub-Category Detail Notes Category Not es Toe pain Location: B/L feet Duration: several years Course: worse Aggravated by: shoes, any pressure Treatments: change in shoes At Risk footcare Pt States Last PCP Visit: Date: 5 Examination Category Sub-Category Detail Notes Category Not [...] (s) 1, B/L , Plantar, Heel, B/L Orthopedic FOOT MORPHOLOGY: Pes Planus stru cture, No Charcot collapse/destruction noted at MTJ FOOTWEAR EVALUATION: worn, OT were inspe cted and noted to be severely worn , in poor condition not giving proper support at the present time , shoe gear properties exacerbate patients foot/toe deformity DIGITAL DEFORMITIES: Digital contracture , PIPJ, 2-5 B/L, incompl-reducible to push-up test, no over, nor underlapping , with evidence of shoe producing skin irritation MUSCLE STRENGTH: 5/5 all groups in a symmetrical fashion , B/L General Examination GENERAL APPEARANCE: Reveals a pleasant, alert, well nourished, well-developed, well hydrated individual, who demonstrates proper attention to hygiene/body habitus, and is in no acute distress, Pt serves as own historian for office visit today FOOT EXAM: Lower Extremity Neurological Exa m performed:: Yes Visual exam of foot performed:: Yes Date: 05/01/2024 ORIENTED: person, place, and t laron Footwear Evaluation Footwear Evaluation performe d:: Yes Ophthalmology Referral DIABETES EYE EXAM Procedure Perform ed:: Yes ?Date of Exam Performed: 03/05/2024 Diabetic Retinopathy Screening:: Yes Retinal Screening Performed:: Yes Findings of Diabetic Eye Exam:: retinopa thy States stable Vascular DP PULSES (B): 2/4, B/L PT PULSES (B): 2/4, B/L CAPILLARY FILL TIME: immediate, all digi ts, B/L TEMPERTURE GRADIENT (C): normal, warm to cool, proximal to distal, B/L, B/L TROPHIC CONDITION-TEXTURE/ELASTICITY/TURGOR/HAIR GROWTH (B): normal, B/L EDEMA (C): absent, B/L PIGMENTATION: normal, B/L Nails NAILS are: Elongated, overg rown, dystrophic, lytic, greater than 3mm thick, discolored and friable with crumbly malodorous subungual debris , TA, T1, T2, T3, T4, T5, T6, T7, T8, T9
--- OUTSIDE RECORDS SUMMARY | 2024-06-24 11:01 | XMS_ITS | Patient Health Record ---
Author Organization [facility] Address [address] [place] [address] Care Team Providers Care Blueprint Developer Name Role Phone Elsi Callejas Primary Care Provider Sven Ely Unavailable [phone] Allergies Allergen (clinical drug ingredient) Drug/Non Drug Allergy documented on EMR Reaction Allergy Type Onset Date Status environmental (uncoded) Unknown Allergy Active Results Component Value Reference Range Notes HEMOGLOBIN A1C (GLYCOHEMOGLO BIN) Reviewed date:08/21/2023 01:13:34 PM Interpretation: Performing Lab: Notes/Report: HEMOGLOBIN A1C % (HH) 7.1 HEMOGLOBIN A1C (GLYCOHEMOGLO BIN) Reviewed date:11/01/2023 01:15:04 PM Interpretation: Performing Lab: Notes/Report: HEMOGLOBIN A1C % (HH) 6.9 HEMOGLOBIN A1C (GLYCOHEMOGLO BIN) Reviewed date:02/27/2024 03:55:45 PM Interpretation: Performing Lab: Notes/Report: HEMOGLOBIN A1C % (HH) 6.8 HEMOGLOBIN A1C (GLYCOHEMOGLO BIN) Reviewed date:05/01/2024 10:23:05 AM Interpretation: Performing Lab: Notes/Report: HEMOGLOBIN A1C % (HH) 7.1 Reason For Referral No Information Medications Medication SIG (Take, Route, Frequency, Duration) Notes Start Date End Date Status Atorvastatin Calcium 20 MG 1 tablet Orally Once a day Active Vitamin B 12 1000 mcg Not-Taking Calcium Citrate Acti ve Simvastatin 20 MG 1 tablet in the even ing Orally Once a day for 30 day(s) Not-Taking Fish Oil Active Aspirin 81 MG 1 tablet Orally Once a day Not-Taking Multivitamin Active HumaLOG Not-Taking Insulin Admin Supplies Not-Taking Omeprazole Not-Takin g Zocor Not-Taking metFORMIN HCl 1000 MG 1 tablet with meal s Orally Twice a day Not-Taking PriLOSEC Not-Taking Valsartan-hydroCHLOROthi azide Not-Taking NovoLOG Active Diovan HCT Not-Takin g Vitamin B12 Active Glucophage Not-Takin g Extra Depth Orthopedic Shoes (1 Pair) with Customized Heat Molded Multidensity Innersoles (3 Pair) as directed Dx: IDDM/Polyneuropathy (E10.42), Hammertoe Foot Deformity (M20.41,M20.42), Preulcerative Skin Lesion(s) (L85.1) Active Losartan Potassium-HCTZ Not-Taking amLODIPine Besylate Not-Taking Immunizations Vaccine Route Administration Date Status [...] ast year? No Points 0 Interpretation Negative Problems Problem Type SNOMED Code ICD Code Onset Dates Problem Status W/U Status Risk Notes Problem Acquired hammer toe of right foot (5485248267004686 ) Other hammer toe(s) (acquired), right foot (M20.41) Active confirmed Response to treatment, Improvemen t Problem Acquired hammer toe of left foot (2675575076034703 ) Other hammer toe(s) (acquired), left foot (M20.42) Active confirmed Response to treatment, Improvemen t Problem Polyneuropathy due to diabetes mellitus type I (823821241) Type 1 diabetes mellitus with diabetic polyneuropathy (E10.42) Active confirmed Vital Signs Blood pressure diastolic 68 mm Hg 05/01/2024 Height 5ft 1in in 05/01/2024 Blood pressure systolic 115 mm Hg 05/01/2024 Weight 121 lbs 05/01/2024 BMI 22.86 kg/m2 05/01/2024 Procedures Procedure Date Ordered Date Performed Result Body Sit e 66680-ORWIFGW NAIL, 6 OR MORE 08/21/2023 N/A 34447-SEYS SKIN LESIONS, OVER 4 08/21/2023 N/A 10846-QPBAKNQ NAIL, 6 OR MORE 11/01/2023 N/A 45542-IDBY SKIN LESIONS, OVER 4 11/01/2023 N/A 53712-JHQSUPH NAIL, 6 OR MORE 01/31/2024 N/A 73144-XRCA SKIN LESIONS, OVER 4 01/31/2024 N/A 04464-SHMMZIT NAIL, 6 OR MORE 05/01/2024 N/A 88639-UKTX SKIN LESIONS, OVER 4 05/01/2024 N/A Encounters Encounter Location Date Provider Diagnosis [address] [address] 08/21/2023 Sven Hooper Type 1 diabetes mellitus with diabetic polyneuropathy E10.42 and Tinea unguium B35.[address] [address] 11/01/2023 Sven Hooper Type 1 diabetes mellitus with diabetic polyneuropathy E10.42 and Tinea unguium B35.[address] [address] 01/31/2024 Svenlouis Hooper Type 1 diabetes mellitus with diabetic polyneuropathy E10.42 and Tinea unguium B35.[address] [address] 05/01/2024 Svenlouis Hooper Type 1 diabetes mellitus with diabetic polyneuropathy E10.42 ; Tinea unguium B35.1 ; Other hammer toe(s) (acquired), right foot M20.41 and Other hammer toe(s) (acquired), left foot M20.42 [facility] [address] [place] [address] 11/02/2023 Sven Hooper Assessments Encounter Date Diagnosis (ICD Code) Assessment Notes Treatment Notes Treatment Clinical Notes Section Notes 08/21/2023 Type 1 diabetes mellitus with diabetic polyneuropathy (ICD-10 - E10.42) 08/21/2023 Tinea unguium (ICD-10 - B35.1) 11/01/2023 Type 1 diabetes mellitus with diabetic polyneuropathy (ICD-10 - E10.42) 11/01/2023 Tinea unguium (ICD-10 - B35.1) 01/31/2024 Type 1 diabetes mellitus with diabetic polyneuropathy (ICD-10 - E10.42) 01/31/2024 Tinea unguium (ICD-10 - B35.1) 05/01/2024 Tinea unguium (ICD-10 - B35.1) 05/01/2024 Type 1 diabetes mellitus with diabetic polyneuropathy (ICD-10 - E10.42) 05/01/2024 Other hammer toe(s) (acquired), right foot (ICD-10 - M20.41) Patient Educated with: DIABETIC FOOT CARE INSTRUCTIONS. pdf (DIABETIC FOOT CARE INSTRUCTIONS. pdf) 05/01/2024 Other hammer toe(s) (acquired), left foot (ICD-10 - M20.42) Plan Of Treatment Pending Test Test Name Order Date Hemoglobin A1c 03/01/2018 83363-GDPKKQY NAIL, 6 OR MORE 05/01/2024 82129-LPFSTDN NAIL, 6 OR MORE 08/25/2022 63752-YYQNMAV NAIL, 6 OR MORE 11/16/2022 26211-PYXZHYA NAIL, 6 OR MORE 01/25/2023 10579-MRYCGCW NAIL, 6 OR MORE 04/06/2023 04640-JZJERPM NAIL, 6 OR MORE 06/14/2023 29384-XYMRTKN NAIL, 6 OR MORE 08/21/2023 89369-LFCNOUI NAIL, 6 OR MORE 11/01/2023 38314-HFZFWPK NAIL, 6 OR MORE 01/31/2024 68097-NLPCOQC NAIL, 6 OR MORE 02/11/2019 59563-TKUJYMG NAIL, 6 OR MORE 04/22/2019 61303-UKWDTXZ NAIL, 6 OR MORE 07/24/2019 36465-RGHTBLV NAIL, 6 OR MORE 10/07/2019 07797-SGMHMJS NAIL, 6 OR MORE 03/09/2020 87061-DXAGVVW NAIL, 6 OR MORE 05/18/2020 22896-BKMHXAH NAIL, 6 OR MORE 07/20/2020 11908-XWNNVUX NAIL, 6 OR MORE 10/14/2020 52291-JUBQCSK NAIL, 6 OR MORE 12/23/2020 68951-YENDFCO NAIL, 6 OR MORE 03/17/2021 22964-FEICYWO NAIL, 6 OR MORE 06/02/2021 85890-DLDZNCH NAIL, 6 OR MORE 08/16/2021 94068-ZJSNSRI NAIL, 6 OR MORE 10/27/2021 27904-EJFUJJJ NAIL, 6 OR MORE 01/12/2022 06300-SKYHKLR NAIL, 6 OR MORE 03/24/2022 58584-CGRWQNB NAIL, 6 OR MORE 06/15/2022 81435-FPBITER NAIL, 6 OR MORE 10/25/2010 92023-FRZUUVS NAIL, 6 OR MORE 01/10/2011 14929-ZSZDXDB NAIL, 6 OR MORE 03/28/2011 26386-WGDDXPP NAIL, 6 OR MORE 06/27/2011 76411-VRQGAWX NAIL, 6 OR MORE 09/19/2011 62913-HJXVQLU NAIL, 6 OR MORE 12/12/2011 71755-RKHJEOC NAIL, 6 OR MORE 03/21/2012 84539-HGEKVCG NAIL, 6 OR MORE 07/09/2012 20209-VYLWGLG NAIL, 6 OR MORE 11/19/2012 19463-YWPMFAS NAIL, 6 OR MORE 03/04/2013 46568-LLXAEZE NAIL, 6 OR MORE 06/03/2013 17665-SLDFGLU NAIL, 6 OR MORE 09/02/2013 15402-VWJILQX NAIL, 6 OR MORE 11/27/2013 81267-ZUYRXQB NAIL, 6 OR MORE 03/05/2014 27904-ZTAUPXJ NAIL, 6 OR MORE 06/18/2014 76734-AYMBRIV NAIL, 6 OR MORE 09/10/2014 28715-COWNPEU NAIL, 6 OR MORE 12/17/2014 52278-OGSPTBB NAIL, 6 OR MORE 03/18/2015 19407-ZNYUEXH NAIL, 6 OR MORE 06/11/2015 73639-SIPIFMK NAIL, 6 OR MORE 09/28/2015 73348-XNCENTB NAIL, 6 OR MORE 12/30/2015 50167-TPIZDHT NAIL, 6 OR MORE 04/04/2016 27080-VZEDYFT NAIL, 6 OR MORE 07/04/2016 49717-KVLFHMY NAIL, 6 OR MORE 10/06/2016 61873-PUIOPSQ NAIL, 6 OR MORE 12/28/2016 69183-GMIXUMG NAIL, 6 OR MORE 03/22/2017 47594-GMRYQSK NAIL, 6 OR MORE 06/08/2017 06541-NMGTSQC NAIL, 6 OR MORE 08/24/2017 57353-PZNMDFB NAIL, 6 OR MORE 11/15/2017 04529-CSFEXKP NAIL, 6 OR MORE 01/31/2018 40802-XARCKHH NAIL, 6 OR MORE 04/23/2018 97618-TPXOKLI NAIL, 6 OR MORE 07/11/2018 58476-LYTJDGV NAIL, 6 OR MORE 09/24/2018 55482-JDFENCK NAIL, 6 OR MORE 12/03/2018 94483-Szaezgob Plate 04/06/2023 97892-DXNG SKIN LESIONS, OVER 4 05/02/19 25 72486-ZYXU SKIN LESIONS, OVER 4 01/31/20 29242-GDOJ SKIN LESIONS, OVER 4 11/01/19 33004-DLTU SKIN LESIONS, OVER 4 08/21/19 27621-HJCE SKIN LESIONS, OVER 4 06/14/19 24 10410-CBPF SKIN LESIONS, OVER 4 04/06/19 24 43222-STWA SKIN LESIONS, OVER 4 01/26/20 54822-QKVY SKIN LESIONS, OVER 4 11/17/19 81250-YKIZ SKIN LESIONS, OVER 4 08/26/19 23 66686-SLIU SKIN LESIONS, OVER 4 06/16/19 23 45681-PRYM SKIN LESIONS, OVER 4 03/24/19 23 78649-NRLV SKIN LESIONS, OVER 4 01/13/20 58395-TPLT SKIN LESIONS, OVER 4 10/28/19 81609-NNPO SKIN LESIONS, OVER 4 08/17/19 58581-HYAF SKIN LESIONS, OVER 4 06/03/19 02449-WHML SKIN LESIONS, OVER 4 03/17/19 06997-NXFY SKIN LESIONS, OVER 4 12/24/19 21 17021-RUFD SKIN LESIONS, OVER 4 10/15/19 21 94567-KPYD SKIN LESIONS, OVER 4 05/24/20 21 60981-CCUN SKIN LESIONS, OVER 4 05/19/19 21 57471-DZVQ SKIN LESIONS, OVER 4 03/09/19 21 01998-WGLZ SKIN LESIONS, OVER 4 10/07/19 20 65286-IIUZ SKIN LESIONS, OVER 4 07/24/19 20 83042-TNBH SKIN LESIONS, OVER 4 04/22/19 20 46433-KECV SKIN LESIONS, OVER 4 02/12/20 19 00835-TDCP SKIN LESIONS, OVER 4 12/04/19 19 29266-KRZM SKIN LESIONS, OVER 4 09/25/19 19 53078-NLNE SKIN LESIONS, OVER 4 07/12/19 19 65253-KBNS SKIN LESIONS, OVER 4 04/23/19 19 19985-PFSQ SKIN LESIONS, OVER 4 02/01/20 18 12310-ZZKY SKIN LESIONS, OVER 4 11/16/19 18 02114-OXNT SKIN LESIONS, OVER 4 08/25/19 18 38515-OFAP SKIN LESIONS, OVER 4 06/09/19 18 57721-FBSL SKIN LESIONS, OVER 4 03/22/19 18 13394-QFVD SKIN LESIONS, OVER 4 12/29/19 17 98333-PMZO SKIN LESIONS, OVER 4 10/07/19 17 14121-PCAW SKIN LESIONS, OVER 4 04/04/19 17 71587-LZDP SKIN LESIONS, OVER 4 07/05/19 17 04415-SWWF SKIN LESIONS, OVER 4 12/30/19 16 49720-ZRUJ SKIN LESIONS, OVER 4 09/28/19 16 02878-THQI SKIN LESIONS, OVER 4 03/18/19 16 21622-RBYW SKIN LESIONS, OVER 4 06/11/19 16 87504-UFLU SKIN LESIONS, OVER 4 12/18/19 15 89936-AWWK SKIN LESIONS, OVER 4 09/11/19 15 40607-CIKX SKIN LESIONS, OVER 4 06/19/19 15 39165-UORR SKIN LESIONS, OVER 4 03/05/19 15 41104-WNPK SKIN LESIONS, OVER 4 11/28/19 14 40140-OONH SKIN LESIONS, OVER 4 09/03/19 14 04558-VEGU SKIN LESIONS, 2 TO 4 06/04/19 14 84138-TLEA SKIN LESIONS, 2 TO 4 03/04/19 14 33251-FYLS SKIN LESIONS, 2 TO 4 11/20/19 13 42291-BBYC SKIN LESIONS, 2 TO 4 07/10/19 13 59412-WPJP SKIN LESIONS, 2 TO 4 03/21/19 13 78740-DBDL SKIN LESIONS, 2 TO 4 12/12/19 12 70941-SDLZ SKIN LESIONS, 2 TO 4 09/19/19 12 87814-ZBRS SKIN LESIONS, 2 TO 4 06/27/19 12 86000-BOSL SKIN LESIONS, 2 TO 4 03/28/19 12 05976-JHLS SKIN LESIONS, 2 TO 4 01/11/20 11 92363-NETI SKIN LESIONS, 2 TO 4 10/26/19 11 41768, H1382-SMKTF/INJECT, JOINT/BURSA 1 Next Appt Details Provider Name:Sven Hooper , 07/25/2024 09:30:00 AM, [address], [address], [place], [address], Insurance Providers Payer Name Payer Address Payer Phone Subscriber Number Group Number Insured Name Patient Relationship to Insured Coverage Start Date Coverage End Date Medicare National [employer] [address] [place] [address] [id number] Betty Mclain Self - patient is the insured [facility] [address] [place] [address] [id number] Betty Mclain Self - patient is [...]
--- OUTSIDE RECORDS SUMMARY | 2024-06-24 11:01 | XMS_ITS | Clinical Summary ---
Author Organization [facility] Address [address] [place] [address] Care Team Providers Care Dairy Cattle Farmer Name Role Phone Elsi Callejas NP Primary Care Provider [phone] Allergies No known active allergies Medications Medication [...] ADULT PO) Take by mouth. 0 Active [place]-3 Fatty Acids (OMEGA-3 FISH OIL PO) Take [...] age to complete this topic Care Teams Dairy Cattle Farmer Relationship Specialty Start Date End Date Elsi Callejas NP [address] [place] [address] PCP - General Family Medicine 10/18/22
--- OUTSIDE RECORDS SUMMARY | 2024-06-24 11:01 | XMS_ITS ---
Author Organization [facility] Address [address] [place] [address] Care Team Providers Care Maintenance Of Way Clerk Name Role Phone Elsi Callejas Primary Care Provider Sven Ely Unavailable [phone] Allergies Allergen (clinical drug ingredient) Drug/Non Drug [...] Ordered Date Performed Result Body Sit e 59318-VDHTZPJ NAIL, 6 OR MORE 01/31/2024 N/A 95730-BXSJ SKIN LESIONS, OVER 4 01/31/2024 N/A Encounters Encounter Location Date Provider Diagnosis [facility] [place] [address] [facility] [address] [place] [address] 01/31/2024 Sven Hooper Type 1 diabetes mellitus with diabetic polyneuropathy E10.42 and Tinea unguium B35.1 Assessments Encounter Date Diagnosis (ICD Code) Assessment Notes Treatment Notes Treatment Clinical Notes Section Notes 01/31/2024 Type 1 diabetes mellitus with diabetic polyneuropathy (ICD-10 - E10.42) 01/31/2024 Tinea unguium (ICD-10 - B35.1) Plan Of Treatment Pending Test Test Name Order Date 37731-DAMWIBS NAIL, 6 OR MORE 01/31/2024 47667-EDLF SKIN LESIONS, OVER 4 01/31/20 24 Next Appt Details Follow Up: prn, Reason: Provider Name:Sven Hooper , 07/25/2024 09:30:00 AM, [address] [facility], [address], [place], [address], Procedure Notes * Category Sub-Category Detail Notes [...] use of a nail nipper and/or dremel-type chili pepper grinder, to a more viable healthy nail [...] to maintain effectiveness in symptomatic relief - 68962 Keratoma Treatment Parring or Cutting o f Benign Hyperkeratotic Lesion(s) (-57) More than 4 Lesions - The Benign hyperkeratotic lesions, ( 6) in total, locations as stated and described in exam, were pared, and/or cut utilizing a sterile 15 blade, tissue nippers, and/or power Whistlestop instrumentation - 55028 Progress Notes * Betty OSORIODOB:[birth year] (68 yo F)Acc No.[id number]:01/31/2024 Progress Note Patient:?Betty OSORIO Provider:?Sven Hooper DPM :1955???Age:68 Y???Sex:Female D ate:01/31/2024 Address:[address] [place], [place] [address] Pcp:Elsi Callejas Subjective: * Chief Complaints: * [...] * Hospitalization/Major Diagno stic Procedure:?[facility]- Finger surgery[facility]cyst [facility] [place]mitted for kidney stone 06/13/20[facility] [place]- hiatal hernia surgery, dehydration, dialysis 01/05/24 * [...] yes, walking. ?Marital status: . 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 * Medications:?TakingamLODIPin e Besylate Atorvastatin Calcium [...] 10/04/2023 10:25 AM) ? Value Reference Range ?HEMOGLOBIN A1C % (HH) 6.8 * Examination: ???Neurological: ?SENSORY:?Neurological exam demonstrates, [...] use of a nail nipper and/or dremel-type chili pepper grinder, to a more viable healthy nail [...] to maintain effectiveness in symptomatic relief - 07139.?Keratoma Treatment:?Parring or Cutting of Benign Hyperkeratotic Lesion(s)?(-57) More than 4 Lesions - The Benign hyperkeratotic lesions, ( 6) in total, locations as stated and described in exam, were pared, and/or cut utilizing a sterile 15 blade, tissue nippers, and/or power dremel instrumentation - 40851.? * Procedure Codes:?91090 DEBRI DE NAIL, 6 OR MORE, Modifiers: XS 73167 TRIM SKIN LESIONS, OVER 4, Modifiers: XS * Follow Up:?prn * Images: * Sign off status: Completed true * Provider:?Sven Hooper DPM Date:?2023 Generated for Tanisha sosa/Jennifer/Albaransmitting on:?06/24/2024 11:00 AM EDT History and Physical Notes * HPI (History of Present Illness) Category Sub-Category Detail Notes Category Not es At Risk footcare Pt States Last PCP Visit: Date: 4 Examination Category Sub-Category Detail Notes Category Not [...]
== END 2024-06-24 10:03 | disposition home or self-care (01) ==
LOC: HO.HBS 09:45
PROVIDERS: PCP Nurse Practitioner Primary Care; Visit Provider Physician Assistant Surgical
DX: Z71.3 Dietary counseling and surveillance (principal); Z87.19 Personal history of other diseases of the digestive system; Z98.890 Other specified postprocedural states
CPT/HCPCS: 99214; G2211

== ENCOUNTER → 2024-06-24 09:45 | Outpatient (BNVA) | payer MEDICARE, OTHER, SELFPAY | PROVIDERS: PCP Nurse Practitioner Primary Care; Visit Provider Physician Assistant Surgical | DX: Z98.890 Other specified postprocedural states (principal); Z87.19 Personal history of other diseases of the digestive system ==

== ENCOUNTER 2024-06-25 08:16 | Outpatient (REF) | payer MEDICARE, OTHER, SELFPAY ==
--- OUTSIDE RECORDS SUMMARY | 2024-06-25 08:32 | XMS_ITS | Clinical Summary ---
Author Organization [facility] Address [address] [address] Care Team Providers Care Packaging Machine Operator Name Role Phone Elsi Callejas METAL FABRICATING SHOP HELPER-C Primary Care Provider + Allergies Active Allergy [...] Office Visit [facility] [address] [place] [address] Iftikhar Jarvis MD [address] [address] Health Maintenance Due Date Last [...] age to complete this topic Insurance Medicare [facility] Care Teams Packaging Machine Operator Relationship Specialty Start Date End Date Elsi Callejas NP-C [address], [address] [place] [address] PCP - General Nurse Practitioner 02/07/24
--- OUTSIDE RECORDS SUMMARY | 2024-06-25 08:33 | XMS_ITS | Continuity of Care Document ---
Author Organization [facility] Address [address] [facility] [address] [place] [address] Phone [phone] Care Team Providers Care Oilseed Meat Presser Name Role Phone Daniel Burrell M.D. Care Team Information Receiv er [phone] Elsi Callejas N.P. 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 03/31/2022 Vitamin A921660gjx Tablets ER 1 by mouth every day Rain Monsalve M.D. 09/16/2021 Calcium Citrate +Tablets 600mg qd Rain Monsalve M.D. 09/16/2021 Multivitamin AdultTablets 1 qd Rain Monsalve M.D. 09/16/2021 Accu-Chek Guide TestStrips Use 1 Test Strip Up To 3 Times Daily For Testing Blood Sugars 300units E11.8 Rain Monsalve M.D. 09/14/2021 Qvnzfbo291Dnmb/ML Solution Inject 50 Units Every Day With [...] Inhouse Hemoglobin A1c 7.1% Urinary Microalbumin 04/10/2023 [facility] Micro-Albumin <12.0 mg/L (<20) [...] Glucose Fingerstick 232 Comprehensive Metabolic Panl 07/06/2022 [facility] Glucose 167 mg/dL High [...] 58 ML/MIN/1. 73M2 4 Lipid Panel 07/06/2022 [facility] Cholesterol, Total 156 mg/dL (<200) Triglyceride 80 mg/dL (<150) HDL Chol 69 mg/dL (>39) LDL Cholesterol , Calculated 71 mg/dL (0-130) Non HDL Cholesterol (Calc) 87 mg/dL (<160) Complete Abc With Diff 07/06/2022 [facility] WBC 6.6 K/MM3 (4.0-11. [...] ) Lymph # 2.5 K/MM3 (0.8-3.1 ) [place]# 0.8 K/MM3 (0.4-0.9 ) Eo # 0.4 [...] sex. Procedures Date Code Description Status 04/08/2024 15238 Glucose Monitoring Interpeta tion And Report Completed 02/01/2024 53037 Glucose Monitoring Interpeta tion And Report Completed 10/04/2023 10536 Glucose Monitoring Interpeta tion And Report Completed 07/07/2023 49509 Glucose Monitoring Interpeta tion And Report Completed 04/10/2023 85458 Glucose Monitoring Interpeta tion And Report Completed 01/05/2023 82773 Glucose Monitoring Interpeta tion And Report Completed 09/30/2022 10866 Glucose Monitoring Interpeta tion And Report Completed 06/29/2022 11259 Glucose Monitoring Interpeta tion And Report Completed 03/31/2022 08557 Glucose Monitoring Interpeta tion And Report Completed 01/03/2022 25720 Glucose Monitoring Interpeta tion And Report Completed [...] nonproliferative diabetic retinopathy NOS Rain Monsalve M.D. 04/08/2024 E78.00 Pure hypercholes terolemia, unspecified [...]
--- OUTSIDE RECORDS SUMMARY | 2024-06-25 08:33 | XMS_ITS ---
Author Organization [facility] Address [address] [place] [address] Care Team Providers Care Strand Galvanizer Name Role Phone Elsi Callejas Primary Care Provider Sven Ely Unavailable [phone] Encounters Encounter Location Date Provider Diagnosis [address] [address] 01/29/2024 Sven Hooper Plan Of Treatment Next Appt Details Provider Name:Sven Hooper , 07/25/2024 09:30:00 AM, [address] [place] [address], [address], Progress Notes * CHEMO Betty PryorDOB:[birth year] (68 yo F)Acc No.[id number]:01/29/2024 Progress Note Patient:?CHEMO Betty Pryor Provider:?Sven Hooper DPM :1955???Age:68 Y???Sex:Female D ate:01/29/2024 Address:[address] [place] [address] Pcp:Elsi aCllejas Subjective: * Chief Complaints: * ??? * Medical History:? Objective: * Vitals:? Assessment: Plan: * Treatment: * Images: * The named appointment provid er may or may not be the originator of this progress note, and it is not deemed complete until electronically signed by the appointment provider. Sign off status: Pending * Provider:?Sven Hooper DPM Date:?2023 Generated for Tanisha sosa/Jennifer/Jess on:?06/25/2024 08:33 AM EDT
--- OUTSIDE RECORDS SUMMARY | 2024-06-25 08:33 | XMS_ITS | Clinical Summary ---
Author Organization [facility] Address [address] [place] [address] Care Team Providers Care Senior Category Manager Name Role Phone Elsi Callejas NP Primary Care Provider [phone] Allergies No known active allergies Medications Medication [...] ADULT PO) Take by mouth. 0 Active [place]-3 Fatty Acids (OMEGA-3 FISH OIL PO) Take [...] age to complete this topic Care Teams Senior Category Manager Relationship Specialty Start Date End Date Elsi Callejas NP [address] [place] [address] PCP - General Family Medicine 10/18/22
--- OUTSIDE RECORDS SUMMARY | 2024-06-25 08:33 | XMS_ITS ---
Author Organization [facility] Address [address] [place] [address] Care Team Providers Care Counter Stacker Name Role Phone Elsi Callejas Primary Care Provider Sven Ely Unavailable [phone] Allergies Allergen (clinical drug ingredient) Drug/Non Drug [...] Ordered Date Performed Result Body Sit e 31591-UPSXWWX NAIL, 6 OR MORE 05/01/2024 N/A 50250-YQBO SKIN LESIONS, OVER 4 05/01/2024 N/A Encounters Encounter Location Date Provider Diagnosis [facility] [address] [address] 05/01/2024 Sven Hooper Type 1 diabetes mellitus [...] INSTRUCTIONS.pdf) Pending Test Test Name Order Date 81604-YXEONOH NAIL, 6 OR MORE 05/01/2024 77236-DHXF SKIN LESIONS, OVER 4 05/02/19 25 Next Appt Details Follow Up: prn, Reason: Provider Name:Sven Hooper , 07/25/2024 09:30:00 AM, [address], [place], [address], Procedure Notes * Category Sub-Category Detail Notes [...] use of a nail nipper and/or dremel-type ice grinder, to a more viable healthy nail [...] to maintain effectiveness in symptomatic relief - 69898 Keratoma Treatment Parring or Cutting o f [...] instrumentation by the physician of record - 36667 Progress Notes * Betty OSORIODOB:[birth year] (68 yo F)Acc No.[id number]:05/01/2024 Progress Note Patient:?Betty OSORIO Provider:?Sven Hooper DPM :1955???Age:68 Y???Sex:Female D ate:05/01/2024 Address:[address] [place] [address] Pcp:Elsi Callejas Subjective: * Chief Complaints: * [...] Finger surgery/cyst 11/10[facility] Admitted for kidney stone 06/[facility]/20[facility] [place] [facility] hiatal hernia surgery, dehydration, dialysis 01/05/24 [...] yes, walking. ?Marital status: . 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 ???Drug/Alcohol:?AUDIT-C (Standard)?Did you have a drink [...] use of a nail nipper and/or dremel-type ice grinder, to a more viable healthy nail [...] to maintain effectiveness in symptomatic relief - 12803.?Keratoma Treatment:?Parring or Cutting of Benign Hyperkeratotic Lesion(s)?(-57) [...] instrumentation by the physician of record - 85948.? * Procedure Codes:?88501 DEBRI DE NAIL, 6 OR MORE, Modifiers: XS 43948 TRIM SKIN LESIONS, OVER 4, Modifiers: XS [...] Hooper DPM Date:?2024 Generated for Tanisha sosa/Jennifer/Jess on:?06/25/2024 08:33 AM EDT History and Physical Notes * [...]
--- OUTSIDE RECORDS SUMMARY | 2024-06-25 08:33 | XMS_ITS ---
Author Organization [facility] Address [address] [place] [address] Care Team Providers Care Sales Service Representative Name Role Phone Elsi Callejas Primary Care Provider Sven Ely Unavailable [phone] Allergies Allergen (clinical drug ingredient) Drug/Non Drug [...] Ordered Date Performed Result Body Sit e 17356-DFKAAQF NAIL, 6 OR MORE 01/31/2024 N/A 78906-WWIK SKIN LESIONS, OVER 4 01/31/2024 N/A Encounters Encounter Location Date Provider Diagnosis [facility] [place] [address] [facility] [address] [place] [address] 01/31/2024 Sven Hooper Type 1 diabetes mellitus with diabetic polyneuropathy E10.42 and Tinea unguium B35.1 Assessments Encounter Date Diagnosis (ICD Code) Assessment Notes Treatment Notes Treatment Clinical Notes Section Notes 01/31/2024 Type 1 diabetes mellitus with diabetic polyneuropathy (ICD-10 - E10.42) 01/31/2024 Tinea unguium (ICD-10 - B35.1) Plan Of Treatment Pending Test Test Name Order Date 46487-JYJDHJH NAIL, 6 OR MORE 01/31/2024 14805-HNPH SKIN LESIONS, OVER 4 01/31/20 24 Next Appt Details Follow Up: prn, Reason: Provider Name:Sven Hooper , 07/25/2024 09:30:00 AM, [address] [facility], [address], [place], [address], Procedure Notes * Category Sub-Category Detail Notes [...] use of a nail nipper and/or dremel-type turbinated bone grinder, to a more viable healthy nail [...] to maintain effectiveness in symptomatic relief - 70319 Keratoma Treatment Parring or Cutting o f Benign Hyperkeratotic Lesion(s) (-57) More than 4 Lesions - The Benign hyperkeratotic lesions, ( 6) in total, locations as stated and described in exam, were pared, and/or cut utilizing a sterile 15 blade, tissue nippers, and/or power Stunable instrumentation - 36980 Progress Notes * Betty OSORIODOB:[birth year] (68 yo F)Acc No.[id number]:01/31/2024 Progress Note Patient:?Betty OSORIO Provider:?Sven Hooper DPM :1955???Age:68 Y???Sex:Female D ate:01/31/2024 Address:[address] [place], [place] [id number] Pcp:Elsi Callejas Subjective: * Chief Complaints: * [...] * Hospitalization/Major Diagno stic Procedure:?[facility]- F[facility] [place] for kidney stone 06/13/20[facility] hiatal hernia surgery, dehydration, dialysis 01/05/24 * [...] yes, walking. ?Marital status: . 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 * Medications:?TakingamLODIPin e Besylate Atorvastatin Calcium [...] use of a nail nipper and/or dremel-type turbinated bone grinder, to a more viable healthy nail [...] to maintain effectiveness in symptomatic relief - 55094.?Keratoma Treatment:?Parring or Cutting of Benign Hyperkeratotic Lesion(s)?(-57) More than 4 Lesions - The Benign hyperkeratotic lesions, ( 6) in total, locations as stated and described in exam, were pared, and/or cut utilizing a sterile 15 blade, tissue nippers, and/or power dremel instrumentation - 32402.? * Procedure Codes:?84434 DEBRI DE NAIL, 6 OR MORE, Modifiers: XS 58479 TRIM SKIN LESIONS, OVER 4, Modifiers: XS * Follow Up:?prn * Images: * Sign off status: Completed true * Provider:?Sven Hooper DPM Date:?2023 Generated for Tanisha sosa/Jennifer/eTransmitting on:?06/25/2024 08:33 AM EDT History and Physical [...]
--- OUTSIDE RECORDS SUMMARY | 2024-06-25 08:33 | XMS_ITS | Clinical Summary ---
Author Organization [employer] [facility] it Address [address] [place] [address] Care Team Providers Care Streetcar Motorman Name Role Phone Elsi Callejas NP Primary Care Provider [phone]- [phone] Surgical History Surgery Date Site/Laterality Comments CATARACT [...] Description 11/05/2024 10:00 AM EDT Office Visit [facility] Hematology Oncology [address] [place] [phone] Mena Wilkerson PA [address] [place] [address] Health Maintenance Due Date Last Done Comments [...] [employer] [place] [employer] Care Teams Streetcar Motorman Relationship Specialty Start Date End Date Elsi Callejas NP PCP - General 10/18/22
--- OUTSIDE RECORDS SUMMARY | 2024-06-25 08:33 | XMS_ITS | Patient Health Record ---
Author Organization [facility] Address [address] [place] [address] Care Team Providers Care Vacuum Filter Operator Name Role Phone Elsi Callejas Primary Care Provider Sven Ely Unavailable [phone] Allergies Allergen (clinical drug ingredient) Drug/Non Drug Allergy documented on EMR Reaction Allergy Type Onset Date Status environmental (uncoded) Unknown Allergy Active Results Component Value Reference Range Notes HEMOGLOBIN A1C (GLYCOHEMOGLO BIN) Reviewed date:08/21/2023 01:13:34 PM Interpretation: Performing Lab: Notes/Report: HEMOGLOBIN A1C % (HH) 7.1 HEMOGLOBIN A1C (GLYCOHEMOGLO BIN) Reviewed date:05/01/2024 10:23:05 AM Interpretation: Performing Lab: Notes/Report: HEMOGLOBIN A1C % (HH) 7.1 HEMOGLOBIN A1C (GLYCOHEMOGLO BIN) Reviewed date:02/27/2024 03:55:45 PM Interpretation: Performing Lab: Notes/Report: HEMOGLOBIN A1C % (HH) 6.8 HEMOGLOBIN A1C (GLYCOHEMOGLO BIN) Reviewed date:11/01/2023 01:15:04 PM Interpretation: Performing Lab: Notes/Report: HEMOGLOBIN A1C % (HH) 6.9 Reason For Referral No Information Medications Medication [...] Problem Acquired hammer toe of right foot ([id number] ) Other hammer toe(s) (acquired), right foot (M20.41) Active confirmed Response to treatment, Improvemen t Problem Acquired hammer toe of left foot ([id number] ) Other hammer toe(s) (acquired), left foot (M20.42) Active confirmed Response to treatment, Improvemen t Problem Polyneuropathy due to diabetes mellitus type I (737354181) Type 1 diabetes mellitus with diabetic polyneuropathy (E10.42) Active confirmed Vital Signs Blood pressure diastolic 68 mm Hg 05/01/2024 Height 5ft 1in in 05/01/2024 Blood pressure systolic 115 mm Hg 05/01/2024 Weight 121 lbs 05/01/2024 BMI 22.86 kg/m2 05/01/2024 Procedures Procedure Date Ordered Date Performed Result Body Sit e 78711-TXQPFFJ NAIL, 6 OR MORE 08/21/2023 N/A 42233-NNJO SKIN LESIONS, OVER 4 08/21/2023 N/A 61567-NJRFFSN NAIL, 6 OR MORE 11/01/2023 N/A 76524-WOZK SKIN LESIONS, OVER 4 11/01/2023 N/A 68820-FOWINMV NAIL, 6 OR MORE 01/31/2024 N/A 38336-YYEP SKIN LESIONS, OVER 4 01/31/2024 N/A 48829-ZOTKSWO NAIL, 6 OR MORE 05/01/2024 N/A 30397-YHWI SKIN LESIONS, OVER 4 05/01/2024 N/A Encounters Encounter Location Date Provider Diagnosis [address] [address] 08/21/2023 Sven Hooper Type 1 diabetes mellitus with diabetic polyneuropathy E10.42 and Tinea unguium B35.[address] [address] 11/01/2023 Sven Hooper Type 1 diabetes mellitus with diabetic polyneuropathy E10.42 and Tinea unguium B35.[address] [address] 01/31/2024 Svenlouis Hooper Type 1 diabetes mellitus with diabetic polyneuropathy E10.42 and Tinea unguium B35.[address] [address] 05/01/2024 Svenlouis Hooper Type 1 diabetes mellitus with diabetic polyneuropathy E10.42 ; Tinea unguium B35.1 ; Other hammer toe(s) (acquired), right foot M20.41 and Other hammer toe(s) (acquired), left foot M20.42 [facility] [address] [place] [address] 11/02/2023 Sven Hooper Assessments Encounter Date Diagnosis [...] Test Name Order Date Hemoglobin A1c 03/01/2018 18316-HDRCVWZ NAIL, 6 OR MORE 05/01/2024 48224-YLIEJCD NAIL, 6 OR MORE 08/25/2022 76036-LGPTBIL NAIL, 6 OR MORE 11/16/2022 09549-RJSDOUU NAIL, 6 OR MORE 01/25/2023 68728-SXZUJNF NAIL, 6 OR MORE 04/06/2023 51341-XANWTPQ NAIL, 6 OR MORE 06/14/2023 45195-FZMCPCU NAIL, 6 OR MORE 08/21/2023 77133-LTQZEOU NAIL, 6 OR MORE 11/01/2023 90228-DVGHFHG NAIL, 6 OR MORE 01/31/2024 63884-UVIYGZS NAIL, 6 OR MORE 02/11/2019 78840-VERCYFP NAIL, 6 OR MORE 04/22/2019 58201-FYABPLH NAIL, 6 OR MORE 07/24/2019 24917-DDNJYPS NAIL, 6 OR MORE 10/07/2019 68572-FDWQFYQ NAIL, 6 OR MORE 03/09/2020 05867-LUHEJDO NAIL, 6 OR MORE 05/18/2020 85893-TXGKIMN NAIL, 6 OR MORE 07/20/2020 17734-UQEHWLC NAIL, 6 OR MORE 10/14/2020 90724-WDXWWNJ NAIL, 6 OR MORE 12/23/2020 64527-CQMMZPP NAIL, 6 OR MORE 03/17/2021 21349-HUYDTZS NAIL, 6 OR MORE 06/02/2021 43672-QNFDGEQ NAIL, 6 OR MORE 08/16/2021 44251-YECJIWF NAIL, 6 OR MORE 10/27/2021 27694-TUCCEOK NAIL, 6 OR MORE 01/12/2022 99730-SCSXNQG NAIL, 6 OR MORE 03/24/2022 23959-LASLEWP NAIL, 6 OR MORE 06/15/2022 91724-CQAYYVU NAIL, 6 OR MORE 10/25/2010 00543-TDXRGIL NAIL, 6 OR MORE 01/10/2011 64981-ZZYFSMO NAIL, 6 OR MORE 03/28/2011 29202-WBJDZWV NAIL, 6 OR MORE 06/27/2011 71651-OCIIKLZ NAIL, 6 OR MORE 09/19/2011 46145-BPZKJQE NAIL, 6 OR MORE 12/12/2011 19878-NHHTAZR NAIL, 6 OR MORE 03/21/2012 15649-GVFXVXJ NAIL, 6 OR MORE 07/09/2012 10540-STQETEN NAIL, 6 OR MORE 11/19/2012 61489-PAJHAUH NAIL, 6 OR MORE 03/04/2013 59420-BIVDIFL NAIL, 6 OR MORE 06/03/2013 08773-TAIZJTE NAIL, 6 OR MORE 09/02/2013 92933-SYLUNUW NAIL, 6 OR MORE 11/27/2013 16396-HGLZIVC NAIL, 6 OR MORE 03/05/2014 52782-SDMYGWH NAIL, 6 OR MORE 06/18/2014 22421-NREGWWZ NAIL, 6 OR MORE 09/10/2014 34359-XPTDTGI NAIL, 6 OR MORE 12/17/2014 67844-WJFNYIB NAIL, 6 OR MORE 03/18/2015 79083-FEWOCIP NAIL, 6 OR MORE 06/11/2015 25473-OQIVOGT NAIL, 6 OR MORE 09/28/2015 00914-HHOGQKE NAIL, 6 OR MORE 12/30/2015 47273-RCSFUBF NAIL, 6 OR MORE 04/04/2016 54061-NSSBYDA NAIL, 6 OR MORE 07/04/2016 69109-QODRRWE NAIL, 6 OR MORE 10/06/2016 52496-ZTKNMFP NAIL, 6 OR MORE 12/28/2016 52072-DYNIDBD NAIL, 6 OR MORE 03/22/2017 90738-EBGZBZG NAIL, 6 OR MORE 06/08/2017 51485-OBZXYJG NAIL, 6 OR MORE 08/24/2017 57657-RLIGGWO NAIL, 6 OR MORE 11/15/2017 42602-UHGUDQA NAIL, 6 OR MORE 01/31/2018 86400-KPSYGYL NAIL, 6 OR MORE 04/23/2018 48449-WPIPSDB NAIL, 6 OR MORE 07/11/2018 64869-GQOHRJN NAIL, 6 OR MORE 09/24/2018 08240-PDYQBNN NAIL, 6 OR MORE 12/03/2018 92346-Uptferoz Plate 04/06/2023 56551-WUJQ SKIN LESIONS, OVER 4 05/02/19 25 35569-QQRO SKIN LESIONS, OVER 4 01/31/20 10365-MCOF SKIN LESIONS, OVER 4 11/01/19 02628-FFTJ SKIN LESIONS, OVER 4 08/21/19 09411-TWAG SKIN LESIONS, OVER 4 06/14/19 24 03720-TXGC SKIN LESIONS, OVER 4 04/06/19 24 95155-FDGF SKIN LESIONS, OVER 4 01/26/20 93042-BDSF SKIN LESIONS, OVER 4 11/17/19 01013-TKNX SKIN LESIONS, OVER 4 08/26/19 23 46697-BVIX SKIN LESIONS, OVER 4 06/16/19 23 16258-ZOKW SKIN LESIONS, OVER 4 03/24/19 23 53049-VDIL SKIN LESIONS, OVER 4 01/13/20 91184-ZCZH SKIN LESIONS, OVER 4 10/28/19 05950-QKUU SKIN LESIONS, OVER 4 08/17/19 50867-VEVB SKIN LESIONS, OVER 4 06/03/19 87394-TRKI SKIN LESIONS, OVER 4 03/17/19 01738-FLSS SKIN LESIONS, OVER 4 12/24/19 21 32801-EHCW SKIN LESIONS, OVER 4 10/15/19 21 09534-BDUI SKIN LESIONS, OVER 4 05/24/20 21 95207-DSDI SKIN LESIONS, OVER 4 05/19/19 21 24266-ETEI SKIN LESIONS, OVER 4 03/09/19 21 05808-RQPC SKIN LESIONS, OVER 4 10/07/19 20 24302-QFAY SKIN LESIONS, OVER 4 07/24/19 20 60119-JLPR SKIN LESIONS, OVER 4 04/22/19 20 21328-RDOL SKIN LESIONS, OVER 4 02/12/20 19 24071-IKTZ SKIN LESIONS, OVER 4 12/04/19 19 80551-ZPSO SKIN LESIONS, OVER 4 09/25/19 19 50415-GHHR SKIN LESIONS, OVER 4 07/12/19 19 68049-PKUY SKIN LESIONS, OVER 4 04/23/19 19 29700-LTHA SKIN LESIONS, OVER 4 02/01/20 18 24471-KQIT SKIN LESIONS, OVER 4 11/16/19 18 37605-ZCUJ SKIN LESIONS, OVER 4 08/25/19 18 77102-OSGB SKIN LESIONS, OVER 4 06/09/19 18 41705-CWRS SKIN LESIONS, OVER 4 03/22/19 18 89012-SJJH SKIN LESIONS, OVER 4 12/29/19 17 72623-EKYB SKIN LESIONS, OVER 4 10/07/19 17 93239-RWLZ SKIN LESIONS, OVER 4 04/04/19 17 45379-JHZD SKIN LESIONS, OVER 4 07/05/19 17 17622-YXWM SKIN LESIONS, OVER 4 12/30/19 16 58365-DKPL SKIN LESIONS, OVER 4 09/28/19 16 14741-KBQD SKIN LESIONS, OVER 4 03/18/19 16 94988-WFEI SKIN LESIONS, OVER 4 06/11/19 16 49223-XZLM SKIN LESIONS, OVER 4 12/18/19 15 98018-VUHQ SKIN LESIONS, OVER 4 09/11/19 15 12026-VJXL SKIN LESIONS, OVER 4 06/19/19 15 94885-OLAN SKIN LESIONS, OVER 4 03/05/19 15 79796-BGCT SKIN LESIONS, OVER 4 11/28/19 14 80367-HCDX SKIN LESIONS, OVER 4 09/03/19 14 70584-RGRL SKIN LESIONS, 2 TO 4 06/04/19 14 94414-HZZN SKIN LESIONS, 2 TO 4 03/04/19 14 56054-WGHG SKIN LESIONS, 2 TO 4 11/20/19 13 17050-EILO SKIN LESIONS, 2 TO 4 07/10/19 13 04819-ALAL SKIN LESIONS, 2 TO 4 03/21/19 13 97126-FFYP SKIN LESIONS, 2 TO 4 12/12/19 12 90616-UBKA SKIN LESIONS, 2 TO 4 09/19/19 12 79279-BDJG SKIN LESIONS, 2 TO 4 06/27/19 12 15877-UCZN SKIN LESIONS, 2 TO 4 03/28/19 12 34384-XZNV SKIN LESIONS, 2 TO 4 01/11/20 11 21320-VOIV SKIN LESIONS, 2 TO 4 10/26/19 11 24863, I1636-FYREP/INJECT, JOINT/BURSA 1 Next Appt Details Provider Name:Sven Hooper , 07/25/2024 09:30:00 AM, [address] [facility], [address], [place], [address], Insurance Providers Payer Name Payer Address Payer Phone Subscriber Number Group Number Insured Name Patient Relationship to Insured Coverage Start Date Coverage End Date Medicare [employer] [address] [place] [address] [id number] Betty Mclain Self - patient is the insured [facility] [address] [place] [address] [id number] Betty Mclain Self - patient is [...]
[2024-06-25 08:35] LABS: MANUAL DIFF FLAG NO
[2024-06-25 09:43] LABS: Basophils Absolute Auto 0.1 X10*3/uL (0.0-0.2); Basophils Percent Auto 0.7 % (0-2); Eosinophils Absolute Auto 0.1 X10*3/uL (0.0-0.4); Eosinophils Percent Auto 2.1 % (0-4); Hemoglobin 12.6 g/dl (12.0-16.0); Imm Gran Abs Auto 0.01 X10*3/uL (0.00-0.03); Imm Gran Pct Auto 0.1 % (0.0-0.4); Lymphocytes Absolute Auto 1.9 X10*3/uL (1.2-4.9); Lymphocytes Percent Auto 27.1 % (20-40); Mean Corpuscular HGB Conc 32.3 g/dl (31.0-35.0); Mean Corpuscular Hemoglobin 30.7 pg (27.0-33.0); Mean Corpuscular Volume 95.1 fL (80.0-98.0); Mean Platelet Volume 9.1 fL (9.4-12.3); Monocytes Absolute Auto 0.8 X10*3/uL (0.1-1.2); Monocytes Percent Auto 11.6 % (2-11); Neutrophils Percent Auto 58.4 % (45-73); Platelet Count 294 X10*3/uL (160-400); White Blood Count 6.8 X10*3/uL (4.8-10.8)
[2024-06-25 10:36] LABS: Alanine Aminotransferase 26 U/L (0-31); Albumin Level 4.1 g/dL (3.5-5.0); Alkaline Phosphatase 61 U/L (39-117); Anion Gap 13 (12-20); Aspartate Amino Transferase 32 U/L (5-31); Bilirubin Total 1.3 mg/dL (0.0-1.0); Blood Urea Nitrogen 26 mg/dL (9-16); C Reactive Protein < 0.10 mg/dL (< or = 0.50); Calcium 9.4 mg/dL (8.4-10.2); Carbon Dioxide 26 mmol/L (22-29); Chloride 108 mmol/L (96-108); Cholesterol 180 mg/dL (<200); Estimated Glomerular Filt Rate > 60; Glucose Random 97 mg/dL (60-115); HDL Cholesterol 73 mg/dL (>40); Iron 83 mcg/dL (30-160); LDL Cholesterol Calculated 98 mg/dL (<100); Percent Iron Saturation 31 % (15-50); Sodium 143 mmol/L (135-145); Total Iron Binding Capacity 265 mcg/dL (228-428); Total Protein 6.9 g/dL (6.5-8.0); Triglycerides 48 mg/dL (<150); Unsaturated Iron Binding 182 ug/dL
[2024-06-25 10:59] LABS: Ferritin 41 ng/mL (10-250); Insulin 38 uU/mL (2-29); TSH reflex Free T4 0.43 uIU/mL (0.32-4.0); Vitamin D 25-OH Total 47.6 ng/mL (>30)
[2024-06-25 11:00] LABS: Folate 14.4 ng/mL (> or = 4.0); Vitamin B12 1223 pg/mL (200-900)
[2024-06-27 13:09] LABS: Zinc 82 mcg/dL (60-130)
[2024-06-28 19:18] LABS: Vitamin A 65 mcg/dL (38-98)
[2024-07-03 16:48] LABS: Vitamin B1 24 nmol/L (8-30)
== END 2024-06-25 08:17 | disposition home or self-care (01) ==
LOC: HO.LAB 08:16
PROVIDERS: PCP Nurse Practitioner Primary Care; Visit Provider Physician Assistant Surgical
DX: Z98.890 Other specified postprocedural states (principal); Z87.19 Personal history of other diseases of the digestive system
CPT/HCPCS: 36415; 80053; 80061; 82306; 82607; 82728; 82746; 83525; 83540; 84425; 84443; 84590; 84630; 85025; 86140

== ENCOUNTER 2024-07-18 14:05 | Outpatient (AMB) | payer MEDICARE, OTHER, SELFPAY ==
--- NOTE | 2024-07-18 14:11 | MHC.OFFVIS ---
Vital Signs 07/18/24 14:12 Height 5 ft 1 in Weight 121 lb 4.068 oz BMI 22.9 BP 161/77 H Blood Pressure Location Lt brachial Position Sitting Pulse 75 Intake Visit Reasons: 4 month follow up Intake Note: Betty presents in the office as a 4 month follow up. CC: States she is not having any concerns today! Emergency Generator Mechanic Required: No Allergies No Known Allergies Allergy (Verified 07/18/24 14:13) HPI HPI 4 month follow up: Details: 69 yr old f here for f/u for chronic anemia RECAP: She had EGD 02/18 for anemia w/u--revealed large hiatal hernia, fundic gland polyps--path-focal chronic duodenitis colonoscopy- 2021- done at [facility], one polyp removed--apparently large Capsule endo- normal, no active bleeding, possible rapid gastric emptying hx of bleeding hemorrhoids LABS: 09/2022 HEMOGLOBIN AND HEMATOCRIT 12/27 NORMOCYTIC NORMOCHROMIC, normal platelets, mildly reduced GFR 58, normal hepatic panel, ferritin low at 51, sees hematology once a year at [facility] swallow: 09/19- hiatal hernia noted, CT chest/abdomen 09/19 large hiatal hernia labs with GFR 49 (been having issues with kidney stones plus she is diabetic--maybe playing role in anemia, ferritin and iron sat was nml) H pylori and celiac negative She had her hiatal hernia repair 12/20 INTERIM: she has been doing well since surgery she feels great she is glad she did it she denies trouble swallowing no heartburn denies GERD EXAM: GENERAL: The patient is well developed and nontoxic. VITAL SIGNS:see workflow HEENT: Nonicteric sclerae, PERRLA, EOMI. Oropharynx clear. Moist mucous membranes. Conjunctivae appear well perfused. No thyroid mass. CHEST: Chest wall is nontender. HEART: Regular rate and rhythm without murmurs. LUNGS: Clear to auscultation bilaterally. ABDOMEN: Soft, positive bowel sounds, nontender, no organomegaly.no flank tenderness SKIN: No rash, no excessive bruising, petechiae, or purpura. NEUROLOGIC: Cranial nerves II-XII intact without motor/sensory deficit. Psych: normal affect heberdens nodes A/P: 1/ Chronic anemia, likely from hemorrhoids, had investigations as above 2/ Large hiatal hernia- s/p repair--GERD is controlled, not an issue PLAN: 1/ cont with diet as she is doing 2/ repeat colonoscopy approx 2026 or earlier if clinically indicated 3/ PCP is following the BP f/u prn PFSH Medical History Bleeding hemorrhoids Tubular adenoma of colon ANATOLY on CPAP Hx of sepsis (~2020) Insulin pump in place GERD (gastroesophageal reflux disease) Renal calculi Sleep apnea Dupont syndrome Diabetes Elevated cholesterol HTN (hypertension) Surgical History Status post repair of paraesophageal diaphragmatic hernia History of esophagogastroduodenoscopy (EGD) (02/02/23) Hx of cystoscopy H/O colonoscopy H/O bilateral cataract extraction Family History Maternal Grandmother Colostomy status Cancer Social History Household Members: None Housing: House Are you a primary critical care nurse to a significant other at home: No Do you presently have visiting nurse or other home services: No 75 years or older and lives alone: No Alcohol intake: current Alcohol intake frequency: holidays/special occasions only Patient Tobacco Use Status: Former Tobacco user Tobacco use type: Cigarette service: No Physical Exam Vital Signs: Last Vital Signs Pulse 75 07/18/24 14:12 BP 161/77 H 07/18/24 14:12 BMI result Body Mass Index 22.9 Assessment & Plan Assessment & Plan (1) Status post repair of paraesophageal diaphragmatic hernia: Code(s): Z98.890 - Other specified postprocedural states; Z87.19 - Personal history of other diseases of the digestive system Category: Medical Plan: see above Coding Level of Care Code Est Pt Level 3 (97116) Diagnoses Status post repair of paraesophageal diaphragmatic hernia Z98.890; Z87.19
[2024-07-18 14:12] VITALS: BP 161/77; PULSE 75; BMI 22.9
--- OUTSIDE RECORDS SUMMARY | 2024-07-18 14:13 | XMS_ITS | Clinical Summary ---
Author Organization [facility] Facility Address [address] [address] Care Team Providers Care Director Talent Acquisition Name Role Phone Elsi Callejas CONTROL SYSTEM COMPUTER SCIENTIST-C Primary Care Provider + Allergies Active Allergy [...] Office Visit [facility] [address] [place] [address] Iftikhar Jarvis MD [address] [address] Health Maintenance Due Date Last [...] age to complete this topic Insurance Medicare [facility] Care Teams Director Talent Acquisition Relationship Specialty Start Date End Date Elsi Callejas NP-C [address], [address] [place] [address] PCP - General Nurse Practitioner 02/07/24
== END 2024-07-18 15:02 | disposition home or self-care (01) ==
LOC: HO.HGI 14:06
PROVIDERS: PCP Nurse Practitioner Primary Care; Visit Provider Internal Medicine Gastroenterology
DX: Z98.890 Other specified postprocedural states (principal); Z87.19 Personal history of other diseases of the digestive system
CPT/HCPCS: 99213

== ENCOUNTER → 2024-07-18 14:05 | Outpatient (BNVA) | payer MEDICARE, OTHER, SELFPAY | PROVIDERS: PCP Nurse Practitioner Primary Care; Visit Provider Internal Medicine Gastroenterology | DX: Z98.890 Other specified postprocedural states (principal); Z87.19 Personal history of other diseases of the digestive system | CPT/HCPCS: 99212 ==

== ENCOUNTER 2024-12-25 11:53 | Outpatient (AMB) | payer MEDICARE, OTHER, SELFPAY ==
--- OUTSIDE RECORDS SUMMARY | 2024-01-29 11:00 | XMS_ITS ---
Author Organization [facility] Address [address] [place] [phone] Care Team Providers Care Shade Classifier Name Role Phone Elsi Callejas Primary Care Provider Sven Ely Unavailable [phone] Encounters Encounter Location Date Provider Diagnosis [address] [address] 01/29/2024 Sven Hooper Plan Of Treatment Next Appt Details Provider Name:Sven Hooper , 01/29/2025 01:30:00 PM, [address] [place] [address], [phone], Progress Notes * Betty OSORIO RoyaDOB:[birth year] (69 yo F)Acc No.[id number]:01/29/2024 Progress Note Patient: Betty AMAYA Provider: Josias Hooper DPM :1955 A ge:68 Y S ex:Female Date:01/29/2024 Address:[address] [place], [place] [id number] Pcp:Elsi Callejas Subjective: * Chief Complaints: * * Medical History: Objective: * Vitals: Assessment: Plan: * Treatment: * Images: * The named appointment provid er may or may not be the originator of this progress note, and it is not deemed complete until electronically signed by the appointment provider. Sign off status: Pending * Provider: Josias Hooper DPM Date: 1 03/31/2023 Generated for Tanisha sosa/Jennifer/Jess on: 03:17 PM EDT
--- NOTE | 2024-12-25 12:05 | MHC.OFFVISWM ---
VS Expanded 12/25/24 12:12 BP 160/77 H Blood Pressure Location Rt brachial Blood Pressure Position Sitting Pulse 77 Pulse Source Palpation Temp 98 F Temperature Source Temporal Artery Scan Pulse Oximetry 98 Height 5 ft 1 in Weight 136 lb 12.8 oz BMI 25.8 Body Fat % 31.8 Body Fat Mass 43.4 Fat Free Mass 93.2 Visceral Fat Rating 8 Body Water % 48.1 Body Water Mass 65.6 Muscle Mass/Score 88.4 Basal Metabolic Rate/Score 1,255 Intake Visit Reasons: OV PO LSG 09/05/23 Allergies No Known Allergies Allergy (Verified 07/18/24 14:13) Medication List - Last Reconciled 12/25/24 by EDGAR Law amlodipine 2.5 mg PO DAILY atorvastatin 20 mg PO DAILY Held on 12/27/23. Instructions: Resume on 01/03/24. calcium citrate 200 mg PO DAILY Held on 12/27/23. Instructions: Resume on 01/03/24. cyanocobalamin (vitamin B-12) (Vitamin B-12) 1,000 mcg PO DAILY Held on 12/27/23. Instructions: Resume on 01/03/24. fexofenadine (Magdalena Hives) 180 mg PO DAILY insulin aspart U-100 (Novolog U-100 Insulin aspart) 50 units subcut Q24H multivitamin (Daily Multi-Vitamin tablet) 1 tab PO DAILY omega 9-enl-hmi-fish oil 1,000 (120-180) mg (Fish Oil) 1 cap PO DAILY Held on 12/27/23. Instructions: Resume on 01/03/24. valsartan 20 mg PO DAILY vitamin B complex (B Complex-Vitamin B12 tablet) 1 tab PO DAILY Held on 12/27/23. Instructions: Resume on 01/03/24. HPI Comments Details: This?is a?68 yo female who is s/p diaphragmatic hernia repair 12/27/2023. Presents for 1 year post op visit. No complaints of nausea, emesis, abdominal pain or reflux, or constipation. Had to restart valsartan and amlodipine for elevated BP. Blood sugars- has insulin pump. She notes difficulty with weight gain and thinks it is related to her diabetes. She notes increasing blood sugar readings, so her insulin pump settings were increased; thought it might also be due to site - changed to thigh and now is experiencing lows. Came off PPI/carafate, no reflux. In contact with Dr Garland once a month. Present meal plan includes: Celebrate Rebuild 1 scoop x2 Celebrate bars x 1.5 2 meals per day started 5 forks chicken/fish and 5 forks veg/rice/potatoes Exercise- walks dog and started walking along, yoga and go back to golf [facility] Medical History Bleeding hemorrhoids Tubular adenoma of colon ANATOLY on CPAP Hx of sepsis (~2020) Insulin pump in place GERD (gastroesophageal reflux disease) Renal calculi Sleep apnea Fernley syndrome Diabetes Elevated cholesterol HTN (hypertension) Surgical History Status post repair of paraesophageal diaphragmatic hernia History of esophagogastroduodenoscopy (EGD) (02/02/23) Hx of cystoscopy H/O colonoscopy H/O bilateral cataract extraction Family History Maternal Grandmother Colostomy status Cancer Social History Household Members: None Housing: House Are you a primary before and after school daycare worker to a significant other at home: No Do you presently have visiting nurse or other home services: No 75 years or older and lives alone: No Alcohol intake: current Alcohol intake frequency: holidays/special occasions only Patient Tobacco Use Status: Former Tobacco user Tobacco use type: Cigarette service: No Assessment & Plan Assessment & Plan (1) Status post repair of paraesophageal diaphragmatic hernia: Code(s): Z98.890 - Other specified postprocedural states; Z87.19 - Personal history of other diseases of the digestive system Category: Surgical (2) Overweight: Code(s): E66.3 - Overweight Category: Medical (3) Hypertension: Code(s): I10 - Essential (primary) hypertension Category: Medical Plan Pt will continue same meal plan as above per Dr. Garland. She will discuss her insulin pump settings with endocrinology- she may not have been getting correct levels of insulin due to placement. Question whether this was contributing to weight gain. We did discuss that currently she has healthy body fat % and she was encouraged by this. RTC 6 mo for body composition assessment.
[2024-12-25 12:12] VITALS: BP 160/77; PULSE 77; TEMP 36.6; O2SAT 98; BMI 25.8
--- OUTSIDE RECORDS SUMMARY | 2024-12-25 15:17 | XMS_ITS | Clinical Summary ---
Author Organization [facility] Address [address] [place] [address] Phone Care Team Providers Care Bowl Sander Name Role Phone Elsi Callejas HAND SHAKER-C Primary Care Provider + Allergies Active Allergy Reactions Criticality Noted Date Comments Octacosanol Other (see comments) 02/07/2024 Medications NovoLOG 100 UNIT/ML solution 4 Active amLODIPine (NORVASC) 2.5 MG tablet Take by mouth 4 Active atorvastatin (LIPITOR) 20 MG tablet Take by mouth 3 Active Cyanocobalamin 1000 MCG capsule Take by mouth Active CALCIUM CITRATE PO Take by mouth 2 Active Multiple Vitamin (MULTIVITAMIN ADULT PO) Multivitamin Active fish oil-omega-3 fatty acids 1000 MG capsule Take by mouth Active valsartan (Diovan) 40 MG tablet Take 1 tablet (40 mg total) by mouth 1 (one) time each day 30 tablet 11 5 08/01/19 26 Active Active Problems Problem Noted Date Diagnosed [...] Sign Reading Time Taken Comments Blood Pressure 113/58 07/31/2024 1:34 PM EDT Pulse 87 07/31/2024 1:34 PM EDT Temperature - - Respiratory Rate - - Oxygen Saturation - - Inhaled Oxygen Concentration - - Weight 53.5 kg (118 lb) 02/07/2024 1:40 PM EST Height 154.9 cm (5' 1 ) 02/07/2024 1:40 PM EST Body Mass Index 22.3 02/07/2024 1:40 PM EST Plan of Treatment Upcoming Encounters Date Type Department Care Team (Late st Contact Info) Description 07/30/2025 1:45 PM EDT Office Visit [facility] [address] [place] [address] Iftikhar Jarvis MD [address] [id number] Health Maintenance Due Date Last Done Comments Breast Cancer Screening 1955 Pneumococcal Vaccine: 50+ Years (1 of 2 - PCV) 07/13/1974 Colorectal Cancer Screening: Annual FOBT 07/13/2004 Colorectal Cancer Screening: Colonoscopy 07/13/2004 Colorectal Cancer Screening: Sigmoidoscopy 07/13/2004 Diabetes: Hemoglobin A1C 01/15/2024 Diabetes: Ophthalmology Exam 01/15/2024 Diabetes: Pedal Pulse Checked 01/15/2024 Diabetes: Sensory Foot Exam 01/15/2024 Diabetes: Visual Foot Exam 01/15/2024 Influenza Vaccine (#1) 2024 0, 11/29/2018, 12/11/2017, Additional history exists Hepatitis B Vaccine Aged Out No longe r eligible based on patient's age to complete this topic Insurance Medicare [facility] Care Teams Bowl Sander Relationship Specialty Start Date End Date Elsi Callejas NP-C [address], [address] [place] [address] PCP - General Nurse Practitioner 02/07/24
--- OUTSIDE RECORDS SUMMARY | 2024-12-25 15:18 | XMS_ITS | Clinical Summary ---
Author Organization [facility] Address [address] [place] [address] Care Team Providers Care Retail Shift Manager Name Role Phone Elsi Callejas NP Primary Care Provider +1- [phone] Allergies No known active allergies Medications Medication [...] ADULT PO) Take by mouth. 0 Active Jackson-3 Fatty Acids (OMEGA-3 FISH OIL PO) Take [...] 83 11/06/2023 9:28 AM EDT Temperature 36.7 C (98 F) 11/06/2023 9:28 AM EDT Respiratory Rate - [...] 1 - PCV) 07/13/2020 Influenza Vaccine (#1) 2024 RSV Adult > 60+ Yrs or Pregn ant (1 - 1-dose 75+ series) 07/13/2030 Hepatitis B Vaccines Aged Out No long er eligible based on patient's age to complete this topic RSV Ped < 20 months Aged Out No longe r eligible based on patient's age to complete this topic Care Teams Retail Shift Manager Relationship Specialty Start Date End Date Elsi Callejas NP [address] [place] [address] PCP - General Family Medicine 10/18/22
--- OUTSIDE RECORDS SUMMARY | 2024-12-25 15:18 | XMS_ITS | Clinical Summary ---
Author Organization [facility] Address [address] [place] [address] Phone Care Team Providers Care Geochemical Laboratory Technician Name Role Phone Elsi Callejas NP Primary Care Provider +1- [phone] Allergies Active Allergy Reactions Criticality Noted Date Comments Octacosanol Other 02/07/2024 Medications NovoLOG U-100 Insulin aspart 100 unit/mL injection 4 Active amLODIPine (NORVASC) 2.5 mg tablet Take by mouth. 4 Active valsartan (DIOVAN) 40 mg tablet 5 Active atorvastatin (LIPITOR) 20 mg tablet Take by mouth. 3 Active cyanocobalamin, vitamin B-12, 1,000 mcg capsule Take by mouth. Activ e calcium citrate (CALCITRATE) 950 mg (200 mg elemental calcium) tablet Take 1 tablet (950 mg total) by mouth. Active multivit-min/fe rrous fumarate (MULTI VITAMIN ORAL) Take by mouth. Activ e docosahexaenoic acid/epa (FISH OIL ORAL) Take by mouth. Activ e fexofenadine (JOSH) 180 mg tablet Take 1 tablet (180 mg total) by mouth 1 (one) time each day. Active fluticasone propionate (FLONASE) 50 mcg/actuation nasal spray Administer 1 spray into each nostril 1 (one) time each day. Shake gently. Before first use, prime pump. After use, clean tip and replace cap. Active ferrous sulfate 324 mg (65 mg elemental iron) EC tablet Take 1 tablet (324 mg total) by mouth 1 (one) time each day with breakfast. Do not crush, chew, or split. 90 tablet 3 11/06/19 26 Active Encounters Date Type Department Care Team Description 11/05/2024 10:00 AM EDT Office Visit [facility] Hematology Oncology [address] [place] [address] Mena Wilkerson PA Iron deficiency anemia due to chronic blood loss (Primary Dx); Rectal bleeding; Stage 3a chronic kidney disease ([facility] V24, [facility] V28) from Last 3 Months Surgical History Surgery Date Site/Laterality Comments CATARACT EXTRACTION, BILATERAL PROCEDURE:CATARACT EXTRACTION, BILATERAL Medical History Medical History Date Comments Diabetes mellitus ([facility] V24, [facility] V28) DX:Diabetes mellitus (HCC) HLD (hyperlipidemia) DX:HLD [...] Sign Reading Time Taken Comments Blood Pressure 143/75 11/05/2024 9:52 AM EDT pt reports feeling very anxious Pulse 71 11/05/2024 9:52 AM EDT Temperature 36.8 C (98.2 F) 11/05/2024 9:52 AM EDT Respiratory Rate - - Oxygen Saturation 100% 11/05/2024 9:5 2 AM EDT Inhaled Oxygen Concentration - - Weight 63.5 kg (140 lb) 11/05/2024 9:52 AM EDT Height 156.2 cm (5' 1.5 ) 11/06/2023 9: 28 AM EDT Body Mass Index 26.02 11/06/2023 9:28 AM EDT Plan of Treatment Health Maintenance Due Date Last Done Comments Breast Cancer Screening 1955 Colorectal Cancer Screening: Colonoscopy 1955 Diabetes: Annual Foot Exam 07/13/1965 Diabetes: Annual Retina Eye Exam 07/13/1965 Cholesterol Screening (Lipid Panel) 03/28/2023 Falls Risk Assessment 03/28/2023 Hepatitis C Screening 03/28/2023 Medicare Annual Wellness Visit 03/28/2023 Osteoporosis Screening (Bone Density Screening) 03/28/2023 Social Influencers of Health Screening 03/28/2023 Depression Screening 02/28/2024 COVID-19 Vaccine ( season) 2024 11/29/2023, 11/28/2022, 12/25/2021, Additional history exists Influenza Vaccine (#1) 2024 , 11/28/2022, 12/25/2021, Additional history exists Diabetes: Annual Urine Albumin-Creatinine Ratio (uACR) 10/29/2024 Diabetes: Blood Sugar Control Test (HGBA1C) 10/29/2024 Diabetes: Annual GFR (Glomerular Filtration Rate) 10/29/2025 10/29/2024 Hypertension/CHF/CAD Annual BMP Blood Test 10/29/2025 10/29/2024 DTaP,Tdap,and Td Vaccines (2 - Td or Tdap) 07/18/2034 07/18/2024 RSV Immunization Adult Patients Completed 02/01/2024 Pneumococcal Vaccine: 50+ Years Completed 07/17/2024 Zoster Vaccines Completed 08/08/2024, 04/11/2024 HIB Vaccines Aged Out No longer eligi [...] to complete this topic RSV Immunization Patients Under 20 months Aged Out No longer eligible based on patient's age to complete this topic Varicella Vaccines Aged Out No longer eligible based on patient's age to complete this topic Procedures Procedure Name Priority Date/Time Associated Diagnosis Comments CBC WITH AUTO DIFFERENTIAL Routine 10/29/2024 11:49 AM EDT Anemia, unspecified IRON AND TIBC Routine 10/29/2024 11:49 AM EDT Anemia, unspecified FERRITIN Routine 10/29/2024 11:49 AM EDT Anemia, unspecified CBC AND DIFFERENTIAL Routine 10/29/2024 11:49 AM EDT Anemia, unspecified COMPREHENSIVE METABOLIC PANEL Routine 10/29/2024 11:49 AM EDT Anemia, unspecified from Last 3 Months Results * CBC auto differential (10/29/2024 11:49 AM EDT) WBC 6.6 4.8 - 10.8 K/mcL LAB HEMETOLOGY METHOD 10/29/2024 1:47 PM EDT [facility] RBC 4.00 3.80 - 4.80 M/mcL LAB HEMETOLOGY METHOD 10/29/2024 1:47 PM EDT [facility] Hemoglobin 12.9 11.5 - 16.0 g/dL LAB HEMETOLOGY METHOD 10/29/2024 1:47 PM EDT [facility] Hematocrit 39.5 35.0 - 47.0 % LAB HEMETOLOGY METHOD 10/29/2024 1:47 PM EDT [facility] MCV 97.8 79.0 - 98.0 FL LAB HEMETOLOGY METHOD 10/29/2024 1:47 PM EDT [facility] MCH 31.9 27.0 - 32.0 pcg LAB HEMETOLOGY METHOD 10/29[facility]24 [facility] MCHC 32.7 32.0 - 37.0 g/dL LAB HEMETOLOGY METHOD 10/29/2024 1:47 PM EDT [facility] RDW 12.4 11.0 - 15.0 % LAB HEMETOLOGY METHOD 10/29/2024 1:47 [facility] Platelets 279 130 - 400 K/mcL LAB HEMETOLOGY METHOD 10/29/2024 1:47 PM [facility] MPV 8.8 7.0 - 11.0 FL LAB HEMETOLOGY METHOD 10/29/2024 1:47 PM EDT [facility] NRBC 0.0 <1.0 % LAB HEMETOLOGY METHOD 10/29/2024 1:47 PM T [facility] NRBC Absolute 0.00 <0.10 K/mcL LAB HEMETOLOGY METHOD 10/29/2024 1:47 PM [facility] Neutrophils Relative 52.5 % LAB HEMETOLOGY METHOD 10/29/2024 1:47 PM [facility] Lymphocytes Relative 32.7 % LAB HEMETOLOGY METHOD 10/29/2024 1:47 PM [facility] Monocytes Relative 12.5 % LAB HEMETOLOGY METHOD 10/29/2024 1:47 PM [facility] Eosinophils Relative 1.4 % LAB HEMETOLOGY METHOD 10/29/2024 1:47 PM [facility] Basophils Relative 0.6 % LAB HEMETOLOGY METHOD 10/29/2024 1:47 PM [facility] Immature Granulocytes Relative 0.3 % LAB HEMETOLOGY METHOD 10/29/2024 1:47 PM [facility] Neutrophils Absolute 3.46 1.50 - 7.00 K/mcL LAB HEMETOLOGY METHOD 10/29/2024 1:47 PM [facility] Lymphocytes Absolute 2.15 1.00 - 5.00 K/mcL LAB HEMETOLOGY METHOD 10/29/2024 1:47 PM EDT [facility] Monocytes Absolute 0.82 0.20 - 1.00 K/[facility] LAB HEMETOLOGY METHOD 10/29/2024 1:47 PM EDT [facility] Eosinophils Absolute 0.09 0.00 - 0.50 K/[facility] LAB HEMETOLOGY METHOD 10/29/2024 1:47 PM EDT [facility] Basophils Absolute 0.04 0.00 - 0.20 K/[facility] LAB HEMETOLOGY METHOD 10/29/2024 1:47 PM EDT [facility] Immature Granulocytes Absolute 0.02 0.00 - 0.03 K/[facility] LAB HEMETOLOGY METHOD 10/29/2024 1:47 PM EDT [facility] Blood Venous blood specimen / Unknown Venipuncture / Unknown 10/29/2024 11:49 AM EDT 10/29/2024 1:36 PM EDT us Mena HERNÁNDEZ LAB BLOOD ORDERABLES Final Re sult [facility] [address] [place] [address], * Iron and TIBC (10/29/2024 11:49 AM EDT) Iron 138 40 - 150 mcg/dL LAB CHEMISTRY METHOD 10/29/2024 2:13 PM EDT [facility] TIBC 335 250 - 450 mcg/dL LAB CHEMISTRY METHOD 10/29/2024 2:13 PM EDT [facility] Iron Saturation 41 15 - 50 % LAB CHEMISTRY METHOD 10/29/2024 2:13 PM EDT [facility] Blood Venous blood specimen / Unknown Venipuncture / Unknown 10/29/2024 11:49 AM EDT 10/29/2024 1:36 PM EDT Mena HERNÁNDEZ LAB BLOOD ORDERABLES Final Re sult [facility] [address] [place] [address], [place] [phone] * Ferritin (10/29/2024 11:49 AM EDT) Ferritin 40 8 - 252 ng/mL LAB CHEMISTRY METHOD 10/29/2024 2:13 PM EDT [facility] Blood Venous blood specimen / Unknown Venipuncture / Unknown 10/29/2024 11:49 AM EDT 10/29/2024 1:36 PM EDT Mena HERNÁNDEZ LAB BLOOD ORDERABLES Final Re sult Performing Organization Address [facility]/ZIP Co de Phone Number [facility] [address] [place] [address], [place] [phone] * (ABNORMAL) Comprehensive metabolic panel (10/29/2024 11:49 AM EDT) Pathologist [facility] Sodium 142 133 - 145 mmol/L LAB CHEMISTRY METHOD 10/29/2024 2:13 PM [facility] Potassium 4.2 3.5 - 5.5 mmol/L LAB CHEMISTRY METHOD 10/29/2024 2:13 PM [facility] Chloride 107 96 - 110 mmol/L LAB CHEMISTRY METHOD 10/29/2024 2:13 PM T [facility] CO2 30 21 - 32 mmol/L LAB CHEMISTRY METHOD 10/29/2024 2:13 PM EDT [facility] Anion Gap 5 3 - 11 LAB CHEMISTRY METHOD 10/29/2024 2:13 PM [facility] Glucose 60(L) 70 - 100 mg/dL LAB CHEMISTRY METHOD 10/29/2024 2:13 PM [facility] BUN 30(H) 5 - 25 mg/dL LAB CHEMISTRY METHOD 10/29/2024 2:13 PM [facility] Creatinine 0.97 0.50 - 1.10 mg/dL LAB CHEMISTRY METHOD 10/29/2024 2:13 PM [facility] eGFR 63 >=60 mL/min/1. 73m2 LAB CHEMISTRY METHOD 10/29/2024 2:13 PM [facility] Comment:Calculation based on the Chronic Kidney Disease Epidemiology Collaboration (CKD-EPI) equation refit without adjustment for race. BUN/Creatinine Ratio 30.9 LAB CHEMISTRY METHOD 10/29/2024 2:13 PM [facility] Calcium 10.0 8.5 - 10.5 mg/dL LAB CHEMISTRY METHOD 10/29/2024 2:13 PM [facility] AST (SGOT) 34 10 - 42 unit/L LAB CHEMISTRY METHOD 10/29/2024 2:13 PM [facility] ALT (SGPT) 37 10 - 60 unit/L LAB CHEMISTRY METHOD 10/29/2024 2:13 PM [facility] Alkaline Phosphatase 82 42 - 121 unit/L LAB CHEMISTRY METHOD 10/29/2024 2:13 PM [facility] Total Protein 7.3 6.0 - 8.0 g/dL LAB CHEMISTRY METHOD 10/29/2024 2:13 PM [facility] Albumin 3.8 3.2 - 5.0 g/dL LAB CHEMISTRY METHOD 10/29/2024 2:13 PM [facility] Total Bilirubin 1.1 0.0 - 1.4 mg/dL LAB CHEMISTRY METHOD 10/29/2024 2:13 PM [facility] Blood Venous blood specimen / Unknown Venipuncture / Unknown 10/29/2024 11:49 AM EDT 10/29/2024 1:36 PM EDT Mena HERNÁNDEZ LAB BLOOD ORDERABLES Final Re sult [facility] [address] [place] [address], from Last 3 Months Insurance MEDICARE [facility] Care Teams Geochemical Laboratory Technician Relationship Specialty Start Date End Date Elsi Callejas NP [address] [place] [address] PCP - General Nurse Practitioner 10/29/24
--- OUTSIDE RECORDS SUMMARY | 2024-12-25 15:18 | XMS_ITS | Patient Health Record ---
[facility] Address [address] [place] [address] Care Team Providers Care Business Trainer Name Role Phone Elsi Callejas Primary Care Provider Sven Ely Unavailable [phone] Allergies Allergen (clinical drug ingredient) Drug/Non Drug Allergy documented on EMR Reaction Allergy Type Onset Date Status environmental (uncoded) Unknown Allergy Active Results Component Value Reference Range Notes HEMOGLOBIN A1C (GLYCOHEMOGLO BIN) Reviewed date:02/27/2024 03:55:45 PM Interpretation: Performing Lab: Notes/Report: HEMOGLOBIN A1C % (HH) 6.8 HEMOGLOBIN A1C (GLYCOHEMOGLO BIN) Reviewed date:05/01/2024 10:23:05 AM Interpretation: Performing Lab: Notes/Report: HEMOGLOBIN A1C % (HH) 7.1 HEMOGLOBIN A1C (GLYCOHEMOGLO BIN) Reviewed date:07/25/2024 09:26:34 AM Interpretation: Performing Lab: Notes/Report: HEMOGLOBIN A1C % (HH) 7.1 HEMOGLOBIN A1C (GLYCOHEMOGLO BIN) Reviewed date:10/17/2024 09:18:48 AM Interpretation: Performing Lab: Notes/Report: HEMOGLOBIN A1C % (HH) 7.3 Reason For Referral No Information Medications Medication SIG (Take, Route, Frequency, Duration) Notes Start Date End Date Status metFORMIN HCl 1000 MG 1 tablet with meal s Orally Twice a day Not-Taking Omeprazole Not-Takin g Zocor Not-Taking amLODIPine Besylate 5 MG 1 tablet Orally Once a day Active Insulin Admin Supplies Not-Taking Fish Oil Active Aspirin 81 MG 1 tablet Orally Once a day Not-Taking Calcium Citrate Acti ve Simvastatin 20 MG 1 tablet in the even ing Orally Once a day; Duration: 30 day(s) Not-Taking Atorvastatin Calcium 20 MG 1 tablet Orally Once a day Active Vitamin B 12 1000 mcg Not-Taking Valsartan-hydroCHLOROthi azide Not-Taking Extra Depth Orthopedic Shoes (1 Pair) with Customized Heat Molded Multidensity Innersoles (3 Pair) as directed Dx: IDDM/Polyneuropathy (E10.42), Hammertoe Foot Deformity (M20.41,M20.42), Preulcerative Skin Lesion(s) (L85.1) Active Losartan Potassium-HCTZ Not-Taking Vitamin B12 Active Glucophage Not-Takin g NovoLOG Active Diovan HCT Not-Takin g Multivitamin Active HumaLOG Not-Taking PriLOSEC Not-Taking Immunizations Vaccine Route Administration Date Status Comme nts Influenza Unknown 11/24/2014 Administered Influenza Unknown 11/10/2015 Administered Influenza Unknown 12/11/2016 Administered Influenza Unknown 12/11/2017 Administered Influenza Unknown 11/29/2018 Administered Influenza Unknown 12/24/2019 Administered Influenza Unknown 10/30/2023 Administered Pneumococcal Unknown 02/29/2024 Administered COVID-19 Pfizer BioNTech Vaccine Unknown 03/06/2020 Adm inistered #2 03/27/20 COVID-19 Pfizer BioNTech Vaccine Unknown 03/27/2020 Adm inistered Social History Tobacco Use: Social History Observation [...] Problem Acquired hammer toe of right foot ([id number] 5) Other hammer toe(s) (acquired), right foot (M20.41) Active confirmed Response to treatment, Improvement Problem Acquired hammer toe of left foot (305450817801910 3) Other hammer toe(s) (acquired), left foot (M20.42) Active confirmed Response to treatment, Improvement Problem Polyneuropathy due to diabetes mellitus type I ([id number]) Type 1 diabetes mellitus with diabetic polyneuropathy (E10.42) Active confirmed Vital Signs Blood pressure diastolic 71 mm Hg 10/17/2024 Height 5ft 1in in 10/17/2024 Blood pressure systolic 121 mm Hg 10/17/2024 Weight 128 lbs 10/17/2024 BMI 24.18 kg/m2 10/17/2024 Procedures Procedure Date Ordered Date Performed Result Body Sit e 75227-UAMDUVW NAIL, 6 OR MORE 01/31/2024 N/A 18467-TWDK SKIN LESIONS, OVER 4 01/31/2024 N/A 20495-QZLQEAF NAIL, 6 OR MORE 05/01/2024 N/A 45195-HTFO SKIN LESIONS, OVER 4 05/01/2024 N/A 60410-HTSYJLG NAIL, 6 OR MORE 07/25/2024 N/A 41936-AQVV SKIN LESIONS, OVER 4 07/25/2024 N/A 99148-EOYAXUW NAIL, 6 OR MORE 10/17/2024 N/A 46996-UXLF SKIN LESIONS, OVER 4 10/17/2024 N/A Encounters Encounter Location Date Provider Diagnosis [address] [address] 01/31/2024 Sven Hooper Type 1 diabetes mellitus with diabetic polyneuropathy E10.42 and Tinea unguium B35.[address] [address] 05/01/2024 Sven Hooper Type 1 diabetes mellitus with diabetic polyneuropathy E10.42 ; Tinea unguium B35.1 ; Other hammer toe(s) (acquired), right foot M20.41 and Other hammer toe(s) (acquired), left foot M20.[address] [address] 07/25/2024 Sven Hooper Tinea unguium B35.1 and Type 1 diabetes mellitus with diabetic polyneuropathy E10.[address] [address] 10/17/2024 Sven Hooper Tinea unguium B35.1 ; Type 1 diabetes mellitus with diabetic polyneuropathy E10.42 ; Other hammer toe(s) (acquired), right foot [...] mellitus with diabetic polyneuropathy (ICD-10 - E10.42) 07/25/2024 Tinea unguium (ICD-10 - B35.1) 07/25/2024 Type 1 diabetes mellitus with diabetic polyneuropathy (ICD-10 - E10.42) 10/17/2024 Tinea unguium (ICD-10 - B35.1) 10/17/2024 Type 1 diabetes mellitus with diabetic polyneuropathy (ICD-10 - E10.42) 05/01/2024 Other hammer toe(s) (acquired), right foot (ICD-10 - M20.41) Patient Educated with: DIABETIC FOOT CARE INSTRUCTIONS. pdf (DIABETIC FOOT CARE INSTRUCTIONS. pdf) 10/17/2024 Other hammer toe(s) (acquired), right foot (ICD-10 - M20.41) Response to treatment, Improvement 10/17/2024 Other hammer toe(s) (acquired), left foot (ICD-10 - M20.42) Response to treatment, Improvement 05/01/2024 Other hammer toe(s) (acquired), left foot (ICD-10 - M20.42) Plan Of Treatment Pending Test Test Name Order Date Hemoglobin A1c 03/01/2018 84203-NELGBRT NAIL, 6 OR MORE 10/17/2024 41393-PESFRLA NAIL, 6 OR MORE 05/01/2024 24638-ZULUBKD NAIL, 6 OR MORE 07/25/2024 04201-REGLXYK NAIL, 6 OR MORE 08/25/2022 95125-WTNJOAW NAIL, 6 OR MORE 11/16/2022 96699-PGYWOKT NAIL, 6 OR MORE 01/25/2023 22648-VFJOCBQ NAIL, 6 OR MORE 04/06/2023 75304-LEQYMVQ NAIL, 6 OR MORE 06/14/2023 42252-BDDBRIR NAIL, 6 OR MORE 08/21/2023 10762-TERUMBI NAIL, 6 OR MORE 11/01/2023 47771-MIVQRPX NAIL, 6 OR MORE 01/31/2024 95367-CHPDJNV NAIL, 6 OR MORE 02/11/2019 18031-OCRDEKO NAIL, 6 OR MORE 04/22/2019 28765-ZTUBPMC NAIL, 6 OR MORE 07/24/2019 26566-RMQBJRW NAIL, 6 OR MORE 10/07/2019 36129-MKMYNNO NAIL, 6 OR MORE 03/09/2020 95391-JWWAYZQ NAIL, 6 OR MORE 05/18/2020 17835-VRXCHEP NAIL, 6 OR MORE 07/20/2020 20368-BUZJHDB NAIL, 6 OR MORE 10/14/2020 98206-BMERXET NAIL, 6 OR MORE 12/23/2020 75347-OZWNPIZ NAIL, 6 OR MORE 03/17/2021 44736-QFUWDOT NAIL, 6 OR MORE 06/02/2021 34930-PMYLQYS NAIL, 6 OR MORE 08/16/2021 40363-GCLWJLU NAIL, 6 OR MORE 10/27/2021 03015-DFMDSSW NAIL, 6 OR MORE 01/12/2022 95470-BBMOOSA NAIL, 6 OR MORE 03/24/2022 29103-CUHTZIJ NAIL, 6 OR MORE 06/15/2022 79262-JCQPBVZ NAIL, 6 OR MORE 10/25/2010 50690-YLTSFIE NAIL, 6 OR MORE 01/10/2011 53213-QNUTXIS NAIL, 6 OR MORE 03/28/2011 93926-UIHRQJD NAIL, 6 OR MORE 06/27/2011 69090-OGGKQFX NAIL, 6 OR MORE 09/19/2011 03456-FQTJHXT NAIL, 6 OR MORE 12/12/2011 29933-QQLYBUF NAIL, 6 OR MORE 03/21/2012 89318-ZVQWQUS NAIL, 6 OR MORE 07/09/2012 70308-ZWYFKJH NAIL, 6 OR MORE 11/19/2012 10198-WNJKTQV NAIL, 6 OR MORE 03/04/2013 86303-QNHLKVH NAIL, 6 OR MORE 06/03/2013 89410-IFQFUQE NAIL, 6 OR MORE 09/02/2013 14406-XTCQCHL NAIL, 6 OR MORE 11/27/2013 06619-VACROGN NAIL, 6 OR MORE 03/05/2014 65704-PWJSJIU NAIL, 6 OR MORE 06/18/2014 87717-YUKTXMB NAIL, 6 OR MORE 09/10/2014 83601-MYRUTKT NAIL, 6 OR MORE 12/17/2014 16014-TEINYJJ NAIL, 6 OR MORE 03/18/2015 04297-TZOLTBH NAIL, 6 OR MORE 06/11/2015 60341-UIXLMLQ NAIL, 6 OR MORE 09/28/2015 70235-FWXSGNA NAIL, 6 OR MORE 12/30/2015 59383-EODSLRT NAIL, 6 OR MORE 04/04/2016 16398-UCCNJXH NAIL, 6 OR MORE 07/04/2016 31544-RHTJRJQ NAIL, 6 OR MORE 10/06/2016 79549-KZPIXTG NAIL, 6 OR MORE 12/28/2016 64308-IWHKKNZ NAIL, 6 OR MORE 03/22/2017 47707-ZRYOCTP NAIL, 6 OR MORE 06/08/2017 06853-WRRWVZJ NAIL, 6 OR MORE 08/24/2017 03188-JLBURKS NAIL, 6 OR MORE 11/15/2017 82677-MBLZZLK NAIL, 6 OR MORE 01/31/2018 74341-WPMYXOC NAIL, 6 OR MORE 04/23/2018 33945-TBDMNRT NAIL, 6 OR MORE 07/11/2018 10697-HILGFLX NAIL, 6 OR MORE 09/24/2018 59028-TPTLLKB NAIL, 6 OR MORE 12/03/2018 25920-Meitibdn Plate 04/06/2023 75210-ADUV SKIN LESIONS, OVER 4 10/18/19 25 32290-JQMI SKIN LESIONS, OVER 4 07/26/19 25 82028-USLH SKIN LESIONS, OVER 4 05/02/19 25 98797-MECZ SKIN LESIONS, OVER 4 01/31/20 24 18888-AMBO SKIN LESIONS, OVER 4 11/01/19 24 99535-YDYD SKIN LESIONS, OVER 4 08/21/19 24 50452-XGQI SKIN LESIONS, OVER 4 06/14/19 24 92961-BDRS SKIN LESIONS, OVER 4 04/06/19 24 70787-MXDH SKIN LESIONS, OVER 4 01/26/20 23 50542-JVRU SKIN LESIONS, OVER 4 11/17/19 23 39762-SCDC SKIN LESIONS, OVER 4 08/26/19 26927-IOQA SKIN LESIONS, OVER 4 06/16/19 54058-PJWM SKIN LESIONS, OVER 4 03/24/19 50772-WQCI SKIN LESIONS, OVER 4 01/13/20 30583-HVPB SKIN LESIONS, OVER 4 10/28/19 73418-FHQN SKIN LESIONS, OVER 4 08/17/19 34966-IOFQ SKIN LESIONS, OVER 4 06/03/19 36891-VCKW SKIN LESIONS, OVER 4 03/17/19 62227-RETZ SKIN LESIONS, OVER 4 12/24/19 38234-PMBA SKIN LESIONS, OVER 4 10/15/19 38630-FFAB SKIN LESIONS, OVER 4 07/21/19 31487-MWQN SKIN LESIONS, OVER 4 05/19/19 37370-PLUX SKIN LESIONS, OVER 4 03/09/19 48495-YBVA SKIN LESIONS, OVER 4 10/07/19 10103-OUSJ SKIN LESIONS, OVER 4 07/24/19 71195-YMAP SKIN LESIONS, OVER 4 04/22/19 36030-CVOC SKIN LESIONS, OVER 4 02/12/20 19 61247-KWOI SKIN LESIONS, OVER 4 12/04/19 19 89818-ZDVG SKIN LESIONS, OVER 4 09/25/19 19 49120-KNXW SKIN LESIONS, OVER 4 07/12/19 19 23979-YXFZ SKIN LESIONS, OVER 4 04/23/19 19 62668-AJFU SKIN LESIONS, OVER 4 02/01/20 18 20006-DSXS SKIN LESIONS, OVER 4 11/16/19 18 50585-CIFU SKIN LESIONS, OVER 4 08/25/19 18 43944-OAKI SKIN LESIONS, OVER 4 06/09/19 18 35724-SEBW SKIN LESIONS, OVER 4 03/22/19 18 47600-PMVH SKIN LESIONS, OVER 4 12/29/19 17 39907-PBIT SKIN LESIONS, OVER 4 10/07/19 17 40849-ZXAT SKIN LESIONS, OVER 4 04/04/19 17 29971-IXFR SKIN LESIONS, OVER 4 07/05/19 17 99738-EJAO SKIN LESIONS, OVER 4 12/30/19 16 38792-RAHC SKIN LESIONS, OVER 4 09/28/19 16 57810-DAUQ SKIN LESIONS, OVER 4 03/18/19 16 44294-NVRW SKIN LESIONS, OVER 4 04/14/20 16 67558-FHYO SKIN LESIONS, OVER 4 12/18/19 15 22992-CMBA SKIN LESIONS, OVER 4 09/11/19 15 55809-IVMM SKIN LESIONS, OVER 4 06/19/19 15 48258-YVTO SKIN LESIONS, OVER 4 03/05/19 15 51389-OOPO SKIN LESIONS, OVER 4 11/28/19 14 98514-UNYJ SKIN LESIONS, OVER 4 09/03/19 14 09040-MDSO SKIN LESIONS, 2 TO 4 06/04/19 14 15452-WUOJ SKIN LESIONS, 2 TO 4 03/04/19 14 91219-SFQS SKIN LESIONS, 2 TO 4 11/20/19 13 08724-RCFX SKIN LESIONS, 2 TO 4 07/10/19 13 90933-JXWG SKIN LESIONS, 2 TO 4 03/21/19 13 25031-PUUW SKIN LESIONS, 2 TO 4 12/12/19 12 53363-KYVZ SKIN LESIONS, 2 TO 4 09/19/19 12 82579-EKSE SKIN LESIONS, 2 TO 4 06/27/19 12 53565-BSYK SKIN LESIONS, 2 TO 4 03/28/19 12 19279-EOWU SKIN LESIONS, 2 TO 4 01/11/20 11 08421-RDTV SKIN LESIONS, 2 TO 4 10/26/19 11 44987, Q7478-XGLGZ/INJECT, JOINT/BURSA 1 Next Appt Details Provider Name:Sven Montejo Rufus , 01/29/2025 01:30:00 PM, [address] [facility], [address], [place], [address], Insurance Providers Payer Name Payer Address Payer Phone Subscriber Number Group Number Insured Name Patient Relationship to Insured Coverage Start Date Coverage End Date Medicare National [employer] [address] [place] [address] [id number] Betty Mclain Self - patient is the insured [facility] [address] [facility] [place] [address] [id number] [id number] Mclain Self - patient is the insured Medical (General) History Medical History History ICD Code broken bones Diabetic hyperlipidemia hypertension sleep apnea Reflux Surgical History Surgery Date(Month/Year) finger 11/10 endoscopy 01/2023 hiatal hernia 01/05/24 Hospitalization History Reason Date(Month/Year) [facility]- hiatal hernia surgery, dehydration, dialysis 01/05/24 [facility] Admitted for kidney stone 06/13/20 [facility]- Finger surgery/cyst 11/10
--- OUTSIDE RECORDS SUMMARY | 2024-12-25 15:18 | XMS_ITS | Continuity of Care Document ---
Author Organization [facility] Address [address] [facility] [address] [place] [address] Phone [phone] Care Team Providers Care Burr Bench Operator Name Role Phone Daniel Burrell M.D. Care Team Information Receiv er [phone] Elsi Callejas N.P. 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 03/31/2022 Vitamin [id number] Tablets ER 1 by mouth every day Rain Monsalve M.D. 09/16/2021 Calcium Citrate +Tablets 600mg qd Rain Monsalve M.D. 09/16/2021 Multivitamin AdultTablets 1 qd Rain Monsalve M.D. 09/16/2021 Accu-Chek Guide TestStrips Use 1 Test Strip Up To 3 Times Daily For Testing Blood Sugars 300units E11.8 Rain Monsalve M.D. 09/14/2021 Xvotvnb183Ovnu/ML Solution Inject 50 Units Every Day With Pump 50ml E10.40 Rain Monsalve M.D. Accu-Chek Fastclix LancetsMisc Use 1 Lancet Onto The Skin 3 Times Daily 306units E10.40 Rain Monsalve M.D. Amlodipine Besylate2.5mg Tablets 1 by mouth every day Unknown [id number] Tablets Take 1 Tablet By Mouth 1 Time Each Day. Iftikhar Jarvis MD Vital Signs Date Vital Result Comment 10/09/2024 8:38am BP Systolic 120 mmHg BP Diastolic 64 mmHg Heart Rate 83 /min Height 61 inches 5'1 Weight 131.50 lb BMI (Body Mass Index) 24.8 kg/m2 Results Test Acquired Date Facility Test Result H/L Range Note Hemoglobin A1c 10/09/2024 Inhouse Hemoglobin A1c 7.3% Glucose Fingerstick 10/09/2024 Inhouse Glucose Fingerstick 157 Glucose Fingerstick 07/09/2024 Inhouse Glucose Fingerstick 122 Hemoglobin A1c 07/09/2024 Inhouse Hemoglobin A1c 7.1% Albumin/Creatinin e Ratio, Random Urine 04/08/2024 [facility] Creatinine, Urine 17.3 mg/dL Not Estab. Albumin, Urine <3.0 ug/mL Not Estab. Alb/Creat Ratio <17 mg/gcreat 0-29 1 Glucose Fingerstick 04/08/2024 Inhouse Glucose Fingerstick 132 Glucose Fingerstick 10/04/2023 Inhouse Glucose Fingerstick 132 Hemoglobin A1c 10/04/2023 Inhouse Hemoglobin A1c 6.8% Glucose Fingerstick 07/07/2023 Inhouse Glucose Fingerstick 145 Hemoglobin A1c 07/07/2023 Inhouse Hemoglobin A1c 7.1% Urinary Microalbumin 04/10/2023 [facility] Micro-Albumin <12.0 mg/L (<20) 2 Malb/Creat Ratio Unable t o calcul <SEE NOTE> MG/GM (0-20) 3 Urine Creat For Micro Albumin 57.3 mg/dL Glucose Fingerstick 04/10/2023 Inhouse Glucose Fingerstick 203 Hemoglobin A1c 04/10/2023 Inhouse Hemoglobin A1c 7.0% Hemoglobin A1c 01/05/2023 Inhouse Hemoglobin A1c 7.3% Glucose Fingerstick 01/05/2023 Inhouse Glucose Fingerstick 111 Glucose Fingerstick 09/30/2022 Inhouse Glucose Fingerstick 232 Hemoglobin A1c 09/30/2022 Inhouse Hemoglobin A1c 7.3% Comprehensive Metabolic Panl 07/06/2022 [facility] Glucose 167 mg/dL High [...] 58 ML/MIN/1. 73M2 4 Lipid Panel 07/06/2022 [facility] Cholesterol, Total 156 mg/dL (<200) Triglyceride 80 mg/dL (<150) HDL Chol 69 mg/dL (>39) LDL Cholesterol , Calculated 71 mg/dL (0-130) Non HDL Cholesterol (Calc) 87 mg/dL (<160) Complete Abc With Diff 07/06/2022 [facility] WBC 6.6 K/MM3 (4.0-11. [...] ) Lymph # 2.5 K/MM3 (0.8-3.1 ) [place]# 0.8 K/MM3 (0.4-0.9 ) Eo # 0.4 [...] and sex. Procedures Date Code Description Status 10/09/2024 70797 Glucose Monitoring Interpeta tion And Report Completed 07/09/2024 55759 Glucose Monitoring Interpeta tion And Report Completed 04/08/2024 03213 Glucose Monitoring Interpeta tion And Report Completed 02/01/2024 26604 Glucose Monitoring Interpeta tion And Report Completed 10/04/2023 74733 Glucose Monitoring Interpeta tion And Report Completed 07/07/2023 85574 Glucose Monitoring Interpeta tion And Report Completed 04/10/2023 14185 Glucose Monitoring Interpeta tion And Report Completed 01/05/2023 42983 Glucose Monitoring Interpeta tion And Report Completed 09/30/2022 71428 Glucose Monitoring Interpeta tion And Report Completed 06/29/2022 00500 Glucose Monitoring Interpeta tion And Report Completed 03/31/2022 69780 Glucose Monitoring Interpeta tion And Report Completed 01/03/2022 80646 Glucose Monitoring Interpeta tion And Report Completed Medical Devices Description No Information Available Encounters Type Date Location Provider Dx Diagnosis Office Visit 10/09/2024 8:30a Main Office Rain Monsalve M.D. 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 10/09/2024 E10.3293 Type 1 diabetes mellitus with nonproliferative diabetic retinopathy NOS Rain Monsalve M.D. 10/09/2024 E78.00 Pure hypercholes terolemia, unspecified Rain Monsalve M.D. 10/09/2024 Z96.41 Presence of insu sylvie pump (external) (internal) Rain Monsalve M.D. 10/09/2024 I10 Essential (primary) hyperten selwyn Rain Monsalve M.D. 10/09/2024 M85.80 Other specified disorders of bone density and structure, unspecified site Rain Monsalve M.D. Plan of Treatment Future Appointment(s):* 04/15/2025 8:45 am - Rain Monsalve M.D. at Main Office * 01/09/2025 10:15 am - Rain Monsalve M.D. at Main [...]
== END 2024-12-25 13:11 | disposition home or self-care (01) ==
LOC: HO.HBS 11:54
PROVIDERS: PCP Nurse Practitioner Primary Care; Visit Provider Physician Assistant Surgical
DX: E66.3 Overweight (principal); Z68.25 Body mass index [BMI] 25.0-25.9, adult; I10 Essential (primary) hypertension; Z98.890 Other specified postprocedural states; Z87.19 Personal history of other diseases of the digestive system; Z90.3 Acquired absence of stomach [part of]; Z98.84 Bariatric surgery status
CPT/HCPCS: 99213; G2211